=== PATIENT | male | born 1960 | race Caucasian/White ===

== ENCOUNTER 2020-07-14 13:22 | Outpatient (REF) | payer OTHER, SELFPAY ==
--- NOTE | 2020-07-14 | US_ITS ---
EXAMINATION: US RETROPERITONEAL LIMITED (RENAL ONLY) CLINICAL INFORMATION: Complex renal cyst. COMPARISON: Previous abdominal ultrasound November 2018, renal ultrasound March 2018, CT of the abdomen and pelvis February 2017 and abdominal MRI January 2016 TECHNIQUE: Grayscale and color imaging of the kidneys FINDINGS: RIGHT KIDNEY: 13.4 x 5.5 x 5.5 cm (SAG x AP x TRV). The kidney is normal in size, contour, and echogenicity. Renal cortical thickness is normal. There is a hypoechoic lesion exophytic to the lower pole of the right kidney. This is slightly irregularly-shaped and difficult to visualize and measure by ultrasound. This demonstrates some vascularity. Appearance is suggestive of a mass and not a complex cyst. This measures 3.2 x 2.2 x 2.4 cm. This may be increased in size from previous exams. No calculi. No hydronephrosis. LEFT KIDNEY: 12.8 x 5.6 x 6.2 cm (SAG x AP x TRV). The kidney is normal in size, contour, and echogenicity. Renal cortical thickness is normal. There is a small cyst in the upper pole measuring 6 x 8 mm. There is an echogenic density in the midpole with twinkle artifact and acoustic shadowing suggestive of a stone.. No hydronephrosis. US/US renal BI IMPRESSION: Hypoechoic lesion with some vascularity exophytic to the lower pole of the right kidney suggestive of a mass. This measures approximately 3.2 x 2.2 x 2.4 cm and may be increased size from previous exams. Follow-up CT or MRI of the kidneys is recommended. Left renal stone. Small left renal cyst. Findings will be communicated by the [employer] work flow curling machine operator Jennifer Rivera.
== END 2020-07-14 13:23 | disposition home or self-care (01) ==
LOC: HO.US 13:22
PROVIDERS: PCP Internal Medicine; Visit Provider Urology
DX: N28.1 Cyst of kidney, acquired (principal)
CPT/HCPCS: 76775

== ENCOUNTER 2020-07-18 07:59 | Outpatient (REF) | payer OTHER, SELFPAY ==
[2020-07-18 11:25] LABS: MANUAL DIFF FLAG NO
[2020-07-18 11:44] LABS: Basophils Absolute Auto 0.1 X10*3/uL (0.0-0.2); Basophils Percent Auto 1.1 % (0-2); Eosinophils Absolute Auto 0.4 X10*3/uL (0.0-0.4); Eosinophils Percent Auto 5.6 % (0-4); Hematocrit 41.7 % (42-52); Hemoglobin 12.3 g/dl (14.0-18.0); Imm Gran Abs Auto 0.03 X10*3/uL (0.00-0.03); Imm Gran Pct Auto 0.4 % (0.0-0.4); Lymphocytes Absolute Auto 1.5 X10*3/uL (1.2-4.9); Lymphocytes Percent Auto 21.8 % (20-40); Mean Corpuscular HGB Conc 29.5 g/dl (31.0-36.0); Mean Corpuscular Hemoglobin 24.2 pg (27.0-33.0); Mean Corpuscular Volume 82.1 fL (80-98); Mean Platelet Volume 10.3 fL (9.4-12.4); Monocytes Absolute Auto 0.7 X10*3/uL (0.1-1.2); Monocytes Percent Auto 9.6 % (2-11); Neutrophils Absolute Auto 4.3 X10*3/uL (2.0-8.3); Neutrophils Percent Auto 61.5 % (45-73); Platelet Count 214 X10*3/uL (160-400); Red Blood Count 5.08 X10*6/uL (4.60-5.80); Red Cell Distribution Width 14.1 % (11.0-16.0)
[2020-07-18 11:47] LABS: Prothrombin Time 11.3 SEC (10.8-13.0)
[2020-07-18 11:57] LABS: B Type Natriuretic Peptide 75 pg/mL (<100)
[2020-07-18 12:03] LABS: Blood Urea Nitrogen 9 mg/dL (9-16); Estimated Glomerular Filt Rate > 60
== END 2020-07-18 08:00 | disposition home or self-care (01) ==
LOC: HO.HMGCLDS 07:59
PROVIDERS: Absent Provider Urology; PCP Internal Medicine; Visit Provider Internal Medicine
DX: Z01.818 Encounter for other preprocedural examination (principal); K74.60 Unspecified cirrhosis of liver; I48.0 Paroxysmal atrial fibrillation; N26.1 Atrophy of kidney (terminal); N28.1 Cyst of kidney, acquired
CPT/HCPCS: 36415; 82565; 83880; 84520; 85025; 85610

== ENCOUNTER 2020-07-21 14:00 | Outpatient (REF) | payer OTHER, SELFPAY ==
--- NOTE | 2020-07-21 14:03 | MR_ITS ---
EXAMINATION: MR ABDOMEN WITHOUT AND WITH CONTRAST CLINICAL INFORMATION: Kidney cyst COMPARISON: Previous renal ultrasound most recent June 2020, CT of the abdomen and pelvis most recent February 2017 and MR of the abdomen January 2016 TECHNIQUE: MR abdomen was performed without and with use of 9 mL intravenous Gadavist gadolinium contrast. Postcontrast images are performed in multiphase dynamic sequences. Imaging was performed in 3 planes. FINDINGS: LUNG BASES: There is abnormal signal at the left lung base. Part of this triangular in shape. There is a small focus of oval shaped bright T2 signal along the diaphragmatic pleural surface. This is is not seen on all sequences and difficult to characterize. LIVER, GALLBLADDER, AND BILIARY TREE: There is signal loss in the liver on out of phase sequences suggestive of fatty infiltration. The left lobe and caudate lobe of the liver are prominent questionable for mild cirrhotic change. There is a small peripheral dark on T1 and bright on T2-weighted sequences nonenhancing lesion in the right lobe of the liver probably representing a cyst. There are multiple gallstones in the gallbladder. There is no biliary duct dilatation. There is a trace amount of ascites seen around the liver. PANCREAS: Unremarkable. SPLEEN: The spleen is slightly enlarged measuring measuring 13 cm in length. ADRENAL GLANDS: Normal. KIDNEYS AND URETERS: There is a lesion in the lower pole of the right kidney. This is low signal on T1-weighted sequences, slightly heterogeneous on T2-weighted sequences. This demonstrates enhancement following contrast suggestive of a solid mass.. This measures 1.8 x 1.4 x 2.2 cm AP transverse and longitudinal dimension. There is a second questionable lesion in the upper pole of the right kidney. This measures 7 mm. This is not well seen on precontrast images. This demonstrates questionable mild enhancement for example axial image 19 postcontrast There are bilateral small simple appearing renal cysts. GASTROINTESTINAL TRACT: There is diverticulosis of the colon. ABDOMINAL WALL: No significant hernia is appreciated. LYMPH NODES: There are small retroperitoneal lymph nodes. No enlarged nodes are seen. VASCULAR: There are small upper abdominal varices. Vascular structures are otherwise unremarkable. OSSEOUS STRUCTURES: Marrow signal normal. MR/MR abdomen wo/w con IMPRESSION: 1.8 x 1.4 x 2.2 cm solid enhancing lesion in the lower pole of the right kidney suggestive of a mass. 0.7 cm indeterminate lesion in the upper pole of the right kidney that is appreciated on postcontrast sequences only and difficult to characterize. Bilateral small renal simple cysts. Hypertrophy of the left lobe and caudate lobe of the liver suggestive of mild cirrhosis. Splenomegaly, trace ascites and upper abdominal varices. Gallstones. Abnormal signal at the left lung base. Diverticulosis of the colon.
== END 2020-07-21 14:01 | disposition home or self-care (01) ==
LOC: HO.MRI 14:00
PROVIDERS: Visit Provider Urology
DX: N28.1 Cyst of kidney, acquired (principal)
CPT/HCPCS: 74183; A9585

== ENCOUNTER → 2020-07-28 15:33 | Outpatient (BNVA) | payer OTHER, SELFPAY | PROVIDERS: PCP Internal Medicine; Visit Provider Anesthesiology ==

== ENCOUNTER 2021-10-12 11:42 | Outpatient (REF) | payer OTHER, SELFPAY ==
[2021-10-12 12:41] LABS: Alanine Aminotransferase 14 U/L (0-40); Alkaline Phosphatase 79 U/L (39-117); Anion Gap 13 (12-20); Aspartate Amino Transferase 18 U/L (5-37); Bilirubin Direct 0.2 mg/dL (0.0-0.5); Bilirubin Total 0.6 mg/dL (0.0-1.0); Blood Urea Nitrogen 16 mg/dL (9-16); Calcium 9.7 mg/dL (8.4-10.2); Carbon Dioxide 27 mmol/L (22-29); Chloride 105 mmol/L (96-108); Estimated Glomerular Filt Rate > 60; Glucose Random 118 mg/dL (60-115); Potassium 4.6 mmol/L (3.3-5.1); Sodium 140 mmol/L (135-145); Total Protein 7.2 g/dL (6.5-8.0)
== END 2021-10-12 11:43 | disposition home or self-care (01) ==
LOC: HO.LAB 11:42
PROVIDERS: PCP Internal Medicine; Visit Provider Psychiatry & Neurology Psychiatry
DX: F31.2 Bipolar disorder, current episode manic severe with psychotic features (principal)
CPT/HCPCS: 36415; 80048; 80076

== ENCOUNTER 2022-04-20 12:07 | Outpatient (REF) | payer OTHER, SELFPAY ==
[2022-04-20 14:02] LABS: MANUAL DIFF FLAG NO
[2022-04-20 14:10] LABS: Basophils Absolute Auto 0.1 X10*3/uL (0.0-0.2); Basophils Percent Auto 0.6 % (0-2); Eosinophils Absolute Auto 0.1 X10*3/uL (0.0-0.4); Eosinophils Percent Auto 1.8 % (0-4); Hematocrit 49.1 % (42.0-52.0); Hemoglobin 15.8 g/dl (14.0-18.0); Imm Gran Abs Auto 0.03 X10*3/uL (0.00-0.03); Imm Gran Pct Auto 0.4 % (0.0-0.4); Lymphocytes Absolute Auto 1.1 X10*3/uL (1.2-4.9); Lymphocytes Percent Auto 14.1 % (20-40); Mean Corpuscular HGB Conc 32.2 g/dl (31.0-36.0); Mean Corpuscular Hemoglobin 28.4 pg (27.0-33.0); Mean Corpuscular Volume 88.3 fL (80.0-98.0); Mean Platelet Volume 10.2 fL (9.4-12.4); Monocytes Absolute Auto 0.5 X10*3/uL (0.1-1.2); Monocytes Percent Auto 6.4 % (2-11); Neutrophils Absolute Auto 6.1 x10*3/uL (2.0-8.3); Neutrophils Percent Auto 76.7 % (45-73); Platelet Count 250 X10*3/uL (160-400); Red Blood Count 5.56 X10*6/uL (4.60-5.80); Red Cell Distribution Width 13.3 % (11.0-16.0)
[2022-04-20 14:19] LABS: Alanine Aminotransferase 12 U/L (0-40); Albumin Level 4.5 g/dL (3.5-5.0); Alkaline Phosphatase 95 U/L (39-117); Anion Gap 15 (12-20); Aspartate Amino Transferase 17 U/L (5-37); Bilirubin Total 0.6 mg/dL (0.0-1.0); Blood Urea Nitrogen 12 mg/dL (9-16); Calcium 9.9 mg/dL (8.4-10.2); Carbon Dioxide 26 mmol/L (22-29); Chloride 105 mmol/L (96-108); Estimated Glomerular Filt Rate > 60; Glucose Random 108 mg/dL (60-115); Potassium 4.2 mmol/L (3.3-5.1); Sodium 142 mmol/L (135-145); Total Protein 8.1 g/dL (6.5-8.0)
[2022-04-20 14:42] LABS: TSH reflex Free T4 0.99 uIU/mL (0.32-4.0)
[2022-04-20 14:56] LABS: Vitamin B12 881 pg/mL (200-900)
[2022-04-21 16:27] LABS: LDL Cholesterol Direct 136 mg/dL (<100)
[2022-04-24 16:37] LABS: Vitamin D 25-OH, D2 <4 ng/mL; Vitamin D 25-OH, D3 32 ng/mL; Vitamin D 25-OH, Total 32 ng/mL (30-100)
== END 2022-04-20 12:08 | disposition home or self-care (01) ==
LOC: HO.HMGCLDS 12:07
PROVIDERS: PCP Internal Medicine; Visit Provider Internal Medicine
DX: Z00.01 Encounter for general adult medical examination with abnormal findings (principal); K74.60 Unspecified cirrhosis of liver; K21.9 Gastro-esophageal reflux disease without esophagitis; J45.909 Unspecified asthma, uncomplicated; F99 Mental disorder, not otherwise specified; Z72.0 Tobacco use
CPT/HCPCS: 36415; 80053; 82306; 82607; 83721; 84443; 85025

== ENCOUNTER 2022-05-05 16:04 | Outpatient (REF) | payer OTHER, SELFPAY ==
[2022-05-06 06:54] LABS: Prothrombin Time 11.9 SEC (10.0-13.1)
== END 2022-05-05 16:05 | disposition home or self-care (01) ==
LOC: HO.LAB 16:04
PROVIDERS: Visit Provider Internal Medicine
DX: K70.31 Alcoholic cirrhosis of liver with ascites (principal)
CPT/HCPCS: 36415; 82105; 85610

== ENCOUNTER 2022-05-24 13:12 | Outpatient (REF) | payer OTHER, SELFPAY ==
[2022-05-24 15:54] LABS: Anion Gap 13 (12-20); Blood Urea Nitrogen 9 mg/dL (9-16); Calcium 9.8 mg/dL (8.4-10.2); Carbon Dioxide 27 mmol/L (22-29); Chloride 101 mmol/L (96-108); Cholesterol 192 mg/dL; Estimated Glomerular Filt Rate > 60; Glucose Fasting 88 mg/dL (60-99); Glucose Random 88 mg/dL (60-115); HDL Cholesterol 40 mg/dL; LDL Cholesterol Calculated 121 mg/dl; Potassium 4.2 mmol/L (3.3-5.1); Sodium 137 mmol/L (135-145); Triglycerides 158 mg/dL
== END 2022-05-24 13:13 | disposition home or self-care (01) ==
LOC: HO.LAB 13:12
PROVIDERS: PCP Internal Medicine; Visit Provider Psychiatry & Neurology Psychiatry
DX: F31.2 Bipolar disorder, current episode manic severe with psychotic features (principal)
CPT/HCPCS: 36415; 80048; 80061; 82947

== ENCOUNTER 2022-05-24 13:28 | Day surgery (SDC) | payer OTHER, SELFPAY ==
[2022-05-24 13:39] VITALS: BMI 29.5
[2022-05-24 13:50] VITALS: BP 155/69; PULSE 67; RESP 16; TEMP 36.8; O2SAT 98
[2022-05-24] MEDS: Sodium Phosphate,Mono-Dibasic 133 ML ENEMA PR ×2 (14:02→14:28)
--- NOTE | 2022-05-24 14:04 | HO.ANESPROP2 ---
[facility] Active Problems Active Problems: All Active Problems (Updated 05/24/22 @ 13:38 by Aleyda Baker RN) Asthma, mild (Acute) Complex renal cyst (Acute) Pre-op evaluation (Acute) Liver cirrhosis (Acute) Back pain (Acute) Psychiatric illness (Acute) Encounter for general adult medical examination with abnormal findings (Acute) Ventral hernia (Acute) Skin cancer screening (Acute) Erectile dysfunction (Acute) Difficulty sleeping (Acute) Anxiety, generalized (Acute) Porcelain gallbladder (Acute) Ascites (Acute) Alcohol abuse (Acute) Irritable bowel syndrome (Acute) Chronic GERD (Acute) Paroxysmal atrial fibrillation (Acute) Tobacco abuse (Acute) Past Medical History Medical History Alcohol abuse Anxiety, generalized Ascites Chronic GERD CVA (cerebral vascular accident) Difficulty sleeping Irritable bowel syndrome Paroxysmal atrial fibrillation Porcelain gallbladder Tobacco abuse Family History Family History Father Cerebrovascular disease Diabetes mellitus HTN (hypertension) Hx of CABG Mother Lung cancer Maternal Grandmother Myocardial infarction Maternal Grandfather Lung cancer Paternal Grandmother Cerebrovascular disease Paternal Uncle Lung cancer Brother No problems noted. Brother No problems noted. Son No problems noted. Son No problems noted. Other Mental health disorder Substance use disorder Family history of problems with anesthesia: No Surgical History Surgical History H/O exploratory laparotomy History of colonoscopy Hx of esophagogastroduodenoscopy History of Problems with Anesthesia: No Social History Social History Housing: House Alcohol intake: current Alcohol intake frequency: former alcohol drinker Patient Tobacco Use Status: Current everyday Tobacco user Tobacco use type: Cigarette Cigarette Packs Per Day: 1 Cigarettes Per Day: 20 Years Smoked: 50 years e-Cigarette/Vaping Use: Currently Using Use of substances other than those prescribed or required for medical reasons: Yes Substance Use Frequency: Daily Are you DNR?: No Advance Directives: No Advance Directives Information Provided: Yes Current occupational status: disabled Cognitive needs: No Hearing needs: No Vision needs: Yes Meds Allergies Allergy/AdvReac Type Severity Reaction Status Date / Time duloxetine Allergy Unknown psychotic Verified 05/18/22 15:12 episodes lorazepam [From ATIVAN] AdvReac Unknown AGITATION Verified 05/18/22 15:12 Active Medications: Current Medications Sodium Biphosphate/Sodium Phosphate (Sodium Phosphate,[place]-Dibasic 133 Ml Enema) 133 ml TN ONCE PRN PRN Reason: Poor Colonoscopy Prep Results Home Medications Medication Instructions Recorded Confirmed Last Taken Type albuterol sulfate 90 mcg/actuation inhalation 05/30/20 05/18/22 Unknown History aerosol inhaler olanzapine 10 mg tablet 10 mg PO BEDTIME 01/19/22 05/18/22 05/24/22 09:00 History oxcarbazepine 150 mg tablet 150 mg PO BID 05/17/22 05/18/22 Unknown History trazodone 100 mg tablet 100 mg PO BEDTIME 05/17/22 05/18/22 Unknown History trazodone 150 mg tablet 150 mg PO BEDTIME 05/17/22 05/18/22 Unknown History omeprazole 20 mg capsule,delayed 20 mg PO DAILY PRN Heartburn 05/24/22 Unknown History release Exam Exam Date and Time: May 24, 2022 1404 Height,Weight and Vital Signs: Height 5 ft 9 in Weight 90.718 kg Airway Mallampati Class: III TM Dist: >3cm Neck ROM: Full Assessment and Plan Assessment Anesthesia Assessment: Anesthesia Plan Discussed and Chart Reviewed Final Anesthetic Review Family History of Problems with Anesthesia: No History of Problems with Anesthesia: No NPO: Yes ASA Class: III Final Preanesthetic Review: No Changes in Pt Med Stat, Meds/Allgs Chart Reviewed, Consent Obtained/Reviewed and Anes Risks/Benef Reviewed Patient Risk: Intermediate Procedure Risk: Low Anesthetic Plan Anesthetic Plan: MAC: Disposition: Standard PACU
[2022-05-24] MEDS: Lactated Ringers 1,000 ML 100 ML IVCONT (14:07)
[2022-05-24 15:47] VITALS: BP 141/84; PULSE 93; RESP 16; TEMP 36.4; O2SAT 98
--- NOTE | 2022-05-24 15:53 | PM.OP ---
Brief Operative Note Date of Service: 05/24/22 Pre-op diagnosis: Cirrhosis, Screening Post-op diagnosis: other (Erosive esophagitis, Esophageal varices, Gastritis/Gastropathy, Hiatal hernia, Colon polyps not removed due to poor prep, Diverticulosis, Internal hemorrhoids) Procedure: EGD, Colonoscopy to the cecum Surgeon: Frankie Reyes Anesthesia: MAC Was an Railroad Wheels And Axle Inspector used for this Procedure?: No Estimated blood loss (mL): 0 Pathology: none sent Condition: stable Disposition: PACU
[2022-05-24 16:02] VITALS: BP 154/89; PULSE 79; RESP 18; O2SAT 96
[2022-05-24 16:17] VITALS: BP 144/67; PULSE 73; RESP 18; O2SAT 97
[2022-05-24 16:32] VITALS: BP 158/74; PULSE 60; RESP 18; TEMP 37.1; O2SAT 98
--- NOTE | 2022-05-25 03:23 | OP_ITS ---
SURGEON: Frankie Reyes MD INDICATIONS: The patient presents for evaluation of an underlying history of cirrhosis, a personal history of colon polyps, and need for colorectal cancer screening. Full consent has been obtained from him for this, including risks of bleeding and perforation. PREOPERATIVE DIAGNOSIS: POSTOPERATIVE DIAGNOSIS: PROCEDURE PERFORMED: Esophagogastroduodenoscopy, and colonoscopy to the cecum. ESTIMATED BLOOD LOSS: COMPLICATIONS: ANESTHESIA: Monitored anesthesia care. ASSISTANTS: SPECIMENS: DESCRIPTION OF PROCEDURE: The patient was placed in the left lateral decubitus position. The Olympus video gastroscope was passed in the posterior oropharynx and upper esophagus under direct vision. The scope was passed slowly to the distal esophagus. The gastroesophageal junction appeared at 36 cm. Extending from this for 3 to 4 cm were significant areas of erosive esophagitis with overlying exudate. There was no mass, stricture, nor any definitive Morelos's mucosa. Extending from the distal esophagus to approximately 30 cm were 2 chains of varices at the 6 o'clock and 12 o'clock position but without any sign of red murray, bleeding, nor other stigmata of recent bleeding. The scope entered into the stomach. There was a small hiatal hernia. The scope was advanced to pylorus and the duodenum was cannulated to the descending portion. The duodenum including the bulb appeared normal without mass or ulceration. The scope was withdrawn back in the stomach. The gastric antrum and body had changes of some gastritis with edema and erythema. The scope was retroflexed visualizing the proximal stomach carefully which appeared more consistent with a portal gastropathy, but without any sign of gastric varices. The scope was straightened and withdrawn back to the esophagus. Again noted was the significant erosive esophagitis and the above described chains of varices to approximately 30 cm. The scope was withdrawn from the patient. He was turned around for colonoscopy. The digital rectal exam revealed no abnormalities. The Olympus video pediatric colonoscope was entered into the rectum, advanced easily to the cecum. Once in the cecum I did identify cecal pouch, although visualization was limited due to a lot of brown liquid stool. The appendiceal orifice was visualized and the ileocecal valve appeared normal. The scope was then slowly withdrawn assessing all mucosal surfaces carefully. Unfortunately, preparation was quite limited throughout the colon due to a lot of dark brown liquid stool. At times, I was able to visualize some polyps approximately 10 to 12 mm in diameter, but these were not removed nor biopsied due to the very poor prep and their gross appearance. I did not visualize any sign of colitis nor masses. There was a moderate amount of sigmoid diverticulosis. In the rectum, scope was retroflexed visualizing internal hemorrhoids, but no other pathology. The rectal mucosa otherwise appeared normal. The scope was straightened and withdrawn from the patient. He tolerated both procedures well and was returned to recovery area in stable condition. IMPRESSION: 1. Erosive esophagitis. 2. Esophageal varices. 3. Hiatal hernia. 4. Portal gastropathy. 5. Limited colonoscopy due to poor prep but with some polyps visualized but not biopsied nor removed. 6. Diverticulosis. 7. Internal hemorrhoids. PLAN: The patient is currently not using any medication for reflux. I shall send him home on a prescription to start omeprazole 40 mg twice a day for least 2 months and then we can switch it down to just once a day long-term. He has been advised to avoid all aspirin and NSAIDs long-term as well. I shall also restart him on his beta-guanakito of nadolol 20 mg daily. He did have recent labs including alpha fetoprotein level and PT with INR, which appeared normal. I did advise him to keep his appointment for the ultrasound of his abdomen scheduled for May. He was advised to see me again in August or September for followup office visit and then he should have a repeat colonoscopy in 1 year with hopefully a better clean out. He was advised to continue his long-term sobriety as well as he has now been sober for almost 1-1/2 years. He was advised to call me sooner as needed. This has all been discussed with his in detail. He was advised to call sooner as needed. MD DEBI Neff/AVI / [phone] HENIRK
== END 2022-05-24 16:46 | disposition home or self-care (01) ==
PROVIDERS: PCP Internal Medicine; Visit Provider Internal Medicine
PROC: (CPT 43235; principal; 2022-05-24 14:30)
DX: Z12.11 Encounter for screening for malignant neoplasm of colon (principal); K57.30 Diverticulosis of large intestine without perforation or abscess without bleeding; K64.8 Other hemorrhoids; Z86.010 Personal history of colon polyps; K20.80 Other esophagitis without bleeding; K44.9 Diaphragmatic hernia without obstruction or gangrene; I85.10 Secondary esophageal varices without bleeding; K76.6 Portal hypertension; K31.89 Other diseases of stomach and duodenum; K70.31 Alcoholic cirrhosis of liver with ascites; I10 Essential (primary) hypertension; J45.909 Unspecified asthma, uncomplicated; Z79.899 Other long term (current) drug therapy
CPT/HCPCS: 43235; 45378; J2250

== ENCOUNTER 2022-06-11 10:24 | Outpatient (REF) | payer OTHER, SELFPAY ==
--- NOTE | ~2022-06-11 | US_ITS ---
EXAMINATION: US COMPLETE ABDOMEN WITH LIVER ELASTOGRAPHY CLINICAL INFORMATION: Alcoholic cirrhosis of the liver with ascites. COMPARISON: None. TECHNIQUE: Real-time imaging of the abdominal viscera. Noninvasive ultrasound liver fibrosis assessment is performed using Alana ElastPQ point quantification shear wave elastography (2D-SWE) with a C5-2 MHz transducer. Multiple elastography samples are obtained. FINDINGS: PANCREAS: The visualized pancreatic head and body are normal in appearance. The remainder of the pancreas is obscured from visualization by the overlying bowel gas. ABDOMINAL AORTA: The proximal and middle abdominal aortic segments are normal. The distal segment is obscured by overlying gas. INFERIOR VENA CAVA: Visualized portions are normal. LIVER: The liver demonstrates normal size, lobulated contour and an heterogeneous echotexture. No focal lesion or intrahepatic biliary duct dilatation. There is trace free fluid around the right hepatic lobe. The right lobe measures 19.9 cm in length. The left lobe measures 11.3 cm in length. Portal flow is hepatopedal. Shear wave liver elastography median stiffness is 1.95 m/s (reference: normal median stiffness is 1.3 m/s or less). IQR/median stiffness to assess sampling precision is 0.06 (reference: good quality data set is IQR/median stiffness of 0.15 or less). GALLBLADDER: The gallbladder is physiologically distended with echogenic stone measuring 2.6 x 2.5 x 2.3 cm. No sludge, polyps, wall thickening or pericholecystic fluid. COMMON BILE DUCT: Normal in caliber measuring 0.4 cm in diameter. RIGHT KIDNEY: There is a hypoechoic lesion in the lower pole measuring 4.3 x 2.3 x 4.5 cm. Previously it measured 3.2 x 2.2 x 2.4 cm. No hydronephrosis. No renal calculi or focal parenchymal lesions. The kidney measures 13.1 cm in maximum dimension. LEFT KIDNEY: There are echogenic stones in the lower pole measuring 0.2 x 0.2 x 0.3 cm and midpole measuring 0.3 x 0.2 x 0.3 cm. No caliectasis seen. There is mild fullness of the left kidney pelvis. The kidney measures 13.5 cm in maximum dimension. SPLEEN: Normal. The spleen measures 13.0 cm in maximum dimension. FREE FLUID: None. US/US abdomen comp w elastography IMPRESSION: 1. Heterogeneous cirrhotic liver with trace free fluid around the right hepatic lobe. There is no focal lesion. 2. Cholelithiasis without wall thickening. 3. Lower pole right renal mass slight increase in size and hypervascular. 4. Nonobstructive echogenic left renal calculi with mild pelvic fullness. 2. Liver elastography: Median liver stiffness measures 1.95 m/s which corresponds to cACLD (suggestive). REFERENCE: Society of Radiologists in Ultrasound Liver Stiffness Thresholds (2020): LIVER STIFFNESS THRESHOLDS: *Liver Stiffness equal or less than 1.3 m/s: High probability of being normal. *Liver Stiffness less than 1.7 m/s: In the absence of other known clinical signs, rules out compensated advanced chronic liver disease. *Liver Stiffness 1.7-2.1 m/s: Suggestive of compensated advanced chronic liver disease but need further test for confirmation. *Liver Stiffness over 2.1 m/s: Rules in compensated advanced chronic liver disease. *Liver Stiffness over 2.4 m/s: Suggestive of clinically significant portal hypertension. QUALITY OF DATA SET: *IQR/Median value equal or less than 0.15 implies a quality data set. *IQR/Median value over 0.15 implies a poor quality data set. SIGNIFICANT CHANGE FROM PRIOR EXAM: Significant change if liver stiffness measurement is 10% or greater from prior exam. OTHER CONSIDERATIONS: The stage of liver fibrosis may be overestimated in the setting of acute hepatitis, liver inflammation, elevated liver function tests, hepatic vascular congestion, obstructive cholestasis, non-fasting state, and infiltrative diseases such as amyloidosis and lymphoma. In some patients with NAFLD, the liver stiffness thresholds for compensated advanced chronic liver disease may be lower. In causes other than viral hepatitis and NAFLD, liver stiffness thresholds are not well established.
== END 2022-06-11 10:25 | disposition home or self-care (01) ==
LOC: HO.US 10:24
PROVIDERS: Visit Provider Internal Medicine
DX: K70.31 Alcoholic cirrhosis of liver with ascites (principal)
CPT/HCPCS: 76705; 76981

== ENCOUNTER 2022-06-14 13:23 | Outpatient (REF) | payer OTHER, SELFPAY ==
--- NOTE | ~2022-06-14 | MR_ITS ---
EXAMINATION: MR ABDOMEN WITHOUT AND WITH CONTRAST CLINICAL INFORMATION: Renal cyst COMPARISON: MR abdomen 07/21/2020 TECHNIQUE: MRI of the abdomen before and after the IV administration of 9 mL of Gadavist was obtained using routine sequences. FINDINGS: Exam is significantly technically limited as the upper abdomen was obscured from the axial field of view including portions of the liver, stomach and spleen. LUNG BASES: Similar trace loculated left basilar pleural effusion with adjacent basilar airspace opacities. KIDNEYS AND URETERS: Increasing size of a heterogeneously enhancing right lower pole renal mass measuring 3.4 x 2.3 cm, previously 3.1 x 2.1 cm. This appears to be newly invading the lower pole renal sinus fat with new medial extension of the tumor towards the renal hilum. No definite extension into the renal veins is identified with confidence. Bosniak 1 benign-appearing left renal cyst, no imaging follow-up recommended. GALLBLADDER: Cholelithiasis without evidence of acute cholecystitis. LIVER AND BILIARY TREE: Trace perihepatic ascites.Subtle contour nodularity of the liver recommend correlation with risk factors for cirrhosis. There is loss of signal on opposed phase imaging suggesting hepatic steatosis. No intra or extrahepatic biliary duct dilatation. PANCREAS: Unremarkable SPLEEN: Spleen is enlarged measuring 13.3 cm in span. ADRENAL GLANDS: Unremarkable GASTROINTESTINAL TRACT: Unremarkable. LYMPH NODES: No lymphadenopathy. VASCULAR: 2 right renal veins are present. Circumaortic left renal vein. ABDOMINAL WALL: Unremarkable. OSSEOUS STRUCTURES: Grade 2 anterolisthesis of L5 on S1. MR/MR kidney wo/w con IMPRESSION: Increasing size of a heterogeneously enhancing right lower pole renal mass measuring 3.4 cm, which remain suspicious for renal cell carcinoma. This appears to be newly invading the lower pole renal sinus fat with new medial extension of the tumor towards the renal hilum. No definite extension into the renal veins is identified with confidence. Subtle contour nodularity of the liver raising suspicion for possible cirrhosis with hepatic steatosis. Sequelae of portal hypertension including splenic megaly and trace perihepatic ascites. Cholelithiasis that evidence of acute cholecystitis. Similar trace loculated left basilar pleural effusion with adjacent basilar airspace opacities. Exam is significantly technically limited as the upper abdomen was obscured from the axial field of view including portions of the liver, stomach and spleen. As this exam was dictated after hours, a [employer] senior windows administrator will contact the ordering provider with findings and recommendations at the start of the next business day.
== END 2022-06-14 13:24 | disposition home or self-care (01) ==
LOC: HO.MRI 13:23
PROVIDERS: Visit Provider Urology
DX: N28.1 Cyst of kidney, acquired (principal)
CPT/HCPCS: 74181; A9585

== ENCOUNTER → 2022-06-22 13:04 | Outpatient (BNVA) | payer OTHER, SELFPAY | PROVIDERS: PCP Internal Medicine; Visit Provider Urology | DX: C64.9 Malignant neoplasm of unspecified kidney, except renal pelvis (principal) ==

== ENCOUNTER 2022-08-19 07:51 | Outpatient (REF) | payer OTHER, SELFPAY ==
--- NOTE | ~2022-08-19 | CT_ITS ---
EXAMINATION: CT ABDOMEN WITHOUT AND WITH CONTRAST CLINICAL INFORMATION: Kidney cancer. COMPARISON: Previous MR of the kidneys 05/2022, abdominal ultrasound 05/[address] 02/2017. TECHNIQUE: Contiguous axial thin section helical images of the abdomen were performed before and after the administration of oral contrast and 85 mL of Omnipaque 350 intravenous contrast. The data set was reformatted in the coronal and sagittal planes and reviewed on an independent workstation. This CT examination was performed using dose optimization techniques as appropriate, variously including the following: *Automated exposure control *Adjustment of mA and/or kV according to patient size (this includes techniques or standardized protocols for targeted exams where dose is matched to indication/reason for exam; i.e. extremities or head) *Use of iterative reconstruction technique DLP: 395 mGy-cm FINDINGS: LUNG BASES: See chest CT report from the same day. LIVER, GALLBLADDER, AND BILIARY TREE: The liver is cirrhotic. There is an area of decreased enhancement seen in the lateral right lobe of the liver, for example, axial image 33, series 5. No corresponding abnormality is seen on MRI May 2022. Hepatic veins and portal veins are patent. Gallstones. No biliary duct dilatation. Trace ascites around the liver. PANCREAS: Unremarkable. SPLEEN: Slightly enlarged measuring 14 cm in length. ADRENAL GLANDS AND KIDNEYS: There is a small subcentimeter right adrenal nodule. The left adrenal gland is normal. There is an enhancing mass in the lower pole of the right kidney worrisome for neoplasm. This extends into the inferior renal sinus. This measures 5.1 cm in longitudinal dimension and 3 x 4 cm in AP and transverse dimension. There is some stranding of the adjacent perinephric fat. There is a second indeterminate lesion in the upper pole of the right kidney. This is difficult to appreciate precontrast. This measures 1 cm postcontrast axial image 61, series 5 in the upper pole. Hounsfield units postcontrast measure 58. It is difficult to obtain accurate precontrast measurements as it cannot be visualized. This may be slightly increased from 7 x 8 mm on prior MRI 2020. There are small bilateral renal stones. There are small bilateral subcentimeter renal cysts. No imaging follow up of renal cysts is recommended. No hydronephrosis. BOWEL LOOPS: Unremarkable. LYMPH NODES: Small retroperitoneal lymph nodes. No enlarged lymph nodes. VASCULAR: Small upper abdominal varices. Patent right renal vein. Patent IVC. Patent hepatic and portal veins. Atherosclerotic disease. No aneurysm. BONES: Spondylolysis, spondylolisthesis and degenerative disc disease at L5-S1. CT/CT abdomen wo/w IV con IMPRESSION: 3 x 4 x 5 cm mass in the lower pole of the right kidney, worrisome for neoplasm. Second 1 cm suspicious lesion in the upper pole of the right kidney. Small bilateral renal cysts. Small bilateral renal stones. Possible infiltration of the lower anterior perinephric fat. Small right adrenal nodule. Cirrhotic-appearing liver. Subtle area of decreased enhancement in the peripheral right lobe. No corresponding abnormality seen on previous MRI in this region. Gallstones. Small upper abdominal varices, splenomegaly and trace ascites. Fleischner guidelines were followed.
--- NOTE | ~2022-08-19 | CT_ITS ---
EXAMINATION: CT CHEST WITH CONTRAST CLINICAL INFORMATION: Renal mass COMPARISON: Previous chest CT scans most recent March 2018 TECHNIQUE: Multidetector volumetric CT imaging of the chest was obtained after the administration of 85 mL of Omnipaque 350 intravenous contrast without immediate adverse reactions. Axial MIP volume rendering provided. Sagittal and coronal reformatted images were obtained. This CT examination was performed using dose optimization techniques as appropriate, variously including the following: *Automated exposure control *Adjustment of mA and/or kV according to patient size (this includes techniques or standardized protocols for targeted exams where dose is matched to indication/reason for exam; i.e. extremities or head) *Use of iterative reconstruction technique DLP: 3 95 mGy-cm FINDINGS: LUNGS: Subsegmental atelectasis along the minor fissure, new. Stable 3 mm right middle lobe nodule axial image 105 series 5. New 4 mm lingular nodule axial image 123 series 5. Stable subsegmental atelectasis in the lingula. Stable chronic question round atelectasis in the left lower lobe. MEDIASTINUM: Normal thyroid gland. Small diffuse shotty mediastinal lymphadenopathy. Small shotty bilateral hilar lymphadenopathy. No enlarged lymph nodes. Normal heart size. Mild coronary artery calcification. No pericardial effusion. PLEURA: Stable chronic left pleural thickening or tiny effusion. AXILLA: Bilateral gynecomastia. Varices in the left chest wall. No enlarged axillary lymph nodes. UPPER ABDOMEN: See abdominal and pelvic CT from the same day OSSEOUS STRUCTURES: Degenerative changes of the spine. CT/CT chest w IV con IMPRESSION: New subsegmental atelectasis along the minor fissure and 4 mm lingular nodule. Other stable findings from previous chest CT March 2018.. Fleischner guidelines were followed.
[2022-08-19] MEDS: iohexoL 350 MG/ML 100 ML INFUS..BTL IV (09:09)
[2022-08-19 13:29] LABS: Creatinine POC 0.7 mg/dL (0.5-1.4); GFR POC > 60
== END 2022-08-19 07:52 | disposition home or self-care (01) ==
LOC: HO.CT 07:51
PROVIDERS: PCP Internal Medicine; Visit Provider Urology
DX: C64.9 Malignant neoplasm of unspecified kidney, except renal pelvis (principal)
CPT/HCPCS: 71260; 74170; 82565; Q9967

== ENCOUNTER 2022-11-02 14:48 | Outpatient (REF) | payer OTHER, SELFPAY ==
[2022-11-02 14:58] LABS: MANUAL DIFF FLAG NO
[2022-11-02 15:24] LABS: Basophils Absolute Auto 0.1 X10*3/uL (0.0-0.2); Basophils Percent Auto 0.5 % (0-2); Eosinophils Absolute Auto 0.1 X10*3/uL (0.0-0.4); Eosinophils Percent Auto 1.5 % (0-4); Hematocrit 27.5 % (42.0-52.0); Hemoglobin 8.3 g/dl (14.0-18.0); Imm Gran Abs Auto 0.04 X10*3/uL (0.00-0.03); Imm Gran Pct Auto 0.4 % (0.0-0.4); Lymphocytes Absolute Auto 1.9 X10*3/uL (1.2-4.9); Lymphocytes Percent Auto 20.5 % (20-40); Mean Corpuscular HGB Conc 30.2 g/dl (31.0-36.0); Mean Corpuscular Hemoglobin 27.8 pg (27.0-33.0); Mean Platelet Volume 10.2 fL (9.4-12.4); Monocytes Absolute Auto 0.8 X10*3/uL (0.1-1.2); Monocytes Percent Auto 9.1 % (2-11); Neutrophils Absolute Auto 6.3 x10*3/uL (2.0-8.3); Platelet Count 273 X10*3/uL (160-400); Red Blood Count 2.99 X10*6/uL (4.60-5.80); Red Cell Distribution Width 16.1 % (11.0-16.0); White Blood Count 9.3 X10*3/uL (4.8-10.8)
[2022-11-02 16:16] LABS: Alanine Aminotransferase 7 U/L (0-40); Albumin Level 2.8 g/dL (3.5-5.0); Alkaline Phosphatase 113 U/L (39-117); Anion Gap 13 (12-20); Aspartate Amino Transferase 12 U/L (5-37); Bilirubin Total 0.5 mg/dL (0.0-1.0); Blood Urea Nitrogen 11 mg/dL (9-16); Calcium 8.4 mg/dL (8.4-10.2); Carbon Dioxide 26 mmol/L (22-29); Chloride 107 mmol/L (96-108); Estimated Glomerular Filt Rate 46; Glucose Random 116 mg/dL (60-115); Potassium 4.2 mmol/L (3.3-5.1); Sodium 142 mmol/L (135-145); Total Protein 6.2 g/dL (6.5-8.0)
== END 2022-11-02 14:49 | disposition home or self-care (01) ==
LOC: HO.HVNA 14:48
PROVIDERS: Visit Provider Student in an Organized Health Care Education/Training Program
DX: N28.9 Disorder of kidney and ureter, unspecified (principal); Z79.2 Long term (current) use of antibiotics
CPT/HCPCS: 36415; 80053; 85025

== ENCOUNTER 2022-11-09 13:32 | Outpatient (REF) | payer OTHER, SELFPAY ==
[2022-11-09 13:38] LABS: MANUAL DIFF FLAG NO
[2022-11-09 14:13] LABS: Basophils Percent Auto 0.7 % (0-2); Eosinophils Absolute Auto 0.2 X10*3/uL (0.0-0.4); Eosinophils Percent Auto 3.5 % (0-4); Hematocrit 27.9 % (42.0-52.0); Hemoglobin 8.7 g/dl (14.0-18.0); Imm Gran Abs Auto 0.02 X10*3/uL (0.00-0.03); Imm Gran Pct Auto 0.3 % (0.0-0.4); Lymphocytes Absolute Auto 1.4 X10*3/uL (1.2-4.9); Lymphocytes Percent Auto 22.8 % (20-40); Mean Corpuscular HGB Conc 31.2 g/dl (31.0-36.0); Mean Corpuscular Hemoglobin 27.3 pg (27.0-33.0); Mean Corpuscular Volume 87.5 fL (80.0-98.0); Mean Platelet Volume 10.4 fL (9.4-12.4); Monocytes Absolute Auto 0.5 X10*3/uL (0.1-1.2); Monocytes Percent Auto 7.6 % (2-11); Neutrophils Absolute Auto 3.9 x10*3/uL (2.0-8.3); Neutrophils Percent Auto 65.1 % (45-73); Platelet Count 246 X10*3/uL (160-400); Red Blood Count 3.19 X10*6/uL (4.60-5.80); Red Cell Distribution Width 15.1 % (11.0-16.0); White Blood Count 6.1 X10*3/uL (4.8-10.8)
[2022-11-09 14:29] LABS: Alanine Aminotransferase 6 U/L (0-40); Albumin Level 2.6 g/dL (3.5-5.0); Alkaline Phosphatase 108 U/L (39-117); Anion Gap 13 (12-20); Aspartate Amino Transferase 15 U/L (5-37); Bilirubin Total 0.5 mg/dL (0.0-1.0); Blood Urea Nitrogen 11 mg/dL (9-16); Calcium 7.3 mg/dL (8.4-10.2); Carbon Dioxide 24 mmol/L (22-29); Chloride 104 mmol/L (96-108); Estimated Glomerular Filt Rate 53; Glucose Random 81 mg/dL (60-115); Potassium 4.4 mmol/L (3.3-5.1); Sodium 137 mmol/L (135-145); Total Protein 6.4 g/dL (6.5-8.0)
== END 2022-11-09 13:33 | disposition home or self-care (01) ==
LOC: HO.HVNA 13:32
PROVIDERS: Visit Provider Student in an Organized Health Care Education/Training Program
DX: K83.8 Other specified diseases of biliary tract (principal)
CPT/HCPCS: 36415; 80053; 85025

== ENCOUNTER 2022-11-17 13:21 | Outpatient (REF) | payer OTHER, SELFPAY ==
[2022-11-17 13:25] LABS: MANUAL DIFF FLAG NO
[2022-11-17 13:37] LABS: Basophils Absolute Auto 0.1 X10*3/uL (0.0-0.2); Eosinophils Absolute Auto 0.3 X10*3/uL (0.0-0.4); Eosinophils Percent Auto 4.9 % (0-4); Hematocrit 31.8 % (42.0-52.0); Hemoglobin 9.6 g/dl (14.0-18.0); Imm Gran Abs Auto 0.02 X10*3/uL (0.00-0.03); Imm Gran Pct Auto 0.3 % (0.0-0.4); Lymphocytes Absolute Auto 1.5 X10*3/uL (1.2-4.9); Lymphocytes Percent Auto 25.5 % (20-40); Mean Corpuscular HGB Conc 30.2 g/dl (31.0-36.0); Mean Corpuscular Hemoglobin 26.1 pg (27.0-33.0); Mean Corpuscular Volume 86.4 fL (80.0-98.0); Mean Platelet Volume 10.2 fL (9.4-12.4); Monocytes Absolute Auto 0.5 X10*3/uL (0.1-1.2); Monocytes Percent Auto 7.8 % (2-11); Neutrophils Absolute Auto 3.6 x10*3/uL (2.0-8.3); Neutrophils Percent Auto 60.5 % (45-73); Platelet Count 317 X10*3/uL (160-400); Red Blood Count 3.68 X10*6/uL (4.60-5.80); Red Cell Distribution Width 15.1 % (11.0-16.0); White Blood Count 5.9 X10*3/uL (4.8-10.8)
[2022-11-17 15:24] LABS: Alanine Aminotransferase 6 U/L (0-40); Albumin Level 3.1 g/dL (3.5-5.0); Alkaline Phosphatase 110 U/L (39-117); Anion Gap 14 (12-20); Aspartate Amino Transferase 14 U/L (5-37); Bilirubin Total 0.5 mg/dL (0.0-1.0); Blood Urea Nitrogen 10 mg/dL (9-16); Carbon Dioxide 27 mmol/L (22-29); Chloride 105 mmol/L (96-108); Estimated Glomerular Filt Rate 53; Glucose Random 82 mg/dL (60-115); Potassium 4.5 mmol/L (3.3-5.1); Sodium 141 mmol/L (135-145); Total Protein 7.3 g/dL (6.5-8.0)
== END 2022-11-17 13:22 | disposition home or self-care (01) ==
LOC: HO.HVNA 13:21
PROVIDERS: Visit Provider Student in an Organized Health Care Education/Training Program
DX: K83.8 Other specified diseases of biliary tract (principal); K68.19 Other retroperitoneal abscess
CPT/HCPCS: 36415; 80053; 85025

== ENCOUNTER → 2022-12-08 08:17 | Outpatient (BNV) | payer OTHER, SELFPAY | PROVIDERS: Visit Provider Internal Medicine | DX: C64.9 Malignant neoplasm of unspecified kidney, except renal pelvis (principal) | CPT/HCPCS: 99205; 99213; 99214 ==

== ENCOUNTER 2022-12-27 10:10 | Outpatient (REF) | payer OTHER, SELFPAY | END 2022-12-27 10:11 | disposition home or self-care (01) | LOC: HO.PET 10:10 | PROVIDERS: PCP Internal Medicine; Visit Provider Internal Medicine | DX: Z13.89 Encounter for screening for other disorder (principal) ==

== ENCOUNTER 2022-12-31 09:29 | Outpatient (REF) | payer OTHER, SELFPAY ==
--- NOTE | ~2022-12-31 | CT_ITS ---
EXAMINATION: CT ABDOMEN AND PELVIS WITHOUT CONTRAST CLINICAL INFORMATION: History of postoperative abscess COMPARISON: Previous CT of the abdomen and pelvis July 2022 and PET/CT scan 01/04/2023 TECHNIQUE: Multidetector volumetric imaging was performed from the superior aspect of the liver through the pubic symphysis. Sagittal and coronal reformatted images were obtained on the technologist's workstation. This CT examination was performed using dose optimization techniques as appropriate, variously including the following: *Automated exposure control *Adjustment of mA and/or kV according to patient size (this includes techniques or standardized protocols for targeted exams where dose is matched to indication/reason for exam; i.e. extremities or head) *Use of iterative reconstruction technique DLP: 520 mGy-cm FINDINGS: LUNG BASES: Scarring or subsegmental atelectasis in both lower lobes Jose trace right pleural effusion. LIVER, GALLBLADDER, AND BILIARY TREE: Cirrhotic changes of the liver. The gallbladder has been removed. This is new in the interval from July 2022 exam. No biliary duct dilatation. Small amount of fluid adjacent to the liver greatest inferior laterally adjacent to the right lobe tracking along lateral conal fascia adjacent to postsurgical changes to the bowel. PANCREAS: Unremarkable. SPLEEN: Spleen is enlarged. ADRENAL GLANDS: The right adrenal gland has been removed. The left adrenal gland is normal. KIDNEYS AND URETERS: New postsurgical changes from right nephrectomy. Some all amount of fluid in the right renal fossa and stranding of the fat. This abuts the right anterior psoas muscle and extends superior laterally toward the inferior right lobe of the liver no drainable fluid collection seen. Small nonobstructing left renal stones. BLADDER: Not optimally distended. GASTROINTESTINAL TRACT: Mild diverticulosis of the colon. No evidence of diverticulitis. Postsurgical changes to the right colon and possibly distal small bowel. There is a stranding of the fat and small amount of fluid seen in this region. The appendix is not seen. The stomach is unremarkable. There is a small amount of ascites. This may be loculated anteriorly adjacent to small bowel loops. ABDOMINAL WALL: There is a wall thickening and small amount of fluid of the right anterior and lateral abdominal wall. No large fluid collection seen. LYMPH NODES: Small retroperitoneal lymph nodes. Prominent retrocrural lymph nodes. These appear similar to preoperative exam. VASCULAR: Atherosclerotic disease. No aneurysm. PELVIC VISCERA: Unremarkable. OSSEOUS STRUCTURES: Degenerative changes of the spine. Spondylolysis, spondylolisthesis and degenerative disc disease at L5-S1. Mild degenerative disc disease at L4-L5. CT/CT abdomen pelvis wo IV con IMPRESSION: New postsurgical changes following right radical nephrectomy. Small amount of fluid in the surgical field extending to the right psoas muscle, tracking along the right lateral conal fascia toward the right lobe of the liver. Small amount of fluid in the right anterior lateral abdominal wall. No drainable fluid postoperative collection/abscess. Cirrhotic appearing liver and splenomegaly and probable loculated small amount of ascites adjacent to small bowel loops. This demonstrated increased uptake on PET CT scan. If there is clinical suspicion of infection, this would be amenable to percutaneous aspiration. New postsurgical changes to the right colon and question distal small bowel. Mild diverticulosis. Fleischner guidelines were followed. Findings will be communicated by the Universal work flow 911 telecommunicator.
== END 2022-12-31 09:30 | disposition home or self-care (01) ==
LOC: HO.CT 09:29
PROVIDERS: Visit Provider Internal Medicine
DX: R91.1 Solitary pulmonary nodule (principal); C64.9 Malignant neoplasm of unspecified kidney, except renal pelvis
CPT/HCPCS: 74176

== ENCOUNTER 2023-01-04 09:01 | Outpatient (REF) | payer OTHER, SELFPAY ==
--- NOTE | ~2023-01-04 | PE_ITS ---
EXAMINATION: Fluorine-18 FDG PET/CT Scan CLINICAL INDICATION: Initial treatment management. Right kidney cancer. PROCEDURE: 60 minutes following the intravenous administration of 15.4 mCi of fluorine 18 FDG, images from the base of the skull to the mid thighs were obtained using a combined PET/CT scanner with CT scan based attenuation correction. No intravenous contrast was administered. Transverse, coronal, sagittal, and volume reconstruction projections were obtained. The patient's blood glucose as determined by a finger stick, was 86 mg/dl immediately prior to injection. The radiotracer was injected intravenously through right antecubital superficial vein, without any complications. Total CT exam dose-length product 771.48 mGy-cm * These CT images were obtained using dose optimization techniques as appropriate, variously including the following: Automated exposure control * Adjustment of mA and/or kV according to patient size (this includes techniques or standardized protocols for targeted exams where dose is matched to indication/reason for exam; i.e. extremities or head) * Use of iterative reconstruction technique COMPARISON: CT of the chest abdomen and pelvis done on 08/19/[address] of the abdomen and pelvis done on 12/31/2022. FINDINGS: NECK AND VISUALIZED HEAD: No FDG avid disease. THORAX: No FDG avid disease. Incidental note is made of bilateral gynecomastia. Linear pleuroparenchymal opacities are noted at both lung bases (left greater than right), likely represent pleural parenchymal scar, atelectasis or combination thereof. Similar-appearing disease is also noted around the minor fissure. No evidence of any pleural or pericardial effusion or mediastinal or hilar or axillary or internal mammary lymphadenopathy. ABDOMEN AND PELVIS: Loculated simple-appearing non-FDG fluid collection is present at lower abdomen and upper part of the pelvis at midline, measures approximately 14 x 5.8 cm with maximum Hounsfield value of 16.1 (259/349). No FDG avid focal liver or splenic lesion. The liver appears cirrhotic, lobulated, similar to prior studies. Caudate lobe hypertrophy is present. Note is also made of mild splenomegaly. Postsurgical changes of right nephrectomy is noted without evidence of any FDG avid residual disease. The left kidney is unremarkable. The left adrenal is unremarkable. The right adrenal is not visualized. Physiologic radiotracer activity is present within the bowel loops. Bowel loops are decompressed. There are no FDG avid retroperitoneal, mesenteric, pelvic and/or groin lymphadenopathy. The urinary bladder is collapsed, shows apparent diffuse mural thickening, may represent changes secondary to suboptimal distention, outlet obstruction, superimposed infection, or combination thereof. The prostate is enlarged. MUSCULOSKELETAL: Grade 1 anterolisthesis of L5 over S1 and underlying moderate degenerative spondylosis at L5-S1. No suspicious FDG avid osseous disease. VASCULAR: Calcific atherosclerotic disease of the aorta including coronary artery calcifications. No evidence of aneurysm. SUV max OF MEDIASTINAL BLOOD POOL: 2.0 SUV max OF LIVER: 2.7 PET/PET CT fusion skull to thigh IMPRESSION: 1. Postsurgical changes of right nephrectomy. No evidence of any residual and/or recurrent disease at the surgical bed. No evidence of any metastatic disease. 2. Incidental note is made of loculated non-FDG avid 14 x 5.8 cm fluid collection at the lower abdomen and upper pelvis at midline with maximum Hounsfield value of 16.1 (259/349). 3. Abnormal liver and spleen, most consistent with cirrhosis and portal hypertension. Note is also made of presence of significant calcific atherosclerotic disease of the aorta and its branches including coronary artery calcifications and presence of bilateral gynecomastia.
== END 2023-01-04 09:02 | disposition home or self-care (01) ==
LOC: HO.PET 09:01
PROVIDERS: PCP Internal Medicine; Visit Provider Internal Medicine
DX: Z13.89 Encounter for screening for other disorder (principal)

== ENCOUNTER 2023-04-22 10:56 | Outpatient (AMB) | payer OTHER, SELFPAY ==
[2023-04-22 11:01] VITALS: BP 136/78; PULSE 64; O2SAT 100; BMI 27.8
--- NOTE | 2023-04-22 11:01 | A.OFFPC_ITS ---
Vital Signs 04/22/23 11:01 Height 5 ft 9 in Weight 188 lb 6 oz BMI 27.8 BP 136/78 Blood Pressure Location Rt brachial Position Sitting Pulse 64 Pulse Source Pulse Oximeter Pulse Oximetry (%) 100 Oxygen Delivery Method Room Air Intake Visit Reasons: 1 yr follow up PE Allergies duloxetine Allergy (Unknown, Verified 06/22/22 13:05) psychotic episodes lorazepam [From [facility]] Adverse Reaction (Unknown, Verified 06/22/22 13:05) AGITATION Medication List - Last Reconciled 04/22/23 by Julio Ware MD ferrous sulfate 325 mg PO DAILY nadolol 20 mg PO QAM olanzapine 10 mg PO BEDTIME omeprazole 40 mg PO BID ondansetron 8 mg PO Q8H oxcarbazepine 150 mg PO BID trazodone 100 mg PO BEDTIME trazodone 150 mg PO BEDTIME Tobacco use date assessed: 04/22/23 Fall risk assessment: No Falls in past year Last assessed Fall Risk: 04/22/23 Dental Screening Dental Screen Date: 04/22/23 Did you have a dental visit in the last 12 months?: Yes Did you have a dental problem in the last 6 months where you did not have access to dental care?: No Was dental information given to patient?: Patient has dentist HPI 1 yr follow up PE HPI Details Physical exam appointment Patient was diagnosed with right-sided renal cancer And ended up having nephrectomy, currently patient is going through [facility] and is tolerating it well. He continued to smoke 1 pack per day and tells me that he is not ready to quit. Patient is seeing Dr. Reyes for liver cirrhosis Colonoscopy was [address] Reyes. He is also seeing psychiatrist and is taking psychiatric medications feeling better. Patient have a history of severe depression and is doing well Lab are being done through Oncology office every 3 weeks His creatinine is elevated Flu vaccine was given Seasonal asthma: Stable patient is requesting refill of albuterol inhaler which I have sent for him Follow-up 1 year for physical exam [facility] Medical History CVA (cerebral vascular accident) Difficulty sleeping Anxiety, generalized Porcelain gallbladder Ascites Alcohol abuse Irritable bowel syndrome Chronic GERD Paroxysmal atrial fibrillation Tobacco abuse Surgical History Hx of esophagogastroduodenoscopy History of colonoscopy H/O exploratory laparotomy Family History Father Cerebrovascular disease Diabetes mellitus HTN (hypertension) Hx of CABG Mother Lung cancer Maternal Grandmother Myocardial infarction Maternal Grandfather Lung cancer Paternal Grandmother Cerebrovascular disease Paternal Uncle Lung cancer Brother No problems noted. Brother No problems noted. Son No problems noted. Son No problems noted. Other Mental health disorder Substance use disorder Social History Household Members: Spouse and Children Housing: House Alcohol intake: current Alcohol intake frequency: former alcohol drinker Patient Tobacco Use Status: Current everyday Tobacco user Tobacco use type: Cigarette Cigarette Packs Per Day: 1 Years Smoked: 50 years e-Cigarette/Vaping Use: Currently Using Substance Use Type: Other service: No Current occupational status: disabled Cognitive needs: No Hearing needs: No Vision needs: Yes Questionnaire PHQ-9 Over the last 2 weeks, how often have you been bothered by any of the following problems? 1. Little interest or pleasure in doing things: not at all 2. Feeling down, depressed, or hopeless: not at all 3. Trouble falling or staying asleep, or sleeping too much: not at all 4. Feeling tired or having little energy: more than half the days 5. Poor appetite or overeating: not at all 6. Feeling bad about yourself - or that you are a failure or have let yourself or your family down: not at all 7. Trouble concentrating on things, such as reading the newspaper or watching television: not at all 8. Moving or speaking so slowly that other people could have noticed. Or the opposite - being so fidgety or restless that you have been moving around a lot more than usual: not at all 9. Thoughts that you would be better off or of hurting yourself in some way: not at all Total score: 2 Depression Screening Interpretation: Negative Depression Screening Done: Yes 26973 - PHQ-9 Billing: Yes Source: Developed by Drs. Frankie Ramsey, Betsy Tavarez, Robby Khan and colleagues, with an educational jason from [employer]. Thrive Questionnaire Date Thrive assessed: 04/22/23 I am a: Patient What is your living situation today?: I have a steady place to live Within the past 12 months, did the food you bought not last and you didn't have the money to get more?: Never true Within the past 12 months, did you worry whether your food would run out before you got money to buy more?: Never true Do you have trouble paying for medicines?: No Do you have trouble getting transportation to medical appointments?: No Do you have trouble paying your heating and electricity bill?: No Do you have trouble taking care of your child, family member or friend?: No Do you have trouble with day-to-day activities such as bathing, preparing meals, shopping, managing finances, etc.?: No Are you currently unemployed and looking for a job?: No Are you interested in more education?: Yes Please select the resources that you would like help with: None Currently or been in a relationship where the following occur: no concerns reported AUDIT C Alcohol Use Questionnaire (AUDIT-C) 1. How often do you have a drink containing alcohol?: Never 3. How often do you have six or more drinks on one occasion?: Never Total Score: 0 Score Reviewed/Action Taken: Yes GLORIA-7 AMB Questionnaire GLORIA-7 Date GLORIA - 7 assessed: 04/22/23 Feeling nervous, anxious, or on edge: 0 = Not at all Not being able to stop or control worryin = Not at all Worrying too much about different things: 0 = Not at all Trouble relaxin = Not at all Being so restless that it is hard to sit still: 0 = Not at all Becoming easily annoyed or irritable: 0 = Not at all Feeling afraid as if something awful might happen: 0 = Not at all Total GLORIA-7 score (0-4 normal; 5-9 mild; 10-14 moderate; 15-21 severe): 0 Source: Developed by Drs. Frankie Ramsey, Betsy Tavarez, Robby Khan and colleagues, with an educational jason from [employer]. GLORIA-7 Assessment Billing GLORIA-7 Assessment Tool: GLORIA-7 Assessment 82760 Review of Systems Const Denies chills, Denies fever(s) and Denies headache(s) Eyes Denies blurry vision ENT Denies headache(s), Denies nasal discharge, Denies nasal obstruction, Denies odynophagia and Denies sinus pain Card Denies chest pain at rest and Denies chest pain with activity Resp Denies cough and Denies hemoptysis GI Denies diarrhea, Denies odynophagia, Denies vomiting and Denies hematemesis Reports as per HPI Musc Denies abnormal gait Skin/Breast Reports as per HPI Neuro Denies Neuro-related abnormal movements, Denies Abnormal speech present, Denies abnormal gait and Denies headache(s) Psych Denies mood swings and Denies paranoia Endo Reports as per HPI Ramos/Lymph Reports as per HPI Aller/Immun Reports as per HPI Physical exam (Primary Care) Vital Signs: Last Vital Signs Pulse 64 04/22/23 11:01 BP 136/78 04/22/23 11:01 Pulse Ox 100 04/22/23 11:01 Oxygen Delivery Method Room Air 04/22/23 11:01 BMI result Body Mass Index 27.8 Tobacco/Smoking Status: Tobacco use Status Tobacco use date assessed 04/22/23 04/22/23 11:05 Patient Tobacco Use Status Current everyday Tobacco 04/22/23 11:05 Tobacco use type Cigarette 04/22/23 11:05 e-Cigarette/Vaping Use Currently Using 04/22/23 11:05 PHQ-9: PHQ-9 Score PHQ-9: Total score 2 04/22/23 11:27 Depression Screening Interpretation: Negative Thrive Assessment: Date of Thrive Assessment Date Thrive assessed 04/22/23 04/22/23 11:27 Currently or been in a relationship where the following occur: no concerns reported Const General: cooperative, comfortable and no acute distress Orientation/consciousness: patient oriented x3 HENAL Head: Yes normocephalic and Yes atraumatic Eyes General: appearance normal, both eyes and all related structures Pupils: Equal, round and reactive pupils present EOM: EOMs intact bilaterally Neck Neck: Yes supple and No lymphadenopathy Thyroid: Thyroid normal Lymphatic: no lymphadenopathy noted Resp Effort & Inspection: normal respiratory effort and able to speak in complete sentences Auscultation: clear to auscultation bilaterally Cardio Heart sounds: S1 normal heart sound present and S2 normal heart sound present GI Palpation (GI): Soft to palpation and nontender Auscultation: normal bowel sounds Skin General skin exam: elasticity normal and turgor normal Neuro General: patient oriented x3 and gait normal Cranial nerves: Yes Equal, round and reactive pupils present Speech: No Abnormal speech present Coordination: tandem gait normal and Romberg test negative Extrem General: Yes normal exam except as noted and No edema Office Procedures Flu Questionnaire Does the patient have a severe egg allergy?: No Does the patient have severe life threatening allergies?: No Does the patient have a fever or illness today?: No Has the patient ever had Guillain-[place] Syndrome?: No Has the patient ever had any past reaction to a flu shot?: No Immunizations flu vacc [id number] 6mos up(PF) 60 mcg(15 mcgx4)/0.5 mL IM syringe Performing Provider: Julio Ware MD Performing Location: [facility] Administered by: Chey Desir CMA on 04/22/23 11:29 Dose Route Admin Location Dispensed Lot Number Expiration Date NDC Laser Set Up Operator 0.5 mL IM Right Deltoid 0.5 mL [id number] 12/25/23 41515-473-72 OtherInbox VIS Given Date VIS Provided VIS Publication Date 04/22/23 Single Vaccine 21 Eligibility Eligibility Date Funding Source Not [facility] Eligible 04/22/23 Private Assessment and Plan Assessment & Plan (1) Encounter for general adult medical examination with abnormal findings: Code(s): Z00.01 - Encounter for general adult medical examination with abnormal findings (2) Liver cirrhosis: Code(s): K74.60 - Unspecified cirrhosis of liver Qualifiers: Ascites presence: without ascites Hepatic cirrhosis type: alcoholic cirrhosis Qualified Code(s): K70.30 - Alcoholic cirrhosis of liver without ascites (3) Renal cancer: Code(s): C64.9 - Malignant neoplasm of unspecified kidney, except renal pelvis Qualifiers: Laterality: right Qualified Code(s): C64.1 - Malignant neoplasm of right kidney, except renal pelvis (4) Paroxysmal atrial fibrillation: Code(s): I48.0 - Paroxysmal atrial fibrillation (5) Major depression, recurrent: Code(s): F33.9 - Major depressive disorder, recurrent, unspecified Qualifiers: Active/Remission status: in partial remission Qualified Code(s): F33.41 - Major depressive disorder, recurrent, in partial remission (6) Elevated serum creatinine: Code(s): R79.89 - Other specified abnormal findings of blood chemistry (7) Status post nephrectomy: Code(s): Z90.5 - Acquired absence of kidney (8) Solitary kidney, acquired: Code(s): Z90.5 - Acquired absence of kidney Plan Physical exam appointment Patient was diagnosed with right-sided renal cancer And ended up having nephrectomy, currently patient is going through chemotherapy [facility] and is tolerating it well. He continued to smoke 1 pack per day and tells me that he is not ready to quit. Patient is seeing Dr. Reyes for liver cirrhosis Colonoscopy was [address] Reyes. He is also seeing psychiatrist and is taking psychiatric medications feeling better. Patient have a history of severe depression and is doing well Lab are being done through Oncology office every 3 weeks His creatinine is elevated Flu vaccine was given Seasonal asthma: Stable patient is requesting refill of albuterol inhaler which I have sent for him Follow-up 1 year for physical exam Orders: Orders Comprehensive Met. Panel Today C64.9 - Malignant neoplasm of unspecified kidney, except renal pelvis, F33.9 - Major depressive disorder, recurrent, unspecified, I48.0 - Paroxysmal atrial fibrillation, K74.60 - Unspecified cirrhosis of liver, R79.89 - Other specified abnormal findings of blood chemistry, Z00.01 - Encounter for general adult medical examination with abnormal findings LDL Cholesterol Direct Today C64.9 - Malignant neoplasm of unspecified kidney, except renal pelvis, F33.9 - Major depressive disorder, recurrent, unspecified, I48.0 - Paroxysmal atrial fibrillation, K74.60 - Unspecified cirrhosis of liver, R79.89 - Other specified abnormal findings of blood chemistry, Z00.01 - Encounter for general adult medical examination with abnormal findings Complete Blood Count Auto Diff Today C64.9 - Malignant neoplasm of unspecified kidney, except renal pelvis, F33.9 - Major depressive disorder, recurrent, unspecified, I48.0 - Paroxysmal atrial fibrillation, K74.60 - Unspecified cirrhosis of liver, R79.89 - Other specified abnormal findings of blood chemistry, Z00.01 - Encounter for general adult medical examination with abnormal findings Influenza [id number] Immunization Today Z23 - Encounter for immunization Medications: New albuterol sulfate 90 mcg/actuation (ProAir HFA) 1 inh inhalation QID PRN 18 grams 3RF shortness of breath or wheezing 30 days Coding Level of Care Code Est Pt Prev Care 40-64y(30210) Diagnoses Encounter for general adult medical examination with abnormal findings Z00.01 Alcoholic cirrhosis of liver without ascites K70.30 Ascites presence: without ascites Hepatic cirrhosis type: alcoholic cirrhosis Malignant neoplasm of right kidney C64.1 Laterality: right Paroxysmal atrial fibrillation I48.0 Recurrent major depressive disorder, in partial remission F33.41 Active/Remission status: in partial remission Elevated serum creatinine R79.89 Status post nephrectomy Z90.5 Solitary kidney, acquired Z90.5 Additional Codes GLORIA-7 Assessment Billing - GLORIA-7 Assessment Tool: GLORIA-7 Assessment [id number] ([id number])
== END 2023-04-22 11:28 | disposition home or self-care (01) ==
PROVIDERS: Visit Provider Internal Medicine
DX: Z00.00 Encounter for general adult medical examination without abnormal findings (principal); K70.30 Alcoholic cirrhosis of liver without ascites; C64.1 Malignant neoplasm of right kidney, except renal pelvis; I48.0 Paroxysmal atrial fibrillation; F33.41 Major depressive disorder, recurrent, in partial remission; Z23 Encounter for immunization; R79.89 Other specified abnormal findings of blood chemistry; Z90.5 Acquired absence of kidney
CPT/HCPCS: 90471; 90686; 99396

== ENCOUNTER 2023-06-30 10:27 | Outpatient (REF) | payer OTHER, SELFPAY | END 2023-06-30 10:28 | disposition home or self-care (01) | LOC: HO.LAB 10:27 | PROVIDERS: Visit Provider Psychiatry & Neurology Psychiatry | DX: Z13.89 Encounter for screening for other disorder (principal) ==

== ENCOUNTER 2023-09-09 12:50 | Outpatient (REF) | payer OTHER, SELFPAY ==
--- NOTE | ~2023-09-09 | US_ITS ---
EXAMINATION: US SCROTUM CLINICAL INFORMATION: 4 weeks of painful right testicular mass; patient complains of left-sided pain. COMPARISON: PET/CT 01/04/2023 TECHNIQUE: A sonogram of the scrotum was performed assessing jhaveri-scale appearance and color Doppler flow. Spectral Doppler analysis of the arterial and venous flow were performed in the testes bilaterally. FINDINGS: RIGHT: Right testicle measures 3.8 x 2.0 x 2.6 cm, volume 10.4 mL. Heterogeneous echotexture. Single punctate microcalcification is seen. Spectral Doppler analysis of the arterial and venous flow is normal in the right testis. Right epididymal head is normal in size. Multiloculated epididymal head cysts, the largest loculation measuring 2.6 x 1.2 x 3.0 cm. Right epididymal Doppler flow is normal. LEFT: Left testicle measures 3.6 x 1.9 x 2.2 cm, volume 11.9 mL. Heterogeneous echotexture. Small testicular cyst measures 0.4 x 0.3 x 0.4 cm. Spectral Doppler analysis of the arterial and venous flow is normal in the left testis. Left epididymal head is multiloculated cysts, the largest loculation measuring 1.5 x 1.0 x 1.0 cm. Small punctate surface calcification is present within the body. Left epididymal Doppler flow is normal. Serpiginous vascular structures in the left hemiscrotum measuring up to 4.1 mm in diameter. US/US scrotum IMPRESSION: 1. No testicular torsion. 2. Bilateral epididymal head multiloculated cysts. 3. Prominent left testicular varicocele measuring up to 4 mm. Recommend urologic consultation.
== END 2023-09-09 12:51 | disposition home or self-care (01) ==
LOC: HO.HMGCX 12:50
PROVIDERS: PCP Internal Medicine; Visit Provider Nurse Practitioner Family
DX: N50.811 Right testicular pain (principal); R22.9 Localized swelling, mass and lump, unspecified
CPT/HCPCS: 76870

== ENCOUNTER 2023-09-13 09:22 | Outpatient (AMB) | payer OTHER, SELFPAY ==
--- NOTE | 2023-09-13 09:14 | A.OFFVIS_ITS ---
Intake Intake Visit Reasons: testicular US results(set) Intake Note: Patient presents today for a follow-up on testicular pain and US results Meds- None Allergies to Antibiotic- No Known Allergies Blood Thinner- None Patient was unable to provide an urine sample in today's visit. Hand Outside Cutter Required: No Accompanied by: Allergies duloxetine Allergy (Unknown, Verified 09/13/23 10:20) psychotic episodes lorazepam [From ATIVAN] Adverse Reaction (Unknown, Verified 09/13/23 10:20) AGITATION Medication List - Last Reconciled 09/13/23 by EDGAR JadeP- albuterol sulfate 90 mcg/actuation (ProAir HFA) 1 inh inhalation QID PRN 30 days cholestyramine (with sugar) 4 gram ea PO ferrous sulfate 325 mg PO DAILY nadolol 20 mg PO QAM olanzapine 10 mg PO BEDTIME omeprazole 40 mg PO BID ondansetron 8 mg PO Q8H oxcarbazepine 150 mg PO BID trazodone 150 mg PO BEDTIME HPI HPI Comments History of Present Illness Details Miah is a very pleasant 62-year-old male patient of Dr. Ware who was accompanied by his at today's office visit. He has a past medical history of nicotine dependence, CVA in 2016 with no deficits, difficulty sleeping, anxiety, ascites, alcohol abuse, irritable bowel syndrome, GERD, paroxysmal atrial fibrillation, and renal cancer status post right-sided nephrectomy with Dr. Mcdonough. He presents to the office today for follow-up. Of note, patient has been following up with Oncology for his immunotherapy given his recent diagnosis of renal cancer and has been undergoing surveillance monitoring with oncology. He reports having followed-up with Dr. Mcdonough via telehealth approximately 2 weeks ago at which time recommendations were made for annual follow-ups. His main concern at today's office visit his his ongoing erectile dysfunction that has been present for a few years now and scrotal discomfort he has been experiencing over the last 1-2 months. He reports scrotal discomfort is at rest. He reports discomfort is a dull ache throughout his entire scrotum. In assessment of the patient today left-sided epididymal head cysts noted and left testicular varicocele otherwise no open areas, lesions, and or drainage noted. Recent scrotal ultrasound results reviewed with the patient and his today. No testicular torsion. Bilateral epididymal head multiloculated cysts. Prominent left testicular varicocele measuring approximately 4 mm. He reports having utilized 100 mg of Viagra 1 hour prior to sexual activity however does not feel this has been helpful in his erectile dysfunction. He reports ED to have been present for many years now. He reports sexual desire. However is not able to obtain and or maintain erections. Discussed at length lifestyle modifications to assist with erectile dysfunction. Discussed obtaining labs for further assessment evaluation. Discussed further treatment options for erectile dysfunction as well as ongoing scrotal discomfort patient is experiencing. He otherwise denies any bothersome urinary issues. He denies urinary urgency, urinary frequency, incontinence, nocturia, hematuria, dysuria, foul smelling urine, changes to urinary stream, flank pain, fever, and or chills. He is happy with his current voiding parameters. In review of patient's chart it appears surveillance imaging has been ordered and performed with oncology. CT of the abdomen and pelvis 01/16 showed postsurgical changes following right radical nephrectomy. Cirrhotic appearing liver with splenomegaly and small loculated ascites adjacent to small bowel loops. No drainable fluid or abscess. CT of the chest 08/20-showed subcentimeter pulmonary nodules. PET-CT in December of 2022 shows no evidence of metastatic disease. He otherwise offers no other issues or concerns at this time. PREVIOUS OFFICE NOTE: Erectile dysfunction:? Great response to oral medications ? Symptoms have been present for/since?Ongoing ?Known liver issues.? Current treatment includes?none.? Prior therapies include?oral medications.? At this time he experiences erections?are partial and insufficient for vaginal penetration, JOHN 1-7 Severe ED.? Nocturnal erections?do not occur.? Currently they are?in a stable relationship.? [facility] Medical History CVA (cerebral vascular accident) Difficulty sleeping Anxiety, generalized Porcelain gallbladder Ascites Alcohol abuse Irritable bowel syndrome Chronic GERD Paroxysmal atrial fibrillation Tobacco abuse Surgical History Hx of esophagogastroduodenoscopy History of colonoscopy H/O exploratory laparotomy Family History Father Cerebrovascular disease Diabetes mellitus HTN (hypertension) Hx of CABG Mother Lung cancer Maternal Grandmother Myocardial infarction Maternal Grandfather Lung cancer Paternal Grandmother Cerebrovascular disease Paternal Uncle Lung cancer Brother No problems noted. Brother No problems noted. Son No problems noted. Son No problems noted. Other Mental health disorder Substance use disorder Social History Household Members: Spouse and Children Housing: House Alcohol intake: current Alcohol intake frequency: former alcohol drinker Patient Tobacco Use Status: Current everyday Tobacco user Tobacco use type: Cigarette Cigarette Packs Per Day: 1 Years Smoked: 50 years e-Cigarette/Vaping Use: Currently Using Substance Use Type: Other service: No Current occupational status: disabled Cognitive needs: No Hearing needs: No Vision needs: Yes Review of Systems Const Reports as per HPI Eyes Reports no additional complaints ENT Reports no additional complaints Card Reports as per HPI Resp Reports no additional complaints GI Reports as per HPI Reports as per HPI Musc Reports no additional complaints Neuro Reports as per HPI Psych Reports as per HPI Endo Reports no additional complaints Physical Exam Const General: cooperative, comfortable, no acute distress, well developed, alert and awake Orientation/consciousness: patient oriented x3 Limitations: no limitations HEENT Head: Yes normal to inspection, Yes normocephalic and Yes atraumatic Ears: hearing grossly normal bilaterally Eyes General: appearance normal, both eyes and all related structures Neck Neck: Yes normal visual inspection and Yes trachea midline Chest Chest palpation & inspection: normal inspection of the chest Resp Effort & Inspection: normal respiratory effort and able to speak in complete sentences Cardio Rate: regular rate GI Inspection: Yes normal to inspection General: Yes no CVA tenderness Back/Spine/Pelvis Back: no CVA tenderness Skin General skin exam: no rashes or lesions noted Neuro General: patient oriented x3 Extrem General: Yes normal to inspection Psych Appearance: grossly normal and well kempt Mental Status: mental status grossly normal Speech and movement: Normal speech and movement present and Clear speech present Affect: normal affect Attitude: cooperative Thought process: Normal thought process present Thought content: Normal thought content present Insight: Fair insight present (Psych) Judgement: Fair judgement present (Psych) Results Reviewed Results Reviewed: Date of Service: 09/09/23 Procedure(s): US scrotum FINDINGS: RIGHT: Right testicle measures 3.8 x 2.0 x 2.6 cm, volume 10.4 mL. Heterogeneous echotexture. Single punctate microcalcification is seen. Spectral Doppler analysis of the arterial and venous flow is normal in the right testis. Right epididymal head is normal in size. Multiloculated epididymal head cysts, the largest loculation measuring 2.6 x 1.2 x 3.0 cm. Right epididymal Doppler flow is normal. LEFT: Left testicle measures 3.6 x 1.9 x 2.2 cm, volume 11.9 mL. Heterogeneous echotexture. Small testicular cyst measures 0.4 x 0.3 x 0.4 cm. Spectral Doppler analysis of the arterial and venous flow is normal in the left testis. Left epididymal head is multiloculated cysts, the largest loculation measuring 1.5 x 1.0 x 1.0 cm. Small punctate surface calcification is present within the body. Left epididymal Doppler flow is normal. Serpiginous vascular structures in the left hemiscrotum measuring up to 4.1 mm in diameter. IMPRESSION: 1. No testicular torsion. 2. Bilateral epididymal head multiloculated cysts. 3. Prominent left testicular varicocele measuring up to 4 mm. Assessment & Plan Assessment & Plan (1) BPH (benign prostatic hyperplasia): Code(s): N40.0 - Benign prostatic hyperplasia without lower urinary tract symptoms (2) Erectile dysfunction: Code(s): N52.9 - Male erectile dysfunction, unspecified Plan Recent scrotal ultrasound results reviewed with the patient today; as noted above. Discussed at length lifestyle modifications to assist with erectile dysfunction. Stop Viagra. Start 5 mg of Cialis daily as discussed P.r.n. prescription provided for 1 hour prior to sexual activity Will obtain PSA and testosterone for further assessment evaluation. Reassurance provided regarding scrotal discomfort patient is experiencing at rest. Discussed worsening symptoms to seek emergency room care/medical treatment. Continue to follow-up with oncology for immunotherapy and surveillance imaging monitoring. Follow-up in 3 months with labs to be completed prior; or sooner with any issues, concerns, and or questions. Orders: Orders Prostate Specific Antigen Today N40.0 - Benign prostatic hyperplasia without lower urinary tract symptoms Testosterone, Free/Total Today N52.9 - Male erectile dysfunction, unspecified Medications: New tadalafil (Cialis) 5 mg PO DAILY 90 days 90 tabs 1RF tadalafil (Cialis) Not to exceed more than 1 tab 2-3 times per week. [id number] [facility]33 Member [id number] [facility]33 Member [id number] 20 mg PO .PRN 90 days PRN 60 tabs 1RF sexual activity Patient Instructions: The patient had an opportunity to ask questions regarding the treatment plan. All questions were answered. Physical exam, labs, and imaging were discussed and reviewed in detail. As well as risks, benefits, and discussion of treatment choices. No major barriers to understanding were identified. The patient expressed understanding and agreement with the above treatment plan. The patient was made aware they should contact our office by phone for worsening of their current condition, the appearance of new symptoms, or with any questions or concerns. Compliance is encouraged with any medications and follow up testing that is ordered. It is a privilege to be allowed the opportunity to participate in? your urological care.? Again, if you have any questions or co ncerns If you have any questions or concerns please do not hesitate to contact me. The office is [phone]. This note is constructed using voice recognition software. While every effort has been made to ensure accuracy machine feed operator errors may have been included. Yours sincerely, LG Jade Coding Level of Care Code Est Pt Level 4 (58676) Diagnoses BPH (benign prostatic hyperplasia) N40.0 Erectile dysfunction N52.9
== END 2023-09-13 10:24 | disposition home or self-care (01) ==
PROVIDERS: PCP Internal Medicine; Visit Provider Nurse Practitioner Family
DX: N40.0 Benign prostatic hyperplasia without lower urinary tract symptoms (principal); N52.9 Male erectile dysfunction, unspecified
CPT/HCPCS: 99214

== ENCOUNTER → 2023-09-13 09:22 | Outpatient (BNVA) | payer OTHER, SELFPAY | PROVIDERS: PCP Internal Medicine; Visit Provider Nurse Practitioner Family ==

== ENCOUNTER 2023-09-19 14:20 | Outpatient (REF) | payer OTHER, SELFPAY ==
--- NOTE | ~2023-09-19 | CT_ITS ---
EXAMINATION: CT CHEST, ABDOMEN AND PELVIS WITHOUT CONTRAST CLINICAL INFORMATION: Kidney cancer surveillance COMPARISON: 12/31/2022 TECHNIQUE: Multidetector volumetric imaging was performed of the chest, abdomen and pelvis without contrast. Oral contrast was administered. Sagittal and coronal reformatted images were obtained on the technologist's workstation. This CT examination was performed using dose optimization techniques as appropriate, variously including the following: *Automated exposure control *Adjustment of mA and/or kV according to patient size (this includes techniques or standardized protocols for targeted exams where dose is matched to indication/reason for exam; i.e. extremities or head) *Use of iterative reconstruction technique DLP: 693.1 mGy-cm FINDINGS: Lack of IV contrast markedly limits evaluation for solid organ metastatic disease CHEST: LUNGS: There is a left upper lobe subpleural 4 mm nodule (5:325), unchanged. Right lower lobe linear scarring versus chronic atelectasis is unchanged. Left lower lobe linear scarring versus chronic atelectasis is unchanged. Left lower lobe subpleural 3 mm nodule (5:363), new from prior study. Right upper lobe 2 mm nodule (5:146), new from prior study. Right upper lobe 3 mm nodule (5:159), unchanged right upper lobe 3 mm nodule (5:307), unchanged. Central airways are patent. PLEURA: No pleural effusion. MEDIASTINUM: No cardiomegaly. Aorta and pulmonary artery are normal in caliber. No mediastinal adenopathy. Lack of IV contrast limits fashion for hilar adenopathy. CORONARY ARTERY CALCIFICATION: Multivessel coronary artery calcification is present. CHEST WALL/AXILLA: No axillary or internal mammary lymphadenopathy. Symmetric gynecomastia. ABDOMEN AND PELVIS: ABDOMINAL AND PELVIC WALL: Unremarkable. LIVER AND BILIARY TREE: Cirrhotic liver with moderate volume abdominopelvic ascites again noted. GALLBLADDER: Status post post cholecystectomy. PANCREAS: Atrophic pancreas. SPLEEN: Redemonstration of splenomegaly. Ill-defined possible 1.2 cm hypoattenuating splenic lesion (3:11). ADRENAL GLANDS: Unremarkable. KIDNEYS AND URETERS: Status post benign nephrectomy. GASTROINTESTINAL TRACT: Unremarkable. VASCULAR: Unremarkable. LYMPH NODES: Redemonstration of prominent retrocrural lymph nodes and small retroperitoneal lymph nodes, similar to prior study. FREE FLUID: No free fluid. BLADDER: Unremarkable. PELVIC VISCERA: Unremarkable. OSSEOUS STRUCTURES: Degenerative changes of the spine. Anterolisthesis of L5 on S1 again noted. CT/CT abdomen pelvis wo IV con IMPRESSION: * Bilateral pulmonary nodules measuring up to 3 mm are new from prior study. * Cirrhotic liver with moderate volume abdominopelvic ascites and splenomegaly. * Ill-defined possible 1.2 cm hypoattenuating splenic lesion.
== END 2023-09-19 14:21 | disposition home or self-care (01) ==
LOC: HO.CT 14:20
PROVIDERS: PCP Internal Medicine; Visit Provider Internal Medicine
DX: C64.9 Malignant neoplasm of unspecified kidney, except renal pelvis (principal)
CPT/HCPCS: 71250; 74176

== ENCOUNTER 2023-09-19 15:20 | Outpatient (AMB) | payer OTHER, SELFPAY ==
--- NOTE | 2023-09-19 15:22 | HO.NEPHOV ---
HPI HPI Comments History of Present Illness Details 62-year-old man with right kidney cancer status post right open nephrectomy on 10/17 at [facility]. Referred for evaluation of CKD He underwent cholecystectomy at the same time. 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 Final pathological stage pT3a NX MX. AJCC stage III. 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 Tumor extended into renal sinus, into major vein. No sarcamatoid features, no lymphovascular invasion, all margins negative for carcinoma. Patient had a prolonged postoperative course complicated initially by hemorrhagic shock followed by retroperitoneal abscess . He required prolonged course of IV antibiotics and drainage of abscess. Prior to nephrectomy serum creatinine was around 0.9-1.1 mg/dL. Since nephrectomy serum creatinine is around 1.5-1.7 mg/dL and has relatively been stable. He has had a testicular pain seen by Urology and was diagnosed with a varicocele. Review of system was positive for chronic diarrhea since cholecystectomy no nausea or vomiting. No urinary symptoms. No headache nausea vomiting no abdominal pain no edema no fever no weight loss. [facility] Medical History CVA (cerebral vascular accident) Difficulty sleeping Anxiety, generalized Porcelain gallbladder Ascites Alcohol abuse Irritable bowel syndrome Chronic GERD Paroxysmal atrial fibrillation Tobacco abuse Surgical History Hx of esophagogastroduodenoscopy History of colonoscopy H/O exploratory laparotomy Family History Father Cerebrovascular disease Diabetes mellitus HTN (hypertension) Hx of CABG Mother Lung cancer Maternal Grandmother Myocardial infarction Maternal Grandfather Lung cancer Paternal Grandmother Cerebrovascular disease Paternal Uncle Lung cancer Brother No problems noted. Brother No problems noted. Son No problems noted. Son No problems noted. Other Mental health disorder Substance use disorder Social History Household Members: Spouse and Children Housing: House Alcohol intake: current Alcohol intake frequency: former alcohol drinker Patient Tobacco Use Status: Current everyday Tobacco user Tobacco use type: Cigarette Cigarette Packs Per Day: 1 Years Smoked: 50 years e-Cigarette/Vaping Use: Currently Using Substance Use Type: Other service: No Current occupational status: disabled Cognitive needs: No Hearing needs: No Vision needs: Yes Vital Signs 09/19/23 15:25 Height 5 ft 9 in Weight 199 lb BMI 29.4 BP 146/80 H Blood Pressure Location Rt brachial Position Sitting Pulse 64 Pulse Source Pulse Oximeter Pulse Oximetry (%) 98 Oxygen Delivery Method Room Air Physical Exam Vital Signs: Last Vital Signs Pulse 64 09/19/23 15:25 BP 146/80 H 09/19/23 15:25 Pulse Ox 98 09/19/23 15:25 Oxygen Delivery Method Room Air 09/19/23 15:25 BMI result Body Mass Index 29.4 Const General: comfortable Nutritional Appearance: well nourished Orientation/consciousness: patient oriented x3 HEENT Head: No normal to inspection Mouth: moist mucous membranes Neck Neck: Yes supple and Yes no JVD Resp Auscultation: clear to auscultation bilaterally, no rales and rub present Cardio Jugular venous distension: no JVD Palpation: no palpable S3 and no palpable S4 Heart sounds: no rubs GI Palpation (GI): Soft to palpation and nontender Percussion: No Fluid wave present General: Yes no CVA tenderness Back/Spine/Pelvis Back: no CVA tenderness Skin General skin exam: no rashes or lesions noted Neuro General: patient oriented x3 Extrem General: Yes no pedal edema and No clubbing Assessment & Plan Assessment & Plan (1) Solitary kidney, acquired: Code(s): Z90.5 - Acquired absence of kidney (2) CKD (chronic kidney disease) stage 3, GFR 30-59 ml/min: Code(s): N18.30 - Chronic kidney disease, stage 3 unspecified (3) Renal cancer: Code(s): C64.9 - Malignant neoplasm of unspecified kidney, except renal pelvis Qualifiers: Laterality: right Qualified Code(s): C64.1 - Malignant neoplasm of right kidney, except renal pelvis Plan 62-year-old man with renal cell carcinoma status post right nephrectomy. He has solitary left kidney with underlying CKD. Baseline serum creatinine is around 1.4-1.7 mg/dL. Goal is to slow the portion of renal disease. I will obtain a 24 urine collection to calculate creatinine clearance. Encouraged him to stand low-sodium diet. He should increase his p.o. fluid intake. Continue to avoid nephrotoxic agents including NSAIDs. I have discussed importance of smoking cessation but he has no intention to quit at this time. All his questions were answered. Further workup will be based on the above baseline medications. We will be happy to follow him along with the team thank you Orders: Orders UA and rflx microscopic Today R79.89 - Other specified abnormal findings of blood chemistry, Z90.5 - Acquired absence of kidney Creatinine Clearance Urine Today R79.89 - Other specified abnormal findings of blood chemistry, Z90.5 - Acquired absence of kidney Coding Level of Care Code New Pt Level 4 (80517) Diagnoses Solitary kidney, acquired Z90.5 CKD (chronic kidney disease) stage 3, GFR 30-59 ml/min N18.30 Malignant neoplasm of right kidney C64.1 Laterality: right Results Reviewed Nephrology Results: Hgb 15.2 g/dl (14.0-18.0) 09/07/23 WBC 8.1 X10*3/uL (4.8-10.8) 09/07/23 Plt Count 160 X10*3/uL (160-400) 09/07/23 Sodium 140 mmol/L (135-145) 09/07/23 Potassium 4.0 mmol/L (3.3-5.1) 09/07/23 Chloride 106 mmol/L (96-108) 09/07/23 Carbon Dioxide 26 mmol/L (22-29) 09/07/23 BUN 17 mg/dL (9-16) H 09/07/23 Creatinine 1.53 mg/dL (0.5-1.4) H 09/07/23 Calcium 9.9 mg/dL (8.4-10.2) 09/07/23
[2023-09-19 15:25] VITALS: BP 146/80; PULSE 64; O2SAT 98; BMI 29.4
== END 2023-09-19 15:53 | disposition home or self-care (01) ==
PROVIDERS: PCP Internal Medicine; Referring Provider Internal Medicine; Visit Provider Internal Medicine Hypertension Specialist
DX: Z90.5 Acquired absence of kidney (principal); N18.30 Chronic kidney disease, stage 3 unspecified; C64.1 Malignant neoplasm of right kidney, except renal pelvis
CPT/HCPCS: 99204

== ENCOUNTER 2023-09-28 10:48 | Outpatient (REF) | payer OTHER, SELFPAY ==
[2023-09-28 12:52] LABS: Estimated Glomerular Filt Rate 46
[2023-09-28 12:58] LABS: Calcium 9.1 mg/dL (8.4-10.2); Gamma Glutamyl Transpeptidase 54 U/L (11-51); Magnesium 1.8 mg/dL (1.6-2.6)
[2023-09-28 13:08] LABS: Prostate Specific Antigen 1.19 ng/mL (<0.05-4.0)
[2023-09-28 13:09] LABS: Syphilis Screen Nonreactive (Nonreactive)
[2023-09-28 13:15] LABS: Vitamin D 25-OH Total 21.4 ng/mL (>30)
[2023-09-28 13:21] LABS: Folate 14.4 ng/mL (> or = 4.0); Vitamin B12 775 pg/mL (200-900)
[2023-09-28 14:21] LABS: Creatinine, mg/dL 84.48
[2023-09-28 15:26] LABS: Creatinine, 24Hr Urine 1.1 G/Day (1.0-2.0); Total Volume 24 Hour Urine 1300 mL
[2023-09-28 15:27] LABS: Creatinine (CrCl) 1.53 mg/dL (0.5-1.4); Creatinine Clearance 49.8 mL/min (85-125)
[2023-09-29 11:18] LABS: LDL Cholesterol Direct 110 mg/dL (<100)
[2023-09-29 19:48] LABS: Lyme Abs Screen <0.90 index
[2023-09-29 20:38] LABS: Homocysteine 18.5 umol/L (<11.4)
[2023-10-02 14:48] LABS: Methylmalonic Acid 202 nmol/L (87-318)
[2023-10-03 00:28] LABS: Testosterone, Free 34.6 pg/mL (35.0-155.0); Testosterone, Total 368 ng/dL (250-1100)
== END 2023-09-28 10:49 | disposition home or self-care (01) ==
LOC: HO.LAB 10:48
PROVIDERS: Absent Provider Nurse Practitioner Family; PCP Internal Medicine; Referring Provider Internal Medicine Hypertension Specialist; Visit Provider Psychiatry & Neurology Psychiatry
DX: Z00.01 Encounter for general adult medical examination with abnormal findings (principal); Z12.5 Encounter for screening for malignant neoplasm of prostate; R79.89 Other specified abnormal findings of blood chemistry; N40.0 Benign prostatic hyperplasia without lower urinary tract symptoms; N52.9 Male erectile dysfunction, unspecified; K74.60 Unspecified cirrhosis of liver; C64.9 Malignant neoplasm of unspecified kidney, except renal pelvis; I48.0 Paroxysmal atrial fibrillation; F31.2 Bipolar disorder, current episode manic severe with psychotic features; Z90.5 Acquired absence of kidney
CPT/HCPCS: 36415; 82306; 82310; 82565; 82575; 82607; 82746; 82977; 83090; 83721; 83735; 83921; 84153; 84402; 84403; 86617; 86618; 86780

== ENCOUNTER 2023-10-31 13:14 | Outpatient (AMB) | payer OTHER, SELFPAY ==
--- NOTE | 2023-10-31 13:24 | HO.NEPHOV ---
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 Referred for evaluation of CKD He underwent cholecystectomy at the same time. 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 Final pathological stage pT3a NX MX. AJCC stage III. 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 Tumor extended into renal sinus, into major vein. No sarcamatoid features, no lymphovascular invasion, all margins negative for carcinoma. Patient had a prolonged postoperative course complicated initially by hemorrhagic shock followed by retroperitoneal abscess . He required prolonged course of IV antibiotics and drainage of abscess. Prior to nephrectomy serum creatinine was around 0.9-1.1 mg/dL. Since nephrectomy serum creatinine is around 1.5-1.7 mg/dL and has relatively been stable. He has had a testicular pain seen by Urology and was diagnosed with a varicocele. Review of system was positive for chronic diarrhea since cholecystectomy no nausea or vomiting. No urinary symptoms. No headache nausea vomiting no abdominal pain no edema no fever no weight loss. 10/31/2023. Overall he is doing well. He is currently on chemotherapy with 3 weeks. Last dose is scheduled for November 2023. He underwent 24 urine collection. [facility] Medical History CVA (cerebral vascular accident) Difficulty sleeping Anxiety, generalized Porcelain gallbladder Ascites Alcohol abuse Irritable bowel syndrome Chronic GERD Paroxysmal atrial fibrillation Tobacco abuse Surgical History Hx of esophagogastroduodenoscopy History of colonoscopy H/O exploratory laparotomy Family History Father Cerebrovascular disease Diabetes mellitus HTN (hypertension) Hx of CABG Mother Lung cancer Maternal Grandmother Myocardial infarction Maternal Grandfather Lung cancer Paternal Grandmother Cerebrovascular disease Paternal Uncle Lung cancer Brother No problems noted. Brother No problems noted. Son No problems noted. Son No problems noted. Other Mental health disorder Substance use disorder Social History Household Members: Spouse and Children Housing: House Alcohol intake: current Alcohol intake frequency: former alcohol drinker Patient Tobacco Use Status: Current everyday Tobacco user Tobacco use type: Cigarette Cigarette Packs Per Day: 1 Years Smoked: 50 years e-Cigarette/Vaping Use: Currently Using Substance Use Type: Other service: No Current occupational status: disabled Cognitive needs: No Hearing needs: No Vision needs: Yes Physical Exam Vital Signs: Last Vital Signs Pulse 81 10/31/23 13:25 BP 140/78 H 10/31/23 13:25 Pulse Ox 96 10/31/23 13:25 Oxygen Delivery Method Room Air 10/31/23 13:25 BMI result Body Mass Index 28.8 Const General: comfortable Nutritional Appearance: well nourished Orientation/consciousness: patient oriented x3 HEENT Head: No normal to inspection Mouth: moist mucous membranes Neck Neck: Yes supple and Yes no JVD Resp Auscultation: clear to auscultation bilaterally, no rales and rub present Cardio Jugular venous distension: no JVD Palpation: no palpable S3 and no palpable S4 Heart sounds: no rubs GI Palpation (GI): Soft to palpation and nontender Percussion: No Fluid wave present General: Yes no CVA tenderness Back/Spine/Pelvis Back: no CVA tenderness Skin General skin exam: no rashes or lesions noted Neuro General: patient oriented x3 Extrem General: Yes no pedal edema and No clubbing Results Reviewed Results Reviewed: September 2023. Twenty-four urine collection showed creatinine clearance of 50 mL/minute Baseline creatinine of 1.6 mg/dL Nephrology Results: Hgb 15.5 g/dl (14.0-18.0) 10/19/23 WBC 8.7 X10*3/uL (4.8-10.8) 10/19/23 Plt Count 159 X10*3/uL (160-400) L 10/19/23 Sodium 139 mmol/L (135-145) 10/19/23 Potassium 3.7 mmol/L (3.3-5.1) 10/19/23 Chloride 108 mmol/L (96-108) 10/19/23 Carbon Dioxide 26 mmol/L (22-29) 10/19/23 BUN 13 mg/dL (9-16) 10/19/23 Creatinine 1.61 mg/dL (0.5-1.4) H 10/19/23 Calcium 9.4 mg/dL (8.4-10.2) 10/19/23 Assessment & Plan Assessment & Plan (1) Solitary kidney, acquired: Code(s): Z90.5 - Acquired absence of kidney Category: Medical (2) CKD (chronic kidney disease) stage 3, GFR 30-59 ml/min: Code(s): N18.30 - Chronic kidney disease, stage 3 unspecified Category: Medical (3) Renal cancer: Code(s): C64.9 - Malignant neoplasm of unspecified kidney, except renal pelvis Category: Medical Qualifiers: Laterality: right Qualified Code(s): C64.1 - Malignant neoplasm of right kidney, except renal pelvis Plan 62-year-old man with renal cell carcinoma status post right nephrectomy. He has solitary left kidney with underlying CKD. Baseline serum creatinine is around 1.4-1.7 mg/dL. Goal is to slow the portion of renal disease. 24 urine collection Revealed a creatinine clearance of 50 mL/minute with a serum creatinine 1.61. This is probably his baseline. Serum creatinine has been relatively stable over the last 12 months. Encouraged him to stand low-sodium diet. He should increase his p.o. fluid intake. Continue to avoid nephrotoxic agents including NSAIDs. I have discussed importance of smoking cessation but he has no intention to quit at this time. All his questions were answered. chemotherapy every 3 weeks and he is having blood work done every 3 weeks. We will be happy to follow him along with the team Orders: Orders Basic Metabolic Panel 6 Months N18.30 - Chronic kidney disease, stage 3 unspecified, Z90.5 - Acquired absence of kidney Medications: Discontinued ferrous sulfate Discontinued Reason: Patient no longer taking 325 mg PO DAILY 60 tabs 1RF Coding Level of Care Code Est Pt Level 4 (55620) Diagnoses Solitary kidney, acquired Z90.5 CKD (chronic kidney disease) stage 3, GFR 30-59 ml/min N18.30 Malignant neoplasm of right kidney C64.1 Laterality: right
[2023-10-31 13:25] VITALS: BP 140/78; PULSE 81; O2SAT 96; BMI 28.8
== END 2023-10-31 13:42 | disposition home or self-care (01) ==
PROVIDERS: PCP Internal Medicine; Visit Provider Internal Medicine Hypertension Specialist
DX: Z90.5 Acquired absence of kidney (principal); N18.30 Chronic kidney disease, stage 3 unspecified; C64.1 Malignant neoplasm of right kidney, except renal pelvis
CPT/HCPCS: 99214

== ENCOUNTER → 2023-10-31 13:14 | Outpatient (BNVA) | payer OTHER, SELFPAY | PROVIDERS: PCP Internal Medicine; Visit Provider Internal Medicine Hypertension Specialist ==

== ENCOUNTER 2023-12-12 10:56 | Outpatient (AMB) | payer OTHER, SELFPAY ==
--- NOTE | 2023-12-12 11:14 | A.OFFVIS_ITS ---
Intake Visit Reasons: 3m/PSA Intake Note: Patient presents today for a follow-up on: PSA and Testosterone labs PSA: 1.19; Test: 368; Free Test: 34.6 Urology Medications: Sildenafil Allergies to Antibiotic: No Known Allergies Blood Thinner: None Roller Print Tender Required: No Accompanied by: Allergies duloxetine Allergy (Unknown, Verified 12/12/23 11:32) psychotic episodes lorazepam [From ATIVAN] Adverse Reaction (Unknown, Verified 12/12/23 11:32) AGITATION Medication List - Last Reconciled 12/12/23 by SHAREE Jade- albuterol sulfate 90 mcg/actuation (ProAir HFA) 1 inh inhalation QID PRN 30 days cholestyramine (with sugar) 4 gram ea PO nadolol 20 mg PO QAM olanzapine 10 mg PO BEDTIME omeprazole 40 mg PO BID ondansetron 8 mg PO Q8H oxcarbazepine 150 mg PO BID sildenafil (Viagra) 100 mg PO .PRN 30 days trazodone 150 mg PO BEDTIME HPI Comments Details: Miah is a very pleasant 63-year-old male patient of Dr. Ware who was accompanied by his at today's office visit. He has a past medical history of nicotine dependence, CVA in 2016 with no deficits, difficulty sleeping, anxiety, ascites, alcohol abuse, irritable bowel syndrome, GERD, paroxysmal atrial fibrillation, and renal cancer status post right-sided nephrectomy with Dr. Mcdonough. He presents to the office today for follow-up. Of note, patient was seen approximately 3 months ago at which time he was started on low-dose Cialis with p.r.n. dosing for reports of erectile dysfunction. In discussion with the patient today he reports no improvement in his erections with daily dosing and p.r.n. dosing. He discusses having completed his immunotherapy a proximally 2 weeks ago with Oncology for his history of renal cancer he discusses continuing to undergo surveillance monitoring with oncology as well. He also follows up with Dr. Mcdonough annually via telehealth. He discusses recently following up with Nephrology for his proteinuria. He also has a history of scrotal discomfort with a scrotal ultrasound noting no testicular torsion. Bilateral epididymal head multiloculated cysts. Prominent left testicular varicocele measuring approximately 4 mm. He reports ED to have been present for many years now. He reports sexual desire. However is not able to obtain and or maintain erections. Discussed at length lifestyle modifications to assist with erectile dysfunction. Recent testosterone and PSA results reviewed with the patient today PSA 10/18 1.2 Testosterone 10/18 368 free testosterone 44.6 He otherwise denies any bothersome urinary issues. He denies urinary urgency, urinary frequency, incontinence, nocturia, hematuria, dysuria, foul smelling urine, changes to urinary stream, flank pain, fever, and or chills. He is happy with his current voiding parameters. In review of patient's chart it appears surveillance imaging has been ordered and performed with oncology. 01/16 CT of the abdomen and pelvis showed postsurgical changes following right radical nephrectomy. Cirrhotic appearing liver with splenomegaly and small loculated ascites adjacent to small bowel loops. No drainable fluid or abscess. 09/17 CT abdomen and pelvis: Status post benign nephrectomy, bilateral pulmonary nodules measuring up to 3 mm, ill-defined possible 1.2 cm hypoattenuating splenic lesion. CT of the chest 08/20-showed subcentimeter pulmonary nodules. PET-CT in December of 2022 shows no evidence of metastatic disease. He otherwise offers no other issues or concerns at this time. [facility] Medical History CVA (cerebral vascular accident) Difficulty sleeping Anxiety, generalized Porcelain gallbladder Ascites Alcohol abuse Irritable bowel syndrome Chronic GERD Paroxysmal atrial fibrillation Tobacco abuse Surgical History Hx of esophagogastroduodenoscopy History of colonoscopy H/O exploratory laparotomy Family History Father Cerebrovascular disease Diabetes mellitus HTN (hypertension) Hx of CABG Mother Lung cancer Maternal Grandmother Myocardial infarction Maternal Grandfather Lung cancer Paternal Grandmother Cerebrovascular disease Paternal Uncle Lung cancer Brother No problems noted. Brother No problems noted. Son No problems noted. Son No problems noted. Other Mental health disorder Substance use disorder Social History Household Members: Spouse and Children Housing: House Alcohol intake: current Alcohol intake frequency: former alcohol drinker Patient Tobacco Use Status: Current everyday Tobacco user Tobacco use type: Cigarette Cigarette Packs Per Day: 1 Years Smoked: 50 years e-Cigarette/Vaping Use: Currently Using Substance Use Type: Other service: No Current occupational status: disabled Cognitive needs: No Hearing needs: No Vision needs: Yes Review of Systems Const Reports as per HPI Eyes Reports no additional complaints ENT Reports no additional complaints Card Reports as per HPI Resp Reports no additional complaints GI Reports as per HPI Reports as per HPI Musc Reports no additional complaints Neuro Reports as per HPI Psych Reports as per HPI Endo Reports no additional complaints Physical Exam Const General: cooperative, comfortable, no acute distress, well developed, alert and awake Orientation/consciousness: patient oriented x3 Limitations: no limitations HEENT Head: Yes normal to inspection, Yes normocephalic and Yes atraumatic Ears: hearing grossly normal bilaterally Eyes General: appearance normal, both eyes and all related structures Neck Neck: Yes normal visual inspection and Yes trachea midline Chest Chest palpation & inspection: normal inspection of the chest Resp Effort & Inspection: normal respiratory effort and able to speak in complete sentences Cardio Rate: regular rate GI Inspection: Yes normal to inspection General: Yes no CVA tenderness Back/Spine/Pelvis Back: no CVA tenderness Skin General skin exam: no rashes or lesions noted Neuro General: patient oriented x3 Extrem General: Yes normal to inspection Psych Appearance: grossly normal and well kempt Mental Status: mental status grossly normal Speech and movement: Normal speech and movement present and Clear speech present Affect: normal affect Attitude: cooperative Thought process: Normal thought process present Thought content: Normal thought content present Insight: Fair insight present (Psych) Judgement: Fair judgement present (Psych) Results AMB Urinalysis, Automated UA Leukoctes 0 Saima/uL Last Edit by Nam Vieyra on 12/12/23 11:26 UA Nitrite Negative Last Edit by Nam Vieyra on 12/12/23 11:26 UA Urobilinogen 0.2 mg/dL Last Edit by RobCaptiveMotionloni Vieyra on 12/12/23 11:26 UA Protein 100 mg/dL Last Edit by Nam Vieyra on 12/12/23 11:26 UA pH 6.0 Last Edit by Nam Vieyra on 12/12/23 11:26 UA Blood 0 Piyush/uL Last Edit by Nam Vieyra on 12/12/23 11:26 UA Specific Voca 1.015 Last Edit by Nam Vieyra on 12/12/23 11:26 UA Ketone Negative Last Edit by Nam Vieyra on 12/12/23 11:26 UA Bilirubin 0 mg/dL Last Edit by Nam Vieyra on 12/12/23 11:26 UA Glucose 0 mg/dL Last Edit by Nam Vieyra on 12/12/23 11:26 Results Reviewed Results Reviewed: Laboratory Last Values Urine pH (Auto) 6.0 12/12/23 11:25 Specific Voca (Auto) 1.015 12/12/23 11:25 Urine Protein (Auto) 100 mg/dL 12/12/23 11:25 Glucose (UA)(Auto) 0 mg/dL 12/12/23 11:25 Urine Ketones (Auto) Negative 12/12/23 11:25 Urine Blood (Auto) 0 Piyush/uL 12/12/23 11:25 Urine Nitrite (Auto) Negative 12/12/23 11:25 Urine Bilirubin (Auto) 0 mg/dL 12/12/23 11:25 Urine Urobilinogen (Auto) 0.2 mg/dL 12/12/23 11:25 Leukocyte Esterase (Auto) 0 Saima/uL 12/12/23 11:25 Assessment & Plan Assessment & Plan (1) Erectile dysfunction: Code(s): N52.9 - Male erectile dysfunction, unspecified Category: Medical (2) Solitary kidney, acquired: Code(s): Z90.5 - Acquired absence of kidney Category: Medical Plan Discussed at length lifestyle modifications to assist with erectile dysfunction. Discussed, educated, and stressed the importance of quitting/limiting nicotine dependence for overall health and well-being. Start Viagra as discussed and prescribed; prescription provided Stop daily dosing of Cialis as well as p.r.n. dosing. Discussed at length potential causes for erectile dysfunction patient is experiencing. Discussed further treatment options with injectable therapy Recent testosterone and PSA results reviewed with the patient and his today; as noted above. Continue to follow-up with oncology for surveillance monitoring Follow-up in 3 months; or sooner with any issues, concerns, and or questions. Orders: Orders AMB Urinalysis Automated Today Z13.9 - Encounter for screening, unspecified Medications: Refilled sildenafil (Viagra) [id number] [facility] [place] [id number] Member [id number] 100 mg PO .PRN 30 days 14 tabs 2RF sexual activity Patient Instructions: The patient had an opportunity to ask questions regarding the treatment plan. All questions were answered. Physical exam, labs, and imaging were discussed and reviewed in detail. As well as risks, benefits, and discussion of treatment choices. No major barriers to understanding were identified. The patient expressed understanding and agreement with the above treatment plan. The patient was made aware they should contact our office by phone for worsening of their current condition, the appearance of new symptoms, or with any questions or concerns. Compliance is encouraged with any medications and follow up testing that is ordered. It is a privilege to be allowed the opportunity to participate in? your urological care.? Again, if you have any questions or concerns If you have any questions or concerns please do not hesitate to contact me. The office is [phone]. This note is constructed using voice recognition software. While every effort has been made to ensure accuracy restaurant assistant manager errors may have been included. Yours sincerely, LG Jade Coding Level of Care Code Est Pt Level 3 (01120) Diagnoses Erectile dysfunction N52.9 Solitary kidney, acquired Z90.5
== END 2023-12-12 11:41 | disposition home or self-care (01) ==
PROVIDERS: PCP Internal Medicine; Visit Provider Nurse Practitioner Family
DX: N52.9 Male erectile dysfunction, unspecified (principal); Z90.5 Acquired absence of kidney; Z13.9 Encounter for screening, unspecified
CPT/HCPCS: 99213

== ENCOUNTER → 2023-12-12 10:56 | Outpatient (BNVA) | payer OTHER, SELFPAY | PROVIDERS: PCP Internal Medicine; Visit Provider Nurse Practitioner Family | DX: N52.9 Male erectile dysfunction, unspecified (principal); Z90.5 Acquired absence of kidney | CPT/HCPCS: 81003 ==

== ENCOUNTER 2024-02-28 16:43 | Outpatient (REF) | payer OTHER, SELFPAY ==
--- NOTE | ~2024-02-28 | CT_ITS ---
EXAMINATION: CT CHEST WITH CONTRAST CT ABDOMEN AND PELVIS WITH CONTRAST CLINICAL INFORMATION: surveillance, kidney ca COMPARISON: 09/19/2023 TECHNIQUE: Multidetector volumetric imaging was performed through the chest, abdomen and pelvis without intravenous contrast. Sagittal and coronal reformatted images were obtained on the technologist's workstation. Axial MIP volume rendering provided. This CT examination was performed using dose optimization techniques as appropriate, variously including the following: *Automated exposure control *Adjustment of mA and/or kV according to patient size (this includes techniques or standardized protocols for targeted exams where dose is matched to indication/reason for exam; i.e. extremities or head) *Use of iterative reconstruction technique DLP: 763 mGy-cm. FINDINGS: CHEST: Lungs: The central airways are patent. No consolidation. Bandlike opacity in the right perihilar region is similar to prior. Left basilar atelectasis.. No pleural effusion or pneumothorax. Unchanged appearance of the 0.4 cm subpleural left upper lobe nodule on series 5 image 375. 0.3 cm right lower lobe subpleural nodule seen on prior is decreased in size, now measuring 0.2 cm on series 5 image 390. 0.2 cm right upper lobe nodule on series 5 image 186, seen at the anterior medial aspect of the lung is decreased in prominence from prior. Unchanged 0.3 cm right upper lobe nodule on series 5 image 195. There are no new pulmonary nodules identified. Mediastinum: The heart is of normal size. There is no pericardial effusion. Central vascular structures are unremarkable. No hilar or mediastinal lymphadenopathy. Coronary Artery Calcification: Present. Chest Wall/Axilla: No lymphadenopathy. No chest wall mass. Gynecomastia. ABDOMEN/PELVIS: Liver, Gallbladder, Biliary Tree: Lobulated liver contour with left lobe hypertrophy. This is unchanged from prior. No focal mass. Normal attenuation. Cholecystectomy. No significant ascites. Pancreas: Unremarkable. Spleen: The spleen measures 13 cm in CC dimension. No focal splenic mass identified. Adrenal Glands: Unremarkable. Kidneys and Ureters: The left kidney is normal in size and position without hydronephrosis. 0.2 cm calcification at the midpole noted, unchanged. The right kidney is absent. Unchanged appearance of scarring at the nephrectomy bed. Bladder: Decompressed with no gross abnormality Gastrointestinal Tract: The stomach and small bowel appear unremarkable. No dilated loops of bowel or evidence of obstruction. No diverticulosis. No colonic wall thickening or adjacent inflammatory changes. No free air or free fluid. Appendix not seen. Abdominal Wall: No hernia is demonstrated. Lymphovascular Structures: Lymph nodes: Normal. Vascular: Normal caliber aorta with moderate atherosclerotic calcification. Pelvic Viscera: Unremarkable. OSSEOUS STRUCTURES: No suspicious sclerotic or lytic bone lesions are identified. Bilateral L5 pars defects with grade 1 anterolisthesis of L5 on S1. Disc space narrowing with vacuum disc phenomenon. CT/CT abdomen pelvis wo IV con IMPRESSION: 1. Multiple small pulmonary nodules are again noted. The majority of these are unchanged or decreased in size from prior. No new pulmonary nodules are identified. 2. No lymphadenopathy. 3. Status post right nephrectomy. Unchanged appearance of scarring at the nephrectomy bed. 4. Cirrhotic appearance of the liver. Borderline splenomegaly. Electronically signed by: Moses Hicks MD 03/06/2024 09:23 AM EDT
== END 2024-02-28 16:44 | disposition home or self-care (01) ==
LOC: HO.CT 16:43
PROVIDERS: PCP Internal Medicine; Visit Provider Internal Medicine
DX: C64.9 Malignant neoplasm of unspecified kidney, except renal pelvis (principal)
CPT/HCPCS: 71250; 74176

== ENCOUNTER 2024-03-19 10:41 | Outpatient (AMB) | payer OTHER, SELFPAY ==
--- NOTE | 2024-03-19 10:49 | A.OFFVIS_ITS ---
Intake Visit Reasons: 3m follow up Intake Note: Patient presents today for a follow-up on: Erectile Dysfunction Urology Medications: Sildenafil Allergies to Antibiotic: No Known Allergies Blood Thinner: None Credit Investigator Required: No Accompanied by: Self / Same As Patient Allergies duloxetine Allergy (Unknown, Verified 03/19/24 11:33) psychotic episodes lorazepam [From ATIVAN] Adverse Reaction (Unknown, Verified 03/19/24 11:33) AGITATION Medication List - Last Reconciled 03/19/24 by BRYAN Jade albuterol sulfate 90 mcg/actuation (ProAir HFA) 1 inh inhalation QID PRN 30 days cholestyramine (with sugar) 4 gram 4 ea PO DAILY nadolol 20 mg PO QAM olanzapine 10 mg PO BEDTIME omeprazole 40 mg PO BID ondansetron 8 mg PO Q8H oxcarbazepine 150 mg PO BID sildenafil (Viagra) 100 mg PO .PRN 30 days trazodone 150 mg PO BEDTIME HPI Comments Details: Miah is a very pleasant 63-year-old male patient of Dr. Ware. He has a past medical history of nicotine dependence, CVA in 2016 with no deficits, difficulty sleeping, anxiety, ascites, alcohol abuse, irritable bowel syndrome, GERD, paroxysmal atrial fibrillation, and renal cancer status post right-sided nephrectomy with Dr. Mcdonough. He presents to the office today for follow-up of his erectile dysfunction. Of note, patient was seen approximately 3 months ago at which time p.r.n. Cialis was changed to Viagra as patient noted no improvement in erectile dysfunction. In discussion with the patient today he reports since his last office visit here he has not trialed Viagra as he has been having issues with scrotal itching. In assessment of the patient today there is mild irritation to scrotal septum/raphe however no open areas, lesions, and or drainage noted. Discussed applying thin layer of Aquaphor to assist with dryness and scrotal itching. He also discusses having followed up with Oncology for his surveillance monitoring imaging of his chest and abdomen. CT abdomen and pelvis results were reviewed at today's office visit as well. Multiple small pulmonary nodules are again noted. The majority of these are unchanged or decreased in size from prior. No new pulmonary nodules are identified. No lymphadenopathy. Status post right nephrectomy. Unchanged appearance of scarring at the nephrectomy bed. Cirrhotic appearance of the liver. Borderline splenomegaly. He continues to follow-up with nephrology for his ongoing proteinuria as well as Dr. Mcdonough. Discussed at length lifestyle modifications to assist with erectile dysfunction. Previous labs are as follows: PSA 10/18 1.2 Testosterone 10/18 368 free testosterone 44.6 He otherwise denies any bothersome urinary issues. He denies urinary urgency, urinary frequency, incontinence, nocturia, hematuria, dysuria, foul smelling urine, changes to urinary stream, flank pain, fever, and or chills. He is happy with his current voiding parameters. [facility] Medical History CVA (cerebral vascular accident) Difficulty sleeping Anxiety, generalized Porcelain gallbladder Ascites Alcohol abuse Irritable bowel syndrome Chronic GERD Paroxysmal atrial fibrillation Tobacco abuse Surgical History Hx of esophagogastroduodenoscopy History of colonoscopy H/O exploratory laparotomy Family History Father Cerebrovascular disease Diabetes mellitus HTN (hypertension) Hx of CABG Mother Lung cancer Maternal Grandmother Myocardial infarction Maternal Grandfather Lung cancer Paternal Grandmother Cerebrovascular disease Paternal Uncle Lung cancer Brother No problems noted. Brother No problems noted. Son No problems noted. Son No problems noted. Other Mental health disorder Substance use disorder Social History Household Members: Spouse and Children Housing: House Alcohol intake: current Alcohol intake frequency: former alcohol drinker Patient Tobacco Use Status: Current everyday Tobacco user Tobacco use type: Cigarette Cigarette Packs Per Day: 1 Years Smoked: 50 years e-Cigarette/Vaping Use: Currently Using Substance Use Type: Other service: No Current occupational status: disabled Cognitive needs: No Hearing needs: No Vision needs: Yes Review of Systems Const Reports as per HPI Eyes Reports no additional complaints ENT Reports no additional complaints Card Reports as per [facility] Resp Reports no additional complaints GI Reports as per [facility] Reports as per [facility] Musc Reports no additional complaints Neuro Reports as per [facility] Psych Reports as per [facility] Endo Reports no additional complaints Physical Exam Const General: cooperative, comfortable, no acute distress, well developed, alert and awake Orientation/consciousness: patient oriented x3 Limitations: no limitations HEENT Head: Yes normal to inspection, Yes normocephalic and Yes atraumatic Ears: hearing grossly normal bilaterally Eyes General: appearance normal, both eyes and all related structures Neck Neck: Yes normal visual inspection and Yes trachea midline Chest Chest palpation & inspection: normal inspection of the chest Resp Effort & Inspection: normal respiratory effort and able to speak in complete sentences Cardio Rate: regular rate GI Inspection: Yes normal to inspection General: Yes no CVA tenderness Back/Spine/Pelvis Back: no CVA tenderness Skin General skin exam: no rashes or lesions noted Neuro General: patient oriented x3 Extrem General: Yes normal to inspection Psych Appearance: grossly normal and well kempt Mental Status: mental status grossly normal Speech and movement: Normal speech and movement present and Clear speech present Affect: normal affect Attitude: cooperative Thought process: Normal thought process present Thought content: Normal thought content present Insight: Fair insight present (Psych) Judgement: Fair judgement present (Psych) Results AMB Urinalysis, Automated UA Leukoctes 0 Saima/uL Last Edit by [email or web address] Systemsloni Vieyra on 03/19/24 11:09 UA Nitrite Last Edit by [employer]Better Jarrell on 03/19/24 11:09 UA Urobilinogen 0.2 mg/dL Last Edit by [email or web address] Systemsloni Vieyra on 03/19/24 11:09 UA Protein 30 mg/dL Last Edit by [employer]gg on 03/19/24 11:09 UA pH 6.0 Last Edit by [employer]gg on 03/19/24 11:09 UA Blood 0 Piyush/uL Last Edit by [employer]Better Jarrell on 03/19/24 11:09 UA Specific [place] 1.015 Last Edit by Capillary Technologiesloni Vieyra on 03/19/24 11:09 UA Ketone Last Edit by [employer]Better Jarrell on 03/19/24 11:09 UA Bilirubin 0 mg/dL Last Edit by Capillary Technologiesloni Vieyra on 03/19/24 11:09 UA Glucose 0 mg/dL Last Edit by Nam Vieyra on 03/19/24 11:09 Results Reviewed Results Reviewed: Laboratory Last Values Urine pH (Auto) 6.0 03/19/24 11:07 Specific [place] (Auto) 1.015 03/19/24 11:07 Urine Protein (Auto) 30 mg/dL 03/19/24 11:07 Glucose (UA)(Auto) 0 mg/dL 03/19/24 11:07 Urine Blood (Auto) 0 Piyush/uL 03/19/24 11:07 Urine Bilirubin (Auto) 0 mg/dL 03/19/24 11:07 Urine Urobilinogen (Auto) 0.2 mg/dL 03/19/24 11:07 Leukocyte Esterase (Auto) 0 Saima/uL 03/19/24 11:07 Date of Service: 02/28/24 CT ABDOMEN AND PELVIS WITH CONTRAST FINDINGS: CHEST: Lungs: The central airways are patent. No consolidation. Bandlike opacity in the right perihilar region is similar to prior. Left basilar atelectasis.. No pleural effusion or pneumothorax. Unchanged appearance of the 0.4 cm subpleural left upper lobe nodule on series 5 image 375. 0.3 cm right lower lobe subpleural nodule seen on prior is decreased in size, now measuring 0.2 cm on series 5 image 390. 0.2 cm right upper lobe nodule on series 5 image 186, seen at the anterior medial aspect of the lung is decreased in prominence from prior. Unchanged 0.3 cm right upper lobe nodule on series 5 image 195. There are no new pulmonary nodules identified. Mediastinum: The heart is of normal size. There is no pericardial effusion. Central vascular structures are unremarkable. No hilar or mediastinal lymphadenopathy. Coronary Artery Calcification: Present. Chest Wall/Axilla: No lymphadenopathy. No chest wall mass. Gynecomastia. ABDOMEN/PELVIS: Liver, Gallbladder, Biliary Tree: Lobulated liver contour with left lobe hypertrophy. This is unchanged from prior. No focal mass. Normal attenuation. Cholecystectomy. No significant ascites. Pancreas: Unremarkable. Spleen: The spleen measures 13 cm in CC dimension. No focal splenic mass identified. Adrenal Glands: Unremarkable. Kidneys and Ureters: The left kidney is normal in size and position without hydronephrosis. 0.2 cm calcification at the midpole noted, unchanged. The right kidney is absent. Unchanged appearance of scarring at the nephrectomy bed. Bladder: Decompressed with no gross abnormality Gastrointestinal Tract: The stomach and small bowel appear unremarkable. No dilated loops of bowel or evidence of obstruction. No diverticulosis. No colonic wall thickening or adjacent inflammatory changes. No free air or free fluid. Appendix not seen. Abdominal Wall: No hernia is demonstrated. Lymphovascular Structures: Lymph nodes: Normal. Vascular: Normal caliber aorta with moderate atherosclerotic calcification. Pelvic Viscera: Unremarkable. OSSEOUS STRUCTURES: No suspicious sclerotic or lytic bone lesions are identified. Bilateral L5 pars defects with grade 1 anterolisthesis of L5 on S1. Disc space narrowing with vacuum disc phenomenon. IMPRESSION: 1. Multiple small pulmonary nodules are again noted. The majority of these are unchanged or decreased in size from prior. No new pulmonary nodules are identified. 2. No lymphadenopathy. 3. Status post right nephrectomy. Unchanged appearance of scarring at the nephrectomy bed. 4. Cirrhotic appearance of the liver. Borderline splenomegaly. Assessment & Plan Assessment & Plan (1) Solitary kidney, acquired: Code(s): Z90.5 - Acquired absence of kidney Category: Medical (2) Status post nephrectomy: Code(s): Z90.5 - Acquired absence of kidney Category: Medical (3) Renal cancer: Code(s): C64.9 - Malignant neoplasm of unspecified kidney, except renal pelvis Category: Medical Qualifiers: Laterality: right Qualified Code(s): C64.1 - Malignant neoplasm of right kidney, except renal pelvis (4) Erectile dysfunction: Code(s): N52.9 - Male erectile dysfunction, unspecified Category: Medical Plan In office urinalysis results reviewed with the patient today; as noted above. Discussed applying thin layer of Aquaphor to scrotum to assist with dryness. Patient currently denies any bothersome urinary issues or concerns. He reports be happy with current voiding parameters. Recent CT results reviewed with the patient today; as noted above. Discussed and stressed the importance of surveillance monitoring for history of renal cancer. Discussed possible penile injection therapy however will await trial of Viagra. Follow-up in 3 months; or sooner with any issues, concerns, and or questions. Orders: Orders AMB Urinalysis Automated Today Z13.9 - Encounter for screening, unspecified Patient Instructions: The patient had an opportunity to ask questions regarding the treatment plan. All questions were answered. Physical exam, labs, and imaging were discussed and reviewed in detail. As well as risks, benefits, and discussion of treatment choices. No major barriers to understanding were identified. The patient expressed understanding and agreement with the above treatment plan. The patient was made aware they should contact our office by phone for worsening of their current condition, the appearance of new symptoms, or with any questions or concerns. Compliance is encouraged with any medications and follow up testing that is ordered. It is a privilege to be allowed the opportunity to participate in? your urological care.? Again, if you have any questions or concerns If you have any questions or concerns please do not hesitate to contact me. The office is [phone]. This note is constructed using voice recognition software. While every effort has been made to ensure accuracy aquatics lifeguard errors may have been included. Yours sincerely, LG Jade Coding Level of Care Code Est Pt Level 3 (36080) Diagnoses Solitary kidney, acquired Z90.5 Status post nephrectomy Z90.5 Malignant neoplasm of right kidney C64.1 Laterality: right Erectile dysfunction N52.9
== END 2024-03-19 11:21 | disposition home or self-care (01) ==
PROVIDERS: PCP Internal Medicine; Visit Provider Nurse Practitioner Family
DX: Z90.5 Acquired absence of kidney (principal); C64.1 Malignant neoplasm of right kidney, except renal pelvis; N52.9 Male erectile dysfunction, unspecified; Z13.9 Encounter for screening, unspecified
CPT/HCPCS: 99213

== ENCOUNTER → 2024-03-19 10:41 | Outpatient (BNVA) | payer OTHER, SELFPAY | PROVIDERS: PCP Internal Medicine; Visit Provider Nurse Practitioner Family | DX: N52.9 Male erectile dysfunction, unspecified (principal); C64.1 Malignant neoplasm of right kidney, except renal pelvis; Z90.5 Acquired absence of kidney | CPT/HCPCS: 81003 ==

== ENCOUNTER 2024-05-14 10:29 | Outpatient (AMB) | payer OTHER, SELFPAY ==
[2024-05-14 10:33] VITALS: BP 120/76; PULSE 65; O2SAT 98
--- NOTE | 2024-05-14 10:33 | HO.NEPHOV ---
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 Required: No Accompanied by: Spouse Allergies duloxetine Allergy (Unknown, Verified 05/14/24 10:38) psychotic episodes lorazepam [From ATIVAN] Adverse Reaction (Unknown, Verified 05/14/24 10:38) AGITATION Medication List - Last Reconciled 05/14/24 by Onel Maldonado MD albuterol sulfate 90 mcg/actuation (ProAir HFA) 1 inh inhalation QID PRN 30 days cholestyramine (with sugar) 4 gram 4 ea PO DAILY nadolol 20 mg PO QAM olanzapine 10 mg PO BEDTIME omeprazole 40 mg PO BID ondansetron 8 mg PO Q8H oxcarbazepine 150 mg PO BID sildenafil (Viagra) 100 mg PO .PRN 30 days trazodone 150 mg PO BEDTIME HPI Comments Details: 62-year-old man with right kidney cancer status post right open nephrectomy on 10/17 at [facility]. Referred for evaluation of CKD He underwent cholecystectomy at the same time. 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 Final pathological stage pT3a NX MX. AJCC stage III. 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 Tumor extended into renal sinus, into major vein. No sarcamatoid features, no lymphovascular invasion, all margins negative for carcinoma. Patient had a prolonged postoperative course complicated initially by hemorrhagic shock followed by retroperitoneal abscess . He required prolonged course of IV antibiotics and drainage of abscess. Prior to nephrectomy serum creatinine was around 0.9-1.1 mg/dL. Since nephrectomy serum creatinine is around 1.5-1.7 mg/dL and has relatively been stable. He has had a testicular pain seen by Urology and was diagnosed with a varicocele. Review of system was positive for chronic diarrhea since cholecystectomy no nausea or vomiting. No urinary symptoms. No headache nausea vomiting no abdominal pain no edema no fever no weight loss. 10/31/2023. Overall he is doing well. He is currently on chemotherapy with 3 weeks. Last dose is scheduled for November 2023. He underwent 24 urine collection. 05/14/[address] in Sep shows unchanged pulm nodules NO lymphadenopathy PFSH Medical History CVA (cerebral vascular accident) Difficulty sleeping Anxiety, generalized Porcelain gallbladder Ascites Alcohol abuse Irritable bowel syndrome Chronic GERD Paroxysmal atrial fibrillation Tobacco abuse Surgical History Hx of esophagogastroduodenoscopy History of colonoscopy H/O exploratory laparotomy Family History Father Cerebrovascular disease Diabetes mellitus HTN (hypertension) Hx of CABG Mother Lung cancer Maternal Grandmother Myocardial infarction Maternal Grandfather Lung cancer Paternal Grandmother Cerebrovascular disease Paternal Uncle Lung cancer Brother No problems noted. Brother No problems noted. Son No problems noted. Son No problems noted. Other Mental health disorder Substance use disorder Social History Household Members: Spouse and Children Housing: House Alcohol intake: current Alcohol intake frequency: former alcohol drinker Patient Tobacco Use Status: Current everyday Tobacco user Tobacco use type: Cigarette Cigarette Packs Per Day: 1 Years Smoked: 50 years e-Cigarette/Vaping Use: Currently Using Substance Use Type: Other service: No Current occupational status: disabled Cognitive needs: No Hearing needs: No Vision needs: Yes Physical Exam Vital Signs: Last Vital Signs Pulse 65 05/14/24 10:33 BP 120/76 05/14/24 10:33 Pulse Ox 98 05/14/24 10:33 Oxygen Delivery Method Room Air 05/14/24 10:33 BMI result Body Mass Index 30.0 Const General: comfortable Nutritional Appearance: well nourished Orientation/consciousness: patient oriented x3 HEENT Head: No normal to inspection Mouth: moist mucous membranes Neck Neck: Yes supple and Yes no JVD Resp Auscultation: clear to auscultation bilaterally, no rales and rub present Cardio Jugular venous distension: no JVD Palpation: no palpable S3 and no palpable S4 Heart sounds: no rubs GI Palpation (GI): Soft to palpation and nontender Percussion: No Fluid wave present General: Yes no CVA tenderness Back/Spine/Pelvis Back: no CVA tenderness Skin General skin exam: no rashes or lesions noted Neuro General: patient oriented x3 Extrem General: Yes no pedal edema and No clubbing Results Reviewed Nephrology Results: Hgb 14.7 g/dl (14.0-18.0) 02/01/24 WBC 7.8 X10*3/uL (4.8-10.8) 02/01/24 Plt Count 151 X10*3/uL (160-400) L 02/01/24 Sodium 141 mmol/L (135-145) 02/01/24 Potassium 4.4 mmol/L (3.3-5.1) 02/01/24 Chloride 108 mmol/L (96-108) 02/01/24 Carbon Dioxide 27 mmol/L (22-29) 02/01/24 BUN 13 mg/dL (9-16) 02/01/24 Creatinine 1.51 mg/dL (0.5-1.4) H 02/01/24 Calcium 9.7 mg/dL (8.4-10.2) 02/01/24 Assessment & Plan Assessment & Plan (1) Solitary kidney, acquired: Code(s): Z90.5 - Acquired absence of kidney Category: Medical (2) CKD (chronic kidney disease) stage 3, GFR 30-59 ml/min: Code(s): N18.30 - Chronic kidney disease, stage 3 unspecified Category: Medical (3) Renal cancer: Code(s): C64.9 - Malignant neoplasm of unspecified kidney, except renal pelvis Category: Medical Qualifiers: Laterality: right Qualified Code(s): C64.1 - Malignant neoplasm of right kidney, except renal pelvis Plan 62-year-old man with renal cell carcinoma status post right nephrectomy. He has solitary left kidney with underlying CKD. Baseline serum creatinine is around 1.4-1.7 mg/dL. Goal is to slow the portion of renal disease. 24 urine collection Revealed a creatinine clearance of 50 mL/minute with a serum creatinine 1.61. This is probably his baseline. Serum creatinine has been relatively stable over the last 12 months. Encouraged him to stand low-sodium diet. He should increase his p.o. fluid intake. Continue to avoid nephrotoxic agents including NSAIDs. I have discussed importance of smoking cessation but he has no intention to quit at this time. All his questions were answered. chemotherapy - as pper oncology LAbs ordered We will be happy to follow him along with the team Orders: Orders Complete Blood Count no Diff 2 Days N18.30 - Chronic kidney disease, stage 3 unspecified Comprehensive Met. Panel 2 Days N18.30 - Chronic kidney disease, stage 3 unspecified Coding Level of Care Code Est Pt Level 4 (18932) Diagnoses Solitary kidney, acquired Z90.5 CKD (chronic kidney disease) stage 3, GFR 30-59 ml/min N18.30 Malignant neoplasm of right kidney C64.1 Laterality: right
== END 2024-05-14 10:58 | disposition home or self-care (01) ==
PROVIDERS: PCP Internal Medicine; Visit Provider Internal Medicine Hypertension Specialist
DX: N18.30 Chronic kidney disease, stage 3 unspecified (principal); C64.1 Malignant neoplasm of right kidney, except renal pelvis; Z90.5 Acquired absence of kidney
CPT/HCPCS: 99214

== ENCOUNTER → 2024-05-14 10:29 | Outpatient (BNVA) | payer OTHER, SELFPAY | PROVIDERS: PCP Internal Medicine; Visit Provider Internal Medicine Hypertension Specialist ==

== ENCOUNTER 2024-05-16 12:24 | Outpatient (AMB) | payer OTHER, SELFPAY ==
[2024-05-16 12:33] VITALS: BP 130/80; PULSE 74; O2SAT 97; BMI 29.8
--- NOTE | 2024-05-16 12:33 | A.OFFPC_ITS ---
Vital Signs 05/16/24 12:33 Height 5 ft 9 in Weight 202 lb BMI 29.8 BP 130/80 Blood Pressure Location Rt brachial Position Sitting Pulse 74 Pulse Source Pulse Oximeter Pulse Oximetry (%) 97 Oxygen Delivery Method Room Air Intake Visit Reasons: Annual PE Allergies duloxetine Allergy (Unknown, Verified 05/16/24 12:34) psychotic episodes lorazepam [From ATIVAN] Adverse Reaction (Unknown, Verified 05/16/24 12:34) AGITATION Medication List - Last Reconciled 05/16/24 by Julio Ware MD albuterol sulfate 90 mcg/actuation (ProAir HFA) 1 inh inhalation QID PRN 30 days cholestyramine (with sugar) 4 gram 4 ea PO DAILY nadolol 20 mg PO QAM olanzapine 10 mg PO BEDTIME omeprazole 40 mg PO BID oxcarbazepine 150 mg PO BID sildenafil (Viagra) 100 mg PO .PRN 30 days Tobacco use date assessed: 05/16/24 Fall risk assessment: No Falls in past year Last assessed Fall Risk: 05/16/24 Dental Screening Dental Screen Date: 05/16/24 Did you have a dental visit in the last 12 months?: Yes Did you have a dental problem in the last 6 months where you did not have access to dental care?: No Was dental information given to patient?: Patient has dentist HPI Annual PE HPI Details The patient is a 63-year-old male presenting for an annual physical examination. He has a significant history of complex medical conditions including a solitary kidney acquired post-nephrectomy due to renal cancer. His kidney function appears to have improved as evidenced by recent laboratory results. He also suffers from chronic conditions such as liver cirrhosis, psychiatric illness, erectile dysfunction, anxiety, and GERD. Depression anxiety The patient has a past medical history including cerebrovascular accidents and a lifestyle that included alcohol abuse. His medication regimen mainly involves prescriptions managed by a tongue lining stitcher and a urologist. And the psychiatrist Smokes approximately one pack of cigarettes per day - Follow-up scheduled with instructor pilot and cancer specialist next month Recommended enhanced influenza vaccine for age >65 - Pneumococcal vaccination advised Colonoscopy [place] [address] Reyes Plan - Continue monitoring and follow-up for known chronic conditions, particularly renal function and potential risks associated with solitary kidney. - Provide influenza vaccine and advise o n stronger vaccine for age, facilitate pneumococcal vaccination. - Strongly encourage smoking cessation t o improve overall health and reduce illness risk. - Follow-up appointments with nephrology and oncology are scheduled for next month. - Continue psychiatric follow-up with [facility] support network. Instructions with the patient Schedule and receive the recommended influenza Prevnar vaccine given today - Coordinate with specialists for follow -up appointments as previously arranged. - Consider smoking cessation programs wh en ready. - Return in one year for annual physical examination. Discussion During the visit, I discussed the positive development in kidney function with the patient, emphasizing that recent lab results indicate improvement. I recommended receiving the flu and pneumonia vaccines, while informing the patient of the necessity of a stronger flu vaccine given his age. We talked abo ut the importance of smoking cessation concerning his health status and risk reduction. Next steps include continued monitoring of his chronic health issues and upcoming specialist appointments. I ensured the patient understood the plan and encouraged him to return in a year for his next physical exam. [facility] Medical History CVA (cerebral vascular accident) Difficulty sleeping Anxiety, generalized Porcelain gallbladder Ascites Alcohol abuse Irritable bowel syndrome Chronic GERD Paroxysmal atrial fibrillation Tobacco abuse Surgical History Hx of esophagogastroduodenoscopy History of colonoscopy H/O exploratory laparotomy Family History Father Cerebrovascular disease Diabetes mellitus HTN (hypertension) Hx of CABG Mother Lung cancer Maternal Grandmother Myocardial infarction Maternal Grandfather Lung cancer Paternal Grandmother Cerebrovascular disease Paternal Uncle Lung cancer Brother No problems noted. Brother No problems noted. Son No problems noted. Son No problems noted. Other Mental health disorder Substance use disorder Social History Household Members: Spouse and Children Housing: House Alcohol intake: current Alcohol intake frequency: former alcohol drinker Patient Tobacco Use Status: Current everyday Tobacco user Tobacco use type: Cigarette Cigarette Packs Per Day: 1 Years Smoked: 50 years e-Cigarette/Vaping Use: Currently Using Substance Use Type: Other service: No Current occupational status: disabled Cognitive needs: No Hearing needs: No Vision needs: Yes Questionnaire PHQ-9 Over the last 2 weeks, how often have you been bothered by any of the following problems? 1. Little interest or pleasure in doing things: not at all 2. Feeling down, depressed, or hopeless: not at all 3. Trouble falling or staying asleep, or sleeping too much: not at all 4. Feeling tired or having little energy: not at all 5. Poor appetite or overeating: not at all 6. Feeling bad about yourself - or that you are a failure or have let yourself or your family down: not at all 7. Trouble concentrating on things, such as reading the newspaper or watching television: not at all 8. Moving or speaking so slowly that other people could have noticed. Or the opposite - being so fidgety or restless that you have been moving around a lot more than usual: not at all 9. Thoughts that you would be better off or of hurting yourself in some way: not at all Total score: 0 Depression Screening Interpretation: Negative Depression Screening Done: Yes 97711 - PHQ-9 Billing: Yes Source: Developed by Drs. Frankie Ramsey, Betsy Tavarez, Robby Khan and colleagues, with an educational jason from [employer]. Thrive Questionnaire Date Thrive assessed: 05/16/24 I am a: Patient What is your living situation today?: I have a steady place to live Within the past 12 months, did the food you bought not last and you didn't have the money to get more?: Never true Within the past 12 months, did you worry whether your food would run out before you got money to buy more?: Never true Do you have trouble paying for medicines?: No Do you have trouble getting transportation to medical appointments?: No Do you have trouble paying your heating and electricity bill?: No Do you have trouble taking care of your child, family member or friend?: No Do you have trouble with day-to-day activities such as bathing, preparing meals, shopping, managing finances, etc.?: No Are you currently unemployed and looking for a job?: No Are you interested in more education?: No THRIVE Score: 0 AUDIT C Alcohol Use Questionnaire (AUDIT-C) 1. How often do you have a drink containing alcohol?: Never Total Score: 0 GLORIA-7 AMB Questionnaire GLORIA-7 Date GLORIA - 7 assessed: 11/20/24 Feeling nervous, anxious, or on edge: 0 = Not at all Not being able to stop or control worryin = Not at all Worrying too much about different things: 0 = Not at all Trouble relaxin = Not at all Being so restless that it is hard to sit still: 0 = Not at all Becoming easily annoyed or irritable: 0 = Not at all Feeling afraid as if something awful might happen: 0 = Not at all Total GLORIA-7 score (0-4 normal; 5-9 mild; 10-14 moderate; 15-21 severe): 0 Source: Developed by Drs. Frankie Ramsey, Betsy Tavarez, Robby Khan and colleagues, with an educational jason from [employer]. Review of Systems Const Denies chills, Denies fever(s) and Denies headache(s) Eyes Denies blurry vision ENT Denies headache(s), Denies nasal discharge, Denies nasal obstruction, Denies odynophagia and Denies sinus pain Card Denies chest pain at rest and Denies chest pain with activity Resp Denies cough and Denies hemoptysis GI Denies diarrhea, Denies odynophagia, Denies vomiting and Denies hematemesis Reports as per HPI Musc Denies abnormal gait Skin/Breast Reports as per HPI Neuro Denies Neuro-related abnormal movements, Denies Abnormal speech present, Denies abnormal gait, Denies headache(s) and Denies Sensory deficit (Neuro) Psych Denies mood swings and Denies paranoia Endo Reports as per HPI Ramos/Lymph Reports as per HPI Aller/Immun Reports as per HPI Physical exam (Primary Care) Vital Signs: Last Vital Signs Pulse 74 05/16/24 12:33 BP 130/80 05/16/24 12:33 Pulse Ox 97 05/16/24 12:33 Oxygen Delivery Method Room Air 05/16/24 12:33 BMI result Body Mass Index 29.8 Tobacco/Smoking Status: Tobacco use Status Tobacco use date assessed 05/16/24 05/16/24 12:36 Patient Tobacco Use Status Current everyday Tobacco 05/16/24 12:36 Tobacco use type Cigarette 05/16/24 12:36 e-Cigarette/Vaping Use Currently Using 05/16/24 12:36 PHQ-9: PHQ-9 Score PHQ-9: Total score 0 05/16/24 13:03 Depression Screening Interpretation: Negative Thrive Assessment: Date of Thrive Assessment Date Thrive assessed 05/16/24 05/16/24 12:36 Const General: cooperative, comfortable and no acute distress Orientation/consciousness: patient oriented x3 HENMT Head: Yes normocephalic and Yes atraumatic Eyes General: appearance normal, both eyes and all related structures Pupils: Equal, round and reactive pupils present EOM: EOMs intact bilaterally Neck Neck: Yes supple and No lymphadenopathy Thyroid: Thyroid normal Lymphatic: no lymphadenopathy noted Resp Effort & Inspection: normal respiratory effort and able to speak in complete sentences Auscultation: clear to auscultation bilaterally Cardio Heart sounds: S1 normal heart sound present and S2 normal heart sound present GI Palpation (GI): Soft to palpation and nontender Auscultation: normal bowel sounds General: Yes no CVA tenderness Back/Spine/Pelvis Back: no CVA tenderness Skin General skin exam: elasticity normal and turgor normal Neuro General: patient oriented x3 and gait normal Cranial nerves: Yes Equal, round and reactive pupils present Speech: No Abnormal speech present Sensory Exam: No Sensory deficit (Neuro) Coordination: Romberg test negative Extrem General: Yes normal exam except as noted and No edema Immunizations pneumoc 20-beverley conj-dip cr(PF) 0.5 mL IM syringe Performing Provider: Julio Ware MD Performing Location: [facility] Administered by: Chey Desir CMA on 05/16/24 13:04 Dose Route Admin Location Dispensed Lot Number Expiration Date [facility] Enrober Tender 0.5 mL IM Right Deltoid 0.5 mL [id number] 10/24/25 [employer]/Compound Time VIS Given Date VIS Provided VIS Publication Date 05/16/24 Single Vaccine 21 Eligibility Eligibility Date Funding Source Not [facility] Eligible 05/16/24 Private Coding Level of Care Code Est Pt Level 3 (69213) Est Pt Prev Care >65y(04531) Diagnoses Encounter for general adult medical examination with abnormal findings Z00.01 Tobacco abuse Z72.0 Chronic GERD K21.9 Anxiety, generalized F41.1 Other male erectile dysfunction N52.8 Erectile dysfunction type: due to other cause Psychiatric illness F99 Alcoholic cirrhosis of liver without ascites K70.30 Ascites presence: without ascites Hepatic cirrhosis type: alcoholic cirrhosis Malignant neoplasm of right kidney C64.1 Laterality: right Recurrent major depressive disorder, in partial remission F33.41 Active/Remission status: in partial remission Elevated serum creatinine R79.89 Status post nephrectomy Z90.5 CKD (chronic kidney disease) stage 3, GFR 30-59 ml/min N18.30 Abnormal tandem walk R26.9 Additional Codes PHQ-9 - 64629 - PHQ-9 Billing: Yes ([id number]) Assessment & Plan Assessment & Plan (1) Encounter for general adult medical examination with abnormal findings: Code(s): Z00.01 - Encounter for general adult medical examination with abnormal findings Category: Medical (2) Tobacco abuse: Code(s): Z72.0 - Tobacco use Category: Medical (3) Chronic GERD: Code(s): K21.9 - Gastro-esophageal reflux disease without esophagitis Category: Medical (4) Anxiety, generalized: Code(s): F41.1 - Generalized anxiety disorder Category: Medical (5) Erectile dysfunction: Code(s): N52.9 - Male erectile dysfunction, unspecified Category: Medical Qualifiers: Erectile dysfunction type: due to other cause Qualified Code(s): N52.8 - Other male erectile dysfunction (6) Psychiatric illness: Code(s): F99 - Mental disorder, not otherwise specified Category: Medical (7) Liver cirrhosis: Code(s): K74.60 - Unspecified cirrhosis of liver Category: Medical Qualifiers: Ascites presence: without ascites Hepatic cirrhosis type: alcoholic cirrhosis Qualified Code(s): K70.30 - Alcoholic cirrhosis of liver without ascites (8) Renal cancer: Code(s): C64.9 - Malignant neoplasm of unspecified kidney, except renal pelvis Category: Medical Qualifiers: Laterality: right Qualified Code(s): C64.1 - Malignant neoplasm of right kidney, except renal pelvis (9) Major depression, recurrent: Code(s): F33.9 - Major depressive disorder, recurrent, unspecified Category: Medical Qualifiers: Active/Remission status: in partial remission Qualified Code(s): F33.41 - Major depressive disorder, recurrent, in partial remission (10) Elevated serum creatinine: Code(s): R79.89 - Other specified abnormal findings of blood chemistry Category: Medical (11) Status post nephrectomy: Code(s): Z90.5 - Acquired absence of kidney Category: Medical (12) CKD (chronic kidney disease) stage 3, GFR 30-59 ml/min: Code(s): N18.30 - Chronic kidney disease, stage 3 unspecified Category: Medical (13) Abnormal tandem walk: Code(s): R26.9 - Unspecified abnormalities of gait and mobility Category: Medical Plan The patient is a 63-year-old male presenting for an annual physical examination. He has a significant history of complex medical conditions including a solitary kidney acquired post-nephrectomy due to renal cancer. His kidney function appears to have improved as evidenced by recent laboratory results. He also suffers from chronic conditions such as liver cirrhosis, psychiatric illness, erectile dysfunction, anxiety, and GERD. Depression anxiety The patient has a past medical history including cerebrovascular accidents and a lifestyle that included alcohol abuse. His medication regimen mainly involves prescriptions managed by a tongue lining stitcher and a urologist. And the psychiatrist Smokes approximately one pack of cigarettes per day - Follow-up scheduled with instructor pilot and cancer specialist next month Recommended enhanced influenza vaccine for age >65 - Pneumococcal vaccination advised Colonoscopy was in [address] Reyes Plan - Continue monitoring and follow-up for known chronic conditions, particularly renal function and potential risks associated with solitary kidney. - Provide influenza vaccine and advise on stronger vaccine for age, facilitate pneumococcal vaccination. - Strongly encourage smoking cessation to improve overall health and reduce illness risk. - Follow-up appointments with nephrology and oncology are scheduled for next month. - Continue psychiatric follow-up with existing support network. Instructions with the patient Schedule and receive the recommended influenza Prevnar vaccine given today - Coordinate with specialists for follow-up appointments as previously arranged. - Consider smoking cessation programs when ready. - Return in one year for annual physical examination. Discussion During the visit, I discussed the positive development in kidney function with the patient, emphasizing that recent lab results indicate improvement. I recommended receiving the flu and pneumonia vaccines, while informing the patient of the necessity of a stronger flu vaccine given his age. We talked about the importance of smoking cessation concerning his health status and risk reduction. Next steps include continued monitoring of his chronic health issues and upcoming specialist appointments. I ensured the patient understood the plan and encouraged him to return in a year for his next physical exam. Orders: Orders Pneumococcal 20 Immunization Today Z23 - Encounter for immunization
== END 2024-05-16 14:09 | disposition home or self-care (01) ==
PROVIDERS: PCP Internal Medicine; Visit Provider Internal Medicine
DX: Z00.00 Encounter for general adult medical examination without abnormal findings (principal); K70.30 Alcoholic cirrhosis of liver without ascites; C64.1 Malignant neoplasm of right kidney, except renal pelvis; F33.41 Major depressive disorder, recurrent, in partial remission; N18.30 Chronic kidney disease, stage 3 unspecified; Z72.0 Tobacco use; K21.9 Gastro-esophageal reflux disease without esophagitis; F41.1 Generalized anxiety disorder; N52.8 Other male erectile dysfunction; F99 Mental disorder, not otherwise specified; Z90.5 Acquired absence of kidney; Z23 Encounter for immunization

== ENCOUNTER → 2024-05-16 12:24 | Outpatient (BNVA) | payer OTHER, SELFPAY | PROVIDERS: PCP Internal Medicine; Visit Provider Internal Medicine ==

== ENCOUNTER 2024-05-16 13:07 | Outpatient (REF) | payer OTHER, SELFPAY ==
[2024-05-16 16:41] LABS: Hematocrit 42.7 % (42.0-52.0); Hemoglobin 13.9 g/dl (14.0-18.0); Mean Corpuscular HGB Conc 32.6 g/dl (31.0-36.0); Mean Corpuscular Hemoglobin 28.4 pg (27.0-33.0); Mean Corpuscular Volume 87.1 fL (80.0-98.0); Mean Platelet Volume 11.1 fL (9.4-12.4); Platelet Count 160 X10*3/uL (160-400); Red Cell Distribution Width 13.7 % (11.0-16.0); White Blood Count 8.6 X10*3/uL (4.8-10.8)
[2024-05-16 16:57] LABS: Alanine Aminotransferase 20 U/L (0-40); Alkaline Phosphatase 98 U/L (39-117); Anion Gap 13 (12-20); Aspartate Amino Transferase 27 U/L (5-37); Bilirubin Total 0.7 mg/dL (0.0-1.0); Blood Urea Nitrogen 17 mg/dL (9-16); Calcium 9.3 mg/dL (8.4-10.2); Carbon Dioxide 22 mmol/L (22-29); Chloride 110 mmol/L (96-108); Estimated Glomerular Filt Rate 44; Glucose Random 144 mg/dL (60-115); Potassium 3.9 mmol/L (3.3-5.1); Sodium 141 mmol/L (135-145); Total Protein 7.4 g/dL (6.5-8.0)
== END 2024-05-16 13:08 | disposition home or self-care (01) ==
LOC: HO.HMGCLDS 13:07
PROVIDERS: PCP Internal Medicine; Visit Provider Internal Medicine Hypertension Specialist
DX: N18.30 Chronic kidney disease, stage 3 unspecified (principal); Z00.01 Encounter for general adult medical examination with abnormal findings; E78.00 Pure hypercholesterolemia, unspecified; K21.9 Gastro-esophageal reflux disease without esophagitis; F41.1 Generalized anxiety disorder; F33.41 Major depressive disorder, recurrent, in partial remission; C64.1 Malignant neoplasm of right kidney, except renal pelvis; Z90.5 Acquired absence of kidney; K52.89 Other specified noninfective gastroenteritis and colitis; K70.30 Alcoholic cirrhosis of liver without ascites; R79.89 Other specified abnormal findings of blood chemistry; Z86.73 Personal history of transient ischemic attack (TIA), and cerebral infarction without residual deficits; Z79.899 Other long term (current) drug therapy; Z23 Encounter for immunization
CPT/HCPCS: 36415; 80053; 85027; 90471; 90677; 96127

== ENCOUNTER 2024-06-11 11:39 | Outpatient (AMB) | payer OTHER, SELFPAY ==
--- OUTSIDE RECORDS SUMMARY | 2024-06-11 11:42 | XMS_ITS ---
Author Organization [facility] Address [address] [place] [address] Care Team Providers Care Motorcycle Engine Assembler Name Role Phone Chaz OLIVA, [facility] Primary Care Provider Frankie Meyers [phone] ALLERGIES Allergen (clinical drug ingredient) Drug/Non Drug [...] 03/27/2024 Encounters Encounter Location Date Provider Diagnosis [facility] [address] [place] [address] 03/27/2024 Frankie Reyes Alcoholic cirrhosis of liver [...] Provider Name:Frankie Reyes , 07/23/2024 12:30:00 PM, [address] [place] [address] , [place], [place], [phone], Progress Notes * Examination Category Sub-Category Detail [...]
--- OUTSIDE RECORDS SUMMARY | 2024-06-11 11:42 | XMS_ITS ---
Author Organization [facility] Address [address] [place] [address] Care Team Providers Care Family Day Care Provider Name Role Phone Chaz OLIVA, [facility] Primary Care Provider Frankie Meyers [phone] ALLERGIES Allergen (clinical drug ingredient) Drug/Non Drug [...] 09/30/2023 Encounters Encounter Location Date Provider Diagnosis [facility] [address] [place] [address] 09/30/2023 Frankie Reyes Bile salt-induced diarrhea K90.89 [...] Provider Name:Frankie Reyes , 07/23/2024 12:30:00 PM, [address] [place] [address], [phone], Progress Notes * Examination Category Sub-Category Detail [...]
--- OUTSIDE RECORDS SUMMARY | 2024-06-11 11:42 | XMS_ITS | Patient Health Record ---
Author Organization [facility] Address [address] [place] [address] Care Team Providers Care Human Factors Ergonomist Name Role Phone Chaz OLIVA, [facility] Primary Care Provider Frankie Meyers [phone] ALLERGIES Allergen (clinical drug ingredient) Drug/Non Drug [...] malignant neoplasm of colon (Z12.11) Active confirmed 707193870 Problem History of adenomatous polyp of colon (Z86.010) Active confirmed History of adenomatous polyp of colon (140194336) Problem Alcoholic cirrhosis of liver with ascites (K70.31) Active confirmed 204199158 Problem Gallstones (K80.20) Active confirmed 849242371 Problem Cirrhosis (K74.60) Active confirmed Cirrhotic (377090842) Problem Esophageal varices (I85.00) Active confirmed Esophageal varices (74067897) Problem 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 630902566 Problem Abdominal pain, RUQ (R10.11) Active confirmed 670952181 Problem Chronic fatigue (R53.82) Active confirmed 12914738 Problem Diverticulosis of sigmoid colon (K57.30) Active confirmed Diverticulosis of sigmoid colon (165996225) Problem 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) Active confirmed 05215417 VITAL SIGNS Temperature 98.2 degrees Fahrenheit 09/30/2023 Blood pressure diastolic 00 mm Hg 03/27/2024 Height 69 in 03/27/2024 Blood pressure systolic 00 mm Hg 03/27/2024 Weight 198 lbs 03/27/2024 BMI 29.24 kg/m2 03/27/2024 Encounters Encounter Location Date Provider Diagnosis [facility] [address] [place] [address] 09/30/2023 Frankie Reyes Bile salt-induced diarrhea K90.89 ; Alcoholic cirrhosis of liver with ascites K70.31 ; Encounter for screening for malignant neoplasm of colon Z12.11 ; History of adenomatous polyp of colon Z86.010 and Esophageal varices I85.00 [facility] [address] [place] [address] 03/27/2024 Frankie Reyes Alcoholic cirrhosis of liver [...] PROFILE 09/20/2012 CHEM 7 PROFILE 01/03/2013 ELECTROLYTES 02/11/2013 ELECTROLYTES 11/15/2012 ELECTROLYTES 11/28/2013 ELECTROLYTES 01/08/2013 ELECTROLYTES 02/28/2013 ELECTROLYTES 05/30/2013 ELECTROLYTES 07/05/2012 ELECTROLYTES 04/20/2013 BUN 07/05/2012 BUN 04/20/2013 BUN 02/11/2013 BUN 11/15/2012 BUN 11/28/2013 BUN 01/08/2013 BUN 02/28/2013 BUN 05/30/2013 CREATININE 02/28/2013 CREATININE 05/30/2013 CREATININE 07/05/2012 CREATININE 04/20/2013 CREATININE 02/11/2013 CREATININE 11/15/2012 CREATININE 11/28/2013 CREATININE 01/08/2013 LIVER PROFILE 02/28/2013 LIVER PROFILE 04/10/2012 LIVER PROFILE 07/05/2012 LIVER PROFILE 09/20/2012 LIVER PROFILE 11/15/2012 LIVER PROFILE 01/03/2013 AMMONIA 11/15/2012 AMMONIA 02/28/2013 CBC w DIFF 01/03/2013 CBC w DIFF 11/15/2012 CBC w DIFF 02/28/2013 CBC w DIFF 09/20/2012 CELL COUNT FLUID 09/20/2012 PROTHROMBIN TIME (PT, [...] 05/05/2022 COLONOSCOPY 03/27/2024 Next Appt Details Provider Name:Frankie Reyes , 07/23/2024 12:30:00 PM, [address] [place] [address] , [place], [place], [phone], Insurance Providers Payer Name Payer Address Payer Phone Subscriber Number Group Number Insured Name Patient Relationship to Insured Coverage Start Date Coverage End Date [employer] [place] [address] [address] [place] [address] [id number] EUGENIO STANLEY Self - patient is the insured MEDICAL (GENERAL) HISTORY Medical History History ICD Code Hypertension Denies [place],DM,Lung disease,renal disease Alcohol abuse At [facility] 10/09-11/01/12 for asci rick, resp failure, [...] nonvisualized gallbladder--has seen 2 different surgeons at [facility]--including the liver transplant surgeon, Dr. Morris--but they think he is too high risk for gallbladdder surgery EGD in 07/2012 with minimal Gr I varices and gastritis, HH, and duodenitis Stroke 01/2016--received TPA--no residual Atrial fibrillation Right renal lesion-sees Dr. Sutherland and Dr Marzena Zuniga Colonoscopy in 11/2017-large tubulovillous adenoma with high grade dysplasia and smaller tubular adenomas Hospitalized at [facility] in 11/2018 for abdominal pain/gallbladder disease---the surgeons [...] schedule d for surgery on 10/04/2022 at [facility] in [place]. He had the surgery as below. 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 Alcaraz. Scheduled to finish in 11/2023. CT scan of the abdomen in [facility] of 2023 revealed some ascites, as well [...]
--- OUTSIDE RECORDS SUMMARY | 2024-06-11 11:42 | XMS_ITS ---
Author Organization [facility] Address [address] [place] [phone] Care Team Providers Care Fiberglass Machine Operator Name Role Phone Chaz OLIVA, [facility] Primary Care Provider Frankie Meyers [phone] REASON FOR VISIT omeprazole MEDICATIONS Medication SIG (Take, Route, Fr equency, Duration) Notes Start Date End Date Status Omeprazole 40 MG 1 Orally Every morning for 90 days 05/31/2023 Active Encounters Encounter Location Date Provider Diagnosis [facility] [address] [place] [phone] 05/30/2023 Frankie Reyes PLAN OF TREATMENT Medication Medication Name Sig Start Date Stop Date Notes Omeprazole 40 MG 1 Orally Every morning for 90 days 2022 Next Appt Details Provider Name:Frankie Reyes , 07/23/2024 12:30:00 PM, [address] [place] [address] , [place], [place], [phone],
--- NOTE | 2024-06-11 11:47 | A.OFFVIS_ITS ---
Intake Visit Reasons: 3m follow up Intake Note: Patient presents today for a follow-up on: Erectile Dysfunction Urology Medications: Sildenafil Allergies to Antibiotic: No Known Allergies Blood Thinner: None Cement Mixer Required: No Accompanied by: Self / Same As Patient Allergies duloxetine Allergy (Unknown, Verified 06/11/24 12:00) psychotic episodes lorazepam [From ATIVAN] Adverse Reaction (Unknown, Verified 06/11/24 12:00) AGITATION Medication List - Last Reconciled 06/11/24 by BRYAN Jade albuterol sulfate 90 mcg/actuation (ProAir HFA) 1 inh inhalation QID PRN 30 days cholestyramine (with sugar) 4 gram 4 ea PO DAILY nadolol 20 mg PO QAM olanzapine 10 mg PO BEDTIME omeprazole 40 mg PO BID oxcarbazepine 150 mg PO BID sildenafil 100 mg PO DAILY PRN HPI Comments Details: Miah is a very pleasant 63-year-old male patient of Dr. Ware. He has a past medical history of nicotine dependence, CVA in 2016 with no deficits, difficulty sleeping, anxiety, ascites, alcohol abuse, irritable bowel syndrome, GERD, paroxysmal atrial fibrillation, and renal cancer status post right-sided nephrectomy with Dr. Mcdonough. He presents to the office today for follow-up of his erectile dysfunction. In discussion with the patient today reports no improvement in erections with p.r.n. dosing of Viagra. We discussed at length p otential causes of erectile dysfunction as well as further treatment options and risks and benefits of these treatment options. He discusses his reluctancy to injectable therapy and or prosthesis. Patient with a history of renal cancer and continues to follow-up with oncology for surveillance monitoring imaging of his chest and abdomen. In review of patient's chart CT abdomen and pelvis as well as CT of the chest 03/20 noted Multiple small pulmonary nodules are again noted. The majority of these are unchanged or decreased in size from prior. No new pulmonary nodules are identified, no lymphadenopathy , status post right nephrectomy, and unchanged appearance of scarring at the nephrectomy bed. He reports having followed up with Nephrology for proteinuria. Patient with a previous history of scrotal discomfort and scrotal imaging 09/17 was ordered and noted no testicular torsion, bilateral epididymal head multiloculated cysts, and prominent left testicular varicocele measuring up to 4 mm. He reports testicular pain he had been experiencing has since subsided. Discussed at length lifestyle modifications to assist with erectile dysfunction. Previous labs are as follows: PSA 10/18 1.2 Testosterone 10/18 368 free testosterone 44.6 He otherwise denies any bothersome urinary issues. He denies urinary urgency, urinary frequency, incontinence, nocturia, hematuria, dysuria, foul smelling ur ine, changes to urinary stream, flank pain, fever, and or chills. He is happy with his current voiding parameters. [facility] Medical History CVA (cerebral vascular accident) Difficulty sleeping Anxiety, generalized Porcelain gallbladder Ascites Alcohol abuse Irritable bowel syndrome Chronic GERD Paroxysmal atrial fibrillation Tobacco abuse Surgical History Hx of esophagogastroduodenoscopy History of colonoscopy H/O exploratory laparotomy Family History Father Cerebrovascular disease Diabetes mellitus HTN (hypertension) Hx of CABG Mother Lung cancer Maternal Grandmother Myocardial infarction Maternal Grandfather Lung cancer Paternal Grandmother Cerebrovascular disease Paternal Uncle Lung cancer Brother No problems noted. Brother No problems noted. Son No problems noted. Son No problems noted. Other Mental health disorder Substance use disorder Social History Household Members: Spouse and Children Housing: House Alcohol intake: current Alcohol intake frequency: former alcohol drinker Patient Tobacco Use Status: Current everyday Tobacco user Tobacco use type: Cigarette Cigarette Packs Per Day: 1 Years Smoked: 50 years e-Cigarette/Vaping Use: Currently Using Substance Use Type: Other service: No Current occupational status: disabled Cognitive needs: No Hearing needs: No Vision needs: Yes Review of Systems Const Reports as per HPI Eyes Reports no additional complaints ENT Reports no additional complaints Card Reports as per HPI Resp Reports no additional complaints GI Reports as per HPI Reports as per HPI Musc Reports no additional complaints Neuro Reports as per HPI Psych Reports as per HPI Endo Reports no additional complaints Physical Exam Const General: cooperative, comfortable, no acute distress, well developed, alert and awake Orientation/consciousness: patient oriented x3 Limitations: no limitations HEENT Head: Yes normal to inspection, Yes normocephalic and Yes atraumatic Ears: hearing grossly normal bilaterally Eyes General: appearance normal, both eyes and all related structures Neck Neck: Yes normal visual inspection and Yes trachea midline Chest Chest palpation & inspection: normal inspection of the chest Resp Effort & Inspection: normal respiratory effort and able to speak in complete sentences Cardio Rate: regular rate GI Inspection: Yes normal to inspection General: Yes no CVA tenderness Back/Spine/Pelvis Back: no CVA tenderness Skin General skin exam: no rashes or lesions noted Neuro General: patient oriented x3 Extrem General: Yes normal to inspection Psych Appearance: grossly normal and well kempt Mental Status: mental status grossly normal Speech and movement: Normal speech and movement present and Clear speech present Affect: normal affect Attitude: cooperative Thought process: Normal thought process present Thought content: Normal thought content present Insight: Fair insight present (Psych) Judgement: Fair judgement present (Psych) Assessment & Plan Assessment & Plan (1) Solitary kidney, acquired: Code(s): Z90.5 - Acquired absence of kidney Category: Medical (2) Status post nephrectomy: Code(s): Z90.5 - Acquired absence of kidney Category: Medical (3) Erectile dysfunction: Code(s): N52.9 - Male erectile dysfunction, unspecified Category: Medical Qualifiers: Erectile dysfunction type: due to other cause Qualified Code(s): N52.8 - Other male erectile dysfunction (4) Varicocele: Code(s): I86.1 - Scrotal varices Category: Medical (5) Renal cancer: Code(s): C64.9 - Malignant neoplasm of unspecified kidney, except renal pelvis Category: Medical Qualifiers: Laterality: right Qualified Code(s): C64.1 - Malignant neoplasm of right kidney, except renal pelvis Plan Patient currently denies any bothersome urinary issues or concerns. He reports be happy with current voiding parameters. Recent CT results reviewed with the patient today; as noted above. Discussed and stressed the importance of surveillance monitoring for history of renal cancer. We discussed further treatment options of erectile dysfunction in risks and benefits of these treatment options. We discussed potential causes of erectile dysfunction and lifestyle modifications to assist with ED. Start Cialis 5 mg daily Prescription provided for p.r.n. dosing of Viagra Follow-up in 3-4 months; or sooner with any issues, concerns, and or questions. Medications: New tadalafil (Cialis) [facility] [address] [id number] 5 mg PO DAILY 90 days 90 tabs 1RF sildenafil Take 1 tablet 1 hour prior to sexual activity; not to exceed more than 2-3 times per week [facility] [address] [id number] 100 mg PO ONCE 30 days PRN 10 tabs 2RF sexual activity Patient Instructions: The patient had an opportunity to ask questions regarding the treatment plan. All questions were answered. Physical exam, labs, and imaging were discussed and reviewed in detail. As well as risks, benefits, and discussion of treatment choices. No major barriers to understanding were identified. The patient expressed understanding and agreement with the above treatment plan. The patient was made aware they should contact our office by phone for worsening of their current condition, the appearance of new symptoms, or with any questions or concerns. Compliance is encouraged with any medications and follow up testing that is ordered. It is a privilege to be allowed the opportunity to participate in? your urological care.? Again, if you have any questions or concerns If you have any questions or concerns please do not hesitate to contact me. The office is [phone]. This note is constructed using voice recognition software. While every effort has been made to ensure accuracy headwaitress errors may have been included. Yours sincerely, LG Jade Coding Level of Care Code Est Pt Level 3 (18827) Complex EM visit Add On G2211 Diagnoses Solitary kidney, acquired Z90.5 Status post nephrectomy Z90.5 Other male erectile dysfunction N52.8 Erectile dysfunction type: due to other cause Varicocele I86.1 Malignant neoplasm of right kidney C64.1 Laterality: right
== END 2024-06-11 12:09 | disposition home or self-care (01) ==
PROVIDERS: PCP Internal Medicine; Visit Provider Nurse Practitioner Family
DX: Z90.5 Acquired absence of kidney (principal); N52.8 Other male erectile dysfunction; I86.1 Scrotal varices; C64.1 Malignant neoplasm of right kidney, except renal pelvis
CPT/HCPCS: 99213

== ENCOUNTER → 2024-06-11 11:39 | Outpatient (BNVA) | payer OTHER, SELFPAY | PROVIDERS: PCP Internal Medicine; Visit Provider Nurse Practitioner Family ==

== ENCOUNTER 2024-07-23 09:34 | Day surgery (SDC) | payer OTHER, SELFPAY ==
--- OUTSIDE RECORDS SUMMARY | 2024-06-05 16:18 | XMS_ITS ---
Author Organization [facility] Address [address] [place] [id number] Care Team Providers Care Director Of Video Analytics Name Role Phone Chaz OLIVA, [facility] Primary Care Provider Frankie Meyers [phone] ALLERGIES Allergen (clinical drug ingredient) Drug/Non Drug Allergy documented on EMR Reaction Allergy Type Onset Date Status lorazepam Ativan Unknown Drug Allergy Active REASON FOR VISIT Patient presents today for cirrhosis MEDICATIONS Medication SIG (Take, Route, Frequency, Duration) Notes Start Date End Date Status Multi Vitamin/Minerals - as directed Ora lly once a day Not-Taking Omeprazole 40 MG TAKE 1 CAPSULE BY MO UTH EVERY MORNING for 90 Active Nadolol 20 MG TAKE 1 TABLET BY JALEN TH EACH MORNING for 30 Active Omeprazole 20mg QD Acti ve OLANZapine 10 MG 1 tablet Orally Once a day for 30 day(s) Active OXcarbazepine 150 MG 1 tablet Orally Twi ce a day for 30 day(s) Active Nadolol 20mg 1 QD Active Cholestyramine 4 GM/DOSE 1/2 to 1 scoop mixed in a glass of water or orange juice Orally Once or Twice a day to help with the diarrhea for 30 day(s) Active traZODone HCl 150 MG 1 tablet at bedtime as needed Orally Once a day Active SOCIAL HISTORY Tobacco Use: Social History Observation Description Date Details (start date - stop date) Current Smoker NA - NA Sex Assigned At : Social History Observation Description Sex Assigned At Unknown Tobacco Use/Smoking Question Answer Notes Patient is a current smoker How often do you smoke cigarettes? every day How many cigarettes a day do you smoke? 11-20 How soon after you wake up do you smoke your fir st cigarette? within 5 minutes Are you interested in quitting? Not ready to sylwia t Alcohol Screen Question Answer Notes Did you have a drink containing alcohol in the p ast year? No Points 0 Interpretation Negative VITAL SIGNS BMI 29.24 kg/m2 03/27/2024 Blood pressure systolic 00 mm Hg 03/27/20 24 Blood pressure diastolic 00 mm Hg 024 Height 69 in 03/27/2024 Weight 198 lbs 03/27/2024 Encounters Encounter Location Date Provider Diagnosis [facility] [address] [place] [address] 03/27/2024 Frankie Reyes Alcoholic cirrhosis of liver with ascites K70.31 ; Encounter for screening for malignant neoplasm of colon Z12.11 ; History of adenomatous polyp of colon Z86.010 ; Bile salt-induced diarrhea K90.89 and Esophageal varices I85.00 ASSESSMENTS Encounter Date Diagnosis Assessment Notes Treatment Notes Treatment Clinical Notes 03/27/2024 Alcoholic cirrhosis of liver with ascites (ICD-10 - K70.31) 03/27/2024 Encounter for screening for malignant neoplasm of colon (ICD-10 - Z12.11) Stop the Choelstyramine for 5 days before the colonoscopy 03/27/2024 History of adenomatous polyp of colon (ICD-10 - Z86.010) 03/27/2024 Bile salt-induced diarrhea (ICD-10 - K90.89) 03/27/2024 Esophageal varices (ICD-10 - I85.00) PLAN OF TREATMENT Treatment Notes Assessment Notes Encounter for screening for malignant neoplasm of colon Stop the Choelstyramine for 5 days befor e the colonoscopy Future Test Test Name Order Date COLONOSCOPY 03/27/2024 Next Appt Details Follow Up: prn, Reason: Provider Name:Frankie Reyes , 07/23/2024 12:30:00 PM, [address] [place] [address] , [place], [place], [phone], Progress Notes * Examination Category Sub-Category Detail Notes General Examination GENERAL APPEARANCE: pleasant , well nourished, well developed, in no acute distress HEAD: EYES: sclera non-icteric EARS: NOSE: THROAT: NECK/THYROID: no cervical lymphade nopathy, neck supple HEART: S1, S2 normal CHEST: LUNGS: clear to auscultatio n bilaterally ABDOMEN: normal bowel sounds, no guarding or rigidity, no guarding or rigidity, no masses palpable, soft, nontender, nondistended NEUROLOGIC: alert and oriented SKIN: nonjaundiced, no spi ken angiomata EXTREMITIES: no edema PERIPHERAL PULSES: BACK: BREASTS: MUSCULOSKELETAL: MALE GENITOURINARY: LYMPH NODES: RECTAL EXAM: FEMALE GENITOURINARY: ORAL CAVITY: mucosa moist
--- OUTSIDE RECORDS SUMMARY | 2024-06-05 16:18 | XMS_ITS ---
Author Organization [facility] Address [address] [place] [id number] Care Team Providers Care Soda Column Operator Name Role Phone Chaz OLIVA, [facility] Primary [facility] Provider Frankie Meyers [phone] REASON FOR VISIT omeprazole MEDICATIONS Medication SIG (Take, Route, Fr equency, Duration) Notes Start Date End Date Status Omeprazole 40 MG 1 Orally Every morning for 90 days 05/31/2023 Active Encounters Encounter Location Date Provider Diagnosis [facility] [address] [place] [phone] 05/30/2023 Frankie Reyes PLAN OF TREATMENT Medication Medication Name Sig Start Date Stop Date Notes Omeprazole 40 MG 1 Orally Every morning for 90 days 2022 Next Appt Details Provider Name:Frankie Reyes , 07/23/2024 12:30:00 PM, [address] [place] [address] , [place], [place], [phone],
--- OUTSIDE RECORDS SUMMARY | 2024-06-05 16:18 | XMS_ITS ---
Author Organization [facility] Address [address] [place] [address] Care Team Providers Care Marketing Strategy Analyst Name Role Phone Chaz OLIVA, [facility] Primary [facility] Provider Frankie Meyers [phone] ALLERGIES Allergen (clinical drug ingredient) Drug/Non Drug Allergy documented on EMR Reaction Allergy Type Onset Date Status lorazepam Ativan Unknown Drug Allergy Active REASON FOR VISIT Patient presents today for cirrhosis MEDICATIONS Medication SIG (Take, Route, Frequency, Duration) Notes Start Date End Date Status Multi Vitamin/Minerals - as directed Ora lly once a day Not-Taking Omeprazole 40 MG 1 Orally Every morni ng for 90 days 05/31/2023 Active Omeprazole 40 MG 1 capsule Orally Onc e a day Active FeroSul 325 (65 Fe) MG Oral for 60 Active Omeprazole 20mg QD Acti ve Nadolol 20mg 1 QD Active OXcarbazepine 150 MG 1 tablet Orally Twi ce a day for 30 day(s) Active Cholestyramine 4 GM/DOSE 1/2 to 1 scoop mixed in a glass of water or orange juice Orally Once or Twice a day to help with the diarrhea for 30 day(s) Active traZODone HCl 150 MG 1 tablet at bedtime as needed Orally Once a day Active OLANZapine 10 MG 1 tablet Orally Once a day for 30 day(s) Active SOCIAL HISTORY Tobacco Use: Social History [...] Points 0 Interpretation Negative VITAL SIGNS BMI 29.53 kg/m2 09/30/2023 Blood pressure systolic 000 mm Hg 09/30/19 24 Blood pressure diastolic 00 mm Hg 024 Height 69 in 09/30/2023 Temperature 98.2 degrees Fahrenheit 09/30/19 24 Weight 200 lbs 09/30/2023 Encounters Encounter Location Date Provider Diagnosis [facility] [address] [place] [address] 09/30/2023 Frankie Reyes Bile salt-induced diarrhea K90.89 ; Alcoholic cirrhosis of liver with ascites K70.31 ; Encounter for screening for malignant neoplasm of colon Z12.11 ; History of adenomatous polyp of colon Z86.010 and Esophageal varices I85.00 ASSESSMENTS Encounter Date Diagnosis Assessment Notes Treatment Notes Treatment Clinical Notes 09/30/2023 Bile salt-induced diarrhea (ICD-10 - K90.89) Start the Cholestyramine powder and adjust to help with the diarrhea 09/30/2023 Alcoholic cirrhosis of liver with ascites (ICD-10 - K70.31) Try to avoid salt and monitor your ascites. Let me know if it is getting worse 09/30/2023 Encounter for screening for malignant neoplasm of colon (ICD-10 - Z12.11) We will schedule you for a colonoscopy when I see you in the fall09/30/2023 History of adenomatous polyp of colon (ICD-10 - Z86.010) 09/30/2023 Esophageal varices (ICD-10 - I85.00) PLAN OF TREATMENT Medication Medication Name Sig Start Date Stop Date Notes Omeprazole 20mg QD Nadolol 20mg 1 QD Cholestyramine 4 GM/DOSE 1/2 to 1 scoop mixed in a glass of water or orange juice Orally Once or Twice a day to help with the diarrhea for 30 day(s) Treatment Notes Assessment Notes Bile salt-induced diarrhea Start the Cho lestyramine powder and adjust to help with the diarrhea Alcoholic cirrhosis of liver with ascite s Try to avoid salt and monitor your ascites. Let me know if it is getting worse Encounter for screening for malignant neoplasm of colon We will schedule you for a colonoscopy w lambert I see you in the Fall of 2023 Next Appt Details Follow Up: 6 Months, Reason: Provider Name:Frankie Reyes , 07/23/2024 12:30:00 PM, [address] [place] [address], [phone], Progress Notes * Examination Category Sub-Category Detail [...]
--- OUTSIDE RECORDS SUMMARY | 2024-06-05 16:18 | XMS_ITS | Patient Health Record ---
Author Organization [facility] Address [address] [place] [address] Care Team Providers Care Plant Inspector Name Role Phone Chaz OLIVA, [facility] Primary Care Provider Frankie Meyers [phone] ALLERGIES Allergen (clinical drug ingredient) Drug/Non Drug Allergy documented on EMR Reaction Allergy Type Onset Date Status lorazepam Ativan Unknown Drug Allergy Active REASON FOR REFERRAL No Information MEDICATIONS Medication SIG (Take, Route, Frequency, Duration) Notes Start Date End Date Status Cholestyramine 4 GM/DOSE 1/2 to 1 scoop mixed in a glass of water or orange juice Orally Once or Twice a day to help with the diarrhea for 30 day(s) Active Multi Vitamin/Minerals - as directed Ora lly once a day Not-Taking Omeprazole 40 MG TAKE 1 CAPSULE BY MO UTH EVERY MORNING for 90 Active Nadolol 20 MG TAKE 1 TABLET BY JALEN TH EACH MORNING for 30 Active OLANZapine 10 MG 1 tablet Orally Once a day for 30 day(s) Active OXcarbazepine 150 MG 1 tablet Orally Twi ce a day for 30 day(s) Active Omeprazole 20mg QD Acti ve Nadolol 20mg 1 QD Active traZODone HCl 150 MG 1 tablet at bedtime as needed Orally Once a day Active IMMUNIZATIONS Vaccine Route Administration Date Status Comme nts Influenza Unknown 04/03/2019 Administered Influenza Unknown 04/28/2022 Administered Influenza Unknown 04/19/2023 Administered Influenza Unknown 03/30/2023 Refused SOCIAL HISTORY Tobacco Use: Social History Observation [...] ast year? No Points 0 Interpretation Negative PROBLEMS Problem Type ICD Code Onset Dates Problem Status W/U Status Risk SNOMED Code Notes Problem Encounter for screening for malignant neoplasm of colon (Z12.11) Active confirmed 782462484 Problem History of adenomatous polyp of colon (Z86.010) Active confirmed History of adenomatous polyp of colon (234367975) Problem Alcoholic cirrhosis of liver with ascites (K70.31) Active confirmed 484000795 Problem Gallstones (K80.20) Active confirmed 010969590 Problem Cirrhosis (K74.60) Active confirmed Cirrhotic (061103249) Problem Esophageal varices (I85.00) Active confirmed Esophageal varices (16154842) Problem 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 155456206 Problem Abdominal pain, RUQ (R10.11) Active confirmed 571358644 Problem Chronic fatigue (R53.82) Active confirmed 93754520 Problem Diverticulosis of sigmoid colon (K57.30) Active confirmed Diverticulosis of sigmoid colon (540159007) Problem 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) Active confirmed 78513469 VITAL SIGNS Temperature 98.2 degrees Fahrenheit 09/30/2023 Blood pressure diastolic 00 mm Hg 03/27/2024 Height 69 in 03/27/2024 Blood pressure systolic 00 mm Hg 03/27/2024 Weight 198 lbs 03/27/2024 BMI 29.24 kg/m2 03/27/2024 Encounters Encounter Location Date Provider Diagnosis [facility] [address] [place] [address] 09/30/2023 Frankie Reyes Bile salt-induced diarrhea K90.89 ; Alcoholic cirrhosis of liver with ascites K70.31 ; Encounter for screening for malignant neoplasm of colon Z12.11 ; History of adenomatous polyp of colon Z86.010 and Esophageal varices I85.00 [facility] [address] [place] [address] 03/27/2024 Frankie Reyes Alcoholic cirrhosis of liver [...] and adjust to help with the diarrhea 03/27/2024 Encounter for screening for malignant neoplasm of colon (ICD-10 - Z12.11) Stop the Choelstyramine for 5 days before the colonoscopy 03/27/2024 Alcoholic cirrhosis of liver with ascites (ICD-10 - K70.31) 09/30/2023 Encounter for screening for malignant neoplasm of colon (ICD-10 - Z12.11) We will schedule you for a colonoscopy when I see you in the Fall of 202309/30/2023 Alcoholic cirrhosis of liver with ascites (ICD-10 - K70.31) Try to avoid salt and monitor your ascites. Let me know if it is getting worse 03/27/2024 History of adenomatous polyp of colon (ICD-10 - Z86.010) 09/30/2023 History of adenomatous polyp of colon (ICD-10 - Z86.010) 03/27/2024 Bile salt-induced diarrhea (ICD-10 - K90.89) 09/30/2023 Esophageal varices (ICD-10 - I85.00) 03/27/2024 Esophageal varices (ICD-10 - I85.00) PLAN OF TREATMENT Pending Test Test Name Order Date CHEM 7 PROFILE 04/10/2012 CHEM 7 PROFILE 09/20/2012 CHEM 7 PROFILE 01/03/2013 ELECTROLYTES 07/05/2012 ELECTROLYTES 04/20/2013 ELECTROLYTES 02/11/2013 ELECTROLYTES 11/15/2012 ELECTROLYTES 11/28/2013 ELECTROLYTES 01/08/2013 ELECTROLYTES 02/28/2013 ELECTROLYTES 05/30/2013 BUN 02/28/2013 BUN 05/30/2013 BUN 07/05/2012 BUN 04/20/2013 BUN 02/11/2013 BUN 11/15/2012 BUN 11/28/2013 BUN 01/08/2013 CREATININE 11/28/2013 CREATININE 01/08/2013 CREATININE 02/28/2013 CREATININE 05/30/2013 CREATININE 07/05/2012 CREATININE 04/20/2013 CREATININE 02/11/2013 CREATININE 11/15/2012 LIVER PROFILE 11/15/2012 LIVER PROFILE 01/03/2013 LIVER PROFILE 02/28/2013 LIVER PROFILE 04/10/2012 LIVER PROFILE 07/05/2012 LIVER PROFILE 09/20/2012 AMMONIA 11/15/2012 AMMONIA 02/28/2013 CBC w DIFF 09/20/2012 CBC w DIFF 01/03/2013 CBC w DIFF 11/15/2012 CBC w DIFF 02/28/2013 CELL COUNT FLUID 09/20/2012 PROTHROMBIN TIME (PT, INR) 09/20/2012 PROTHROMBIN TIME (PT, INR) 11/15/2012 PROTHROMBIN TIME (PT, INR) 04/10/2012 PROTHROMBIN TIME (PT, INR) 05/05/2022 PROTHROMBIN TIME (PT, INR) 02/28/2013 PARTIAL THROMBOPLASTIN TIME (PTT) 2012 ALPHA-FETOPROTEIN,TUMOR MARKER 3 ALPHA-FETOPROTEIN,TUMOR MARKER 2 GRAM STAIN 09/20/2012 ROUTINE CULTURE 09/20/2012 MRI ABD W&WO CONTRAST 05/30/2013 NUC HIDA SCAN 11/13/2014 US ABD 12/02/2017 US PARACENTESIS GUIDE 09/20/2012 US PARACENTESIS GUIDE 01/03/2013 US PARACENTESIS GUIDE 12/06/2012 US ABDOMEN COMP WITH ELASTOGRAPHY 2021 Future Test Test Name Order Date UPPER GI ENDOSCOPY 05/09/2012 COLONOSCOPY 12/02/2017 UPPER GI ENDOSCOPY 05/05/2022 COLONOSCOPY 05/05/2022 COLONOSCOPY 03/27/2024 Next Appt Details Provider Name:Frnakie Reyes , 07/23/2024 12:30:00 PM, [address] [place] [address] , [place], [place], [phone], Insurance Providers Payer Name Payer Address Payer Phone Subscriber Number Group Number Insured Name Patient Relationship to Insured Coverage Start Date Coverage End Date [employer] [place] [address] [address] [place] [address] [id number] EUGENIO STANLEY Self - patient is the insured MEDICAL (GENERAL) HISTORY Medical History History ICD Code Hypertension Denies [place],DM,Lung disease,renal disease Alcohol abuse At [facility] 10/09-11/01/12 for asci rick, resp failure, pneumonia, and encphalopathy--then to rehab until 11/15/12 Cirrhosis-with ascites-s/p p aracenteses in 07/2012, 09/2012, 10/2012, and 12/2012--- his workup by his PCP in December of 2018 was negative for any other causes of liver disease including negative autoimmune markers, normal iron studies, normal ceruloplasmin level, normal alpha-1 antitrypsin level, and negative hepatitis B and C serologies Gallstones/Porcelain GB-HIDA scan in 2014 showed a nonvisualized gallbladder--has seen 2 different surgeons at [facility]--including the liver transplant surgeon, Dr. Morris--but they think he is too high risk for gallbladdder surgery EGD in 07/2012 with minimal Gr I varices and gastritis, HH, and duodenitis Stroke 01/2016--received TPA--no residual Atrial fibrillation Right renal lesion-sees Dr. Sutherland and Dr Marzena Zuniga Colonoscopy in 11/2017-large tubulovillous adenoma with high grade dysplasia and smaller tubular adenomas Hospitalized at [facility] in 11/2018 for abdominal pain/gallbladder disease---the surgeons thought he was too high of a risk for a CCY Bipolar disease EGD in 04/2022 with the find ing of significant erosive esophagitis and esophageal varices--- he was started on omeprazole 40 mg b.i.d. and nadolol 20 mg daily Colonoscopy in 04/2022 with the finding of polyps but these were not removed due to a very poor prep at the time Right renal mass is schedule d for surgery on 10/04/[address] [facility] in [place]. He had the surgery as below. 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 Alcaraz. Scheduled to finish in 11/2023. CT scan of the abdomen in [facility] of 2023 revealed some ascites, as well as his known cirrhosis and splenomegaly. There was no liver mass. Surgical History Surgery Date(Month/Year) Oral surgery Right nephrectomy for renal cancer, cholecystectomy, and incidental right colectomy. Complications of abscesses and a bile leak that required intra-abdominal drains and a course of IV antibiotics. The gallbladder did not have any sign of malignancy. 09/2022
--- NOTE | 2024-07-20 09:19 | HO.ANESPROP2 ---
Documented by User: Shanon Rinaldi NP 07/20/24 09:40 HPI - Anesthesia Eval Consult details Narrative: 63yo M for Colonoscopy Renal ca s/p nephrectomy and chemo PMFSH Active Problems Active Problems: All Active Problems Varicocele (Acute) Abnormal tandem walk (Acute) CKD (chronic kidney disease) stage 3, GFR 30-59 ml/min (Acute) Solitary kidney, acquired (Acute) Status post nephrectomy (Acute) Elevated serum creatinine (Acute) Major depression, recurrent (Acute) Lung nodule seen on imaging study (Acute) Renal cancer (Chronic) Asthma, mild (Acute) Complex renal cyst (Acute) Pre-op evaluation (Acute) Liver cirrhosis (Acute) Back pain (Acute) Psychiatric illness (Acute) Encounter for general adult medical examination with abnormal findings (Acute) Ventral hernia (Acute) Skin cancer screening (Acute) Erectile dysfunction (Acute) Difficulty sleeping (Acute) Anxiety, generalized (Acute) Porcelain gallbladder (Acute) Ascites (Acute) Alcohol abuse (Acute) Irritable bowel syndrome (Acute) Chronic GERD (Acute) Paroxysmal atrial fibrillation (Acute) Tobacco abuse (Acute) Past Medical History Medical History CVA (cerebral vascular accident) Difficulty sleeping Anxiety, generalized Porcelain gallbladder Ascites Alcohol abuse Irritable bowel syndrome Chronic GERD Paroxysmal atrial fibrillation Tobacco abuse Family History Family History Father Cerebrovascular disease Diabetes mellitus HTN (hypertension) Hx of CABG Mother Lung cancer Maternal Grandmother Myocardial infarction Maternal Grandfather Lung cancer Paternal Grandmother Cerebrovascular disease Paternal Uncle Lung cancer Brother No problems noted. Brother No problems noted. Son No problems noted. Son No problems noted. Other Mental health disorder Substance use disorder Family history of problems with anesthesia: No Surgical History Surgical History Hx of esophagogastroduodenoscopy History of colonoscopy H/O exploratory laparotomy History of Problems with Anesthesia: No Social History Social History Household Members: Spouse and Children Housing: House Alcohol intake: current Alcohol intake frequency: former alcohol drinker Patient Tobacco Use Status: Current everyday Tobacco user Tobacco use type: Cigarette Cigarette Packs Per Day: 1 Years Smoked: 50 years e-Cigarette/Vaping Use: Currently Using Substance Use Type: Other Advance Directives: No Advance Directives Information Provided: Yes service: No Current occupational status: disabled Cognitive needs: No Hearing needs: No Vision needs: Yes Meds Allergies Allergy/AdvReac Type Severity Reaction Status Date / Time duloxetine Allergy Unknown psychotic Verified 06/11/24 12:00 episodes lorazepam [From ATIVAN] AdvReac Unknown AGITATION Verified 06/11/24 12:00 Home Medications ?Medication ?Instructions ?Recorded ?Confirmed ?Last Taken ?Type olanzapine 10 mg tablet 10 mg PO BEDTIME 01/19/22 05/16/24 05/24/22 09:00 History oxcarbazepine 150 mg tablet 150 mg PO BID 05/17/22 05/16/24 Unknown History nadolol 20 mg tablet 20 mg PO QAM 06/22/22 05/16/24 Unknown History omeprazole 40 mg capsule,delayed 40 mg PO BID 06/22/22 05/16/24 Unknown History release cholestyramine (with sugar) 4 gram 4 ea PO DAILY 09/13/23 05/16/24 Unknown History oral powder Exam Pertinent Lab Results Pertinent Lab Results: Laboratory Tests 06/04/24 11:29 WBC 9.0 Hgb 14.6 Hct 45.1 Plt Count 167 Sodium 140 Potassium 4.4 Chloride 106 Carbon Dioxide 28 BUN 14 Creatinine 1.37 Narrative Narrative: CT abdomen pelvis wo IV con 02/2024 IMPRESSION: 1. Multiple small pulmonary nodules are again noted. The majority of these are unchanged or decreased in size from prior. No new pulmonary nodules are identified. 2. No lymphadenopathy. 3. Status post right nephrectomy. Unchanged appearance of scarring at the nephrectomy bed. 4. Cirrhotic appearance of the liver. Borderline splenomegaly. Assessment and Plan Assessment Anesthesia Assessment: Chart Reviewed Final Anesthetic Review Family History of Problems with Anesthesia: No History of Problems with Anesthesia: No Documented by User: Kam Smith MD 07/23/24 11:51 PMFSH Past Medical History Medical History CVA (cerebral vascular accident) Difficulty sleeping Anxiety, generalized Porcelain gallbladder Ascites Alcohol abuse Irritable bowel syndrome Chronic GERD Paroxysmal atrial fibrillation Tobacco abuse Family History Family History Father Cerebrovascular disease Diabetes mellitus HTN (hypertension) Hx of CABG Mother Lung cancer Maternal Grandmother Myocardial infarction Maternal Grandfather Lung cancer Paternal Grandmother Cerebrovascular disease Paternal Uncle Lung cancer Brother No problems noted. Brother No problems noted. Son No problems noted. Son No problems noted. Other Mental health disorder Substance use disorder Surgical History Surgical History Hx of esophagogastroduodenoscopy History of colonoscopy H/O exploratory laparotomy Social History Social History Household Members: Spouse and Children Housing: House Alcohol intake: current Alcohol intake frequency: former alcohol drinker Patient Tobacco Use Status: Current everyday Tobacco user Tobacco use type: Cigarette Cigarette Packs Per Day: 1 Years Smoked: 50 years e-Cigarette/Vaping Use: Currently Using Substance Use Type: Other Advance Directives: No Advance Directives Information Provided: Yes service: No Current occupational status: disabled Cognitive needs: No Hearing needs: No Vision needs: Yes Meds Allergies Allergy/AdvReac Type Severity Reaction Status Date / Time duloxetine Allergy Unknown psychotic Verified 06/11/24 12:00 episodes lorazepam [From ATIVAN] AdvReac Unknown AGITATION Verified 06/11/24 12:00 Home Medications ?Medication ?Instructions ?Recorded ?Confirmed ?Last Taken ?Type olanzapine 10 mg tablet 10 mg PO BEDTIME 01/19/22 05/16/24 05/24/22 09:00 History oxcarbazepine 150 mg tablet 150 mg PO BID 05/17/22 05/16/24 Unknown History nadolol 20 mg tablet 20 mg PO QAM 06/22/22 05/16/24 Unknown History omeprazole 40 mg capsule,delayed 40 mg PO BID 06/22/22 05/16/24 Unknown History release cholestyramine (with sugar) 4 gram 4 ea PO DAILY 09/13/23 05/16/24 Unknown History oral powder Exam Airway Mallampati Class: II TM Dist: <=3cm Neck ROM: Full Loose/Missing/Broken Teeth: Yes, Upper and Lower Heart: ok Lungs: ok Assessment and Plan Assessment Anesthesia Assessment: Anesthesia Plan Discussed Final Anesthetic Review NPO: Yes ASA Class: III Final Preanesthetic Review: No Changes in Pt Med Stat, Meds/Allgs Chart Reviewed, Consent Obtained/Reviewed and Anes Risks/Benef Reviewed Patient Risk: Intermediate Procedure Risk: Low Anesthetic Plan Anesthetic Plan: MAC: and Agree w/ Assess. and Plan Disposition: Standard PACU
[2024-07-23 09:43] VITALS: BP 164/88; PULSE 66; RESP 18; TEMP 36.7; O2SAT 97
[2024-07-23 09:46] VITALS: BMI 29.4
[2024-07-23] MEDS: Lactated Ringers 1,000 ML 100 ML IVCONT (10:08)
[2024-07-23] MEDS: Albuterol Sulfate (0.083%) 2.5 MG/3 ML VIAL.NEB INHALE (10:29)
[2024-07-23 10:31] VITALS: PULSE 67; RESP 18; O2SAT 96
[2024-07-23 12:13] VITALS: BP 124/60; PULSE 63; RESP 18; TEMP 36.3; O2SAT 92
--- NOTE | 2024-07-23 12:16 | PM.OP ---
Brief Operative Note Date of Service: 07/23/24 Pre-op diagnosis: Screening Post-op diagnosis: other (Polyps) Procedure: Colonoscopy to the anastomosis and SI with hot snare polypectomy x 3 Surgeon: Frankie Reyes MD Anesthesia: MAC Was an Driller Brake Lining used for this Procedure?: No Estimated blood loss (mL): 0 Pathology: other (A. Polyps between 20-30cm) Condition: stable Disposition: PACU
[2024-07-23 12:28] VITALS: BP 134/65; PULSE 62; RESP 16; O2SAT 94
[2024-07-23 12:43] VITALS: BP 157/85; PULSE 66; RESP 16; TEMP 36.3; O2SAT 96
--- OUTSIDE RECORDS SUMMARY | 2024-07-23 13:58 | XMS_ITS | Encounter Summary ---
Author Organization [facility] Address [address] [place] [address] Care Team Providers Care Wincher Name Role Phone Julio Ware Primary Care Provider [phone] Encounter Details Date Type Department Care Team (Late st Contact Info) Description 10/27/2022 Orders Only [facility] XRay [address] [place], [place] [phone] Severino Green MD [address] [place] [address] Social History Tobacco Use Types Packs/Day Years Used Date Smoking Tobacco: Every Day Cigarettes 1 40 Smokeless Tobacco: Never Comments:: Alcohol Use Standard Drinks/Week Comments Not Currently 0 (1 standard drink = 0.6 oz pur e alcohol) no use since 2020 Sex and Gender Information Value Date Recorded Sex Assigned at Male 10/03/2022 9:50 AM EDT Legal Sex Male 6:48 PM EDT Gender Identity Male 10/03/2022 9:50 AM EDT Sexual Orientation Straight 10/03/2022 9: 50 AM EDT documented as of this encounter Plan of Treatment Upcoming Encounters Date Type Department Care Team (Late st Contact Info) Description 09/04/2024 1:00 PM EDT Telehealth [facility] [address] [place] [address] Retirement Consultant: Nancy Perales MD [address] [place] [phone] documented as of this encounter Visit Diagnoses Not on filedocumented in this encounter Additional Health Concerns Infection Onset Date Last Indicated Resolved Time Multidrug resistant organisms ESBL 10/19/20222022 documented as of this encounter Care Teams Wincher Relationship Specialty Start Date End Date ChazJulio [address] [place] [address] PCP - General Internal Medicine 07/29/22 documented as of this encounter
--- OUTSIDE RECORDS SUMMARY | 2024-07-23 13:58 | XMS_ITS | Referral Summary ---
Author Organization [facility] Address [address] [place] [address] Care Team Providers Care Subassembly Assembler Name Role Phone Julio Ware Primary Care Provider [phone] Allergies Active Allergy Reactions Criticality Noted Date Comments Duloxetine Unknown 07/29/2022 Lorazepam Unknown 07/29/2022 Medications nadoloL (CORGARD) 20 mg tablet 3 Active omeprazole (PriLOSEC) 40 mg capsule SMARTSI Capsule(s) By Mouth Twice Daily 3 Active OLANZapine (ZyPREXA) 10 mg tablet SMARTSI Tablet(s) By Mouth Every Night 3 Active traZODone (DESYREL) 150 mg tablet SMARTSI Tablet(s) By Mouth Every Night 3 Active OXcarbazepine (TRILEPTAL) 150 mg tablet 3 Active sildenafiL (VIAGRA) 100 mg tablet SMARTSI Tablet(s) By Mouth Daily PRN 3 Active acetaminophen (TYLENOL) 325 mg tablet Take 2 tablets (650 mg total) by mouth every 6 hours. 3 Active sodium chloride 0.9% injection Infuse 10-30 mL intravenously See admin instructions. 3 Active sodium chloride 0.9% injection Infuse 10-30 mL intravenously once a day. 3 Active 0.9% NaCl 0.9% piggyback 100 mL with ertapenem 1 gram recon soln 1 g Infuse 1 g intravenously every 24 hours. 3 Active thiamine HCl (VITAMIN B1) 100 mg tablet SMARTSI Tablet(s) By Mouth Daily 3 Active Active Problems Problem Noted Date Diagnosed Date Malignant neoplasm of right kidney 11/14/2022 Biloma 10/19/2022 Assessment & Plan (10/21/2022 10:38 AM EDT): Miah Lindsey is a 62 y.o. male who presented to the ED 10/18 from clinic for evaluation after concern for purulent drainage from right upper quadrant incision as well as reported low-grade fever to the 100s in clinic. Work-up in the ED notable for leukocytosis 13 (down from 16) as well as CT abdomen pelvis findings of new large right retroperitoneal abscess with possible communication to the right anterior lateral subcutaneous collection along the incision, new right hepatic lobe simple fluid collection suspicious for biloma, moderate volume simple free fluid. Now s/p IR drainage of both collections 10/19. Perihepatic collection has had bilious output. No growth from biloma drain cultures. - ok to be discharged home from general surgery perspective on antibiotics - if biliary drain daily output is > 200c daily he will need ERCP - follow up with Dr. Cardona on 10/25 in clinic for biloma drain evaluation Intra-abdominal abscess (CMS/HCC) 10/19/2022 Assessment & Plan (10/21/2022 10:35 AM EDT): Workup of fever and leukocytosis in ED including CT A/P with new large right RP abscess with communication to right anterior lateral subcutaneous collection. RP collection now s/p IR drainage with placement of pigtail drain, currently draining seropurulent fluid. - Follow up IR cultures: GNB - RP drain management per urology Hypervolemia 10/08/2022 Hemorrhagic shock 10/05/2022 Bradycardia 10/05/2022 Delirium 10/05/2022 Acute respiratory failure with hypoxia and hyper capnia 10/05/2022 MAYITO (acute kidney injury) 10/05/2022 Elevated LFTs 10/05/2022 Serosal tear of cecum 10/05/2022 Assessment & Plan (10/12/2022 8:27 AM EDT): S/p ileocecectomy with primary anastomosis. Has had return of bowel function. 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 DOMENICA drain has been serosanguinous with also biliary output. Now decreasing serous output, no evidence of biliary drainage. Social History Tobacco Use Types Packs/Day Years Used Date Smoking Tobacco: Every Day Cigarettes 1 40 Smokeless Tobacco: Never Tobacco Cessation:Ready to Q uit: Not Asked; Counseling Given: Not Answered Comments:: Alcohol Use Standard Drinks/Week Comments Not Currently 0 (1 standard drink = 0.6 oz pur e alcohol) no use since 2020 Sex and Gender Information Value Date Recorded Sex Assigned at Male 10/03/2022 9:50 AM EDT Legal Sex Male 6:48 PM EDT Gender Identity Male 10/03/2022 9:50 AM EDT Sexual Orientation Straight 10/03/2022 9: 50 AM EDT Last Filed Vital Signs Vital Sign Reading Time Taken Comments Blood Pressure 130/75 11/16/2022 10:38 AM EDT Pulse 59 11/16/2022 10:38 AM EDT Temperature 36.7 ??C (98 ??F) 11/16/2022 10:38 AM EDT Respiratory Rate 18 11/16/2022 10:38 AM EDT Oxygen Saturation 96% 11/16/2022 10:38 AM EDT Inhaled Oxygen Concentration - - Weight 86.6 kg (191 lb) 11/16/2022 10:38 AM EDT Height 175.3 cm (5' 9 ) 10/19/2022 4:35 AM EDT Body Mass Index 28.21 10/19/2022 4:35 AM EDT Plan of Treatment Upcoming Encounters Date Type Department Care Team (Late st Contact Info) Description 09/04/2024 1:00 PM EDT Telehealth [facility] [address] [place] [address] Forklift Supervisor: Phyllis Mcdonough, Nancy Villarreal MD [address] [place] [address] Procedures * Due to [facility] law, this organization might not be sharing negative HIV tests. Procedure Name Priority Date/Time Associated Diagnosis Comments BASIC METABOLIC PANEL Routine 10/27/2022 4:47 AM EDT HEPATITIS C ANTIBODY W/REFLEX TO HCV RNA, QUANTITATIVE PCR Routine 12/19/2015 12:13 PM EDT from Last 3 Months or Most Recently Relevant to Health Maintenance Results * Due to [employer] law, this organization might not be sharing negative HIV tests. * (ABNORMAL) Basic Metabolic Panel (10/27/2022 4:47 AM EDT) NA 137 135 - 145 mmol/L 10/27/2022 5:30 AM EDT [facility] K 3.7 3.5 - 5.3 mmol/L 10/27/2022 5:30 AM EDT [facility] Cl 107 97 - 110 mmol/L 10/27/2022 5:30 AM EDT [facility] CO2 24 24 - 32 mmol/L 10/27/2022 5:30 AM EDT [facility] BUN 14 7 - 23 mg/dL 10/27/2022 5:30 AM EDT [facility] Creatinine 1.37(H) 0.60 - 1.30 mg/dL 10/27/2022 5:30 AM EDT [facility] Glucose 91 70 - 99 mg/dL 10/27/2022 5:30 AM EDT [facility] Calcium 8.7 8.7 - 10.7 mg/dL 10/27/2022 5:30 AM EDT [facility] Anion Gap 6 5 - 15 10/27/2022 5:30 AM EDT [facility] eGFR 58(L) >=90 mL/min/1. 73m2 10/27/2022 5:30 AM EDT [facility] Comment: Estimated Glomerular Filtration Rate (GFR) calculated using the CKD-EPI refit equation. The different stages of CKD form a continuum. The stages of CKD are classified as follows : Stage 1: Normal or increased GFR (>90 mL/min/1.73 m2) Stage 2: Mild reduction in GFR (60-89 mL/min/1.73 m2) Stage 3a: Moderate reduction in GFR (45-59 mL/min/1.73 m2) Stage 3b: Moderate reduction in GFR (30-44 mL/min/1.73 m2) Stage 4: Severe reduction in GFR (15-29 mL/min/1.73 m2) Stage 5: Kidney failure (GFR < 15 mL/min/1.73 m2 or dialysis) Blood Implantable venous catheter submitted as specimen / Unknown Venipuncture / Unknown 10/27/2022 4:47 AM EDT 10/27/2022 5:05 AM EDT us Monie Lee MD LAB BLOOD ORDERABLES Final Re sult [facility] [address] [place] [address], * Hepatitis C Antibody w/Reflex to HCV RNA, Quantitative PCR (12/19/2015 12:13 PM EDT) Hepatitis C Antibody NON-REACTI VE NON-REACT [facility] Signal To Cut-Off 0.04 <1.00 [facility] 12/19/2015 12:1 3 PM EDT 12/19/2015 12:59 PM EDT Anisha Armendariz HYDRAULIC SPINNER LAB BLOOD ORDERABLES Final Res ult [facility] from Last 3 Months or Most Recently Relevant to Health Maintenance Additional Health Concerns Infection Onset Date Last Indicated Multidrug resistant organisms ESBL 10/19/2022 10/19/2022 Insurance [employer] Advance Directives Documents on File Type Date Recorded Patient Bobbin Marker Expl anation Health Care Proxy 10/15/2022 8:45 AM 10-01 * Full Code (Latest Code Status on File) Date Activated Date Inactivated Comments 10/19/2022 3:49 AM 10/27/2022 4:42 PM * Full Code Date Activated Date Inactivated Comments 10/05/2022 6:01 AM 10/14/2022 7:43 PM * Presumed Full Code Date Activated Date Inactivated Comments 10/04/2022 5:10 PM 10/05/2022 6:01 AM Healthcare Agents on File Name Relationship Healthcare Agent Relationshi p Communication Phuong Rosalia Spouse Alternate Health Care Agen t Care Teams Subassembly Assembler Relationship Specialty Start Date End Date Julio Ware [address] [place] [address] PCP - General Internal Medicine 07/29/22
--- OUTSIDE RECORDS SUMMARY | 2024-07-23 13:58 | XMS_ITS | Clinical Summary ---
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 DOMENICA drain has been serosanguinous with also biliary output. Now decreasing serous output, no evidence of biliary drainage. Family History Medical History Relation Name Comments Diabetes Father Heart disease Father Hypertension Father Other Father Family History of hypertension Cancer Mother Relation Name Status Comments Father Mother Social History Tobacco Use Types Packs/Day Years [...] Info) Description 09/04/2024 1:00 PM EDT Telehealth [facility] [address] [place] [address] - [place] [address] Single Wire Saw Operator: Phyllis Mcdonough, Nancy Villarreal MD [address] [place] [address] Health Maintenance Due Date Last Done Comments Cologuard 1960 Colon Cancer Screening 1960 Colonoscopy 1960 FOBT / Fit Test 1960 HIV Screening 1960 Sigmoidoscopy 1958 COVID-19 Vaccine (#1) 10/17/1963 Zoster Vaccines (1 of 2) 1977 DTaP,Tdap,and Td Vaccines (1 - Tdap) 1980 CT Lung Cancer Screening (Baseline) 2008 Pneumococcal Vaccine: 65+ Ye ars (2 of 2 - PCV) 10/19/2013 10/19/2012 Hepatitis B Vaccines (1 of 3 - Risk 3-dose series) 2018 RSV Vaccine (60+ years old a nd patients) (1 - Risk 60-74 years 1-dose series) 2018 Basic Metabolic Panel 10/28/2023 10/27/2022 , 10/26/2022, 10/25/2022, Additional history exists Influenza Vaccine (#1) 2024 04/20/2022, 2019 Alcohol/Substance Use Screening 06/27/2024 Depression Evaluation 06/27/2024 Health Care Proxy Review 06/27/2024 Social Drivers of Health Sara ual Screening 06/27/2024 Hepatitis C Screening Completed 12/19/2015 Procedures * Due to [place] state law, this organization might not be sharing negative HIV tests. Procedure Name Priority Date/Time Associated Diagnosis Comments BASIC METABOLIC PANEL Routine 10/27/2022 4:47 AM EDT HEPATITIS C ANTIBODY W/REFLEX TO HCV RNA, QUANTITATIVE PCR Routine 12/19/2015 12:13 PM EDT from Last 3 Months or Most Recently Relevant to Health Maintenance Results * Due to [place] state law, this organization might not be sharing negative HIV tests. * (ABNORMAL) Basic Metabolic Panel (10/27/2022 4:47 AM EDT) NA 137 135 - 145 mmol/L 10/27/2022 5:30 AM EDT [facility] K 3.7 3.5 - 5.3 mmol/L 10/27/2022 5:30 AM EDT [facility] Cl 107 97 - 110 mmol/L 10/27/2022 5:30 AM EDT [facility] CO2 24 24 - 32 mmol/L 10/27/2022 5:30 AM EDT [facility] BUN 14 7 - 23 mg/dL 10/27/2022 5:30 AM EDT [facility] Creatinine 1.37(H) 0.60 - 1.30 mg/dL 10/27/2022 5:30 AM EDT [facility] Glucose 91 70 - 99 mg/dL 10/27/2022 5:30 AM EDT [facility] Calcium 8.7 8.7 - 10.7 mg/dL 10/27/2022 5:30 AM EDT [facility] Anion Gap 6 5 - 15 10/27/2022 5:30 AM EDT [facility] eGFR 58(L) >=90 mL/min/1. 73m2 10/27/2022 5:30 AM EDT [facility] Comment: Estimated Glomerular [...] MD LAB BLOOD ORDERABLES Final Re sult [facility] [address] [place] [address], * Hepatitis C Antibody w/Reflex to HCV RNA, Quantitative PCR (12/19/2015 12:13 PM EDT) Hepatitis C Antibody NON-REACTI VE NON-REACT [facility] Signal To Cut-Off 0.04 <1.00 [facility] 12/19/2015 12:1 3 PM EDT 12/19/2015 12:59 PM EDT Anisha Armendariz NP LAB BLOOD ORDERABLES Final [facility] from Last 3 Months or Most Recently Relevant to Health Maintenance Additional Health Concerns Infection Onset Date Last Indicated Multidrug resistant organisms ESBL 10/19/2022 10/19/2022 Insurance Benja FIELD, REN[place] [id number] [facility] [employer] Advance Directives Documents on File Type Date Recorded Patient Secretary Bookkeeper Expl anation Health Care Proxy 10/15/2022 8:45 [...] Relationship Healthcare Agent Relationshi p Communication Phuong Lindsey Spouse [facility] Care Agen t Care Teams Grocery Sacker Relationship Specialty Start Date End Date ChazJulio [address] [place] [address] PCP - General Internal Medicine 07/29/22
--- OUTSIDE RECORDS SUMMARY | 2024-07-23 13:58 | XMS_ITS ---
Author Organization [facility] Address [address] [place] [address] Care Team Providers Care Marketing Effectiveness Manager Name Role Phone Chaz OLIVA, [facility] Primary Care Provider Frankie Meyers [phone] ALLERGIES Allergen (clinical drug ingredient) Drug/Non Drug [...] 09/30/2023 Encounters Encounter Location Date Provider Diagnosis [facility] [address] [place] [address] 09/30/2023 Frankie Reyes Bile salt-induced diarrhea K90.89 [...] will schedule you for a colonoscopy w hen I see you in the Fall of 2023 Next Appt Details Follow Up: 6 Months, Reason: Progress Notes * Examination Category Sub-Category Detail [...]
--- OUTSIDE RECORDS SUMMARY | 2024-07-23 13:58 | XMS_ITS | Encounter Summary ---
Author Organization [facility] Address [address] [place] [address] Care Team Providers Care Thoracic Medicine Specialist Name Role Phone Julio Ware Primary Care Provider [phone] Encounter Details Date Type Department Care Team (Late st Contact Info) Description 11/16/2022 Orders Only [facility] Interventional Radiology [address] [place] [address] Patrick Noel MD [address] [place] [phone] Social History Tobacco Use Types Packs/Day Years [...] Info) Description 09/04/2024 1:00 PM EDT Telehealth [facility] [address] [place] [address] Food Order Delivery Runner: Nancy Perales MD [address] [place] [phone] documented as of this encounter Visit Diagnoses Not on filedocumented in this encounter Additional Health Concerns Infection Onset Date Last Indicated Resolved Time Multidrug resistant organisms ESBL 10/19/20222022 documented as of this encounter Care Teams Thoracic Medicine Specialist Relationship Specialty Start Date End Date ChazJulio [address] [place] [address] PCP - General Internal Medicine 07/29/22 documented as of this encounter
--- OUTSIDE RECORDS SUMMARY | 2024-07-23 13:58 | XMS_ITS | Encounter Summary ---
Author Organization [facility] Address [address] [place] [address] Care Team Providers Care Machine Sorter Name Role Phone Julio Ware Primary Care Provider [phone] Encounter Details Date Type Department Care Team (Late st Contact Info) Description 07/29/2022 Orders Only [facility] Interventional Radiology [address] [place] [phone] Gregory Jack MD [address] [place] [address] Social History Tobacco Use Types Packs/Day Years Used Date Smoking Tobacco: Every Day Comments:: Sex and Gender Information Value Date Recorded Sex Assigned at Male 10/03/2022 9:50 AM EDT Legal Sex Male 6:48 PM EDT Gender Identity Male 10/03/2022 9:50 AM EDT Sexual Orientation Straight 10/03/2022 9: 50 AM EDT documented as of this encounter Plan of Treatment Upcoming Encounters Date Type Department Care Team (Late st Contact Info) Description 09/04/2024 1:00 PM EDT Telehealth [facility] [address] [place] [address] Aeronautical Test Engineer: Phyllis Mcdonough, Nancy Villarreal MD [address] [place] [address] documented as of this encounter Visit Diagnoses Not on filedocumented in this encounter Additional Health Concerns Infection Onset Date Last Indicated Resolved Time Multidrug resistant organisms ESBL 10/19/20222022 documented as of this encounter Care Teams Machine Sorter Relationship Specialty Start Date End Date Julio Ware [address] [place] [address] PCP - General Internal Medicine 07/29/22 documented as of this encounter
--- OUTSIDE RECORDS SUMMARY | 2024-07-23 13:58 | XMS_ITS ---
Author Organization [facility] Address [address] [place] [phone] Care Team Providers Care Checker Dump Grounds Name Role Phone Chaz OLIVA, [facility] Primary Care Provider Frankie Meyers [phone] REASON FOR VISIT screening,hx polyps Encounters Encounter Location Date Provider Diagnosis [facility] Outpatient [address] [place] [phone] 07/23/2024 Frankie Reyes PLAN OF TREATMENT No Information
--- OUTSIDE RECORDS SUMMARY | 2024-07-23 13:58 | XMS_ITS ---
Author Organization [facility] Address [address] [place] [address] Care Team Providers Care Jewelry Appraiser Name Role Phone Chaz [facility]IV[facility] Primary Care Provider Frankie Meyers [phone] ALLERGIES Allergen (clinical drug ingredient) Drug/Non Drug [...] 03/27/2024 Encounters Encounter Location Date Provider Diagnosis [facility] [address] [place] [address] 03/27/2024 Frankie Reyes Alcoholic cirrhosis of liver [...] Next Appt Details Follow Up: prn, Reason: Progress Notes * Examination Category Sub-Category [...]
--- OUTSIDE RECORDS SUMMARY | 2024-07-23 13:58 | XMS_ITS ---
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 DOMENICA drain has been serosanguinous with also biliary output. Now decreasing serous output, no evidence of biliary drainage. Current Oncology Plans No current plan information found. Past Plans No past plan information found. Radiation Treatments * No radiation treatments are documented for this patient in [facility]. Treatments may have been administered in another system. Lifetime Dose Tracking * Chemical Lifetime Dose Automatic Entry Manual Entr y Fluoro Time 1.15 minutes 1.15 minutes 0 minutes TotalDLP 3,643 mGy 3,643 mGy 0 mGy [id number] 44 mSv 44 mSv 0 mSv CTDIvol Max 74.4 mGy 74.4 mGy 0 mGy CTDIvol Min 36.4 mGy 36.4 mGy 0 mGy Radiation - mGy 216.4 mGy 216.4 mGy 0 mGy
--- OUTSIDE RECORDS SUMMARY | 2024-07-23 13:58 | XMS_ITS | Encounter Summary ---
Author Organization [facility] Address [address] [place] [address] Care Team Providers Care Data Entry Representative Name Role Phone Julio Ware Primary Care Provider [phone] Encounter Details Date Type Department Care Team (Late st Contact Info) Description 11/03/2022 Orders Only [facility] Interventional Radiology [address] [place] [phone] Gregory Jack MD [address] [place] [phone] Social History Tobacco Use Types Packs/Day Years [...] Info) Description 09/04/2024 1:00 PM EDT Telehealth [facility] [address] [place] [address] Ophthalmic Surgeon: Nancy Perales MD [address] [place] [address] [phone] documented as of this encounter Visit Diagnoses Not on filedocumented in this encounter Additional Health Concerns Infection Onset Date Last Indicated Resolved Time Multidrug resistant organisms ESBL 10/19/20222022 documented as of this encounter Care Teams Data Entry Representative Relationship Specialty Start Date End Date Julio Ware [address] [place] [address] PCP - General Internal Medicine 07/29/22 documented as of this encounter
--- OUTSIDE RECORDS SUMMARY | 2024-07-23 13:58 | XMS_ITS | Patient Health Record ---
Author Organization [facility] Address [address] [place] [id number] Care Team Providers Care Core Shaper Sides Name Role Phone Chaz OLIVA, [facility] Primary Care Provider Frankie Meyers [phone] ALLERGIES Allergen (clinical drug ingredient) Drug/Non Drug [...] malignant neoplasm of colon (Z12.11) Active confirmed 862594572 Problem History of adenomatous polyp of colon (Z86.010) Active confirmed History of adenomatous polyp of colon (477291011) Problem Alcoholic cirrhosis of liver with ascites (K70.31) Active confirmed 846772962 Problem Gallstones (K80.20) Active confirmed 607739870 Problem Cirrhosis (K74.60) Active confirmed Cirrhotic (026460556) Problem Esophageal varices (I85.00) Active confirmed Esophageal varices (92394574) Problem 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 362303786 Problem Abdominal pain, RUQ (R10.11) Active confirmed 282845811 Problem Chronic fatigue (R53.82) Active confirmed 80934509 Problem Diverticulosis of sigmoid colon (K57.30) Active confirmed Diverticulosis of sigmoid colon (637169826) Problem 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) Active confirmed 78640147 VITAL SIGNS Temperature 98.2 degrees Fahrenheit 09/30/2023 Blood pressure diastolic 00 mm Hg 03/27/2024 Height 69 in 03/27/2024 Blood pressure systolic 00 mm Hg 03/27/2024 Weight 198 lbs 03/27/2024 BMI 29.24 kg/m2 03/27/2024 Encounters Encounter Location Date Provider Diagnosis [facility] [place] [facility] [address] [place] [id number] 07/23/2024 Frankie Reyes [facility] [address] [facility] [address] [place] [id number] 09/30/2023 Frankie Reyes Bile salt-induced diarrhea K90.89 ; Alcoholic cirrhosis of liver with ascites K70.31 ; Encounter for screening for malignant neoplasm of colon Z12.11 ; History of adenomatous polyp of colon Z86.010 and Esophageal varices I85.00 [facility] [address] [place] [phone] 03/27/2024 Frankie Reyes Alcoholic cirrhosis of liver [...] GI ENDOSCOPY 05/05/2022 COLONOSCOPY 05/05/2022 COLONOSCOPY 03/27/2024 Insurance Providers Payer Name Payer Address Payer Phone Subscriber Number Group Number Insured Name Patient Relationship to Insured Coverage Start Date Coverage End Date [employer] [place] [address] [address] [place] [address] [id number] EUGENIO STANLEY Self - patient is the insured MEDICAL (GENERAL) HISTORY Medical History History ICD Code Hypertension Denies ME,DM,Lung disease,renal disease Alcohol abuse At [facility] 10/09-11/01/12 for asci rick, resp failure, pneumonia, [...] nonvisualized gallbladder--has seen 2 different surgeons at [facility]--including the liver transplant surgeon, Dr. Morris--but they think he is too high risk for gallbladdder surgery EGD in 07/2012 with minimal Gr I varices and gastritis, HH, and duodenitis Stroke 01/2016--received TPA--no residual Atrial fibrillation Right renal lesion-sees Dr. Sutherland and Dr Marzena Zungia Colonoscopy in 11/2017-large tubulovillous adenoma with high grade dysplasia and smaller tubular adenomas Hospitalized at [facility] in 11/2018 for abdominal pain/gallbladder disease---the [...] schedule d for surgery on 10/04/2022 at [facility] in [place]. He had the surgery as below. 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 Alcaraz. Scheduled to finish in 11/2023. CT scan of the abdomen in [facility] of 2023 revealed some ascites, as well [...]
--- OUTSIDE RECORDS SUMMARY | 2024-07-23 13:58 | XMS_ITS | Encounter Summary ---
Author Organization [facility] Address [address] [place] [address] Care Team Providers Care Nremt Name Role Phone Julio Ware Primary Care Provider [phone] Reason for Visit * Reason Onset Date Comments RESCHEDULE APPT 07/19/2022 Encounter Details Date Type Department Care Team (Late st Contact Info) Description 07/19/2022 Telephone [facility] Pediatric Urology [address] [place] [id number] Hatchery Helper: Pilar Underwood Telephone Intake, Staff RESCHEDULE APPT Social History Tobacco Use Types Packs/Day Years Used Date Smoking Tobacco: Every Day Comments:: Sex and Gender Information Value Date Recorded Sex Assigned at Male 10/03/2022 9:50 AM EDT Legal Sex Male 6:48 PM EDT Gender Identity Male 10/03/2022 9:50 AM EDT Sexual Orientation Straight 10/03/2022 9: 50 AM EDT documented as of this encounter Miscellaneous Notes * Telephone Encounter - Dorothy Ellis - 07/20/2022 10:13 AM EST Spoke w pt spouse Appt 07/29/22 @ 1pm * Telephone Encounter - Dorothy Ellis - 07/19/2022 3:28 PM EST Lvm w pt to return call to make sooner appt w Gracy Farnsworth per Please schedule w GRACY Farnsworth when pt returns call * Telephone Encounter - Marjorie Schaffer - 07/19/2022 10:25 AM EST PT has appt with Dr Mcdonough 09/14/22, Pt received message that would like his appt moved to sooner date. The soonest date I could find is 08/30/22. I am not sure if that is the an appropriate time. Please call Miah back with sooner appt date: [phone] documented in this encounter Plan of Treatment Upcoming Encounters Date Type Department Care Team (Late st Contact Info) Description 09/04/2024 1:00 PM EDT Telehealth [facility] [address] [place] [address] Hatchery Helper: Phyllis Mcdonough, Nancy Villarreal MD [address] [place] [address] documented as of this encounter Visit Diagnoses Not on filedocumented in this encounter Additional Health Concerns Infection Onset Date Last Indicated Resolved Time Multidrug resistant organisms ESBL 10/19/20222022 documented as of this encounter Care Teams Nremt Relationship Specialty Start Date End Date Julio Ware [address] [place] [address] PCP - General Internal Medicine 07/29/22 documented as of this encounter
--- OUTSIDE RECORDS SUMMARY | 2024-07-23 13:58 | XMS_ITS | Clinical Summary ---
Author Organization [facility] Address [address] [place] [address] Care Team Providers Care Padded Products Finisher Name Role Phone Unavailable Primary Care Provider Unavailabl e Social History Tobacco Use Types Packs/Day Years Used Date Smoking Tobacco: Never Assessed Sex and Gender Information Value Date Recorded Sex Assigned at Not on file Gender Identity Not on file Sexual Orientation Not on file Plan of Treatment Health Maintenance Due Date Last Done Comments DTaP,Tdap,and Td Vaccines (1 - Tdap) 1977 Zoster Vaccines (1 of 2) 2008 Pneumococcal Vaccine: 65+ Ye ars (1 of 1 - PCV) 10/17/2023 COVID-19 Vaccine ( - 2023-2 5 season) 2024 Influenza Vaccine (#1) 2024 RSV Immunization Patients 60 + Years Old (1 - 1-dose 75+ series) 2033 HIB Vaccines Aged Out No longer eligi ble based on patient's age to complete this topic HPV Vaccines Aged Out No longer eligi ble based on patient's age to complete this topic Hepatitis A Vaccines Aged Out No long er eligible based on patient's age to complete this topic Hepatitis B Vaccines Aged Out No long er eligible based on patient's age to complete this topic IPV Vaccines Aged Out No longer eligi ble based on patient's age to complete this topic MMR Vaccines Aged Out No longer eligi ble based on patient's age to complete this topic Meningococcal ACWY Vaccine Aged Out N o longer eligible based on patient's age to complete this topic Pneumococcal Vaccine: Pediat rics (0 to 5 Years) and At-Risk Patients (6 to 64 Years) Aged Out No longer eligible b ased on patient's age to complete this topic RSV Immunization Patients Un ken 20 months Aged Out No longer eligible b ased on patient's age to complete this topic Varicella Vaccines Aged Out No longer eligible based on patient's age to complete this topic
--- NOTE | 2024-07-23 23:13 | OP_ITS ---
DATE OF SERVICE: 07/23/2024 SURGEON: Frankie Reyes MD INDICATIONS: The patient presents for evaluation of personal history of colorectal polyps and need for colorectal cancer screening. Full consent was obtained from him for this, including risks of bleeding and perforation. PREOPERATIVE DIAGNOSIS: POSTOPERATIVE DIAGNOSIS: PROCEDURE PERFORMED: Colonoscopy to the anastomosis and small bowel with hot snare polypectomy x3. ESTIMATED BLOOD LOSS: COMPLICATIONS: ANESTHESIA: Monitored anesthesia care. ASSISTANTS: SPECIMENS: PREOPERATIVE DIAGNOSES: Colorectal cancer screening and personal history of colon polyps. POSTOPERATIVE DIAGNOSES: Colorectal cancer screening and personal history of colon polyps, colon polyps, normal anastomosis, sigmoid diverticulosis, and internal hemorrhoids. DESCRIPTION OF PROCEDURE: The patient was placed in the left lateral decubitus position. The digital rectal exam revealed no abnormalities. The Olympus video pediatric colonoscope was entered into the rectum and advanced easily to the anastomosis. The anastomosis appeared normal. The small bowel was cannulated and appeared normal. The scope was withdrawn back in the colon. The entire anastomosis appeared normal. The scope was then slowly withdrawn assessing all mucosal surfaces carefully. Preparation was excellent. Between 20 and 30 cm were 3 polyps. These ranged between 6 and 10 mm in size. These were all removed by hot snare polypectomy and recovered by suction. All the polypectomy sites appeared clean, without any sign of residual polyp nor bleeding. At approximately 20 cm, was some submucosal ink from a previous procedure. I did not visualize any other polyps, colitis, nor angiodysplasias. There was a mild amount of sigmoid diverticulosis. In the rectum, scope was retroflexed visualizing internal hemorrhoids, but no other pathology. The rectal mucosa appeared normal. The scope was straightened and withdrawn from the patient. He tolerated the procedure well and was returned to recovery area in stable condition. IMPRESSION: 1. Colon polyps. 2. Diverticulosis. 3. Internal hemorrhoids. 4. Normal anastomosis. PLAN: The results of the pathology will be checked. I would recommend a repeat colonoscopy in 3 years for further screening given his previous history. He was advised to see me in 1 year for followup of his underlying chronic liver disease. He was advised not to use any aspirin or NSAIDs for at least 1 week. This has been discussed with his . MD DEBI Neff/AVI / [phone]
== END 2024-07-23 13:08 | disposition home or self-care (01) ==
PROVIDERS: PCP Internal Medicine; Visit Provider Internal Medicine
PROC: 0DJD8ZZ Inspection of Lower Intestinal Tract, Via Natural or Artificial Opening Endoscopic (ICD-10-PCS; CPT 45378; principal; 2024-07-23 10:30)
DX: Z12.11 Encounter for screening for malignant neoplasm of colon (principal); Z86.0101 Personal history of adenomatous and serrated colon polyps; K63.5 Polyp of colon; K57.30 Diverticulosis of large intestine without perforation or abscess without bleeding; K64.8 Other hemorrhoids; K90.89 Other intestinal malabsorption; Z98.0 Intestinal bypass and anastomosis status; I10 Essential (primary) hypertension; I48.0 Paroxysmal atrial fibrillation; K70.31 Alcoholic cirrhosis of liver with ascites; F10.11 Alcohol abuse, in remission; I85.00 Esophageal varices without bleeding; Z85.528 Personal history of other malignant neoplasm of kidney; Z90.5 Acquired absence of kidney; Z86.73 Personal history of transient ischemic attack (TIA), and cerebral infarction without residual deficits; Z79.899 Other long term (current) drug therapy; Z90.49 Acquired absence of other specified parts of digestive tract; Z98.890 Other specified postprocedural states; F17.210 Nicotine dependence, cigarettes, uncomplicated
CPT/HCPCS: 45385; 88305; 94640; J2003; J2704; J3010

== ENCOUNTER 2024-09-17 11:28 | Outpatient (AMB) | payer OTHER, SELFPAY ==
[2024-09-17 11:34] VITALS: BP 176/88; PULSE 62; O2SAT 97; BMI 29.8
--- NOTE | 2024-09-17 11:34 | HO.NEPHOV_ITS ---
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 And Finisher Required: No Accompanied by: Spouse Allergies duloxetine Allergy (Unknown, Verified 09/17/24 11:36) psychotic episodes lorazepam [From ATIVAN] Adverse Reaction (Unknown, Verified 09/17/24 11:36) AGITATION Medication List - Last Reconciled 09/17/24 by Onel Maldonado MD albuterol sulfate 90 mcg/actuation (ProAir HFA) 1 inh inhalation QID PRN 30 days cholestyramine (with sugar) 4 gram 4 ea PO DAILY mupirocin 2% 1 appl topical BID-TID PRN nadolol 20 mg PO QAM olanzapine 10 mg PO BEDTIME omeprazole 40 mg PO BID oxcarbazepine 150 mg PO BID sildenafil 100 mg PO ONCE PRN 30 days tadalafil (Cialis) 5 mg PO DAILY 90 days HPI Comments Details: 62-year-old man with right kidney cancer status post right open nephrectomy on 10/17 at [facility]. Referred for evaluation of CKD He underwent cholecystectomy at the same time. 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 Final pathological stage pT3a NX MX. AJCC stage III. 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 Tumor extended into renal sinus, into major vein. No sarcamatoid features, no lymphovascular invasion, all margins negative for carcinoma. Patient had a prolonged postoperative course complicated initially by hemorrhagic shock followed by retroperitoneal abscess . He required prolonged course of IV antibiotics and drainage of abscess. Prior to nephrectomy serum creatinine was around 0.9-1.1 mg/dL. Since nephrectomy serum creatinine is around 1.5-1.7 mg/dL and has relatively been stable. He has had a testicular pain seen by Urology and was diagnosed with a varicocele. Review of system was positive for chronic diarrhea since cholecystectomy no nausea or vomiting. No urinary symptoms. No headache nausea vomiting no abdominal pain no edema no fever no weight loss. 10/31/2023. Overall he is doing well. He is currently on chemotherapy with 3 weeks. Last dose is scheduled for November 2023. He underwent 24 urine collection. 05/14/24 Events noted ;CT in Sep shows unchanged pulm nodules ;No lymphadenopathy PFSH Medical History CVA (cerebral vascular accident) Difficulty sleeping Anxiety, generalized Porcelain gallbladder Ascites Alcohol abuse Irritable bowel syndrome Chronic GERD Paroxysmal atrial fibrillation Tobacco abuse Surgical History Hx of esophagogastroduodenoscopy History of colonoscopy H/O exploratory laparotomy Family History Father Cerebrovascular disease Diabetes mellitus HTN (hypertension) Hx of CABG Mother Lung cancer Maternal Grandmother Myocardial infarction Maternal Grandfather Lung cancer Paternal Grandmother Cerebrovascular disease Paternal Uncle Lung cancer Brother No problems noted. Brother No problems noted. Son No problems noted. Son No problems noted. Other Mental health disorder Substance use disorder Social History Household Members: Spouse and Children Housing: House Alcohol intake: current Alcohol intake frequency: former alcohol drinker Patient Tobacco Use Status: Current everyday Tobacco user Tobacco use type: Cigarette Cigarette Packs Per Day: 1 Years Smoked: 50 years e-Cigarette/Vaping Use: Currently Using Substance Use Type: Other service: No Current occupational status: disabled Cognitive needs: No Hearing needs: No Vision needs: Yes Physical Exam Vital Signs: Last Vital Signs Pulse 62 09/17/24 11:34 BP 176/88 H 09/17/24 11:34 Pulse Ox 97 09/17/24 11:34 Oxygen Delivery Method Room Air 09/17/24 11:34 BMI result Body Mass Index 29.8 Comfortable Neck supple no JVD. Lungs entry equal no rales. Heart S1-S2 heard no gallop or rub. Abdomen soft nontender. Neuro alert awake oriented. No asterixis. Extremities no edema. Results Reviewed Nephrology Results: 2 Hgb 14.8 g/dl (14.0-18.0) 09/03/24 WBC 9.0 X10*3/uL (4.8-10.8) 09/03/24 Plt Count 167 X10*3/uL (160-400) 09/03/24 Sodium 142 mmol/L (135-145) 09/03/24 Potassium 4.3 mmol/L (3.3-5.1) 09/03/24 Chloride 108 mmol/L (96-108) 09/03/24 Carbon Dioxide 25 mmol/L (22-29) 09/03/24 BUN 15 mg/dL (9-16) 09/03/24 Creatinine 1.52 mg/dL (0.5-1.4) H 09/03/24 Calcium 9.1 mg/dL (8.4-10.2) 09/03/24 Assessment & Plan Assessment & Plan (1) Solitary kidney, acquired: Code(s): Z90.5 - Acquired absence of kidney Category: Medical (2) CKD (chronic kidney disease) stage 3, GFR 30-59 ml/min: Code(s): N18.30 - Chronic kidney disease, stage 3 unspecified Category: Medical (3) Renal cancer: Code(s): C64.9 - Malignant neoplasm of unspecified kidney, except renal pelvis Category: Medical Qualifiers: Laterality: right Qualified Code(s): C64.1 - Malignant neoplasm of right kidney, except renal pelvis Plan 62-year-old man with renal cell carcinoma status post right nephrectomy. He has solitary left kidney with underlying CKD. Baseline serum creatinine is around 1.4-1.7 mg/dL. Goal is to slow the portion of renal disease. 24 urine collection Revealed a creatinine clearance of 50 mL/minute with a serum creatinine 1.61. This is probably his baseline. Serum creatinine has been relatively stable over the last 12 months. Encouraged him to stand low-sodium diet. He should increase his p.o. fluid intake. Continue to avoid nephrotoxic agents including NSAIDs. I have discussed importance of smoking cessation but he has no intention to quit at this time. All his questions were answered. chemotherapy - as per oncology BP sub optimal Initial reading was high Repeat was better Watch BP at home If SBP > 140, would add Amlodipine 2.5 mg daily Orders: Orders Basic Metabolic Panel 4 Months N18.30 - Chronic kidney disease, stage 3 unspecified, Z90.5 - Acquired absence of kidney Coding Level of Care Code Est Pt Level 4 (34157) Diagnoses Solitary kidney, acquired Z90.5 CKD (chronic kidney disease) stage 3, GFR 30-59 ml/min N18.30 Malignant neoplasm of right kidney C64.1 Laterality: right
[2024-09-17 11:48] VITALS: BP 150/80
== END 2024-09-17 11:50 | disposition home or self-care (01) ==
LOC: HO.HKA 11:29
PROVIDERS: PCP Internal Medicine; Visit Provider Internal Medicine Hypertension Specialist
DX: Z90.5 Acquired absence of kidney (principal); N18.30 Chronic kidney disease, stage 3 unspecified; C64.1 Malignant neoplasm of right kidney, except renal pelvis
CPT/HCPCS: 99214

== ENCOUNTER 2024-09-28 13:57 | Outpatient (REF) | payer OTHER, SELFPAY ==
--- NOTE | ~2024-09-28 | CT_ITS ---
EXAMINATION: CT ABDOMEN AND PELVIS WITHOUT CONTRAST CLINICAL INFORMATION: Kidney cancer surveillance. COMPARISON: 02/28/2024, 09/19/2023. TECHNIQUE: Multidetector volumetric imaging was performed from the superior aspect of the liver through the pubic symphysis. Sagittal and coronal reformatted images were obtained on the technologist's workstation. This CT examination was performed using dose optimization techniques as appropriate, variously including the following: *Automated exposure control *Adjustment of mA and/or kV according to patient size (this includes techniques or standardized protocols for targeted exams where dose is matched to indication/reason for exam; i.e. extremities or head) *Use of iterative reconstruction technique FINDINGS: LUNG BASES: Similar subpleural reticular changes bilaterally lower lungs, and chronic segmental cicatrization type atelectasis in the left lower lobe. No effusions. Similar mild mosaic attenuation. Borderline cardiac enlargement. Dense mitral annular calcifications with mild left atrial enlargement. Mild thickening of the distal esophagus, nonspecific. This appears unchanged. LIVER, GALLBLADDER, AND BILIARY TREE: There is an unchanged appearance to the liver with cirrhotic morphology, and left lobe hypertrophy. Similar scarring pattern in the posterior right lobe. No definite suspicious focal lesion. Similar mild heterogeneity of the attenuation pattern. No intra or extrahepatic biliary dilatation. There has been a previous cholecystectomy. PANCREAS: Unremarkable. SPLEEN: Mild splenomegaly, unchanged. ADRENAL GLANDS: There is an unchanged small 1.4 cm nodule in the left adrenal bella. The right adrenal gland is normal in appearance. KIDNEYS AND URETERS: Similar postop changes right nephrectomy. Unchanged appearance of scarring in the nephrectomy bed. Left kidney is unremarkable aside from a nonobstructing 3 mm interpolar dorsal calculus. Mild nonspecific left perirenal stranding. Left ureter is nondilated. BLADDER: Incompletely decompressed. No suspicious finding. GASTROINTESTINAL TRACT: Thickening of the distal esophagus, unchanged. Stomach has a similar appearance and is unremarkable. Duodenal sweep is normal. Small bowel is normal in caliber and course without wall thickening or inflammation. Colon demonstrates scattered diverticula, without acute abnormality or wall thickening. No rectal abnormality. ABDOMINAL WALL: No significant hernia is appreciated. LYMPH NODES: None enlarged by size criteria. VASCULAR: Moderate to severe calcific atheromatous changes of the aorta and iliac arteries. There is no aneurysm. PELVIC VISCERA: The prostate and seminal vesicles are unremarkable. OSSEOUS STRUCTURES: Grade 1 spondylolisthesis L5-S1. No suspicious lytic or blastic bone lesions. CT/CT abdomen pelvis wo IV con IMPRESSION: 1. No definite evidence of metastatic or recurrence of disease. No abnormal lymphadenopathy. 2. Stable cirrhotic morphology of the liver. No suspicious lesion. 3. Stable mild splenomegaly. 4. Post right nephrectomy with stable scarring in the nephrectomy bed. 5. 3 mm nonobstructing calculus in the left kidney midpole. 6. Thickening of the distal esophagus, without change. This may represent esophagitis. 7. Stable small left adrenal nodule measuring 1.4 cm. 8. Stable chronic findings in the lung bases. 9. Additional ancillary findings as discussed in the body of the report. Electronically signed by: Anibal Ventura MD 09/28/2024 02:49 PM EDT
--- OUTSIDE RECORDS SUMMARY | 2024-09-28 15:45 | XMS_ITS ---
Author Organization [facility] Address [address] [place] [address] Care Team Providers Care Valve Tester Name Role Phone Chaz OLIVA, [facility] Primary [facility] Provider Frankie Meyers [phone] Allergies Allergen (clinical drug ingredient) Drug/Non Drug Allergy documented on EMR Reaction Allergy Type Onset Date Status lorazepam Ativan Unknown Drug Allergy Active REASON FOR VISIT Patient presents today for cirrhosis Medications Medication SIG (Take, Route, Frequency, Duration) Notes [...] as needed Orally Once a day Active Social History Tobacco Use: Social History Observation Description Date Details (start date - stop date) Current Smoker NA - NA Tobacco Use/Smoking Question Answer Notes Patient is [...] ast year? No Points 0 Interpretation Negative Section Notes: Alcohol abuse-formerly drinking vodka almost daily due to abdominal pain; Smoker but off cigs and presently vapes and is currently on a nicotine patches. As of the 08/22/19 OV he reports no EtOH since 03/2019. Went back to 1ppd cigs in 06/2019. He has been using marijuana tincture drops as of the 08/22/19 OV as well. Uses Medical marijuana almost daily Vital Signs Blood pressure systolic 00 mm Hg 03/27/20 24 Blood pressure diastolic 00 mm Hg 024 Height 69 in 03/27/2024 Weight 198 lbs 03/27/2024 BMI 29.24 kg/m2 03/27/2024 Encounters Encounter Location Date Provider Diagnosis [facility] [address] [place] [address] 03/27/2024 Frankie Reyes Alcoholic cirrhosis of liver with ascites K70.31 ; Encounter for screening for malignant neoplasm of colon Z12.11 ; History of adenomatous polyp of colon Z86.010 ; Bile salt-induced diarrhea K90.89 and Esophageal varices I85.00 Assessments Encounter Date Diagnosis (ICD Code) Assessment Notes Treatment Notes Treatment Clinical Notes Section Notes 03/27/2024 Alcoholic cirrhosis of liver with ascites (ICD-10 - K70.31) Overall, Miah appears very well considering all of his medical issues and significant surgery from 2022. At this point he does not show any signs of liver decompensation. We did review that his continued sobriety is the main thing keeping him well at this point in regard to the underlying cirrhosis. I don't think he needs any specific studies for that at this time given the recent laboratories and CT scan that were all reassuring. I did recommend a followup colonoscopy for screening purposes given the previous history of a significant polyp removed in 2017 and no subsequent studies other than the incomplete exam in 2021 with relation to the poor prep. Full consent was obtained for the colonoscopy, including risks of bleeding and perforation. The procedure will be done with monitored anesthesia care. He was advised to stop his cholestyramine for 5 days before the procedure and will have a 2 day preparation for the colonoscopy even though he is now status post a right colectomy. Miah was comfortable with this plan. Thank you again for allowing me to participate in Miah's care. I shall continue to keep you advised of his progress. 03/27/2024 Encounter for screening for malignant neoplasm of colon (ICD-10 - Z12.11) Stop the Choelstyramine for 5 days before the colonoscopy Overall, Miah appears very well considering all of his medical issues and significant surgery from 2022. At this point he does not show any signs of liver decompensation. We did review that his continued sobriety is the main thing keeping him well at this point in regard to the underlying cirrhosis. I don't think he needs any specific studies for that at this time given the recent laboratories and CT scan that were all reassuring. I did recommend a followup colonoscopy for screening purposes given the previous history of a significant polyp removed in 2018 and no subsequent studies other than the incomplete exam in 2021 with relation to the poor prep. Full consent was obtained for the colonoscopy, including risks of bleeding and perforation. The procedure will be done with monitored anesthesia care. He was advised to stop his cholestyramine for 5 days before the procedure and will have a 2 day preparation for the colonoscopy even though he is now status post a right colectomy. Miah was comfortable with this plan. Thank you again for allowing me to participate in Miah's care. I shall continue to keep you advised of his progress. 03/27/2024 History of adenomatous polyp of colon (ICD-10 - Z86.010) Overall, Miha appears very well considering all of his medical issues and significant surgery from 2022. At this point he does not show any signs of liver decompensation. We did review that his continued sobriety is the main thing keeping him well at this point in regard to the underlying cirrhosis. I don't think he needs any specific studies for that at this time given the recent laboratories and CT scan that were all reassuring. I did recommend a followup colonoscopy for screening purposes given the previous history of a significant polyp removed in 2018 and no subsequent studies other than the incomplete exam in 2021 with relation to the poor prep. Full consent was obtained for the colonoscopy, including risks of bleeding and perforation. The procedure will be done with monitored anesthesia care. He was advised to stop his cholestyramine for 5 days before the procedure and will have a 2 day preparation for the colonoscopy even though he is now status post a right colectomy. Miah was comfortable with this plan. Thank you again for allowing me to participate in Miah's care. I shall continue to keep you advised of his progress. 03/27/2024 Bile salt-induced diarrhea (ICD-10 - K90.89) Overall, Miah appears very well considering all of his medical issues and significant surgery from 2022. At this point he does not show any signs of liver decompensation. We did review that his continued sobriety is the main thing keeping him well at this point in regard to the underlying cirrhosis. I don't think he needs any specific studies for that at this time given the recent laboratories and CT scan that were all reassuring. I did recommend a followup colonoscopy for screening purposes given the previous history of a significant polyp removed in 2018 and no subsequent studies other than the incomplete exam in 2021 with relation to the poor prep. Full consent was obtained for the colonoscopy, including risks of bleeding and perforation. The procedure will be done with monitored anesthesia care. He was advised to stop his cholestyramine for 5 days before the procedure and will have a 2 day preparation for the colonoscopy even though he is now status post a right colectomy. Miah was comfortable with this plan. Thank you again for allowing me to participate in Miah's care. I shall continue to keep you advised of his progress. 03/27/2024 Esophageal varices (ICD-10 - I85.00) Overall, Miah appears very well considering all of his medical issues and significant surgery from 2022. At this point he does not show any signs of liver decompensation. We did review that his continued sobriety is the main thing keeping him well at this point in regard to the underlying cirrhosis. I don't think he needs any specific studies for that at this time given the recent laboratories and CT scan that were all reassuring. I did recommend a followup colonoscopy for screening purposes given the previous history of a significant polyp removed in 2018 and no subsequent studies other than the incomplete exam in 2021 with relation to the poor prep. Full consent was obtained for the colonoscopy, including risks of bleeding and perforation. The procedure will be done with monitored anesthesia care. He was advised to stop his cholestyramine for 5 days before the procedure and will have a 2 day preparation for the colonoscopy even though he is now status post a right colectomy. Miah was comfortable with this plan. Thank you again for allowing me to participate in Miah's care. I shall continue to keep you advised of his progress. Plan Of Treatment Treatment Notes Assessment Notes Encounter for screening for malignant neoplasm of colon Stop the Choelstyramine for 5 days befor e the colonoscopy Future Test Test Name Order Date COLONOSCOPY 03/27/2024 Next Appt Details Follow Up: prn, Reason: Progress Notes * MIAH STANLEYDOB:1960 (63 yo M)Acc No.[id number]:03/27/2024 Progress Notes Patient:?MIAH STANLEY Provider:?Frankie Reyes MD :1960???Age:63 Y???Sex:Male Tomas e:03/27/2024 [id number] Pcp:Julio Ware MD Subjective: * Chief Complaints: * ???Patient presents today fo r cirrhosis * HPI: ???incontinence:? I saw Miah in followup today in regard to his underlying history of alcohol-induced cirrhosis, gastroesophageal reflux, personal history of colon polyps, and need for colorectal cancer screening. ?Since I last saw Miah in September he reports he has been feeling well. He has continued to remain abstinent from alcohol completely. He has not noticed any signs of jaundice, increasing abdominal girth, edema, pruritus, fatigue, abdominal pain, nor any signs of bleeding. He enjoys a good appetite and denies any significant heartburn or dysphagia on his daily omeprazole. His bowel movements have been improved since he started a cholestyramine daily. He is having one soft or loose bowel movement each morning but none the remainder the day. He denies any hematochezia nor melena. ?He did have a CT scan of his chest, abdomen, and pelvis early February and this was negative for any sign of recurrent malignancy in relation to the previous renal cell carcinoma, sign of ascites, nor sign of a liver mass. Laboratories from January revealed a normal CBC with a platelet count of 151,000, normal LFTs, and normal electrolytes with a BUN of 13 and creatinine 1.5. ?Miah finished his Keytruda chemotherapy for the renal cell cancer in approximately November. * ROS:?General/Constitutional:?Change in appetite?denies.?Chills?denies.?Fatigue?denies.?Ophthalmologic:?Comments?all negative.?ENT:?Comments?all negative.?Respiratory:?hemoptysis?denies.?Cough?denies.?Cardiovascular:?Chest pain?denies.?Orthopnea?denies.?Gastrointestinal:?Comments?See HPI for details.?Genitourinary:?Hematuria?denies.?Dysuria?denies.?Musculoskeletal:?Painful joints?denies.?Weakness?denies.?Skin:?Itching?denies.?Rash?denies.?Neurologic:?Headache?denies.?Seizures?denies.?Psychiatric:?Comments?all negative.? * Medical History:? * Surgical History:?Oral surge ry Right nephrectomy for renal cancer, cholecystectomy, and incidental right colectomy. Complications of abscesses and a bile leak that required intra-abdominal drains and a course of IV antibiotics. The gallbladder did not have any sign of malignancy. 09/2022 * Hospitalization/Major Diagno stic Procedure:?No Hospitalization History. * Family History:?Father: dece ased, diagnosed with HTN (hypertension), Diabetes.?Mother: .? No family history of colorectal cancer nor liver disease. * Social History:?Tobacco Use:?Tobacco Use/Smoking?Patient is a?current smoker,?How often do you smoke cigarettes??every day,?How many cigarettes a day do you smoke??11-20,?How soon after you wake up do you smoke your first cigarette??within 5 minutes,?Are you interested in quitting??Not ready to quit.?Drugs/Alcohol:?Alcohol Screen?Did you have a drink containing alcohol in the past year??No,?Points?0,?Interpretation?Negative.?Miscellaneous:?Marital status: . Occupation: DISABLED. ???Alcohol abuse-formerly drinking vodka almost daily due to abdominal pain; Smoker but off cigs and presently vapes and is currently on a nicotine patches. As of the 08/22/19 OV he reports no EtOH since 03/2019. Went back to 1ppd cigs in 06/2019. He has been using marijuana tincture drops as of the 08/22/19 OV as well. Uses Medical marijuana almost daily. * Medications:?TakingOXcarbaze pine 150 MG Tablet 1 tablet Orally Twice a dayOLANZapine 10 MG Tablet 1 tablet Orally Once a daytraZODone HCl 150 MG Tablet 1 tablet at bedtime as needed Orally Once a dayCholestyramine 4 GM/DOSE Powder 1/2 to 1 scoop mixed in a glass of water or orange juice Orally Once or Twice a day to help with the diarrheaNadolol 20mg 1 QDOmeprazole 20mg QDNadolol 20 MG Tablet TAKE 1 TABLET BY MOUTH EACH MORNING Omeprazole 40 MG Capsule Delayed Release TAKE 1 CAPSULE BY MOUTH EVERY MORNING Taking OXcarbazepine 150 MG Tablet 1 tablet Orally Twice a dayTaking OLANZapine 10 MG Tablet 1 tablet Orally Once a dayTaking traZODone HCl 150 MG Tablet 1 tablet at bedtime as needed Orally Once a dayTaking Cholestyramine 4 GM/DOSE Powder 1/2 to 1 scoop mixed in a glass of water or orange juice Orally Once or Twice a day to help with the diarrheaTaking Nadolol 20mg 1 QDTaking Omeprazole 20mg QDTaking Nadolol 20 MG Tablet TAKE 1 TABLET BY MOUTH EACH MORNING Taking Omeprazole 40 MG Capsule Delayed Release TAKE 1 CAPSULE BY MOUTH EVERY MORNING Not- Taking/PRNMulti Vitamin/Minerals - Tablet as directed Orally once a dayNot-Taking/PRN Multi Vitamin/Minerals - Tablet as directed Orally once a dayDiscontinuedFeroSul 325 (65 Fe) MG Tablet Oral Medication List reviewed and reconciled with the patientDiscontinued FeroSul 325 (65 Fe) MG Tablet Oral Medication List reviewed and reconciled with the patient * Allergies:?Ativanyes[Allergi es Verified] Objective: * Vitals:?Wt: 198 lbs, Ht: 69 in, BMI:29.24 Index, BP: 00/00 mm Hg. * Examination: ???General Examination: ?GENERAL APPEARANCE:?pleasant, well nourished, well developed, in no acute distress.?EYES:?sclera non-icteric.?ORAL CAVITY:?mucosa moist.?NECK/THYROID:?no cervical lymphadenopathy, neck supple.?SKIN:?nonjaundiced, no spider angiomata.?HEART:?S1, S2 normal.?LUNGS:?clear to auscultation bilaterally.?ABDOMEN:?normal bowel sounds, no guarding or rigidity, no guarding or rigidity, no masses palpable, soft, nontender, nondistended.?EXTREMITIES:?no edema.?NEUROLOGIC:?alert and oriented.? Assessment: * Assessment: 1.?Alcoholic cirrhosis of li rosa maria with ascites - K70.31 (Primary)?2.?Encounter for screening for malignant neoplasm of colon - Z12.11?3.?History of adenomatous polyp of colon - Z86.010?4.?Bile salt-induced diarrhea - K90.89?5.?Esophageal varices - I85.00? Overall, Miah appears very well considering all of his medical issues and significant surgery from 2022. At this point he does not show any signs of liver decompensation. We did review that his continued sobriety is the main thing keeping him well at this point in regard to the underlying cirrhosis. I don't think he needs any specific studies for that at this time given the recent laboratories and CT scan that were all reassuring. I did recommend a followup colonoscopy for screening purposes given the previous history of a significant polyp removed in 2018 and no subsequent studies other than the incomplete exam in 2021 with relation to the poor prep. Full consent was obtained for the colonoscopy, including risks of bleeding and perforation. The procedure will be done with monitored anesthesia care. He was advised to stop his cholestyramine for 5 days before the procedure and will have a 2 day preparation for the colonoscopy even though he is now status post a right colectomy. Miah was comfortable with this plan. Thank you again for allowing me to participate in Miah's care. I shall continue to keep you advised of his progress. Plan: * Treatment: Notes: Stop the Choelstyramine for 5 days before the colonoscopy??2.?History of adenomatous polyp of colon?Procedure: COLONOSCOPY (Ordered for 03/27/2024)* with MAC and Two day prepsch ed for 07/23/24 at 12:30 pmmiralax * Procedure Codes:?3017F COLOR ECTAL CA SCREEN DOC [id number] Pt scrn tbco and id as [id number] BP SCR NOT PRFRM REC REASON NOS * Preventive Medicine:? ??Counseling:?Care goal follow-up plan:?Above Normal BMI Follow-up?Giving encouragement to exercise,?BMI management provided?Yes.? ??Screenings:?Fall Risk Screening?Fall Risk Assessment:?No falls in the past year,?Screening:?No falls in the past year,?Assessment:?Not performed, no reason specified,?Plan of Care:?Not documented, no reason specified.? * Follow Up:?prn * * Sign off status: Completed true * Provider:?Frankie Reyes MD Date:? 024 Generated for Adenike enamorado/Ashwin/Deep on:?09/28/2024 03:44 PM EDT History and Physical Notes * HPI (History of Present Illness) Category Sub-Category Detail Notes Category Not es incontinence I saw Miah in followup today in regard to his underlying history of alcohol-induced cirrhosis, gastroesophageal reflux, personal history of colon polyps, and need for colorectal cancer screening. Since I last saw Miah in September he reports he has been feeling well. He has continued to remain abstinent from alcohol completely. He has not noticed any signs of jaundice, increasing abdominal girth, edema, pruritus, fatigue, abdominal pain, nor any signs of bleeding. He enjoys a good appetite and denies any significant heartburn or dysphagia on his daily omeprazole. His bowel movements have been improved since he started a cholestyramine daily. He is having one soft or loose bowel movement each morning but none the remainder the day. He denies any hematochezia nor melena. He did have a CT scan of his chest, abdomen, and pelvis early February and this was negative for any sign of recurrent malignancy in relation to the previous renal cell carcinoma, sign of ascites, nor sign of a liver mass. Laboratories from January revealed a normal CBC with a platelet count of 151,000, normal LFTs, and normal electrolytes with a BUN of 13 and creatinine 1.5. Miah finished his Keytruda chemotherapy for the renal cell cancer in approximately November. Examination Category Sub-Category Detail Notes Category Not es General Examination GENERAL APPEARANCE: pleasant , well [...]
--- OUTSIDE RECORDS SUMMARY | 2024-09-28 15:45 | XMS_ITS | Encounter Summary ---
Author Organization [facility] Address [address] [place] [address] Care Team Providers Care Environmental Studies Program Director Name Role Phone Julio Ware Primary Care Provider Encounter Details Date Type Department Care Team (Late st Contact Info) Description 10/27/2022 Orders Only [facility] XRay [address] [place] [address] Severino Green MD [address] [place], [place] [id number] Social History Tobacco Use Types Packs/Day Years [...] as of this encounter Plan of Treatment Not on file documented as of this encounter Visit Diagnoses Not on filedocumented in this encounter Additional Health Concerns Infection Onset Date Last Indicated Resolved Time Multidrug resistant organisms ESBL 10/19/20222022 documented as of this encounter Care Teams Environmental Studies Program Director Relationship Specialty Start Date End Date Chaz Brooksv[address] [place] [address] PCP - General Internal Medicine 07/29/22 documented as of this encounter
--- OUTSIDE RECORDS SUMMARY | 2024-09-28 15:45 | XMS_ITS ---
Author Organization [facility] Address [address] [place] [address] Care Team Providers Care Patient Portal Concierge Name Role Phone Julio Ware Primary Care Provider [phone] Active Problems Problem Noted Date Diagnosed Date [...] clinic for biloma drain evaluation Intra-abdominal abscess 10/19/2022 Assessment & Plan (10/21/2022 10:35 AM [...] 10/01/202212/2022 Renal mass 10/01/2022 10/01/2022 Alcoholic cirrhosis 10/01/2022 10/01/2022 Lesion of right picayune kidney 01/22/2016 Hypertension 01/08/2015 Esophageal reflux 01/08/2015 Ascites 01/08/2015 Abdominal pain of multiple sites 01/08/2015 Liver cirrhosis, alcoholic 01/08/2015 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 DOMENICA drain has been serosanguinous with also biliary output. Now decreasing serous output, no evidence of biliary drainage. Current Treatment and Therapy Plans No current plan information found. Past Treatment and Therapy Plans No past plan information found. Lifetime Dose Tracking * Chemical Lifetime Dose Automatic Entry Manual Entr y Fluoro Time 1.15 minutes 1.15 minutes 0 minutes TotalDLP 3,643 mGy 3,643 mGy 0 mGy [id number] 44 mSv 44 mSv 0 mSv CTDIvol Max 74.4 mGy 74.4 mGy 0 mGy CTDIvol Min 36.4 mGy 36.4 mGy 0 mGy Radiation - mGy 216.4 mGy 216.4 mGy 0 mGy
--- OUTSIDE RECORDS SUMMARY | 2024-09-28 15:45 | XMS_ITS | Encounter Summary ---
Author Organization [facility] Address [address] [place] [address] Care Team Providers Care Velvet Weaver Name Role Phone Julio Ware Primary Care Provider [phone] Reason for Visit * Reason Onset Date Comments RESCHEDULE APPT 07/19/2022 Encounter Details Date Type Department Care Team (Late st Contact Info) Description 07/19/2022 Telephone [facility] Pediatric Urology [address] [place] [id number] Gis Programmer: Pilar Underwood Telephone Intake, Staff RESCHEDULE APPT [...] returns call * Telephone Encounter - Marjorie Karime - 07/19/2022 10:25 AM EST PT has appt with Dr Mcdonough 09/14/22, Pt received message that would like his appt moved to sooner date. The soonest date I could find is 08/30/22. I am not sure if that is the an appropriate time. Please call Miah back with sooner appt date: [phone] documented in this encounter Plan of Treatment Not on file documented as of this encounter Visit Diagnoses Not on filedocumented in this encounter Additional Health Concerns Infection Onset Date Last Indicated Resolved Time Multidrug resistant organisms ESBL 10/19/20222022 documented as of this encounter Care Teams Velvet Weaver Relationship Specialty Start Date End Date Julio Ware [address] [place] [address] PCP - General Internal Medicine 07/29/22 documented as of this encounter
--- OUTSIDE RECORDS SUMMARY | 2024-09-28 15:45 | XMS_ITS | Encounter Summary ---
Author Organization [facility] Address [address] [place] [address] Care Team Providers Care Soaker Hides Name Role Phone Julio Ware Primary Care Provider [phone] Encounter Details Date Type Department Care Team (Late st Contact Info) Description 11/03/2022 Orders Only [facility] Interventional Radiology [address] [place] [phone] Gregory Jack MD [address] [place] [address] [phone] Social History Tobacco Use Types Packs/Day Years [...] documented as of this encounter Care Teams Soaker Hides Relationship Specialty Start Date End Date Julio Ware [address] [place] [address] PCP - General Internal Medicine 07/29/22 documented as of this encounter
--- OUTSIDE RECORDS SUMMARY | 2024-09-28 15:45 | XMS_ITS | Clinical Summary ---
Author Organization [facility] Address [address] [place] [address] Care Team Providers Care Study Hall Supervisor Name Role Phone Unavailable Primary Care Provider Unavailabl e Social History Tobacco Use Types Packs/Day Years Used Date Smoking Tobacco: Never Assessed Sex and Gender Information Value Date Recorded Sex Assigned at Not on file Legal Sex Male 1:43 AM EST Gender Identity Not on file Sexual Orientation Not on file Plan of Treatment Health Maintenance Due Date Last Done Comments DTaP,Tdap,and Td Vaccines (1 - Tdap) 1977 Pneumococcal Vaccine: 50+ Ye ars (1 of 1 - PCV) 2008 Zoster Vaccines (1 of 2) 2008 COVID-19 Vaccine ( - 2023-2 5 season) 2024 Influenza Vaccine (#1) 2024 RSV Immunization Adult Patie nts (1 - 1-dose 75+ series) 2033 HIB [...] patient's age to complete this topic Meningococcal B Vacine Aged Out No lo nger eligible based on patient's age to complete [...]
--- OUTSIDE RECORDS SUMMARY | 2024-09-28 15:45 | XMS_ITS | Encounter Summary ---
Author Organization [facility] Address [address] [place] [address] Care Team Providers Care Environmental Manager Name Role Phone Julio Ware Primary Care Provider [phone] Encounter Details Date Type Department Care Team (Late st Contact Info) Description 07/29/2022 Orders Only [facility] Interventional Radiology [address] [place] [address] [phone] Gregory Jack MD [address] [place] [address] [phone] Social History Tobacco Use Types Packs/Day Years [...] as of this encounter Care Teams Environmental Manager Relationship Specialty Start Date End Date Julio Ware [address] [place] [address] PCP - General Internal Medicine 07/29/22 documented as of this encounter
--- OUTSIDE RECORDS SUMMARY | 2024-09-28 15:45 | XMS_ITS | Encounter Summary ---
Author Organization [facility] Address [address] [place] [address] Care Team Providers Care Technical Engineer Name Role Phone Julio Ware Primary Care Provider [phone] Encounter Details Date Type Department Care Team (Late st Contact Info) Description 11/16/2022 Orders Only [facility] Interventional Radiology [address] [place] [address] Patrick Noel MD [address] [place] [id number] Social History Tobacco Use Types Packs/Day Years [...] documented as of this encounter Care Teams Technical Engineer Relationship Specialty Start Date End Date Chaz Julio [address] [place] [address] PCP - General Internal Medicine 2/2/23 documented as of this encounter
--- OUTSIDE RECORDS SUMMARY | 2024-09-28 15:46 | XMS_ITS ---
Author Organization [facility] Address [address] [place] [id number] Care Team Providers Care Director Of Digital Platforms Name Role Phone Chaz OLIVA, [facility] Primary Care Provider Frankie Meyers [phone] REASON FOR VISIT screening,hx polyps Problems Problem Type SNOMED Code ICD Code Onset Dates Problem Status W/U Status Risk Notes Problem Diverticular disease of colon (943835569) Diverticulosis of large intestine without perforation or abscess without bleeding (K57.30) Active confirmed Encounters Encounter Location Date Provider Diagnosis [facility] [place] [address] [place] [id number] 07/23/2024 Frankie Reyes Colon cancer scree osorio [...] No Information Progress Notes * EUGENIO STANLEYDOB:1960 (63 yo M)Acc No.[id number]:07/23/2024 COLON WITH MAC Patient:EUGENIO PATEL Provider:?Frankie Reyes MD :1960???Age:63 Y???Sex:Male Tomas e:07/23/2024 Address: [id number] Pcp:Julio Ware MD Subjective: * Chief Complaints: * ???1. Screening,hx polyps. * Medical History:? Objective: * Vitals:? Assessment: * Assessment: 1.?Colon cancer screening - Z12.11 (Primary)???2.?Personal history of colonic polyps - Z86.0100???3.?Family history of colon cancer - Z80.0???4.?Diverticulosis of large intestine without perforation or abscess without bleeding - K57.30???5.?Other hemorrhoids - K64.8??? Plan: * Treatment: * Procedure Codes:?99176 LESIO N REMOVAL COLONOSCOPY, Modifiers: PT , 0529F INTRVL 3+YRS PTS CLNSCP DOCD, Modifiers: 1P , 0528F RCMND FLW-UP 10 YRS DOCD, Modifiers: 1P * * The named appointment provid er may or may not be the originator of this progress note, and it is not deemed complete until electronically signed by the appointment provider. Sign off status: Pending * Provider:?Frankie Reyes MD Date:? 025 Generated for Adenike enamorado/Ashwin/Reganitting on:?09/28/2024 03:45 PM EDT
--- OUTSIDE RECORDS SUMMARY | 2024-09-28 15:46 | XMS_ITS ---
Author Organization [facility] Address [address] [place] [id number] Care Team Providers Care Music Copyist Name Role Phone Chaz OLIVA, [facility] Provider Frankie Meyers [phone] Allergies Allergen (clinical drug ingredient) Drug/Non Drug [...] Once a day for 30 day(s) Active Social History Tobacco Use: Social History [...] Uses Medical marijuana almost daily Vital Signs Temperature 98.2 degrees Fahrenheit 09/30/19 24 Blood pressure systolic 000 mm Hg 09/30/19 24 Blood pressure diastolic 00 mm Hg 024 Height 69 in 09/30/2023 Weight 200 lbs 09/30/2023 BMI 29.53 kg/m2 09/30/2023 Encounters Encounter Location Date Provider Diagnosis [facility] [address] [place] [address] 09/30/2023 Frankie Reyes Bile salt-induced diarrhea K90.89 ; Alcoholic cirrhosis of liver with ascites K70.31 ; Encounter for screening for malignant neoplasm of colon Z12.11 ; History of adenomatous polyp of colon Z86.010 and Esophageal varices I85.00 Assessments Encounter Date Diagnosis (ICD Code) Assessment Notes Treatment Notes Treatment Clinical Notes Section Notes 09/30/2023 Bile salt-induced diarrhea (ICD-10 - K90.89) Start the Cholestyramine powder and adjust to help with the diarrhea Overall, Miah appears quite well considering all of his medical issues including the alcohol-induced cirrhosis and major surgery from last year. We did discuss his ascites today and I advised him that it will be very important to try to avoid salt as much as possible. He is currently not on any diuretic but we discussed that given his borderline renal function, his cirrhosis, and the fact that he only has one kidney, it would be best to try to avoid diuretics if at all possible. Given that his abdominal exam is soft and the ascites is not particularly symptomatic, I advised him to observe this and hope things remain stable by avoiding extra salt. If the ascites worsens I would then recommend a Doppler ultrasound of the abdomen to rule out portal vein thrombosis. We could then start diuretics but I would want to obviously involve Dr. Maldonado given his renal status. Aside from the ascites, his liver disease is remaining stable. He has not shown any signs of jaundice, encephalopathy, or GI bleeding. I did advise him to continue the omeprazole and nadolol in that regard as well. I did advise him to continue the cholestyramine and adjust that as needed to avoid diarrhea. Lastly, we did review that he is due for a colonoscopy for screening given his last complete exam being in 2018 and a history of significant polyp removed at that time. His exam in 2021 was suboptimal and limited due to a poor prep. I will plan to schedule him for a followup colonoscopy when I see him in the Fall for his followup visit given that he is currently in the midst of chemotherapy. I did advise him to contact me prior to his next visit if he has any problems or questions I can be of assistance with. Miah and his were comfortable with this plan. Thank you again for allowing me to participate in Miah's care. I shall continue to keep you advised of his progress. 09/30/2023 Alcoholic cirrhosis of liver with ascites (ICD-10 - K70.31) Try to avoid salt and monitor your ascites. Let me know if it is getting worse Overall, Miah appears quite well considering all of his medical issues including the alcohol-induced cirrhosis and major surgery from last year. We did discuss his ascites today and I advised him that it will be very important to try to avoid salt as much as possible. He is currently not on any diuretic but we discussed that given his borderline renal function, his cirrhosis, and the fact that he only has one kidney, it would be best to try to avoid diuretics if at all possible. Given that his abdominal exam is soft and the ascites is not particularly symptomatic, I advised him to observe this and hope things remain stable by avoiding extra salt. If the ascites worsens I would then recommend a Doppler ultrasound of the abdomen to rule out portal vein thrombosis. We could then start diuretics but I would want to obviously involve Dr. Maldonado given his renal status. Aside from the ascites, his liver disease is remaining stable. He has not shown any signs of jaundice, encephalopathy, or GI bleeding. I did advise him to continue the omeprazole and nadolol in that regard as well. I did advise him to continue the cholestyramine and adjust that as needed to avoid diarrhea. Lastly, we did review that he is due for a colonoscopy for screening given his last complete exam being in 2017 and a history of significant polyp removed at that time. His exam in 2021 was suboptimal and limited due to a poor prep. I will plan to schedule him for a followup colonoscopy when I see him in the Fall for his followup visit given that he is currently in the midst of chemotherapy. I did advise him to contact me prior to his next visit if he has any problems or questions I can be of assistance with. Miah and his were comfortable with this plan. Thank you again for allowing me to participate in Miah's care. I shall continue to keep you advised of his progress. 09/30/2023 Encounter for screening for malignant neoplasm of colon (ICD-10 - Z12.11) We will schedule you for a colonoscopy when I see you in the Fall of 2023 Overall, Miah appears quite well considering all of his medical issues including the alcohol-induced cirrhosis and major surgery from last year. We did discuss his ascites today and I advised him that it will be very important to try to avoid salt as much as possible. He is currently not on any diuretic but we discussed that given his borderline renal function, his cirrhosis, and the fact that he only has one kidney, it would be best to try to avoid diuretics if at all possible. Given that his abdominal exam is soft and the ascites is not particularly symptomatic, I advised him to observe this and hope things remain stable by avoiding extra salt. If the ascites worsens I would then recommend a Doppler ultrasound of the abdomen to rule out portal vein thrombosis. We could then start diuretics but I would want to obviously involve Dr. Maldonado given his renal status. Aside from the ascites, his liver disease is remaining stable. He has not shown any signs of jaundice, encephalopathy, or GI bleeding. I did advise him to continue the omeprazole and nadolol in that regard as well. I did advise him to continue the cholestyramine and adjust that as needed to avoid diarrhea. Lastly, we did review that he is due for a colonoscopy for screening given his last complete exam being in 2017 and a history of significant polyp removed at that time. His exam in 2021 was suboptimal and limited due to a poor prep. I will plan to schedule him for a followup colonoscopy when I see him in the Fall for his followup visit given that he is currently in the midst of chemotherapy. I did advise him to contact me prior to his next visit if he has any problems or questions I can be of assistance with. Miah and his were comfortable with this plan. Thank you again for allowing me to participate in Miah's care. I shall continue to keep you advised of his progress. 09/30/2023 History of adenomatous polyp of colon (ICD-10 - Z86.010) Overall, Miah appears quite well considering all of his medical issues including the alcohol-induced cirrhosis and major surgery from last year. We did discuss his ascites today and I advised him that it will be very important to try to avoid salt as much as possible. He is currently not on any diuretic but we discussed that given his borderline renal function, his cirrhosis, and the fact that he only has one kidney, it would be best to try to avoid diuretics if at all possible. Given that his abdominal exam is soft and the ascites is not particularly symptomatic, I advised him to observe this and hope things remain stable by avoiding extra salt. If the ascites worsens I would then recommend a Doppler ultrasound of the abdomen to rule out portal vein thrombosis. We could then start diuretics but I would want to obviously involve Dr. Maldonado given his renal status. Aside from the ascites, his liver disease is remaining stable. He has not shown any signs of jaundice, encephalopathy, or GI bleeding. I did advise him to continue the omeprazole and nadolol in that regard as well. I did advise him to continue the cholestyramine and adjust that as needed to avoid diarrhea. Lastly, we did review that he is due for a colonoscopy for screening given his last complete exam being in 2017 and a history of significant polyp removed at that time. His exam in 2021 was suboptimal and limited due to a poor prep. I will plan to schedule him for a followup colonoscopy when I see him in the Fall for his followup visit given that he is currently in the midst of chemotherapy. I did advise him to contact me prior to his next visit if he has any problems or questions I can be of assistance with. Miah and his were comfortable with this plan. Thank you again for allowing me to participate in Miah's care. I shall continue to keep you advised of his progress. 09/30/2023 Esophageal varices (ICD-10 - I85.00) Overall, Miah appears quite well considering all of his medical issues including the alcohol-induced cirrhosis and major surgery from last year. We did discuss his ascites today and I advised him that it will be very important to try to avoid salt as much as possible. He is currently not on any diuretic but we discussed that given his borderline renal function, his cirrhosis, and the fact that he only has one kidney, it would be best to try to avoid diuretics if at all possible. Given that his abdominal exam is soft and the ascites is not particularly symptomatic, I advised him to observe this and hope things remain stable by avoiding extra salt. If the ascites worsens I would then recommend a Doppler ultrasound of the abdomen to rule out portal vein thrombosis. We could then start diuretics but I would want to obviously involve Dr. Maldonado given his renal status. Aside from the ascites, his liver disease is remaining stable. He has not shown any signs of jaundice, encephalopathy, or GI bleeding. I did advise him to continue the omeprazole and nadolol in that regard as well. I did advise him to continue the cholestyramine and adjust that as needed to avoid diarrhea. Lastly, we did review that he is due for a colonoscopy for screening given his last complete exam being in 2017 and a history of significant polyp removed at that time. His exam in 2021 was suboptimal and limited due to a poor prep. I will plan to schedule him for a followup colonoscopy when I see him in the Fall for his followup visit given that he is currently in the midst of chemotherapy. I did advise him to contact me prior to his next visit if he has any problems or questions I can be of assistance with. Miah and his were comfortable with this plan. Thank you again for allowing me to participate in Miah's care. I shall continue to keep you advised of his progress. Plan Of Treatment Medication Medication Name Sig Start Date Stop [...] w hen I see you in the fall Next Appt Details Follow Up: 6 Months, Reason: Progress Notes * MIAH STANLEYDOB:1960 (63 yo M)Acc No.[id number]:09/30/2023 Progress Notes Patient:MIAH PATEL Provider:?Frankie Reyes MD :1960???Age:62 Y???Sex:Male Tomas e:09/30/2023 Address:[address] [place] [address] [id number] Pcp:Julio Ware MD Subjective: * Chief Complaints: * ???Patient presents today fo r cirrhosis * HPI: ???incontinence:? I saw Miah in followup today in regard to his underlying history of alcohol-induced cirrhosis with ascites, gastroesophageal reflux, nonbleeding esophageal varices, and personal history of colon polyps. He was accompanied by his . ?Since I last saw Miah in March of 2023 he has been doing well. He is currently receiving Keytruda infusions about every 3 weeks for his history of renal carcinoma. He has not had any adverse effects from that and is scheduled to continue those through November. ?He describes a good appetite and denies any significant heartburn, dysphagia, early satiety, nausea, nor vomiting. He unfortunately likes salt and has developed some ascites as seen on a CT scan from the end of August. The CT scan otherwise described his known cirrhosis and splenomegaly, but without any other worrisome findings. He does continue on daily omeprazole as well. ?His bowel movements have improved on the regimen of cholestyramine that I started him on last Fall. He describes using about 1/3 of a scoop of cholestyramine daily. He is having about 2 soft bowel movements per day. He denies any hematochezia nor melena, although the stools are dark on his iron supplement. ?The CT scan he had it at the end of August did not describe any sign of liver mass nor biliary disease. His laboratories in August revealed normal electrolytes, BUN 17, creatinine 1.5, and normal LFTs with an albumin of 4.2, normal TSH, and a normal CBC with platelet count. ?Of note, he is now being followed by Dr. Maldonado for some renal insufficiency given his underlying cirrhosis and the previous right nephrectomy. * ROS:?General/Constitutional:?Change in appetite?denies.?Chills?denies.?Fatigue?denies.?Ophthalmologic:?Comments?all negative.?ENT:?Comments?all negative.?Respiratory:?hemoptysis?denies.?Cough?denies.?Cardiovascular:?Chest pain?denies.?Orthopnea?denies.?Gastrointestinal:?Comments?See [...] containing alcohol in the past year??No,?Points?0,?Interpretation?Negative.?Miscellaneous:?Marital status: --his is a RN at [employer]. Occupation: unemployed. ???Alcohol abuse-formerly drinking vodka almost daily due [...] at bedtime as needed Orally Once a dayNadolol 20mg 1 QDOmeprazole 40 MG Capsule Delayed Release 1 capsule Orally Once a dayFeroSul 325 (65 Fe) MG Tablet Oral Cholestyramine 4 GM/DOSE Powder 1/2 to 1 scoop mixed in a glass of water or orange juice Orally Once or Twice a day to help with the diarrheaOmeprazole 40 MG Capsule Delayed Release 1 Orally Every morningTaking OXcarbazepine 150 MG Tablet 1 tablet Orally Twice a dayTaking OLANZapine 10 MG Tablet 1 tablet Orally Once a dayTaking traZODone HCl 150 MG Tablet 1 tablet at bedtime as needed Orally Once a dayTaking Nadolol 20mg 1 QDTaking Omeprazole 40 MG Capsule Delayed Release 1 capsule Orally Once a dayTaking FeroSul 325 (65 Fe) MG Tablet Oral Taking Cholestyramine 4 GM/DOSE Powder 1/2 to 1 scoop mixed in a glass of water or orange juice Orally Once or Twice a day to help with the diarrheaTaking Omeprazole 40 MG Capsule Delayed Release 1 Orally Every morningNot-Taking/PRNMulti Vitamin/Minerals - Tablet as directed Orally once a dayMedication List reviewed and reconciled with the patientNot-Taking/PRN Multi Vitamin/Minerals - Tablet as directed Orally once a dayMedication List reviewed and reconciled with the patient * Allergies:?Ativanyes[Allergi es Verified] Objective: * Vitals:?Wt: 200 lbs, Ht: 69 in, BMI:29.53 Index, BP: 000/00 mm Hg, Temp: 98.2. * Examination: ???General Examination: ?GENERAL APPEARANCE:?pleasant, well nourished, well developed, in no acute distress.?EYES:?sclera non-icteric.?ORAL CAVITY:?mucosa moist.?NECK/THYROID:?no cervical lymphadenopathy, neck supple.?SKIN:?nonjaundiced, no spider angiomata.?HEART:?S1, S2 normal.?LUNGS:?clear to auscultation bilaterally.?ABDOMEN:?normal bowel sounds, no guarding or rigidity, no guarding or rigidity, no masses palpable, soft, nontender, nondistended.?EXTREMITIES:?no edema.?NEUROLOGIC:?alert and oriented.? Assessment: * Assessment: 1.?Alcoholic cirrhosis of li rosa maria with ascites - K70.31 (Primary)?2.?Bile salt- induced diarrhea - K90.89?3.?Encounter for screening for malignant neoplasm of colon - Z12.11 4.?History of adenomatous polyp of colon - Z86.010?5.?Esophageal varices - I85.00? Overall, Miah appears quite well considering all of his medical issues including the alcohol-induced cirrhosis and major surgery from last year. We did discuss his ascites today and I advised him that it will be very important to try to avoid salt as much as possible. He is currently not on any diuretic but we discussed that given his borderline renal function, his cirrhosis, and the fact that he only has one kidney, it would be best to try to avoid diuretics if at all possible. Given that his abdominal exam is soft and the ascites is not particularly symptomatic, I advised him to observe this and hope things remain stable by avoiding extra salt. If the ascites worsens I would then recommend a Doppler ultrasound of the abdomen to rule out portal vein thrombosis. We could then start diuretics but I would want to obviously involve Dr. Maldonado given his renal status. Aside from the ascites, his liver disease is remaining stable. He has not shown any signs of jaundice, encephalopathy, or GI bleeding. I did advise him to continue the omeprazole and nadolol in that regard as well. I did advise him to continue the cholestyramine and adjust that as needed to avoid diarrhea. Lastly, we did review that he is due for a colonoscopy for screening given his last complete exam being in 2018 and a history of significant polyp removed at that time. His exam in 2021 was suboptimal and limited due to a poor prep. I will plan to schedule him for a followup colonoscopy when I see him in the Fall for his followup visit given that he is currently in the midst of chemotherapy. I did advise him to contact me prior to his next visit if he has any problems or questions I can be of assistance with. Miah and his were comfortable with this plan. Thank you again for allowing me to participate in Miah's care. I shall continue to keep you advised of his progress. Plan: * Treatment: 2.?Bile salt-induced diarrhe a? Continue Cholestyramine Powder, 4 GM/DOSE, 1/2 to 1 scoop mixed in a glass of water or orange juice, Orally, Once or Twice a day to help with the diarrhea, 30 day(s), 1, Refills 6.?? Notes: Start the Cholestyramine powder and adjust to help with the diarrhea?? 3.?Encounter for screening f or malignant neoplasm of colon? Notes: We will schedule you for a colonoscopy when I see you in the Fall of 2023?? 4.?Others? Continue Nadolol, 20mg, 1, QD;?Continue Omeprazole, 20mg, QD.?? * Procedure Codes:?3017F COLOR ECTAL CA SCREEN DOC [id number] Pt scrn tbco and id as [id number] BP SCR NOT PRFRM REC REASON NOS * Preventive Medicine:? ??Counseling:?Care goal follow-up plan:?Above Normal BMI Follow-up?Giving encouragement to exercise,?BMI management provided?Yes.? * Follow Up:?6 Months * * Sign off status: Completed true * Provider:?Frankie Reyes MD Date:? 024 Generated for Adenike enamorado/Ashwin/Deep on:?09/28/2024 03:45 PM EDT History and Physical Notes * HPI (History of Present Illness) Category Sub-Category Detail Notes Category Not es incontinence I saw Miah in followup today in regard to his underlying history of alcohol-induced cirrhosis with ascites, gastroesophageal reflux, nonbleeding esophageal varices, and personal history of colon polyps. He was accompanied by his . Since I last saw Miah in March of 2023 he has been doing well. He is currently receiving Keytruda infusions about every 3 weeks for his history of renal carcinoma. He has not had any adverse effects from that and is scheduled to continue those through November. He describes a good appetite and denies any significant heartburn, dysphagia, early satiety, nausea, nor vomiting. He unfortunately likes salt and has developed some ascites as seen on a CT scan from the end of August. The CT scan otherwise described his known cirrhosis and splenomegaly, but without any other worrisome findings. He does continue on daily omeprazole as well. His bowel movements have improved on the regimen of cholestyramine that I started him on last Fall. He describes using about 1/3 of a scoop of cholestyramine daily. He is having about 2 soft bowel movements per day. He denies any hematochezia nor melena, although the stools are dark on his iron supplement. The CT scan he had it at the end of August did not describe any sign of liver mass nor biliary disease. His laboratories in August revealed normal electrolytes, BUN 17, creatinine 1.5, and normal LFTs with an albumin of 4.2, normal TSH, and a normal CBC with platelet count. Of note, he is now being followed by Dr. Maldonado for some renal insufficiency given his underlying cirrhosis and the previous right nephrectomy. Examination Category Sub-Category Detail Notes Category Not [...]
--- OUTSIDE RECORDS SUMMARY | 2024-09-28 15:46 | XMS_ITS | Referral Summary ---
Author Organization [facility] Address [address] [place] [address] Care Team Providers Care Media Librarian Name Role Phone Julio Ware Primary Care Provider [phone] Encounters Date Type Department Care Team Description 09/04/2024 1:00 PM EDT Telehealth [facility] [address] [place] [address] Economic Specialist: Nancy Perales MD Malignant neoplasm of right kidney (Primary Dx) 08/31/2024 Telephone [facility] [address] [place] [address] Economic Specialist: Nancy Perales MD from Last 3 Months Allergies Active Allergy Reactions Criticality Noted Date [...] Alcoholic cirrhosis 10/01/2022 10/01/2022 Lesion of right [place] kidney 01/22/2016 Hypertension 01/08/2015 Esophageal reflux 01/08/2015 [...] 10/19/2022 4:35 AM EDT Plan of Treatment Not on file Procedures * Due to [place] law, this organization might not be sharing negative HIV tests. Procedure Name Priority Date/Time Associated Diagnosis Comments BASIC METABOLIC PANEL Routine 10/27/2022 4:47 AM EDT HEPATITIS C ANTIBODY W/REFLEX TO HCV RNA, QUANTITATIVE PCR Routine 12/19/2015 12:13 PM EDT from Last 3 Months or Most Recently Relevant to Health Maintenance Results * Due to [place] law, this organization might not be sharing negative HIV tests. * (ABNORMAL) Basic Metabolic Panel (10/27/2022 4:47 AM EDT) NA 137 135 - 145 mmol/L 10/27/2022 5:30 AM EDT [facility] K 3.7 3.5 - 5.3 mmol/L 10/27/2022 5:30 AM EDT [facility] Cl 107 97 - 110 mmol/L 10/27/2022 5:30 AM EDT [facility] CO2 24 24 - 32 mmol/L 10/27/2022 5:30 AM EDT [facility] BUN 14 7 - 23 mg/dL 10/27/2022 5:30 AM EDT [facility] Creatinine 1.37(H) 0.60 - 1.30 mg/dL 10/27/2022 5:30 AM EDT [facility] Glucose 91 70 - 99 mg/dL 10/27/2022 5:30 AM EDT [facility] Calcium 8.7 8.7 - 10.7 mg/dL 10/27/2022 5:30 AM EDT [facility] Anion Gap 6 5 - 15 10/27/2022 5:30 AM EDT [facility] eGFR 58(L) >=90 mL/min/1. 73m2 10/27/2022 5:30 AM EDT [facility] Comment: Estimated Glomerular [...] MD LAB BLOOD ORDERABLES Final Re sult [facility] [address] [place] [address], * Hepatitis C Antibody w/Reflex to HCV RNA, Quantitative PCR (12/19/2015 12:13 PM EDT) Hepatitis C Antibody NON-REACTI VE NON-REACT [facility] Signal To Cut-Off 0.04 <1.00 [facility] 12/19/2015 12:1 3 PM EDT 12/19/2015 12:59 PM EDT us Anisha Armendariz TAFE TEACHER LAB BLOOD ORDERABLES Final Res ult [facility] from Last 3 Months or Most Recently Relevant to Health Maintenance Additional Health Concerns Infection Onset Date Last Indicated Multidrug resistant organisms ESBL 10/19/2022 10/19/[address] [place] [address] [employer] Advance Directives Documents on File Type Date Recorded Patient Media Librarian Expl anation Health Care Proxy 10/15/2022 8:45 [...] Agent Relationshi p Communication Phuong Lindsey Spouse Alternate Health Care Agen t Care Teams Media Librarian Relationship Specialty Start Date End Date Chaz Julio [address] [place] [address] PCP - General Internal Medicine 07/29/22
--- OUTSIDE RECORDS SUMMARY | 2024-09-28 15:46 | XMS_ITS | Clinical Summary ---
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 DOMENICA drain has been serosanguinous with also biliary output. Now decreasing serous output, no evidence of biliary drainage. Encounters Date Type Department Care Team Description 09/04/2024 1:00 PM EDT Telehealth [facility] [address] [place] [address] Superintendent System Operation: Nancy Perales MD Malignant neoplasm of right kidney (Primary Dx) 08/31/2024 Telephone [facility] [address] [place] [address] Superintendent System Operation: Nancy Perales MD from Last 3 Months Family History Medical History Relation Name Comments [...] 10/19/2022 4:35 AM EDT Plan of Treatment Health Maintenance Due Date Last Done Comments Cologuard 1960 Colon Cancer Screening 1960 Colonoscopy 1958 FOBT / Fit Test 1958 HIV Screening 1960 Sigmoidoscopy 1958 COVID-19 Vaccine (#1) 10/17/1963 Zoster Vaccines (1 of 2) 1977 DTaP,Tdap,and Td Vaccines (1 - Tdap) 1980 CT Lung Cancer Screening (Baseline) 2008 Pneumococcal Vaccine: 50+ Ye ars (2 of 2 - PCV) 10/19/2013 10/19/2012 Hepatitis B Vaccines (1 of 3 - Risk 3-dose series) 2018 RSV Vaccine (60+ years old a nd patients) (1 - Risk 60-74 years 1-dose series) 2018 Basic Metabolic Panel 10/28/2023 10/27/2022 , 10/26/2022, 10/25/2022, Additional history exists Alcohol/Substance Use Screening 06/27/2024 Depression Screening and Follow-Up 06/27/2024 Health Care Proxy Review 06/27/2024 Social Drivers of Health Sara ual Screening 06/27/2024 Influenza Vaccine (Season Ended) 2025 04/20/20, 03/26/2020 Hepatitis C Screening Completed 12/19/2015 Procedures * Due to [place] state law, this organization might not be sharing negative HIV tests. Procedure Name Priority Date/Time Associated Diagnosis Comments BASIC METABOLIC PANEL Routine 10/27/2022 4:47 AM EDT HEPATITIS C ANTIBODY W/REFLEX TO HCV RNA, QUANTITATIVE PCR Routine 12/19/2015 12:13 PM EDT from Last 3 Months or Most Recently Relevant to Health Maintenance Results * Due to [place] state law, this organization might not be sharing negative HIV tests. * (ABNORMAL) Basic Metabolic Panel (10/27/2022 4:47 AM EDT) NA 137 135 - 145 mmol/L 10/27/2022 5:30 AM EDT [facility] K 3.7 3.5 - 5.3 mmol/L 10/27/2022 5:30 AM EDT [facility] Cl 107 97 - 110 mmol/L 10/27/2022 5:30 AM EDT [facility] CO2 24 24 - 32 mmol/L 10/27/2022 5:30 AM EDT [facility] BUN 14 7 - 23 mg/dL 10/27/2022 5:30 AM EDT [facility] Creatinine 1.37(H) 0.60 - 1.30 mg/dL 10/27/2022 5:30 AM EDT [facility] Glucose 91 70 - 99 mg/dL 10/27/2022 5:30 AM EDT [facility] Calcium 8.7 8.7 - 10.7 mg/dL 10/27/2022 5:30 AM EDT [facility] Anion Gap 6 5 - 15 10/27/2022 5:30 AM EDT [facility] eGFR 58(L) >=90 mL/min/1. 73m2 10/27/2022 5:30 AM EDT [facility] Comment: Estimated Glomerular Filtration [...] 4:47 AM EDT 10/27/2022 5:05 AM EDT Monie Lee MD LAB BLOOD ORDERABLES Final Re sult [facility] [address] [place] [address], * Hepatitis C Antibody w/Reflex to HCV RNA, Quantitative PCR (12/19/2015 12:13 PM EDT) Hepatitis C Antibody NON-REACTI VE NON-REACT [facility] Signal To Cut-Off 0.04 <1.00 [facility] 12/19/2015 12:1 3 PM EDT 12/19/2015 12:59 PM EDT Anisha Armendariz NP LAB BLOOD ORDERABLES Final Res ult [facility] from Last 3 Months or Most Recently Relevant to Health Maintenance Additional Health Concerns Infection Onset Date Last Indicated Multidrug resistant organisms ESBL 10/19/2022 10/19/2022 Insurance [employer] Advance Directives Documents on File Type Date Recorded Patient Aluminum Welder Expl anation Health Care Proxy 10/15/2022 8:45 [...] Agent Relationshi p Communication Phuong Lindsey Spouse [facility] Care Agen t Care Teams Repairer Screen Crusher Relationship Specialty Start Date End Date Julio Ware [address] [place] [id number] PCP - General Internal Medicine 07/29/22
== END 2024-09-28 13:58 | disposition home or self-care (01) ==
LOC: HO.CT 13:57
PROVIDERS: PCP Internal Medicine; Visit Provider Internal Medicine
DX: C64.9 Malignant neoplasm of unspecified kidney, except renal pelvis (principal)
CPT/HCPCS: 74176

== ENCOUNTER → 2024-09-28 13:59 | Outpatient (BNV) | payer OTHER, SELFPAY | PROVIDERS: PCP Internal Medicine; Visit Provider Radiology Diagnostic Radiology | DX: N20.0 Calculus of kidney (principal); R16.1 Splenomegaly, not elsewhere classified; Z90.5 Acquired absence of kidney | CPT/HCPCS: 74176 ==

== ENCOUNTER 2024-12-10 09:48 | Outpatient (AMB) | payer OTHER, SELFPAY ==
--- NOTE | 2024-12-10 09:49 | A.OFFVIS_ITS ---
Intake Visit Reasons: 3-4 M follow up Intake Note: Patient presents today for a follow-up on: Erectile Dysfunction Urology Medications: Sildenafil, tadalafil Allergies to Antibiotic: No Known Allergies Blood Thinner: None Geophysical Laboratory Chief Required: No Accompanied by: Self / Same As Patient Allergies duloxetine Allergy (Unknown, Verified 12/10/24 11:55) psychotic episodes lorazepam [From ATIVAN] Adverse Reaction (Unknown, Verified 12/10/24 11:55) AGITATION Medication List - Last Reconciled 12/10/24 by SHAREE Jade- albuterol sulfate 90 mcg/actuation (ProAir HFA) 1 inh inhalation QID PRN 30 days cholestyramine (with sugar) 4 gram 4 ea PO DAILY nadolol 20 mg PO QAM olanzapine 10 mg PO BEDTIME omeprazole 40 mg PO BID oxcarbazepine 150 mg PO BID tadalafil (Cialis) 5 mg PO DAILY 90 days HPI Comments Details: Miah is a very pleasant 64-year-old male patient of Dr. Ware who was accompanied by his significant other at today's office visit. He has a past medical history of nicotine dependence, CVA in 2016 with no deficits, difficulty sleeping, anxiety, ascites, alcohol abuse, irritable bowel syndrome, GERD, paroxysmal atrial fibrillation, and renal cancer status post right-sided nephrectomy with Dr. Mcdonough. He presents to the office today for follow-up of his erectile dysfunction and renal cancer. In discussion with the patient today he reports despite daily dosing of low-dose tadalafil and p.r.n. Viagra he has had no improvement in obtaining and maintaining his erections. He has previously trialed daily dosing of low-dose Cialis with p.r.n. dosing of Cialis prior to sexual activity and has had no improvement in obtaining and maintaining his erections. We did discuss at length potential causes of ED as well as further treatment options and risks and benefits of these treatment options. He continues to undergo surveillance monitoring of renal cancer with Oncology Dr. Alcaraz as well as following up with his associate director finance. In review of patient's chart it appears CT of the abdomen 10/19 similar postop changes right nephrectomy. Unchanged appearance of scarring in the nephrectomy bed. Left kidneys unremarkable aside from a nonobstructing 3 mm interpolar dorsal calculus. Left ureter is nondilated. The bladder incompletely decompressed no suspicious findings per radiology report. CT of the chest 03/20 multiple small pulmonary nodules are again noted. The majority of these are unchanged or decrease in size from prior study. No new pulmonary nodules are identified. No lymphadenopathy. Per radiology report. He is enquiring further treatment options of his erectile dysfunction. We did discussed the importance of lifestyle modifications. He denies any bothersome urinary issues. He denies urinary urgency, urinary frequency, incontinence, nocturia, hematuria, dysuria, foul smelling urine, changes to urinary stream, flank pain, fever, and or chills. He is happy with his current voiding parameters. Previous workup has included labs as noted and trended below: PSA 10/18 1.2 Testosterone 10/18 368 free testosterone 44.6 All questions were answered. He otherwise offers no other issues or concerns at this time. [facility] Medical History CVA (cerebral vascular accident) Difficulty sleeping Anxiety, generalized Porcelain gallbladder Ascites Alcohol abuse Irritable bowel syndrome Chronic GERD Paroxysmal atrial fibrillation Tobacco abuse Surgical History Hx of esophagogastroduodenoscopy History of colonoscopy H/O exploratory laparotomy Family History Father Cerebrovascular disease Diabetes mellitus HTN (hypertension) Hx of CABG Mother Lung cancer Maternal Grandmother Myocardial infarction Maternal Grandfather Lung cancer Paternal Grandmother Cerebrovascular disease Paternal Uncle Lung cancer Brother No problems noted. Brother No problems noted. Son No problems noted. Son No problems noted. Other Mental health disorder Substance use disorder Social History Household Members: Spouse and Children Housing: House Alcohol intake: current Alcohol intake frequency: former alcohol drinker Patient Tobacco Use Status: Current everyday Tobacco user Tobacco use type: Cigarette Cigarette Packs Per Day: 1 Years Smoked: 50 years e-Cigarette/Vaping Use: Currently Using Substance Use Type: Other service: No Current occupational status: disabled Cognitive needs: No Hearing needs: No Vision needs: Yes Review of Systems Const Reports as per HPI Eyes Reports no additional complaints ENT Reports no additional complaints Card Reports as per HPI Resp Reports no additional complaints GI Reports as per HPI Reports as per HPI Musc Reports no additional complaints Neuro Reports as per HPI Psych Reports as per HPI Endo Reports no additional complaints Physical Exam Const General: cooperative, healthy appearing, comfortable, no acute distress, well developed, alert and awake Orientation/consciousness: patient oriented x3 Limitations: no limitations HEENT Head: Yes normal to inspection, Yes normocephalic and Yes atraumatic Ears: hearing grossly normal bilaterally Eyes General: appearance normal, both eyes and all related structures Neck Neck: Yes normal visual inspection and Yes trachea midline Chest Chest palpation & inspection: normal inspection of the chest Resp Effort & Inspection: normal respiratory effort and able to speak in complete sentences Cardio Rate: regular rate GI Inspection: Yes normal to inspection General: Yes no CVA tenderness Back/Spine/Pelvis Back: no CVA tenderness Skin General skin exam: no rashes or lesions noted Neuro General: patient oriented x3 Extrem General: Yes normal to inspection Psych Appearance: grossly normal and well kempt Mental Status: mental status grossly normal Speech and movement: Normal speech and movement present and Clear speech present Affect: normal affect Attitude: cooperative Thought process: Normal thought process present Thought content: Normal thought content present Insight: Fair insight present (Psych) Judgement: Fair judgement present (Psych) Results AMB Urinalysis, Automated UA Leukoctes 0 Saima/uL Last Edit by Angie Peters MA on 12/10/24 10:01 UA Nitrite Last Edit by Angie Peters MA on 12/10/24 10:01 UA Urobilinogen 0.2 mg/dL Last Edit by Angie Peters MA on 12/10/24 10:01 UA Protein 300 mg/dL Last Edit by Angie Peters MA on 12/10/24 10:01 UA pH 6.0 Last Edit by Angie Peters MA on 12/10/24 10:01 UA Blood 0 Piyush/uL Last Edit by Angie Peters MA on 12/10/24 10:01 UA Specific [place] 1.015 Last Edit by Angie Peters, MA on 12/10/24 10:01 UA Ketone Last Edit by Angie Peters, RENATA on 12/10/24 10:01 UA Bilirubin 0 mg/dL Last Edit by Angie Peters, MA on 12/10/24 10:01 UA Glucose 0 mg/dL Last Edit by Angie Peters, RENATA on 12/10/24 10:01 Results Reviewed Results Reviewed: Laboratory Last Values Urine pH (Auto) 6.0 12/10/24 09:58 Specific [place] (Auto) 1.015 12/10/24 09:58 Urine Protein (Auto) 300 mg/dL 12/10/24 09:58 Glucose (UA)(Auto) 0 mg/dL 12/10/24 09:58 Urine Blood (Auto) 0 Piyush/uL 12/10/24 09:58 Urine Bilirubin (Auto) 0 mg/dL 12/10/24 09:58 Urine Urobilinogen (Auto) 0.2 mg/dL 12/10/24 09:58 Leukocyte Esterase (Auto) 0 Saima/uL 12/10/24 09:58 Assessment & Plan Assessment & Plan (1) Complex renal cyst: Code(s): N28.1 - Cyst of kidney, acquired Category: Medical (2) Renal cancer: Code(s): C64.9 - Malignant neoplasm of unspecified kidney, except renal pelvis Category: Medical Qualifiers: Laterality: right Qualified Code(s): C64.1 - Malignant neoplasm of right kidney, except renal pelvis (3) Status post nephrectomy: Code(s): Z90.5 - Acquired absence of kidney Category: Medical (4) Solitary kidney, acquired: Code(s): Z90.5 - Acquired absence of kidney Category: Medical (5) Erectile dysfunction: Code(s): N52.9 - Male erectile dysfunction, unspecified Category: Medical Qualifiers: Erectile dysfunction type: due to other cause Qualified Code(s): N52.8 - Other male erectile dysfunction Plan In office urinalysis results reviewed with the patient today; as noted above. We discussed further treatment options of erectile dysfunction and risks and benefits of these interventions Will discontinue sildenafil Will send prescription for TriMix therapy as discussed Information provided regarding penile injection therapy All questions were answered Continue to follow-up with Nephrology for proteinuria Continue to follow-up with oncology for surveillance monitoring of renal cancer as planned He currently denies any bothersome urinary issues. He reports be happy with current voiding parameters. We discussed potential causes of ED as well as further treatment options and risks and benefits of these treatment options We discussed the importance of lifestyle modifications as well as limiting/quitting nicotine dependence for overall health and well-being in relation to erectile dysfunction as well. Will obtain PSA. Follow-up in 1-3 months with lab to be completed prior and for teaching of injectable therapy as discussed; or sooner with any issues, concerns, and or que stions. Orders: Orders AMB Urinalysis Automated Today Z13.9 - Encounter for screening, unspecified Prostate Specific Antigen Today N52.8 - Other male erectile dysfunction Medications: Discontinued sildenafil Take 1 tablet 1 hour prior to sexual activity; not to exceed more than 2-3 times per week BIN PCN Group [facility] DR33 [id number] Discontinued Reason: Doctor's Order 100 mg PO ONCE 30 days PRN 10 tabs 2RF sexual activity Patient Instructions: The patient had an opportunity to ask questions regarding the treatment plan. All questions were answered. Physical exam, labs, and imaging were discussed and reviewed in detail. As well as risks, benefits, and discussion of treatment choices. No major barriers to understanding were identified. The patient expressed understanding and agreement with the above treatment plan. The patient was made aware they should contact our office by phone for worsening of their current condition, the appearance of new symptoms, or with any questions or concerns. Compliance is encouraged with any medications and follow up testing that is ordered. It is a privilege to be allowed the opportunity to participate in? your urological care.? Again, if you have any questions or concerns If you have any questions or concerns please do not hesitate to contact me. The office is [phone]. This note is constructed using voice recognition software. While every effort has been made to ensure accuracy orchid superintendent errors may have been included. Yours sincerely, LG Jade Coding Level of Care Code Est Pt Level 3 (23079) Complex EM visit Add On G2211 Diagnoses Complex renal cyst N28.1 Malignant neoplasm of right kidney C64.1 Laterality: right Status post nephrectomy Z90.5 Solitary kidney, acquired Z90.5 Other male erectile dysfunction N52.8 Erectile dysfunction type: due to other cause
--- OUTSIDE RECORDS SUMMARY | 2024-12-10 10:47 | XMS_ITS | Encounter Summary ---
Author Organization [facility] Address [address] [place] [address] Care Team Providers Care Heavy Equipment Operator Name Role Phone Julio Ware Primary Care Provider [phone] Encounter Details Date Type Department Care Team (Late st Contact Info) Description 07/29/2022 Orders Only [facility] Interventional Radiology [address] [place] [address] [phone] Gregory Jack MD [address] [place] [address] [phone] Social History Tobacco Use Types Packs/Day Years [...] documented as of this encounter Care Teams Heavy Equipment Operator Relationship Specialty Start Date End Date Julio Ware [address] [place] [address] PCP - General Internal Medicine 07/29/22 documented as of this encounter
== END 2024-12-10 10:20 | disposition home or self-care (01) ==
LOC: HO.HUSH 09:49
PROVIDERS: PCP Internal Medicine; Visit Provider Nurse Practitioner Family
DX: N28.1 Cyst of kidney, acquired (principal); C64.1 Malignant neoplasm of right kidney, except renal pelvis; Z90.5 Acquired absence of kidney; N52.8 Other male erectile dysfunction; Z13.9 Encounter for screening, unspecified
CPT/HCPCS: 99213

== ENCOUNTER 2024-12-10 09:48 | Outpatient (REF) | payer OTHER, SELFPAY ==
[2024-12-10 12:01] LABS: Anion Gap 14 (12-20); Blood Urea Nitrogen 14 mg/dL (9-16); Calcium 9.4 mg/dL (8.4-10.2); Carbon Dioxide 25 mmol/L (22-29); Chloride 108 mmol/L (96-108); Estimated Glomerular Filt Rate 45; Glucose Random 107 mg/dL (60-115); Potassium 4.5 mmol/L (3.3-5.1); Sodium 142 mmol/L (135-145)
== END 2024-12-10 09:49 | disposition home or self-care (01) ==
LOC: HO.LAB 09:48
PROVIDERS: Absent Provider Internal Medicine Hypertension Specialist; PCP Internal Medicine; Visit Provider Nurse Practitioner Family
DX: N18.30 Chronic kidney disease, stage 3 unspecified (principal); Z90.5 Acquired absence of kidney; N52.8 Other male erectile dysfunction; Z12.5 Encounter for screening for malignant neoplasm of prostate
CPT/HCPCS: 36415; 80048; 81003; 84153

== ENCOUNTER 2025-01-21 10:56 | Outpatient (AMB) | payer OTHER, SELFPAY ==
[2025-01-21 11:02] VITALS: BP 156/84; PULSE 75; O2SAT 96; BMI 30.1
--- NOTE | 2025-01-21 11:02 | HO.NEPHOV_ITS ---
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 Required: No Accompanied by: Spouse Allergies duloxetine Allergy (Unknown, Verified 01/21/25 11:05) psychotic episodes Seasonal Allergies Allergy (Verified 01/21/25 11:05) Itchy Eyes lorazepam (From ATIVAN) Adverse Reaction (Unknown, Verified 01/21/25 11:05) AGITATION Medication List - Last Reconciled 01/21/25 by Onel Maldonado MD albuterol sulfate 90 mcg/actuation 1 inh inhalation QID PRN 30 days cholestyramine (with sugar) 4 gram 4 ea PO DAILY nadolol 20 mg PO QAM olanzapine 10 mg PO BEDTIME omeprazole 40 mg PO BID oxcarbazepine 150 mg PO BID tadalafil (Cialis) 5 mg PO DAILY 90 days HPI Comments Details: 64-year-old man with right kidney cancer status post right open nephrectomy on 10/17 at [facility]. Referred for evaluation of CKD He underwent cholecystectomy at the same time. 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 Final pathological stage pT3a NX MX. AJCC stage III. 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 Tumor extended into renal sinus, into major vein. No sarcamatoid features, no lymphovascular invasion, all margins negative for carcinoma. Patient had a prolonged postoperative course complicated initially by hemorrhagic shock followed by retroperitoneal abscess . He required prolonged course of IV antibiotics and drainage of abscess. Prior to nephrectomy serum creatinine was around 0.9-1.1 mg/dL. Since nephrectomy serum creatinine is around 1.5-1.7 mg/dL and has relatively been stable. He has had a testicular pain seen by Urology and was diagnosed with a varicocele. Review of system was positive for chronic diarrhea since cholecystectomy no nausea or vomiting. No urinary symptoms. No headache nausea vomiting no abdominal pain no edema no fever no weight loss. 10/31/2023. Overall he is doing well. He is currently on chemotherapy with 3 weeks. Last dose is scheduled for November 2023. He underwent 24 urine collection. 05/14/24 Events noted ;CT in Sep shows unchanged pulm nodules ;No lymphadenopathy 01/21/25 Home BP has been elevated [facility] Medical History CVA (cerebral vascular accident) Difficulty sleeping Anxiety, generalized Porcelain gallbladder Ascites Alcohol abuse Irritable bowel syndrome Chronic GERD Paroxysmal atrial fibrillation Tobacco abuse Surgical History Hx of esophagogastroduodenoscopy History of colonoscopy H/O exploratory laparotomy Family History Father Cerebrovascular disease Diabetes mellitus HTN (hypertension) Hx of CABG Mother Lung cancer Maternal Grandmother Myocardial infarction Maternal Grandfather Lung cancer Paternal Grandmother Cerebrovascular disease Paternal Uncle Lung cancer Brother No problems noted. Brother No problems noted. Son No problems noted. Son No problems noted. Other Mental health disorder Substance use disorder Social History Household Members: Spouse and Children Housing: House Alcohol intake: current Alcohol intake frequency: former alcohol drinker Patient Tobacco Use Status: Current everyday Tobacco user Tobacco use type: Cigarette Cigarette Packs Per Day: 1 Years Smoked: 50 years e-Cigarette/Vaping Use: Currently Using Substance Use Type: Other service: No Current occupational status: disabled Cognitive needs: No Hearing needs: No Vision needs: Yes Physical Exam Vital Signs: Last Vital Signs Pulse 75 01/21/25 11:02 BP 156/84 H 01/21/25 11:02 Pulse Ox 96 01/21/25 11:02 Oxygen Delivery Method Room Air 01/21/25 11:02 BMI result Body Mass Index 30.1 Comfortable Neck supple no JVD. Lungs entry equal no rales. Heart S1-S2 heard no gallop or rub. Abdomen soft nontender. Neuro alert awake oriented. No asterixis. Extremities no edema. Results Reviewed Nephrology Results: Hgb, (14.0-18.0) 13.9 g/dl L 01/07/25 WBC, (4.8-10.8) 8.7 X10*3/uL 01/07/25 Plt Count, (160-400) 139 X10*3/uL L 01/07/25 Sodium, (135-145) 141 mmol/L 01/07/25 Potassium, (3.3-5.1) 4.3 mmol/L 01/07/25 Chloride, (96-108) 110 mmol/L H 01/07/25 Carbon Dioxide, (22-29) 23 mmol/L 01/07/25 BUN, (9-16) 13 mg/dL 01/07/25 Creatinine, (0.5-1.4) 1.55 mg/dL H 01/07/25 Calcium, (8.4-10.2) 9.0 mg/dL 01/07/25 Renal US 07/14/20 Assessment & Plan Assessment & Plan (1) Solitary kidney, acquired: Code(s): Z90.5 - Acquired absence of kidney Category: Medical (2) CKD (chronic kidney disease) stage 3, GFR 30-59 ml/min: Code(s): N18.30 - Chronic kidney disease, stage 3 unspecified Category: Medical (3) Renal cancer: Code(s): C64.9 - Malignant neoplasm of unspecified kidney, except renal pelvis Category: Medical Qualifiers: Laterality: right Qualified Code(s): C64.1 - Malignant neoplasm of right kidney, except renal pelvis Plan 64-year-old man with renal cell carcinoma status post right nephrectomy. He has solitary left kidney with underlying CKD. Baseline serum creatinine is around 1.4-1.7 mg/dL. Goal is to slow the portion of renal disease. 24 urine collection Revealed a creatinine clearance of 50 mL/minute with a serum creatinine 1.61. This is probably his baseline. Serum creatinine has been relatively stable o [place] the last 12 months. Encouraged him to stay on low-sodium diet. He should increase his p.o. fluid intake. Continue to avoid nephrotoxic agents including NSAIDs. I have discussed importance of smoking cessation but he has no intention to quit at this time. All his questions were answered. chemotherapy - as per oncology BP sub optimal ADD Amlodipine 2.5 mg daily (01/21/25) Orders: Orders Basic Metabolic Panel 6 Months N18.30 - Chronic kidney disease, stage 3 unspecified Medications: New amlodipine 2.5 mg PO DAILY 30 tabs 6RF Coding Level of Care Code Est Pt Level 4 (11852) Diagnoses Solitary kidney, acquired Z90.5 CKD (chronic kidney disease) stage 3, GFR 30-59 ml/min N18.30 Malignant neoplasm of right kidney C64.1 Laterality: right
--- OUTSIDE RECORDS SUMMARY | 2025-01-21 12:16 | XMS_ITS | Encounter Summary ---
Author Organization [facility] Address [address] [place] [address] Care Team Providers Care Stone Finisher Name Role Phone Julio Ware Primary Care Provider [phone] Encounter Details Date Type Department Care Team (Late st Contact Info) Description 07/29/2022 Orders Only [facility] Interventional Radiology [address] [place] [address] [id number] Gregory Jack MD [address] [place] [address] [id number] Social History Tobacco Use Types Packs/Day Years [...] documented as of this encounter Care Teams Stone Finisher Relationship Specialty Start Date End Date Julio Ware [address] [place] [address] PCP - General Internal Medicine 07/29/22 documented as of this encounter
--- OUTSIDE RECORDS SUMMARY | 2025-01-21 12:16 | XMS_ITS | Clinical Summary ---
Author Organization [facility] Address [address] [place] [address] Care Team Providers Care Agricultural Economist Name Role Phone Unavailable Primary Care Provider [...] Vaccines (1 of 2) 2008 COVID-19 Vaccine (1 - 2023-2 5 season) 2024 Depression Screening 06/27/2024 Influenza Vaccine (#1) 2025 RSV Immunization Adult Patie nts (1 - [...] age to complete this topic Meningococcal B Vaccine Aged Out No l onger eligible based on patient's age to complete this topic RSV Immunization Patients Un ken 20 months Aged Out No longer eligible b ased on patient's age to complete this topic Varicella Vaccines Aged Out No longer eligible based on patient's age to complete this topic
--- OUTSIDE RECORDS SUMMARY | 2025-01-21 12:16 | XMS_ITS | Patient Health Record ---
Author Organization [facility] Address [address] [place] [address] Care Team Providers Care Testing Projects Administrator Name Role Phone Chaz [facility]IV[facility], [facility] Primary Care Provider Frankie Meyers [phone] Allergies Allergen (clinical drug ingredient) Drug/Non Drug Allergy documented on EMR Reaction Allergy Type Onset Date Status lorazepam Ativan Unknown Drug Allergy Active Results Component Value Reference Range Notes Pathology Reviewed date:07/25/2024 11:55:22 PM Interpretation: Performing Lab:[facility], [address] [place] [phone] Notes/Report: Reason For Referral No Information Medications Medication SIG (Take, Route, Frequency, Duration) Notes Start Date End Date Status Cholestyramine 4 GM/DOSE 1/2 to 1 scoop mixed in a glass of water or orange juice Orally Once or Twice a day to help with the diarrhea for 30 day(s) Active Multi Vitamin/Minerals - as directed Ora lly once a day Not-Taking OLANZapine 10 MG 1 tablet Orally Once a day for 30 day(s) Active OXcarbazepine 150 MG 1 tablet Orally Twi ce a day for 30 day(s) Active Nadolol 20 MG TAKE 1 TABLET BY JALEN TH EACH MORNING for 30 Active Omeprazole 40 MG TAKE 1 CAPSULE BY MO UTH EVERY MORNING for 90 Active Omeprazole 20mg QD Acti ve Nadolol 20mg 1 QD Active traZODone HCl 150 MG 1 tablet at bedtime as needed Orally Once a day Active Immunizations Vaccine Route Administration Date Status Comme nts Influenza Unknown 04/03/2019 Administered Influenza Unknown 04/28/2022 Administered Influenza Unknown 04/19/2023 Administered Influenza Unknown 03/30/2023 Refused Social History Tobacco Use: Social History Observation [...] No Points 0 Interpretation Negative Section Notes: Smoker; alcohol abuse Smoker; alcohol abuse-rene dill reports having 3 shots 3x/week -drinks to relieve his abdominal pain Smoker; alcohol abuse-abstin ent since 10/08/2012 Smoker; alcohol abuse-abstin ent since 10/08/2012 Smoker; alcohol abuse-abstin ent since 10/08/2012 Smoker; alcohol abuse-abstin ent since 10/08/2012 Smoker; alcohol abuse-abstin ent since 10/08/2012 other than what he describes as occasional drinking during episodes of right upper quadrant pain Smoker; alcohol abuse-abstin ent since 10/08/2012 other than what he describes as occasional drinking during episodes of right upper quadrant pain Smoker; alcohol abuse-abstin ent since 10/08/2012 other than what he describes as occasional drinking during episodes of right upper quadrant pain Smoker; alcohol abuse-abstin ent since 10/08/2012 other than approx. 6 beers over the course of a week Smoker; alcohol abuse-abstin ent since 10/08/2012 other than approx. 6 beers over the course of a week Smoker; alcohol abuse-still drinking vodka almost daily due to abdominal pain Alcohol abuse-still drinking vodka almost daily due to abdominal pain; Smoker but off cigs and presently vapes and is currently on a nicotine patches Alcohol abuse-formerly drinking vodka almost daily due to abdominal pain; Smoker but off cigs and presently vapes and is currently on a nicotine patches. As of the 08/22/19 OV he reports no EtOH since 03/2019. Went back to cigs in 06/2019. He has been using marijuana as of the 08/22/19 OV as well. Uses Medical marijuana almost daily Alcohol abuse-formerly drinking vodka almost daily due to abdominal pain; Smoker but off cigs and presently vapes and is currently on a nicotine patches. As of the 08/22/19 OV he reports no EtOH since 03/2019. Went back to 1ppd cigs in 06/2019. He has been using marijuana tincture drops as of the 08/22/19 OV as well. Uses Medical marijuana almost daily Alcohol abuse-formerly drinking vodka almost daily due to abdominal pain; Smoker but off cigs and presently vapes and is currently on a nicotine patches. As of the 08/22/19 OV he reports no EtOH since 03/2019. Went back to 1ppd cigs in 06/2019. He has been using marijuana tincture drops as of the 08/22/19 OV as well. Uses Medical marijuana almost daily Alcohol abuse-formerly drinking vodka almost daily due to abdominal pain; Smoker but off cigs and presently vapes and is currently on a nicotine patches. As of the 08/22/19 OV he reports no EtOH since 03/2019. Went back to 1ppd cigs in 06/2019. He has been using marijuana tincture drops as of the 08/22/19 OV as well. Uses Medical marijuana almost daily Alcohol abuse-formerly drinking vodka almost daily due to abdominal pain; Smoker but off cigs and presently vapes and is currently on a nicotine patches. As of the 08/22/19 OV he reports no EtOH since 03/2019. Went back to 1ppd cigs in 06/2019. He has been using marijuana tincture drops as of the 08/22/19 OV as well. Uses Medical marijuana almost daily Alcohol abuse-formerly drinking vodka almost daily due to abdominal pain; Smoker but off cigs and presently vapes and is currently on a nicotine patches. As of the 08/22/19 OV he reports no EtOH since 03/2019. Went back to 1ppd cigs in 06/2019. He has been using marijuana tincture drops as of the 08/22/19 OV as well. Uses Medical marijuana almost daily Problems Problem Type SNOMED Code ICD Code Onset Dates Problem Status W/U Status Risk Notes Problem [id number] Encounter for screening for malignant neoplasm of colon (Z12.11) Active confirmed Problem History of adenomatous polyp of colon (340778317) History of adenomatous polyp of colon (Z86.010) Active confirmed Problem Diverticulosis o f large intestine without perforation or abscess without bleeding (K57.30) Active confirmed Problem 756610775 Alcoholic cirrhosis of liver with ascites (K70.31) Active confirmed Problem 384922625 Gallstones (K80.20) Active confirmed Problem Cirrhotic (733391819) Cirrhosis (K74.60) Active confirmed Problem Esophageal varices (50747848) Esophageal varices (I85.00) Active confirmed Problem 681388321 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 Problem 899525033 Abdominal pain, RUQ (R10.11) Active confirmed Problem 75368948 Chronic fatigue (R53.82) Active confirmed Problem Diverticulosis of sigmoid colon (054367079) Diverticulosis of sigmoid colon (K57.30) Active confirmed Problem 23856937 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) Active confirmed Vital Signs Blood pressure diastolic 00 mm Hg 03/27/2024 Height 69 in 03/27/2024 Blood pressure systolic 00 mm Hg 03/27/2024 Weight 198 lbs 03/27/2024 BMI 29.24 kg/m2 03/27/2024 Encounters Encounter Location Date Provider Diagnosis [facility] Outpatient [address] [place] [address] [phone] 07/23/2024 Frankie Reyes Colon cancer screeni ng Z12.11 ; Personal history of colonic polyps Z86.0100 ; Family history of colon cancer Z80.0 ; Diverticulosis of large intestine without perforation or abscess without bleeding K57.30 and Other hemorrhoids K64.8 [facility] [address] [place] [address] 03/27/2024 Frankie Reyes Alcoholic cirrhosis of liver [...] history of colonic polyps (ICD-10 - Z86.0100) 03/27/2024 Encounter for screening for malignant neoplasm [...] keep you advised of his progress. 03/27/2024 Alcoholic cirrhosis of liver with ascites [...] to keep you advised of his progress. 07/23/2024 Family history of colon cancer (ICD-10 - Z80.0) 03/27/2024 History of adenomatous polyp of colon (ICD-10 - Z86.010) Overall, Miah appears very well considering all [...] to keep you advised of his progress. 07/23/2024 Diverticulosis of large intestine without perforation or abscess without bleeding (ICD-10 - K57.30) 03/27/2024 Bile salt-induced diarrhea (ICD-10 - K90.89) [...] to keep you advised of his progress. 07/23/2024 Other hemorrhoids (ICD-10 - K64.8) 03/27/2024 Esophageal varices (ICD-10 - I85.00) Overall, [...] advised of his progress. Plan Of Treatment Pending Test Test Name Order Date CHEM 7 PROFILE 04/10/2012 CHEM 7 PROFILE 01/03/2013 CHEM 7 PROFILE 09/20/2012 ELECTROLYTES 02/28/2013 ELECTROLYTES 01/08/2013 ELECTROLYTES 04/20/2013 ELECTROLYTES 11/28/2013 ELECTROLYTES 05/30/2013 ELECTROLYTES 11/15/2012 ELECTROLYTES 02/11/2013 ELECTROLYTES 07/05/2012 BUN 02/11/2013 BUN 07/05/2012 BUN 02/28/2013 BUN 01/08/2013 BUN 04/20/2013 BUN 11/28/2013 BUN 05/30/2013 BUN 11/15/2012 CREATININE 05/30/2013 CREATININE 11/15/2012 CREATININE 02/11/2013 CREATININE 07/05/2012 CREATININE 02/28/2013 CREATININE 01/08/2013 CREATININE 04/20/2013 CREATININE 11/28/2013 LIVER PROFILE 09/20/2012 LIVER PROFILE 11/15/2012 LIVER PROFILE 04/10/2012 LIVER PROFILE 01/03/2013 LIVER PROFILE 07/05/2012 LIVER PROFILE 02/28/2013 AMMONIA 11/15/2012 AMMONIA 02/28/2013 CBC w DIFF 02/28/2013 CBC w DIFF 09/20/2012 CBC w DIFF 01/03/2013 CBC w DIFF 11/15/2012 CELL COUNT FLUID 09/20/2012 PROTHROMBIN TIME (PT, INR) 11/15/2012 PROTHROMBIN TIME (PT, INR) 02/28/2013 PROTHROMBIN TIME (PT, INR) 05/05/2022 PROTHROMBIN TIME (PT, INR) 09/20/2012 PROTHROMBIN TIME (PT, INR) 04/10/2012 PARTIAL THROMBOPLASTIN TIME (PTT) 2012 ALPHA-FETOPROTEIN,TUMOR MARKER 3 ALPHA-FETOPROTEIN,TUMOR MARKER 2 GRAM STAIN 09/20/2012 ROUTINE CULTURE 09/20/2012 MRI ABD W&WO CONTRAST 05/30/2013 NUC HIDA SCAN 11/13/2014 US ABD 12/02/2017 US PARACENTESIS GUIDE 09/20/2012 US PARACENTESIS GUIDE 12/06/2012 US PARACENTESIS GUIDE 01/03/2013 US ABDOMEN COMP WITH ELASTOGRAPHY 2021 Future Test Test Name Order Date UPPER GI ENDOSCOPY 05/09/2012 COLONOSCOPY 12/02/2017 UPPER GI ENDOSCOPY 05/05/2022 COLONOSCOPY 05/05/2022 COLONOSCOPY 03/27/2024 Insurance Providers Payer Name Payer Address Payer Phone Subscriber Number Group Number Insured Name Patient Relationship to Insured Coverage Start Date Coverage End Date [employer] [place] [address] [address] [place] [address] [id number] MIAH STANLEY Self - patient is the insured Medical (General) History Medical History History ICD Code Hypertension Denies ND,DM,Lung disease,renal disease Alcohol abuse At [facility] 10/09-11/01/12 for asci rick, resp failure, [...] nonvisualized gallbladder--has seen 2 different surgeons at [facility]--including the liver transplant surgeon, Dr. Morris--but they think he is too high risk for gallbladdder surgery EGD in 07/2012 with minimal Gr I varices and gastritis, HH, and duodenitis Stroke 01/2016--received TPA--no residual Atrial fibrillation Right renal lesion-sees Dr. Sutherland and Dr Marzena Zuniga Colonoscopy in 11/2017-large tubulovillous adenoma with high grade dysplasia and smaller tubular adenomas Hospitalized at [facility] in 11/2018 for abdominal pain/gallbladder disease---the [...] schedule d for surgery on 10/04/2022 at [facility] in [place]. He had the surgery as below. 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 Alcaraz. Scheduled to finish in 11/2023. CT scan of the abdomen in [facility] 2023 revealed some ascites, as [...]
== END 2025-01-21 11:15 | disposition home or self-care (01) ==
LOC: HO.HKA 10:57
PROVIDERS: PCP Internal Medicine; Visit Provider Internal Medicine Hypertension Specialist
DX: Z90.5 Acquired absence of kidney (principal); N18.30 Chronic kidney disease, stage 3 unspecified; C64.1 Malignant neoplasm of right kidney, except renal pelvis
CPT/HCPCS: 99214

== ENCOUNTER 2025-02-23 09:17 | Outpatient (REF) | payer OTHER, SELFPAY ==
--- OUTSIDE RECORDS SUMMARY | 2024-07-23 06:30 | XMS_ITS ---
Author Organization [facility] Address [address] [place] [phone] Care Team Providers Care Resource Program Teacher Name Role Phone Chaz OLIVA, [facility] Primary Care Provider Frankie Meyers [phone] REASON FOR VISIT screening,hx polyps Problems Problem Type SNOMED Code ICD Code Onset Dates Problem Status W/U Status Risk Notes Problem Diverticular disease of colon (198836105) Diverticulosis of large intestine without perforation or abscess without bleeding (K57.30) Active confirmed Encounters Encounter Location Date Provider Diagnosis [facility] [place] [address] [place] [phone] 07/23/2024 Frankie Reyes Colon cancer scree osorio [...] Notes * EUGENIO STANLEYDOB:1960 (64 yo M)Acc No.[id number]:07/23/2024 COLON WITH MAC Patient: EUGENIO MONIQUE Provider: Karen Reyes MD :1960 A ge:63 Y S ex:Male Date:07/23/2024 [facility] Pcp:Julio Ware MD Subjective: * Chief Complaints: * 1 . Screening,hx polyps. * Medical History: Objective: * Vitals: Assessment: * Assessment: 1. C olon cancer screening - Z12.11 (Primary) 2 . P ersonal history of colonic polyps - Z86.0100 3 . F amily history of colon cancer - Z80.0 ?4. D iverticulosis of large intestine without perforation or abscess without bleeding - K57.30 5 . O ther hemorrhoids - K64.8 Plan: * Treatment: * Procedure Codes: 4 5385 LESION REMOVAL COLONOSCOPY, Modifiers: PT , 0529F INTRVL 3+YRS PTS CLNSCP DOCD, Modifiers: 1P , 0528F RCMND FLW-UP 10 YRS DOCD, Modifiers: 1P * * The named appointment provid er may or may not be the originator of this progress note, and it is not deemed complete until electronically signed by the appointment provider. Sign off status: Pending * Provider: Karen Reyes MD Date: 0 07/23/2024 Generated for Adenike enamorado/Ashwin/Reganitting on: 0 02/23/2025 09:19 AM EDT
--- NOTE | ~2025-02-23 | CT_ITS ---
CLINICAL HISTORY: Surveillance, lung nodules CT chest without contrast Comparison: CT/REG/SR - CT CHEST WO IV CON - 02/28/24 17:[address]/DC/SR - CT CHEST WITHOUT IV CONTRAST - 09/19/23 14:32 EDT Findings: Normal heart size. Trace pericardial effusion. Calcific coronary artery disease: Moderate. Calcified mitral annulus. No bulky mediastinal lymphadenopathy. No mediastinal masses or fluid collections Stable 4 mm pulmonary nodule within the lingula image 88. Stable left lower lobe pleural-parenchymal scarring and atelectasis. New 5 mm pulmonary nodule right upper lobe image 36. New 6 mm pulmonary nodule left upper lobe image 33. There are 2 and 3 mm new pulmonary nodules within the right upper and left upper lobes and right middle lobe. These are in random distribution most are new. Right upper lobe discoid atelectasis. No pneumothorax or significant pleural effusions. No mediastinal shift. Central airways are patent. No bronchiectasis. No thyroid nodules. Bilateral gynecomastia stable. No axillary adenopathy. Stable mild cirrhosis. Mild splenomegaly. Mesenteric edema. Post cholecystectomy. No acute fractures or pathologic bone lesions. Impression: 1. There are bilateral pulmonary nodules increased in number and/or size , the dominant nodules both of which are new measures 6 mm within the left upper lobe and 5 mm in the right upper lobe. The remaining pulmonary nodules measure less than or equal to 4 mm some are stable some are new. Hematogenous pulmonary metastases can be included in the differential in a patient with known renal malignancy. 2. No lymphadenopathy. Moderate calcified coronary artery disease. No pleural effusions. Probable chronic pleural-parenchymal disease left lower lobe. Mild discoid atelectasis right upper lobe. 3. Stable gynecomastia. No axillary adenopathy lymphadenopathy. 5. No osteoblastic or osteolytic lesions This document has been electronically signed by: Dimitry Shipman MD on 02/23/2025 13:59:27
--- NOTE | ~2025-02-23 | CT_ITS ---
CLINICAL HISTORY: Surveillance, kidney cancer CT abdomen and pelvis without IV contrast. Comparison: CT/REG/[place]/SR - CT ABDOMEN PELVIS WITHOUT IV CONTRAST - 09/28/24 14:06 EDT [place]/SR - CT ABDOMEN PELVIS WO IV CON - 02/28/24 17:02 EDT Findings: Stable chronic pleural-parenchymal changes lung bases. Calcified mitral annulus. No dependent layering pleural effusions. The heart is not enlarged. Coronary artery calcifications minimal. Volume redistribution of the liver reflecting cirrhosis stable. Stable probable scarring right lobe.Post cholecystectomy. Homogeneous attenuation of the pancreas. Mild splenomegaly stable.Stable 1.4 cm left adrenal nodule hounsfield units 5.Right nephrectomy. Stable postsurgical changes with no masses lymphadenopathy or abnormal fluid collections within the surgical bed. Bowel demonstrates a nonobstructive pattern. No free air. Mesenteric edema. Ileocolic anastomosis without evidence of dehiscence. No intraperitoneal, retroperitoneal pelvic or inguinal masses lymphadenopathy or abnormal fluid collections. Partially decompressed urinary bladder. Mild prostatomegaly. Diverticulosis coli. Stable grade 1 degenerative anterolisthesis of L5 relative to S1 with discogenic changes and vacuum disc phenomenon. No acute compression fractures. No osteoblastic or osteolytic lesions. Impression: 1. No CT evidence of metastatic disease to the abdomen or pelvis on this noncontrast study. 2. Right nephrectomy. Stable postsurgical changes. No masses lymphadenopathy or abnormal fluid collections within the surgical bed. 3. Stable cirrhosis with mild splenomegaly. Mesenteric edema. 4. Stable 1.4 cm left adrenal nodule probable adenoma. 5. Stable probable chronic pleural-parenchymal changes lung bases. This document has been electronically signed by: Dimitry Shipman MD on 02/23/2025 13:13:32
--- OUTSIDE RECORDS SUMMARY | 2025-02-23 09:19 | XMS_ITS | Clinical Summary ---
Author Organization [facility] Address [address] [place] [address] Care Team Providers Care Paperhanger Assistant Name Role Phone Unavailable Primary Care Provider [...]
--- OUTSIDE RECORDS SUMMARY | 2025-02-23 09:19 | XMS_ITS | Patient Health Record ---
Author Organization [facility] Address [address] [place] [address] Care Team Providers Care As400 Programmer Name Role Phone Chaz OLIVA, [facility] Primary Care Provider Frankie Meyers [phone] Allergies Allergen (clinical drug ingredient) Drug/Non Drug Allergy documented on EMR Reaction Allergy Type Onset Date Status lorazepam Ativan Unknown Drug Allergy Active Results Component Value Reference Range Notes Pathology Reviewed date:07/25/2024 11:55:22 PM Interpretation: Performing Lab:[facility], [address] [place] [phone] Notes/Report: Reason For Referral No Information Medications [...] Problem Status W/U Status Risk Notes Problem [id number] Encounter for screening for malignant neoplasm of colon (Z12.11) Active confirmed Problem History of adenomatous polyp of colon (363985719) History of adenomatous polyp of colon (Z86.010) Active confirmed Problem Diverticular disease of colon (222088388) Diverticulosis of large intestine without perforation or abscess without bleeding (K57.30) Active confirmed Problem 198369042 Alcoholic cirrhosis of liver with ascites (K70.31) Active confirmed Problem 633553833 Gallstones (K80.20) Active confirmed Problem Cirrhotic (740628531) Cirrhosis (K74.60) Active confirmed Problem Esophageal varices (68896517) Esophageal varices (I85.00) Active confirmed Problem 244808447 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 Problem 648827450 Abdominal pain, RUQ (R10.11) Active confirmed Problem 44030797 Chronic fatigue (R53.82) Active confirmed Problem Diverticulosis of sigmoid colon (358395247) Diverticulosis of sigmoid colon (K57.30) Active confirmed Problem 45389655 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) Active confirmed Vital Signs Blood pressure diastolic 00 mm Hg 03/27/2024 Height 69 in 03/27/2024 Blood pressure systolic 00 mm Hg 03/27/2024 Weight 198 lbs 03/27/2024 BMI 29.24 kg/m2 03/27/2024 Encounters Encounter Location Date Provider Diagnosis [facility] Outpatient [address] [place] [address] [id number] 07/23/2024 Frankie Reyes Colon cancer screeni ng Z12.11 ; Personal history of colonic polyps Z86.0100 ; Family history of colon cancer Z80.0 ; Diverticulosis of large intestine without perforation or abscess without bleeding K57.30 and Other hemorrhoids K64.8 [facility] [address] [place] [address] 03/27/2024 Frankie Reyes Alcoholic cirrhosis of liver [...] Test Name Order Date CHEM 7 PROFILE 09/20/2012 CHEM 7 PROFILE 04/10/2012 CHEM 7 PROFILE 01/03/2013 ELECTROLYTES 05/30/2013 ELECTROLYTES 11/15/2012 ELECTROLYTES 02/11/2013 ELECTROLYTES 07/05/2012 ELECTROLYTES 02/28/2013 ELECTROLYTES 01/08/2013 ELECTROLYTES 04/20/2013 ELECTROLYTES 11/28/2013 BUN 04/20/2013 BUN 11/28/2013 BUN 05/30/2013 BUN 11/15/2012 BUN 02/11/2013 BUN 07/05/2012 BUN 02/28/2013 BUN 01/08/2013 CREATININE 04/20/2013 CREATININE 11/28/2013 CREATININE 05/30/2013 CREATININE 11/15/2012 CREATININE 02/11/2013 CREATININE 07/05/2012 CREATININE 02/28/2013 CREATININE 01/08/2013 LIVER PROFILE 02/28/2013 LIVER PROFILE 09/20/2012 LIVER PROFILE 11/15/2012 LIVER PROFILE 04/10/2012 LIVER PROFILE 01/03/2013 LIVER PROFILE 07/05/2012 AMMONIA 11/15/2012 AMMONIA 02/28/2013 CBC w DIFF 01/03/2013 CBC w DIFF 11/15/2012 CBC w DIFF 02/28/2013 CBC w DIFF 09/20/2012 CELL COUNT FLUID 09/20/2012 PROTHROMBIN TIME (PT, INR) 09/20/2012 PROTHROMBIN TIME (PT, INR) 04/10/2012 PROTHROMBIN TIME (PT, INR) 11/15/2012 PROTHROMBIN TIME (PT, INR) 02/28/2013 PROTHROMBIN TIME (PT, INR) 05/05/2022 PARTIAL THROMBOPLASTIN TIME (PTT) 2012 ALPHA-FETOPROTEIN,TUMOR MARKER 2 ALPHA-FETOPROTEIN,TUMOR MARKER 3 GRAM STAIN 09/20/2012 ROUTINE CULTURE 09/20/2012 MRI ABD W&WO CONTRAST 05/30/2013 NUC HIDA SCAN 11/13/2014 US ABD 12/02/2017 US PARACENTESIS GUIDE 12/06/2012 US PARACENTESIS GUIDE 01/03/2013 US PARACENTESIS GUIDE 09/20/2012 US ABDOMEN COMP WITH ELASTOGRAPHY 2021 Future Test Test Name Order Date UPPER GI ENDOSCOPY 05/09/2012 COLONOSCOPY 12/02/2017 UPPER GI ENDOSCOPY 05/05/2022 COLONOSCOPY 05/05/2022 COLONOSCOPY 03/27/2024 Insurance Providers Payer Name Payer Address Payer Phone Subscriber Number Group Number Insured Name Patient Relationship to Insured Coverage Start Date Coverage End Date [employer] [place] [address] [address] [place] [address] [id number] MIAH STANLEY Self - patient is the insured Medical (General) History Medical History History ICD Code Hypertension Denies ND,DM,Lung disease,renal disease Alcohol abuse At [facility] 10/09-11/01/12 for asci rick, resp failure, [...] nonvisualized gallbladder--has seen 2 different surgeons at [facility]--including the liver transplant surgeon, Dr. Morris--but they think he is too high risk for gallbladdder surgery EGD in 07/2012 with minimal Gr I varices and gastritis, HH, and duodenitis Stroke 01/2016--received TPA--no residual Atrial fibrillation Right renal lesion-sees Dr. Sutherland and Dr Marzena Zuniga Colonoscopy in 11/2017-large tubulovillous adenoma with high grade dysplasia and smaller tubular adenomas Hospitalized at [facility] in 11/2018 for abdominal pain/gallbladder disease---the [...] schedule d for surgery on 10/04/2022 at [facility] in [place]. He had the surgery as below. 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 Alcaraz. Scheduled to finish in 11/2023. CT scan of the abdomen in [facility] of 2023 revealed some ascites, as well [...]
--- OUTSIDE RECORDS SUMMARY | 2025-02-23 09:19 | XMS_ITS | Encounter Summary ---
Author Organization [facility] Address [address] [place] [address] Care Team Providers Care Account Specialist Name Role Phone Julio Ware Primary Care Provider [phone] Reason for Visit * Reason Onset Date Comments RESCHEDULE APPT 07/19/2022 Encounter Details Date Type Department Care Team (Late st Contact Info) Description 07/19/2022 Telephone [facility] Pediatric Urology [address] [place] [id number] Wallpaper Scraper: Pilar Underwood Telephone Intake, Staff RESCHEDULE APPT [...] call Miah back with sooner appt date: [phone] documented in this encounter Plan of Treatment Not on file documented as of this encounter Visit Diagnoses Not on filedocumented in this encounter Additional Health Concerns Infection Onset Date Last Indicated Resolved Time Multidrug resistant organisms ESBL 10/19/20222022 documented as of this encounter Care Teams Account Specialist Relationship Specialty Start Date End Date Julio Ware [address] [place] [address] PCP - General Internal Medicine 07/29/22 documented as of this encounter
--- OUTSIDE RECORDS SUMMARY | 2025-02-23 09:19 | XMS_ITS | Encounter Summary ---
Author Organization [facility] Address [address] [place] [address] Care Team Providers Care Table Operator Name Role Phone Julio Ware Primary Care Provider Encounter Details Date Type Department Care Team (Late st Contact Info) Description 07/29/2022 Orders Only [facility] Interventional Radiology [address] [place] [address] [phone] Gregory Jack MD [address] [place] [address] [phone] Social History Tobacco Use Types Packs/Day Years [...] documented as of this encounter Care Teams Table Operator Relationship Specialty Start Date End Date Julio Ware [address] [place] [address] PCP - General Internal Medicine 07/29/22 documented as of this encounter
--- OUTSIDE RECORDS SUMMARY | 2025-02-23 09:19 | XMS_ITS | Encounter Summary ---
Author Organization [facility] Address [address] [place] [address] Care Team Providers Care Weir Fisher Name Role Phone Julio Ware Primary Care Provider [phone] Encounter Details Date Type Department Care Team (Late st Contact Info) Description 10/27/2022 Orders Only [facility] Xray [address] [place] [address] Severino Green MD [address] [place] [address] Social History Tobacco Use Types Packs/Day Years [...] documented as of this encounter Care Teams Weir Fisher Relationship Specialty Start Date End Date Chaz Brooksvivian [address] [place] [address] PCP - General Internal Medicine 07/29/22 documented as of this encounter
--- OUTSIDE RECORDS SUMMARY | 2025-02-23 09:19 | XMS_ITS ---
Author Organization [facility] Address [address] [place] [address] Care Team Providers Care Yarn Washer Name Role Phone Julio Ware Primary Care Provider [phone] Active Problems Problem Noted Date Diagnosed Date [...] Alcoholic cirrhosis 10/01/2022 10/01/2022 Lesion of right [place] kidney 01/22/2016 Hypertension 01/08/2015 Esophageal reflux 01/08/2015 [...] TotalDLP 3,643 mGy 3,643 mGy 0 mGy [id number] 44 mSv 44 mSv 0 mSv CTDIvol Max 74.4 mGy 74.4 mGy 0 mGy CTDIvol Min 36.4 mGy 36.4 mGy 0 mGy Radiation - mGy 216.4 mGy 216.4 mGy 0 mGy
--- OUTSIDE RECORDS SUMMARY | 2025-02-23 09:19 | XMS_ITS | Clinical Summary ---
Author Organization [facility] Address [address] [place] [address] Care Team Providers Care Registration Specialist Name Role Phone Julio Ware Primary Care Provider [phone] Allergies Active Allergy Reactions Criticality Noted Date [...] Alcoholic cirrhosis 10/01/2022 10/01/2022 Lesion of right [place] kidney 01/22/2016 Hypertension 01/08/2015 Esophageal reflux 01/08/2015 [...] 59 11/16/2022 10:38 AM EDT Temperature 36.7 C (98 F) 11/16/2022 10:38 AM EDT Respiratory Rate 18 [...] Colonoscopy 1958 FOBT / Fit Test 1958 Sigmoidoscopy 1958 COVID-19 Vaccine (#1) 10/17/1963 [...] Health Sara ual Screening 06/27/2024 Influenza Vaccine (#1) 2025 04/20/2022, 2019 Hepatitis C Screening Completed 12/19/2015 Procedures * Due to [place] Dob[place] law, this organization might not be sharing negative HIV tests. Procedure Name Priority Date/Time Associated Diagnosis Comments BASIC METABOLIC PANEL Routine 10/27/2022 4:47 AM EDT HEPATITIS C ANTIBODY W/REFLEX TO HCV RNA, QUANTITATIVE PCR Routine 12/19/2015 12:13 PM EDT from Last 3 Months or Most Recently Relevant to Health Maintenance Results * Due to [place] law, this organization might not be sharing negative HIV tests. * (ABNORMAL) Basic Metabolic Panel (10/27/2022 4:47 AM EDT) NA 137 135 - 145 mmol/L 10/27/2022 5:30 AM EDT [facility] K 3.7 3.5 - 5.3 mmol/L 10/27/2022 5:30 AM [facility] Cl 107 97 - 110 mmol/L 10/27/2022 5:30 AM [facility] CO2 24 24 - 32 mmol/L 10/27/2022 5:30 AM [facility] BUN 14 7 - 23 mg/dL 10/27/2022 5:30 AM [facility] Creatinine 1.37(H) 0.60 - 1.30 mg/dL 10/27/2022 5:30 AM [facility] Glucose 91 70 - 99 mg/dL 10/27/2022 5:30 AM [facility] Calcium 8.7 8.7 - 10.7 mg/dL 10/27/2022 5:30 AM [facility] Anion Gap 6 5 - 15 10/27/2022 5:30 AM [facility] eGFR 58(L) >=90 mL/min/1. 73m2 10/27/2022 5:30 AM [facility] Comment: Estimated Glomerular [...] MD LAB BLOOD ORDERABLES Final Re sult [facility] [address] [place] [address], * Hepatitis C Antibody w/Reflex to HCV RNA, Quantitative PCR (12/19/2015 12:13 PM EDT) Hepatitis C Antibody NON-REACTI VE NON-REACT [facility] Signal To Cut-Off 0.04 <1.00 [facility] 12/19/2015 12:1 3 PM EDT 12/19/2015 12:59 PM EDT us Anisha Armendariz LIVER TRIMMER LAB BLOOD ORDERABLES Final Res ult [place] from Last 3 Months or Most Recently Relevant to Health Maintenance Additional Health Concerns Infection Onset Date Last Indicated Multidrug resistant organisms ESBL 10/19/2022 10/19/[address] [place] [address] [employer] Advance Directives Documents on File Type Date Recorded Patient Windows Application Developer Expl anation Health Care Proxy 10/15/2022 8:45 [...] Agent Relationshi p Communication Phuong Lindsey Spouse [facility] Care Teams Registration Specialist Relationship Specialty Start Date End Date ChazJulio matos [address] [place] [address] PCP - General Internal Medicine 07/29/22
--- OUTSIDE RECORDS SUMMARY | 2025-02-23 09:19 | XMS_ITS | Encounter Summary ---
Author Organization [facility] Address [address] [place] [address] Care Team Providers Care Siebel Developer Name Role Phone Julio Ware Primary Care Provider [phone] Encounter Details Date Type Department Care Team (Late st Contact Info) Description 11/03/2022 Orders Only [facility] Interventional Radiology [address] [place] [address] [phone] Gregory Jack MD [address] [place] [address] [phone] Social History Tobacco Use Types Packs/Day Years [...] documented as of this encounter Care Teams Siebel Developer Relationship Specialty Start Date End Date Julio Ware [address] [place] [address] PCP - General Internal Medicine 07/29/22 documented as of this encounter
--- OUTSIDE RECORDS SUMMARY | 2025-02-23 09:19 | XMS_ITS | Encounter Summary ---
Author Organization [facility] Address [address] [place] [address] Care Team Providers Care Manager Of Clinical Name Role Phone Julio Ware Primary Care Provider [phone] Encounter Details Date Type Department Care Team (Late st Contact Info) Description 11/16/2022 Orders Only [facility] Interventional Radiology [address] [place] [address] Patrick Noel MD [address] [place] [phone] Social History Tobacco Use Types Packs/Day Years [...] documented as of this encounter Care Teams Manager Of Clinical Relationship Specialty Start Date End Date Julio Ware [address] [place] [address] PCP - General Internal Medicine 07/29/22 documented as of this encounter
== END 2025-02-23 09:18 | disposition home or self-care (01) ==
LOC: HO.CT 09:17
PROVIDERS: PCP Internal Medicine; Visit Provider Internal Medicine
DX: C64.9 Malignant neoplasm of unspecified kidney, except renal pelvis (principal)
CPT/HCPCS: 71250; 74176

== ENCOUNTER → 2025-02-23 09:19 | Outpatient (BNV) | payer OTHER, SELFPAY | PROVIDERS: PCP Internal Medicine; Visit Provider Radiology Diagnostic Radiology | DX: K74.60 Unspecified cirrhosis of liver (principal); E27.9 Disorder of adrenal gland, unspecified; Z90.5 Acquired absence of kidney; R91.8 Other nonspecific abnormal finding of lung field; I25.84 Coronary atherosclerosis due to calcified coronary lesion; N62 Hypertrophy of breast | CPT/HCPCS: 71250; 74176 ==

== ENCOUNTER 2025-03-19 12:58 | Outpatient (AMB) | payer OTHER, SELFPAY ==
--- OUTSIDE RECORDS SUMMARY | 2024-07-23 06:30 | XMS_ITS ---
Author Organization [facility] Address [address] [place] [phone] Care Team Providers Care Medical Professionals Name Role Phone Chaz OLIVA, [facility] Primary [facility] Provider Frankie Meyers [phone] REASON FOR VISIT screening,hx polyps Problems Problem Type SNOMED Code ICD Code Onset Dates Problem Status W/U Status Risk Notes Problem Diverticular disease of colon (067293441) Diverticulosis of large intestine without perforation or abscess without bleeding (K57.30) Active confirmed Encounters Encounter Location Date Provider Diagnosis [facility] Outpatient [address] [place] [phone] 07/23/2024 Frankie Reyes Colon cancer scree osorio [...] Notes * EUGENIO STANLEYDOB:1960 (64 yo M)Acc No.[id number]:07/23/2024 COLON WITH MAC Patient: EUGENIO MONIQUE Provider: Karen Reyes MD :1960 A ge:63 Y S ex:Male Date:07/23/2024 [facility] Pcp:Julio Ware MD Subjective: * Chief Complaints: [...] 07/23/2024 Generated for Adenike enamorado/Ashwin/Reganitting on: 0 03/19/2025 03:54 PM EDT
[2025-03-19 13:05] VITALS: BP 140/82; PULSE 72; O2SAT 95; BMI 30.5
--- NOTE | 2025-03-19 13:05 | A.OFFVIS_ITS ---
Vital Signs 03/19/25 13:05 Height 5 ft 9 in Weight 206 lb 4 oz BMI 30.5 BP 140/82 H Blood Pressure Location Rt brachial Position Sitting Pulse 72 Pulse Source Pulse Oximeter Pulse Oximetry (%) 95 Oxygen Delivery Method Room Air Intake Visit Reasons: Lung nodules - Allergies duloxetine Allergy (Unknown, Verified 03/19/25 13:08) psychotic episodes Seasonal Allergies Allergy (Verified 03/19/25 13:08) Itchy Eyes lorazepam (From ATIVAN) Adverse Reaction (Unknown, Verified 03/19/25 13:08) AGITATION HPI HPI Lung nodules -: Details: Miah is a pleasant 64 year old male, current 30+ pack year smoker, with underlying right renal cell carcinoma s/p nephrectomy, atrial fibrillation, GERD, HTN, and liver cirrhosis. He was referred by Dr. Sutherland after surveillance CT from renal carcinoma revealed new pulmonary nodules. The patient has a history of renal cell carcinoma for which he underwent nephrectomy in 2022, followed by a year of treatment with pembrolizumab. Subsequent imaging revealed pulmonary nodules in 2023, with some changes in size and new nodules appearing. The patient denies any history of asthma but has been diagnosed with COPD,given smoking history, although he has not undergone formal pulmonary function testing and is not interested in scheduling. He uses albuterol infrequently and has not been on any other inhalers.The patient reports chronic cough and dyspnea, which are exacerbated indoors, particularly in the presence of cats and carpets. He experiences relief from symptoms when outdoors and during the summer months when windows are open. The patient has a significant smoking history, having started at age 10, and currently smokes 1/2 ppd, with occasional use of nicotine vaping products. He has attempted smoking cessation with nicotine patches in the past but is not currently ready to try again. The patient reports symptoms consistent with allergic rhinitis, including postnasal drip and itchy eyes, and finds some relief with loratadine. He has not used nasal sprays but is considering them for additional symptom control. [facility] Medical History CVA (cerebral vascular accident) Difficulty sleeping Anxiety, generalized Porcelain gallbladder Ascites Alcohol abuse Irritable bowel syndrome Chronic GERD Paroxysmal atrial fibrillation Tobacco abuse Surgical History Hx of esophagogastroduodenoscopy History of colonoscopy H/O exploratory laparotomy Family History Father Cerebrovascular disease Diabetes mellitus HTN (hypertension) Hx of CABG Mother Lung cancer Maternal Grandmother Myocardial infarction Maternal Grandfather Lung cancer Paternal Grandmother Cerebrovascular disease Paternal Uncle Lung cancer Brother No problems noted. Brother No problems noted. Son No problems noted. Son No problems noted. Other Mental health disorder Substance use disorder Social History (Updated 03/19/25 @ 13:08 by Kimberlyn Ware CMA) Household Members: Spouse and Children Housing: House Alcohol intake: current Alcohol intake frequency: former alcohol drinker Patient Tobacco Use Status: Current everyday Tobacco user Tobacco use type: Cigarette Cigarette Packs Per Day: 1 Cigarettes Per Day: 20 Years Smoked: 50 years e-Cigarette/Vaping Use: Currently Using Substance Use Type: Other service: No Current occupational status: disabled Cognitive needs: No Hearing needs: No Vision needs: Yes Review of Systems Const Denies chills, Denies excessive sweating, Denies fever(s), Denies headache(s) and Denies night sweats Eyes Denies dry eyes, Denies irritation and Reports itchy eyes ENT Reports Normal hearing present, Denies headache(s), Denies nasal congestion, Denies nasal discharge, Reports post nasal drip and Denies sore throat Card Denies chest pain, Denies chest pain at rest, Denies chest pain with activity, Denies claudication, Denies leg edema, Denies orthopnea and Denies paroxysmal nocturnal dyspnea Resp Denies chest congestion, Denies excessive phlegm production, Denies pain on inspiration, Denies pain with cough, Denies stridor and Denies wheezing Musc Denies myalgias Neuro Reports Normal hearing present and Denies headache(s) Endo Denies excessive sweating Ramos/Lymph Denies lymphadenopathy Aller/Immun Reports itchy eyes, Denies seasonal rhinorrhea and Denies wheezing Physical Exam Vital Signs: Last Vital Signs Pulse 72 03/19/25 13:05 BP 140/82 H 03/19/25 13:05 Pulse Ox 95 03/19/25 13:05 Oxygen Delivery Method Room Air 03/19/25 13:05 BMI result Body Mass Index 30.5 Const General: cooperative, healthy appearing, comfortable, no acute distress, well developed and alert Nutritional Appearance: obese Orientation/consciousness: patient oriented x3 Limitations: no limitations HEENT Head: Yes normal to inspection, Yes normocephalic and Yes atraumatic Ears: hearing grossly normal bilaterally and external ears normal Eyes General: appearance normal, both eyes and all related structures Eyelids: Yes eyelids normal Sclerae: sclerae normal EOM: EOMs intact bilaterally Neck Neck: Yes normal visual inspection and Yes no lymphadenopathy Lymphatic: no lymphadenopathy noted Chest Chest palpation & inspection: normal inspection of the chest Resp Other: coarse inspiratory crackles LLL scarring noted of LLL on chest CT Effort & Inspection: normal respiratory effort, able to speak in complete sent ences, no audible wheezes, no cough, no stridor, not tachypneic, no tripod positioning and no use of accessory muscles Auscultation: diminished lung sounds Cardio Jugular venous distension: no JVD Rate: regular rate Rhythm: regular rhythm Skin Other: warm, dry General skin exam: no rashes or lesions noted Neuro General: patient oriented x3 Cranial nerves: Yes Normal hearing present Cognition (Neuro): normal cognition Gait exam (Neuro): Normal gait present Extrem General: Yes normal to inspection, Yes capillary refill normal, Yes no clubbing, cyanosis or edema and Yes no pedal edema Psych Appearance: grossly normal and well kempt Speech and movement: Normal speech and movement present and Clear speech present Affect: normal affect Attitude: cooperative Thought process: Normal thought process present Thought content: Normal thought content present Insight: Good insight present (Psych) Judgement: Good judgement present (Psych) Results Reviewed Results Reviewed: [place] [address] CT Scan Report Signed Patient: Miah Lindsey MR#: [id number] : 1960 Acct:[id number] Age/Sex: 64 / M ADM Date: 02/23/25 Loc: HO.CT Attending Dr: Deysi Alcaraz MD Ordering Physician: Deysi Alcaraz MD Date of Service: 02/23/25 Procedure(s): CT chest wo IV con Accession Number(s): [id number] cc: Deysi Alcaraz MD; Julio Ware MD~ Report Number: [id number]: Total DLP = 180.00 mGy-cm CLINICAL HISTORY: Surveillance, lung nodules CT chest without contrast Comparison: CT/REG/SR - CT CHEST WO IV CON - 02/28/24 17:[address]/AL/SR - CT CHEST WITHOUT IV CONTRAST - 09/19/23 14:32 EDT Findings: Normal heart size. Trace pericardial effusion. Calcific coronary artery disease: Moderate. Calcified mitral annulus. No bulky mediastinal lymphadenopathy. No mediastinal masses or fluid collections Stable 4 mm pulmonary nodule within the lingula image 88. Stable left lower lobe pleural-parenchymal scarring and atelectasis. New 5 mm pulmonary nodule right upper lobe image 36. New 6 mm pulmonary nodule left upper lobe image 33. There are 2 and 3 mm new pulmonary nodules within the right upper and left upper lobes and right middle lobe. These are in random distribution most are new. Right upper lobe discoid atelectasis. No pneumothorax or significant pleural effusions. No mediastinal shift. Central airways are patent. No bronchiectasis. No thyroid nodules. Bilateral gynecomastia stable. No axillary adenopathy. Stable mild cirrhosis. Mild splenomegaly. Mesenteric edema. Post cholecystectomy. No acute fractures or pathologic bone lesions. Impression: 1. There are bilateral pulmonary nodules increased in number and/or size , the dominant nodules both of which are new measures 6 mm within the left upper lobe and 5 mm in the right upper lobe. The remaining pulmonary nodules measure less than or equal to 4 mm some are stable some are new. Hematogenous pulmonary metastases can be included in the differential in a patient with known renal malignancy. 2. No lymphadenopathy. Moderate calcified coronary artery disease. No pleural effusions. Probable chronic pleural-parenchymal disease left lower lobe. Mild discoid atelectasis right upper lobe. 3. Stable gynecomastia. No axillary adenopathy lymphadenopathy. 5. No osteoblastic or osteolytic lesions This document has been electronically signed by: Dimitry Shipman MD on 02/23/2025 13:59:27 Dictated By: Dimitry Shipman MD Signed By: <Electronically signed by Dimitry Shipman MD in OV> 02/23/25 1400 Assessment & Plan Assessment & Plan (1) COPD (chronic obstructive pulmonary disease): Code(s): J44.9 - Chronic obstructive pulmonary disease, unspecified Category: Medical (2) Multiple pulmonary nodules: Code(s): R91.8 - Other nonspecific abnormal finding of lung field Category: Medical (3) History of renal carcinoma: Code(s): Z85.528 - Personal history of other malignant neoplasm of kidney Category: Medical Plan The patient has pulmonary nodules that have shown changes in size and new nodules have appeared since the last scan. Given their small size, they are not amenable to PET scan or biopsy at this time. A follow-up CT scan is planned in three months to monitor any changes. The patient is presumed to have COPD based on smoking history and symptoms, although no formal pulmonary function test has been conducted and not interested in testing at this time. He will be started on a daily inhaler, Breo, which contains a long-acting beta-agonist and a corticosteroid. The patient is advised to use albuterol as a rescue inhaler as needed. Discussed importance of good oral hygiene to prevent thrush. The patient reports symptoms of allergic rhinitis, including postnasal drip and itchy eyes, and currently uses loratadine for symptom relief. He is advised to consider using a nasal spray for additional symptom control. He would like to defer allergy testing at this time. Smoking cessation reviewed and patient not ready to quit at this time. All questions were answered and patient is in agreement of plan. Will follow up to review results or sooner if needed. Orders: Orders CT chest wo IV con 10 Weeks R91.8 - Other nonspecific abnormal finding of lung field, Z85.528 - Personal history of other malignant neoplasm of kidney Medications: New fluticasone furoate-vilanterol 100-25 mcg/dose (Breo Ellipta) 1 inh inhalation DAILY 60 ea 3RF Coding Level of Care Code New Pt Level 4 (20579) Diagnoses COPD (chronic obstructive pulmonary disease) J44.9 Multiple pulmonary nodules R91.8 History of renal carcinoma Z85.528
--- OUTSIDE RECORDS SUMMARY | 2025-03-19 15:54 | XMS_ITS | Encounter Summary ---
Author Organization [facility] Address [address] [place] [address] Care Team Providers Care Orthodontic Band Maker Name Role Phone Julio Ware Primary Care Provider [phone] Encounter Details Date Type Department Care Team (Late st Contact Info) Description 11/03/2022 Orders Only [facility] Interventional Radiology [address] [place] [address] [phone] Gregory Jack MD [address] [place] [address] [phone] Social History Tobacco Use Types Packs/Day Years [...] documented as of this encounter Care Teams Orthodontic Band Maker Relationship Specialty Start Date End Date Julio Ware [address] [place] [address] PCP - General Internal Medicine 07/29/22 documented as of this encounter
--- OUTSIDE RECORDS SUMMARY | 2025-03-19 15:54 | XMS_ITS | Encounter Summary ---
Author Organization [facility] Address [address] [place] [address] Care Team Providers Care Synthetic Department Supervisor Name Role Phone Julio Ware Primary Care Provider [phone] Reason for Visit * Reason Onset Date Comments RESCHEDULE APPT 07/19/2022 Encounter Details Date Type Department Care Team (Late st Contact Info) Description 07/19/2022 Telephone [facility] Pediatric Urology [address] [place] [id number] Home Staging Specialist: Pilar Underwood Telephone Intake, Staff RESCHEDULE APPT [...] call Miah back with sooner appt date: [phone] documented in this encounter Plan of Treatment Not on file documented as of this encounter Visit Diagnoses Not on filedocumented in this encounter Additional Health Concerns Infection Onset Date Last Indicated Resolved Time Multidrug resistant organisms ESBL 10/19/20222022 documented as of this encounter Care Teams Synthetic Department Supervisor Relationship Specialty Start Date End Date Julio Ware [address] [place] [address] PCP - General Internal Medicine 07/29/22 documented as of this encounter
--- OUTSIDE RECORDS SUMMARY | 2025-03-19 15:54 | XMS_ITS | Clinical Summary ---
Author Organization [facility] Address [address] [place] [address] Care Team Providers Care Office Communication Professor Name Role Phone Julio Ware Primary Care Provider [phone] Allergies Active Allergy Reactions Criticality Noted Date [...] Alcoholic cirrhosis 10/01/2022 10/01/2022 Lesion of right wainwright kidney 01/22/2016 Hypertension 01/08/2015 Esophageal reflux 01/08/2015 [...] Screening Completed 12/19/2015 Procedures * Due to [place] [employer] law, this organization might not be sharing negative HIV tests. Procedure Name Priority Date/Time Associated Diagnosis Comments BASIC METABOLIC PANEL Routine 10/27/2022 4:47 AM EDT HEPATITIS C ANTIBODY W/REFLEX TO HCV RNA, QUANTITATIVE PCR Routine 12/19/2015 12:13 PM EDT from Last 3 Months or Most Recently Relevant to Health Maintenance Results * Due to [place] [employer] law, this organization might not be sharing negative HIV tests. * (ABNORMAL) Basic Metabolic Panel (10/27/2022 4:47 AM EDT) NA 137 135 - 145 mmol/L 10/27/2022 5:30 AM EDT [facility] K 3.7 3.5 - 5.3 mmol/L 10/27/2022 5:30 AM [facility] Cl 107 97 - 110 mmol/L 10/27/2022 5:30 AM [facility] CO2 24 24 - 32 mmol/L 10/27/2022 5:30 AM [facility] BUN 14 7 - 23 mg/dL 10/27/2022 5:30 AM [facility] Creatinine 1.37(H) 0.60 - 1.30 mg/dL 10/27/2022 5:30 AM [facility] Glucose 91 70 - 99 mg/dL 10/27/2022 5:30 AM [facility] Calcium 8.7 8.7 - 10.7 mg/dL 10/27/2022 5:30 AM [facility] Anion Gap 6 5 - 15 10/27/2022 5:30 AM [facility] eGFR 58(L) >=90 mL/min/1. 73m2 10/27/2022 5:30 AM [facility] Comment: Estimated Glomerular [...] EDT 10/27/2022 5:05 AM EDT us Monie eLe MD LAB BLOOD ORDERABLES Final Re sult [facility] [address] [place] [address], * Hepatitis C Antibody w/Reflex to HCV RNA, Quantitative PCR (12/19/2015 12:13 PM EDT) Hepatitis C Antibody NON-REACTI VE NON-REACT [facility] Signal To Cut-Off 0.04 <1.00 [facility] 12/19/2015 12:1 3 PM EDT 12/19/2015 12:59 PM EDT us Anisha Armendariz [employer] LAB BLOOD ORDERABLES Final Res ult [facility] from Last 3 Months or Most Recently Relevant to Health Maintenance Additional Health Concerns Infection Onset Date Last Indicated Multidrug resistant organisms ESBL 10/19/2022 10/19/[address] [place] [address] [employer] Advance Directives Documents on File Type Date Recorded Patient Test Hole Driller Expl anation Health Care Proxy 10/15/2022 8:45 [...] Agent Relationshi p Communication Phuong Lindsey Spouse [facility] Care Teams Office Communication Professor Relationship Specialty Start Date End Date ChazJulio matos [address] [place] [address] PCP - General Internal Medicine 07/29/22
--- OUTSIDE RECORDS SUMMARY | 2025-03-19 15:54 | XMS_ITS | Encounter Summary ---
Author Organization [facility] Address [address] [place] [address] Care Team Providers Care English Professor Name Role Phone Julio Ware Primary Care Provider Encounter Details Date Type Department Care Team (Late st Contact Info) Description 10/27/2022 Orders Only [facility] Xray [address] [place] [address] Severino Green MD [address] [place] [address] Social History Tobacco Use Types [...] documented as of this encounter Care Teams English Professor Relationship Specialty Start Date End Date Chaz Brooksvivian [address] [place] [address] PCP - General Internal Medicine 07/29/22 documented as of this encounter
--- OUTSIDE RECORDS SUMMARY | 2025-03-19 15:54 | XMS_ITS ---
Author Organization [facility] Address [address] [place] [address] Care Team Providers Care Bulk Coolers Installer Name Role Phone Julio Ware Primary Care Provider [phone] Active Problems Problem Noted Date Diagnosed Date [...] Alcoholic cirrhosis 10/01/2022 10/01/2022 Lesion of right lummi kidney 01/22/2016 Hypertension 01/08/2015 Esophageal reflux 01/08/2015 [...] TotalDLP 3,643 mGy 3,643 mGy 0 mGy [id number] 44 mSv 44 mSv 0 mSv CTDIvol Max 74.4 mGy 74.4 mGy 0 mGy CTDIvol Min 36.4 mGy 36.4 mGy 0 mGy Radiation - mGy 216.4 mGy 216.4 mGy 0 mGy
--- OUTSIDE RECORDS SUMMARY | 2025-03-19 15:54 | XMS_ITS | Clinical Summary ---
Author Organization [employer] [facility] Address [address] [place] [address] Care Team Providers Care Assistant Community Manager Name Role Phone Unavailable Primary Care Provider [...] 2008 Zoster Vaccines (1 of 2) 2008 Depression Screening 06/27/2024 COVID-19 Vaccine (1 - 2023-2 5 season) 2025 Influenza Vaccine (#1) 2025 RSV Immunization Adult [...]
--- OUTSIDE RECORDS SUMMARY | 2025-03-19 15:54 | XMS_ITS | Patient Health Record ---
Author Organization [facility] Address [address] [place] [address] Care Team Providers Care Bookkeeping Service Sales Agent Name Role Phone Chaz OLIVA, [facility] [place] Primary Care Provider Frankie Meyers [phone] Allergies Allergen (clinical drug ingredient) Drug/Non Drug Allergy documented on EMR Reaction Allergy Type Onset Date Status lorazepam Ativan Unknown Drug Allergy Active Results Component Value Reference Range Notes Pathology Reviewed date:07/25/2024 11:55:22 PM Interpretation: Performing Lab:[facility], [address] [place] [id number] Notes/Report: Reason For Referral No Information Medications [...] Problem Status W/U Status Risk Notes Problem [id number] Encounter for screening for malignant neoplasm of colon (Z12.11) Active confirmed Problem History of adenomatous polyp of colon (435995263) History of adenomatous polyp of colon (Z86.010) Active confirmed Problem Diverticular disease of colon (664208376) Diverticulosis of large intestine without perforation or abscess without bleeding (K57.30) Active confirmed Problem 359709748 Alcoholic cirrhosis of liver with ascites (K70.31) Active confirmed Problem 725698785 Gallstones (K80.20) Active confirmed Problem Cirrhotic (879907438) Cirrhosis (K74.60) Active confirmed Problem Esophageal varices (13847845) Esophageal varices (I85.00) Active confirmed Problem 824684647 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 Problem 279138918 Abdominal pain, RUQ (R10.11) Active confirmed Problem 00136209 Chronic fatigue (R53.82) Active confirmed Problem Diverticulosis of sigmoid colon (072650528) Diverticulosis of sigmoid colon (K57.30) Active confirmed Problem 64263730 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) Active confirmed Vital Signs Blood pressure diastolic 00 mm Hg 03/27/2024 Height 69 in 03/27/2024 Blood pressure systolic 00 mm Hg 03/27/2024 Weight 198 lbs 03/27/2024 BMI 29.24 kg/m2 03/27/2024 Encounters Encounter Location Date Provider Diagnosis [facility] [place] [address] [place] [id number] 07/23/2024 Frankie Reyes Colon cancer screeni ng Z12.11 ; Personal history of colonic polyps Z86.0100 ; Family history of colon cancer Z80.0 ; Diverticulosis of large intestine without perforation or abscess without bleeding K57.30 and Other hemorrhoids K64.8 [facility] [address] [place] [address] 03/27/2024 Frankie Reyes Alcoholic cirrhosis of liver [...] [employer] [place] [address] [address] [place] [address] [id number] MIAH STANLEY Self - patient is the insured Medical (General) History Medical History History ICD Code Hypertension Denies NC,DM,Lung disease,renal disease Alcohol abuse At [facility] 10/09-11/01/12 for asci rick, resp failure, [...] gallbladder--has seen 2 different surgeons at [facility]--including the liver transplant surgeon, Dr. Morris--but they think he is too high risk for gallbladdder surgery EGD in 07/2012 with minimal Gr I varices and gastritis, HH, and duodenitis Stroke 01/2016--received TPA--no residual Atrial fibrillation Right renal lesion-sees Dr. 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 He had the surgery as below. Cancer [...]
--- OUTSIDE RECORDS SUMMARY | 2025-03-19 15:54 | XMS_ITS | Encounter Summary ---
Author Organization [facility] Address [address] [place] [address] Care Team Providers Care Remelt Operator Name Role Phone Julio Ware Primary Care Provider [phone] Encounter Details Date Type Department Care Team (Late st Contact Info) Description 07/29/2022 Orders Only [facility] Interventional Radiology [address] [place] [address] [phone] Gregory Jack MD [address] [place] [address] [phone] Social History Tobacco Use Types Packs/Day Years [...] documented as of this encounter Care Teams Remelt Operator Relationship Specialty Start Date End Date Julio Ware [address] [place] [address] PCP - General Internal Medicine 07/29/22 documented as of this encounter
--- OUTSIDE RECORDS SUMMARY | 2025-03-19 15:54 | XMS_ITS | Encounter Summary ---
Author Organization [facility] Address [address] [place] [address] Care Team Providers Care Splitter Tender Name Role Phone Julio Ware Primary Care Provider [phone] Encounter Details Date Type Department Care Team (Late st Contact Info) Description 11/16/2022 Orders Only [facility] Interventional Radiology [address] [place] [address] Patrick Noel MD [address] [place] [id number] Social History Tobacco Use Types Packs/Day Years [...] documented as of this encounter Care Teams Splitter Tender Relationship Specialty Start Date End Date Julio Ware [address] [place] [address] PCP - General Internal Medicine 07/29/22 documented as of this encounter
== END 2025-03-19 13:43 | disposition home or self-care (01) ==
LOC: HO.HPSW 12:59
PROVIDERS: PCP Internal Medicine; Visit Provider Nurse Practitioner Family
DX: J44.9 Chronic obstructive pulmonary disease, unspecified (principal); R91.8 Other nonspecific abnormal finding of lung field; Z85.528 Personal history of other malignant neoplasm of kidney
CPT/HCPCS: 99204

== ENCOUNTER 2025-05-22 12:22 | Outpatient (AMB) | payer OTHER, SELFPAY ==
[2025-05-22 12:23] VITALS: BP 136/80; PULSE 65; O2SAT 95; BMI 31.5
--- NOTE | 2025-05-22 12:23 | MHC.PC.OV ---
Vital Signs 05/22/25 12:23 Height 5 ft 9 in Weight 213 lb BMI 31.5 BP 136/80 Blood Pressure Location Rt brachial Position Sitting Pulse 65 Pulse Source Pulse Oximeter Pulse Oximetry (%) 95 Intake Visit Reasons: PE Allergies duloxetine Allergy (Unknown, Verified 05/22/25 12:24) psychotic episodes Seasonal Allergies Allergy (Verified 05/22/25 12:24) Itchy Eyes lorazepam (From ATIVAN) Adverse Reaction (Unknown, Verified 05/22/25 12:24) AGITATION Medication List - Last Reconciled 05/22/25 by Julio Ware MD albuterol sulfate 90 mcg/actuation 1 inh inhalation QID PRN 30 days amlodipine 2.5 mg PO DAILY cholestyramine (with sugar) 4 gram 4 ea PO DAILY fluticasone furoate-vilanterol 100-25 mcg/dose (Breo Ellipta) 1 inh inhalation DAILY nadolol 20 mg PO QAM olanzapine 10 mg PO BEDTIME omeprazole 40 mg PO BID oxcarbazepine 150 mg PO BID Tobacco use date assessed: 05/22/25 Fall risk assessment: No Falls in past year Last assessed Fall Risk: 05/22/25 Dental Screening Dental Screen Date: 05/22/25 Did you have a dental visit in the last 12 months?: Yes Did you have a dental problem in the last 6 months where you did not have access to dental care?: No Was dental information given to patient?: Patient has dentist HPI HPI Comments History of Present Illness Details History of Present Illness The patient is a 64 year old individual presenting for an annual physical exam. Renal History: - The patient has a history of a single kidney following a nephrectomy for renal cancer. - The patient is followed by a brushing machine operator, Dr. Donaldson, and a urologist at [facility] for a complex renal cyst. - Recent labs from December show a stable GFR of 52.7 and creatinine of 1.55. Hypertension: - The patient is on amlodipine 2.5 mg for high blood pressure. - Today's blood pressure reading is 136/80, which is an improvement from the last visit. Gastrointestinal History: - The patient has a history of a cholecystectomy for a porcelain gallbladder. - The patient underwent a colonoscopy in June of this year, which revealed a hyperplastic polyp, diverticulosis, and hemorrhoids. - The patient follows with Dr. Reyes for gastroenterology. Pulmonary History: - The patient recently established care with a new membership assistant, Dr. Steiner, in [place]. - The patient uses a Breo inhaler. Psychiatric History: - The patient continues to see a psychiatrist and takes olanzapine and oxycarbazepine. Balance Impairment and Muscle Stiffness: - The patient reports having some difficulty with balance. - Examination revealed balance issues and muscle stiffness, prompting a suggestion for a neurology evaluation to rule out Parkinson's disease or medication side effects. - The patient declined the neurology referral at this time. Tobacco Use: - The patient continues to smoke with no change in habit. instructed to stop kannan Vitamin D Deficiency: - Lab results revealed a low vitamin D level. - The patient takes a multivitamin but is unsure if it contains vitamin D. Medical History: - Renal Cancer, status post nephrectomy - Single kidney status - Complex renal cyst - Chronic kidney disease, stable - Hypertension - Porcelain gallbladder, status post cholecystectomy - Hyperplastic colon polyp - Diverticulosis - Hemorrhoids - Psychiatric condition - Vitamin D deficiency Surgical History: - Nephrectomy secondary to renal cancer - Cholecystectomy for porcelain gallbladder Social History: - Tobacco use: The patient continues to smoke. Health Maintenance - Colonoscopy: Performed in June of this year, which found a hyperplastic polyp, diverticulosis, and hemorrhoids. - Immunizations: The patient is up to date on the tetanus and pneumonia 20 vaccines. - The patient was advised to get the senior dose flu vaccine. - Labs: An order will be placed for fasting blood tests to check sugar and cholesterol. Three Aff[facility] of Care - Pulmonology: Dr. Steiner - Nephrology: Dr. Donaldson - Urology: Seen at [facility] - Gastroenterology: Dr. Reyes - Psychiatry: The patient is followed by a psychiatrist. [facility] Medical History CVA (cerebral vascular accident) Difficulty sleeping Anxiety, generalized Porcelain gallbladder Ascites Alcohol abuse Irritable bowel syndrome Chronic GERD Paroxysmal atrial fibrillation Tobacco abuse Surgical History Hx of esophagogastroduodenoscopy History of colonoscopy H/O exploratory laparotomy Family History Father Cerebrovascular disease Diabetes mellitus HTN (hypertension) Hx of CABG Mother Lung cancer Maternal Grandmother Myocardial infarction Maternal Grandfather Lung cancer Paternal Grandmother Cerebrovascular disease Paternal Uncle Lung cancer Brother No problems noted. Brother No problems noted. Son No problems noted. Son No problems noted. Other Mental health disorder Substance use disorder Social History Household Members: Spouse and Children Housing: House Alcohol intake: current Alcohol intake frequency: former alcohol drinker Patient Tobacco Use Status: Current everyday Tobacco user Tobacco use type: Cigarette Cigarette Packs Per Day: 1 Cigarettes Per Day: 20 Years Smoked: 50 years e-Cigarette/Vaping Use: Currently Using Substance Use Type: Other service: No Current occupational status: disabled Cognitive needs: No Hearing needs: No Vision needs: Yes Questionnaire PHQ-9 Over the last 2 weeks, how often have you been bothered by any of the following problems? 1. Little interest or pleasure in doing things: not at all 2. Feeling down, depressed, or hopeless: not at all 3. Trouble falling or staying asleep, or sleeping too much: not at all 4. Feeling tired or having little energy: not at all 5. Poor appetite or overeating: not at all 6. Feeling bad about yourself - or that you are a failure or have let yourself or your family down: not at all 7. Trouble concentrating on things, such as reading the newspaper or watching television: not at all 8. Moving or speaking so slowly that other people could have noticed. Or the opposite - being so fidgety or restless that you have been moving around a lot more than usual: not at all 9. Thoughts that you would be better off or of hurting yourself in some way: not at all Total score: 0 Depression Screening Interpretation: Negative Depression Screening Done: Yes 36748 - PHQ-9 Billing: Yes Source: Developed by Drs. Frankie Ramsey, Betsy Tavarez, Robby Khan and colleagues, with an educational jason from [employer]. Thrive Questionnaire Date Thrive assessed: 05/22/25 I am a: Patient What is your living situation today?: I have a steady place to live Within the past 12 months, did the food you bought not last and you didn't have the money to get more?: Never true Within the past 12 months, did you worry whether your food would run out before you got money to buy more?: Never true Do you have trouble paying for medicines?: No Do you have trouble getting transportation to medical appointments?: No Do you have trouble paying your heating and electricity bill?: No Do you have trouble taking care of your child, family member or friend?: No Do you have trouble with day-to-day activities such as bathing, preparing meals, shopping, managing finances, etc.?: No Are you currently unemployed and looking for a job?: No Are you interested in more education?: No THRIVE Score: 0 AUDIT C Alcohol Use Questionnaire (AUDIT-C) 1. How often do you have a drink containing alcohol?: Never 3. How often do you have six or more drinks on one occasion?: Never Total Score: 0 Score Reviewed/Action Taken: Yes GLORIA-7 AMB Questionnaire GLORIA-7 Date GLORIA - 7 assessed: 05/22/25 Feeling nervous, anxious, or on edge: 0 = Not at all Not being able to stop or control worryin = Not at all Worrying too much about different things: 0 = Not at all Trouble relaxin = Not at all Being so restless that it is hard to sit still: 0 = Not at all Becoming easily annoyed or irritable: 0 = Not at all Feeling afraid as if something awful might happen: 0 = Not at all Total GLORIA-7 score (0-4 normal; 5-9 mild; 10-14 moderate; 15-21 severe): 0 Source: Developed by Drs. Frankie Ramsey, Betsy Tavarez, Robby Khan and colleagues, with an educational jason from [employer]. GLORIA-7 Assessment Billing GLORIA-7 Assessment Tool: GLORIA-7 Assessment 72278 Review of Systems Narrative Review of Systems - General: No fever no chills - Neurological: No headaches no dizziness - Ear nose throat: No sore throat no hearing difficulty no ear pain - Cardiovascular: No syncope, no chest pain, no palpitations - Gastrointestinal: No nausea vomiting or diarrhea - Skin: No new complaints Physical exam (Primary Care) Vital Signs: Last Vital Signs Pulse 65 05/22/25 12:23 BP 136/80 05/22/25 12:23 Pulse Ox 95 05/22/25 12:23 BMI result Body Mass Index 31.5 Tobacco/Smoking Status: Tobacco use Status Tobacco use date assessed 05/22/25 05/22/25 12:26 Patient Tobacco Use Status Current everyday Tobacco 05/22/25 12:26 Tobacco use type Cigarette 05/22/25 12:26 e-Cigarette/Vaping Use Currently Using 05/22/25 12:26 PHQ-9: PHQ-9 Score PHQ-9: Total score 0 05/22/25 12:26 Depression Screening Interpretation: Negative Thrive Assessment: Date of Thrive Assessment Date Thrive assessed 05/22/25 05/22/25 12:26 Narrative Diagnostic results - Labs (December): GFR 52.7, creatinine 1.55 (stable). - Labs (December): Liver enzymes are normal. - Labs (Last year): Cholesterol was 110, B12 was normal. - Labs (Prior): Vitamin D level is low. - Colonoscopy (June this year): Findings included a hyperplastic polyp, diverticulosis, and hemorrhoids. Physical Exam General: Cooperative, healthy appearing, comfortable, no acute distress Orientation: Patient oriented x3 Head: Normal to inspection Ears: Within normal limit visually Nose: Normal external nose present Face and sinus: Normal facial exam Eyes: Appearance normal, extraocular movement intact pupils reactive Neck: Normal visual inspection and supple Respiratory: Normal respiratory effort and able to speak in complete sentences. Clear to auscultation, no stridor Cardiovascular: S1 and S2 RRR GI: Normal to inspection. Soft to palpation and nontender Skin: Turgor normal, no acute findings Neuro: Patient oriented x3, motor intact, balance slightly off, some muscle stiffness observed Extremities: Normal to inspection, no swelling in ankles . Coding Level of Care Code Est Pt Level 3 (56032) Est Pt Prev Care >65y(64911) Diagnoses Encounter for general adult medical examination with abnormal findings Z00.01 Muscle stiffness M62.89 CKD (chronic kidney disease) stage 3, GFR 30-59 ml/min N18.30 Other emphysema J43.8 COPD type: emphysema Emphysema type: other Class 1 obesity due to excess calories with serious comorbidity and body mass index (BMI) of 31.0 to 31.9 in adult E66.811; E66.09; Z68.31 Obesity classification: adult class 1 (BMI 30 - 34.9) Serious obesity comorbidity presence: with serious comorbidity Body mass index: BMI 31.0-31.9 Anxiety, generalized F41.1 Tobacco abuse Z72.0 Abnormal tandem walk R26.9 Status post nephrectomy Z90.5 History of renal carcinoma Z85.528 Chronic GERD K21.9 Psychiatric illness F99 Additional Codes GLORIA-7 Assessment Billing - GLORIA-7 Assessment Tool: GLORIA-7 Assessment 25605 ([id number]) PHQ-9 - 17264 - PHQ-9 Billing: Yes ([id number]) Assessment & Plan Assessment & Plan (1) Encounter for general adult medical examination with abnormal findings: Code(s): Z00.01 - Encounter for general adult medical examination with abnormal findings Category: Medical (2) Muscle stiffness: Code(s): M62.89 - Other specified disorders of muscle Category: Medical (3) CKD (chronic kidney disease) stage 3, GFR 30-59 ml/min: Code(s): N18.30 - Chronic kidney disease, stage 3 unspecified Category: Medical (4) COPD (chronic obstructive pulmonary disease): Code(s): J44.9 - Chronic obstructive pulmonary disease, unspecified Category: Medical Qualifiers: COPD type: emphysema Emphysema type: other Qualified Code(s): J43.8 - Other emphysema (5) Obesity due to excess calories: Code(s): E66.09 - Other obesity due to excess calories Category: Medical Qualifiers: Obesity classification: adult class 1 (BMI 30 - 34.9) Serious obesity comorbidity presence: with serious comorbidity Body mass index: BMI 31.0-31.9 Qualified Code(s): E66.811 - Obesity, class 1; E66.09 - Other obesity due to excess calories; Z68.31 - Body mass index [BMI] 31.0-31.9, adult (6) Anxiety, generalized: Code(s): F41.1 - Generalized anxiety disorder Category: Medical (7) Tobacco abuse: Code(s): Z72.0 - Tobacco use Category: Medical (8) Abnormal tandem walk: Code(s): R26.9 - Unspecified abnormalities of gait and mobility Category: Medical (9) Status post nephrectomy: Code(s): Z90.5 - Acquired absence of kidney Category: Medical (10) History of renal carcinoma: Code(s): Z85.528 - Personal history of other malignant neoplasm of kidney Category: Medical (11) Chronic GERD: Code(s): K21.9 - Gastro-esophageal reflux disease without esophagitis Category: Medical (12) Psychiatric illness: Code(s): F99 - Mental disorder, not otherwise specified Category: Medical Plan Patient Instructions - You should take a vitamin D supplement because your level is low. - If you feel your balance problem is getting worse, please let the office know. - You need to get a flu vaccine for this year. You can get the senior dose (for age 65 and up) from a pharmacy. - Go to the lab for a fasting blood test to check your sugar and cholesterol. You should not eat breakfast before the test. You do not need a paper order or an appointment. - You can book your next appointment at the hotel front office manager before you leave. - stop smoking kannan Orders: Orders Lipid Panel Today F10.10 - Alcohol abuse, uncomplicated, F41.1 - Generalized anxiety disorder, F99 - Mental disorder, not otherwise specified, J44.9 - Chronic obstructive pulmonary disease, unspecified, K21.9 - Gastro-esophageal reflux disease without esophagitis, N18.30 - Chronic kidney disease, stage 3 unspecified, Z00.01 - Encounter for general adult medical examination with abnormal findings, Z85.528 - Personal history of other malignant neoplasm of kidney, Z90.5 - Acquired absence of kidney Vitamin D 25-OH (D2 and D3) Today F10.10 - Alcohol abuse, uncomplicated, F41.1 - Generalized anxiety disorder, F99 - Mental disorder, not otherwise specified, J44.9 - Chronic obstructive pulmonary disease, unspecified, K21.9 - Gastro-esophageal reflux disease without esophagitis, N18.30 - Chronic kidney disease, stage 3 unspecified, Z00.01 - Encounter for general adult medical examination with abnormal findings, Z85.528 - Personal history of other malignant neoplasm of kidney, Z90.5 - Acquired absence of kidney Complete Blood Count Auto Diff Today F10.10 - Alcohol abuse, uncomplicated, F41.1 - Generalized anxiety disorder, F99 - Mental disorder, not otherwise specified, J44.9 - Chronic obstructive pulmonary disease, unspecified, K21.9 - Gastro-esophageal reflux disease without esophagitis, N18.30 - Chronic kidney disease, stage 3 unspecified, Z00.01 - Encounter for general adult medical examination with abnormal findings, Z85.528 - Personal history of other malignant neoplasm of kidney, Z90.5 - Acquired absence of kidney Comprehensive [place]. Panel Fast Today F10.10 - Alcohol abuse, uncomplicated, F41.1 - Generalized anxiety disorder, F99 - Mental disorder, not otherwise specified, J44.9 - Chronic obstructive pulmonary disease, unspecified, K21.9 - Gastro-esophageal reflux disease without esophagitis, N18.30 - Chronic kidney disease, stage 3 unspecified, Z00.01 - Encounter for general adult medical examination with abnormal findings, Z85.528 - Personal history of other malignant neoplasm of kidney, Z90.5 - Acquired absence of kidney TSH reflex Free T4 Today F10.10 - Alcohol abuse, uncomplicated, F41.1 - Generalized anxiety disorder, F99 - Mental disorder, not otherwise specified, J44.9 - Chronic obstructive pulmonary disease, unspecified, K21.9 - Gastro-esophageal reflux disease without esophagitis, N18.30 - Chronic kidney disease, stage 3 unspecified, Z00.01 - Encounter for general adult medical examination with abnormal findings, Z85.528 - Personal history of other malignant neoplasm of kidney, Z90.5 - Acquired absence of kidney
--- OUTSIDE RECORDS SUMMARY | 2025-05-22 15:25 | XMS_ITS | Encounter Summary ---
Author Organization [facility] Address [address] [place] [address] Care Team Providers Care Respiratory Care Faculty Name Role Phone Julio Ware Primary Care Provider [phone] Encounter Details Date Type Department Care Team (Late st Contact Info) Description 07/29/2022 Orders Only [facility] Interventional Radiology [address] [place] [address] [phone] Gregory Jack MD [address] [place] [address] [phone] Social History Tobacco Use Types Packs/Day Years [...] documented as of this encounter Care Teams Respiratory Care Faculty Relationship Specialty Start Date End Date Julio Ware [address] [place] [address] PCP - General Internal Medicine 07/29/22 documented as of this encounter
--- OUTSIDE RECORDS SUMMARY | 2025-05-22 15:25 | XMS_ITS | Clinical Summary ---
Author Organization [facility] it[facility] Address [address] [place] [address] Care Team Providers Care Manager Clinical Name Role Phone Unavailable Primary Care Provider [...] Depression Screening 06/27/2024 COVID-19 Vaccine (1 - 2024-2 6 season) 2025 Influenza Vaccine (#1) 2025 RSV [...]
--- OUTSIDE RECORDS SUMMARY | 2025-05-22 15:25 | XMS_ITS | Clinical Summary ---
Author Organization [facility] Address [address] [place] [address] Care Team Providers Care Production Operations Manager Name Role Phone Julio Ware Primary Care Provider [phone] Allergies Active Allergy Reactions Criticality Noted Date [...] Alcoholic cirrhosis 10/01/2022 10/01/2022 Lesion of right [place] fork kidney 01/22/2016 Hypertension 01/08/2015 Esophageal reflux 01/08/2015 [...] Test 1958 Sigmoidoscopy 1958 COVID-19 Vaccine (#1) 04/17/1959 Zoster Vaccines (1 of 2) 1977 DTaP,Tdap,and Td Vaccines (1 - Tdap) 1980 CT Lung Cancer Screening (Baseline) 2008 RSV Vaccine (60+ years old a nd patients) (1 - Risk 50-74 years 1-dose series) 2008 Pneumococcal Vaccine: 50+ Ye ars (2 of 2 - PCV) 10/19/2013 10/19/2012 Hepatitis B Vaccines (1 of 3 - Risk 3-dose series) 2018 Basic Metabolic Panel 10/28/2023 10/27/2022 , 10/26/2022, 10/25/2022, Additional history exists Alcohol/Substance Use Screening 06/27/2024 Depression Screening and Follow-Up 06/27/2024 Fall Risk Screening 06/27/2024 Health Care Proxy Review 06/27/2024 Social Drivers of Health Sara ual Screening 06/27/2024 Influenza Vaccine (#1) 2025 04/20/2022, 2019 Hepatitis C Screening Completed 12/19/2015 Procedures * Due to [place] BUILD law, this organization might not be sharing negative HIV tests. Procedure Name Priority Date/Time Associated Diagnosis Comments BASIC METABOLIC PANEL Routine 10/27/2022 4:47 AM EDT HEPATITIS C ANTIBODY W/REFLEX TO HCV RNA, QUANTITATIVE PCR Routine 12/19/2015 12:13 PM EDT from Last 3 Months or Most Recently Relevant to Health Maintenance Results * Due to [place] BUILD law, this organization might not be sharing negative HIV tests. * (ABNORMAL) Basic Metabolic Panel (10/27/2022 4:47 AM EDT) NA 137 135 - 145 mmol/L 10/27/2022 5:30 AM [facility] K 3.7 3.5 - 5.3 mmol/L 10/27/2022 5:30 AM [facility] Cl 107 97 - 110 mmol/L 10/27/2022 5:30 AM [facility] CO2 24 24 - 32 mmol/L 10/27/2022 5:30 AM [facility] BUN 14 7 - 23 mg/dL 10/27/2022 5:30 AM [facility] Creatinine 1.37(H) 0.60 - 1.30 mg/dL 10/27/2022 5:30 AM [facility] Glucose 91 70 - 99 mg/dL 10/27/2022 5:30 AM [facility] Calcium 8.7 8.7 - 10.7 mg/dL 10/27/2022 5:30 AM [facility] Anion Gap 6 5 - 15 10/27/2022 5:30 AM [facility] eGFR 58(L) >=90 mL/min/1. 73m2 10/27/2022 5:30 AM [facility] Comment: Estimated Glomerular [...] MD LAB BLOOD ORDERABLES Final Re sult [facility] [address] [place] [address], [place] * Hepatitis C Antibody w/Reflex to HCV RNA, Quantitative PCR (12/19/2015 12:13 PM EDT) Hepatitis C Antibody NON-REACTI VE NON-REACT [facility] Signal To Cut-Off 0.04 <1.00 [facility] 12/19/2015 12:1 3 PM EDT 12/19/2015 12:59 PM EDT Anisha Armendariz MARKER HAND LAB BLOOD ORDERABLES Final Res ult Performing Organization Address City/[facility]/ZIP Co de Phone Number CHETAN SOLORIO from Last 3 Months or Most Recently Relevant to Health Maintenance Additional Health Concerns Infection Onset Date Last Indicated Multidrug resistant organisms ESBL 10/19/2022 10/19/[address] [place] [address] [employer] Advance Directives Documents on File Type Date Recorded Patient Slip Injector And Applicator Expl anation Health Care Proxy 10/15/2022 8:45 [...] Agents on File Name Relationship Healthcare Agent [facility] p Communication Phuong Lindsey Spouse [facility] Health Care Agen Care Teams Production Operations Manager Relationship Specialty Start Date End Date ChazJulio matos [address] [place] [address] PCP - General Internal Medicine 07/29/22
--- OUTSIDE RECORDS SUMMARY | 2025-05-22 15:25 | XMS_ITS | Encounter Summary ---
Author Organization [facility] Address [address] [place] [address] Care Team Providers Care Electro Mechanical Technician Name Role Phone Julio Ware Primary Care Provider [phone] Encounter Details Date Type Department Care Team (Late st Contact Info) Description 11/16/2022 Orders Only [facility] Interventional Radiology [address] [place] [address] Patrick Noel MD [address] [place] [phone] Social History Tobacco Use Types Packs/Day Years [...] documented as of this encounter Care Teams Electro Mechanical Technician Relationship Specialty Start Date End Date Julio Ware [address] [place] [address] PCP - General Internal Medicine 07/29/22 documented as of this encounter
--- OUTSIDE RECORDS SUMMARY | 2025-05-22 15:25 | XMS_ITS | Encounter Summary ---
Author Organization [facility] Address [address] [place] [address] Care Team Providers Care Logistics Account Manager Name Role Phone Julio Ware Primary Care Provider [phone] Reason for Visit * Reason Onset Date Comments RESCHEDULE APPT 07/19/2022 Encounter Details Date Type Department Care Team (Late st Contact Info) Description 07/19/2022 Telephone [facility] Pediatric Urology [address] [place] [address] [employer] Supervisor: Pilar Underwood Telephone Intake, Staff RESCHEDULE APPT [...] call Miah back with sooner appt date: [phone] documented in this encounter Plan of Treatment Not on file documented as of this encounter Visit Diagnoses Not on filedocumented in this encounter Additional Health Concerns Infection Onset Date Last Indicated Resolved Time Multidrug resistant organisms ESBL 10/19/20222022 documented as of this encounter Care Teams Logistics Account Manager Relationship Specialty Start Date End Date Julio Ware [address] [place] [address] PCP - General Internal Medicine 07/29/22 documented as of this encounter
--- OUTSIDE RECORDS SUMMARY | 2025-05-22 15:25 | XMS_ITS ---
Author Organization [facility] Address [address] [place] [address] Care Team Providers Care Porcelain Technician Name Role Phone Julio Ware Primary Care Provider [phone] Active Problems Problem Noted Date Diagnosed Date [...] Alcoholic cirrhosis 10/01/2022 10/01/2022 Lesion of right [place] kidney 01/22/2016 Hypertension 01/08/2015 Esophageal reflux 01/08/2015 [...] TotalDLP 3,643 mGy 3,643 mGy 0 mGy [id number] 44 mSv 44 mSv 0 mSv CTDIvol Max 74.4 mGy 74.4 mGy 0 mGy CTDIvol Min 36.4 mGy 36.4 mGy 0 mGy Radiation - mGy 216.4 mGy 216.4 mGy 0 mGy
--- OUTSIDE RECORDS SUMMARY | 2025-05-22 15:25 | XMS_ITS | Encounter Summary ---
Author Organization [facility] Address [address] [place] [address] Care Team Providers Care Drafting Layout Worker Name Role Phone Julio Ware Primary Care Provider Encounter Details Date Type Department Care Team (Late st Contact Info) Description 10/27/2022 Orders Only [facility] Xray [address] [place] [address] Severino Green MD [address] [place], [place] [phone] Social History Tobacco Use Types Packs/Day Years [...] AM EDT documented as of this encounter Functional Status documented as of this encounter Plan of Treatment Not on file documented as of this encounter Visit Diagnoses Not on filedocumented in this encounter Additional Health Concerns Infection Onset Date Last Indicated Resolved Time Multidrug resistant organisms ESBL 10/19/20222022 documented as of this encounter Care Teams Drafting Layout Worker Relationship Specialty Start Date End Date Chaz Julio [address] [place] [address] PCP - General Internal Medicine 2/2/23 documented as of this encounter
--- OUTSIDE RECORDS SUMMARY | 2025-05-22 15:25 | XMS_ITS | Encounter Summary ---
Author Organization [facility] Address [address] [place] [address] Care Team Providers Care Real Estate Legal Secretary Name Role Phone Julio Ware Primary Care Provider [phone] Encounter Details Date Type Department Care Team (Late st Contact Info) Description 11/03/2022 Orders Only [facility] Interventional Radiology [address] [place] [address] [phone] Gregory Jack MD [address] [place] [address] [phone] Social History Tobacco Use Types Packs/Day Years [...] documented as of this encounter Care Teams Real Estate Legal Secretary Relationship Specialty Start Date End Date Julio Ware [address] [place] [address] PCP - General Internal Medicine 07/29/22 documented as of this encounter
== END 2025-05-22 12:51 | disposition home or self-care (01) ==
LOC: HO.HMCC 12:22
PROVIDERS: PCP Internal Medicine; Visit Provider Internal Medicine
DX: Z00.01 Encounter for general adult medical examination with abnormal findings (principal); N18.30 Chronic kidney disease, stage 3 unspecified; J43.8 Other emphysema; E66.811 Obesity, class 1; Z68.31 Body mass index [BMI] 31.0-31.9, adult; E66.09 Other obesity due to excess calories; M62.89 Other specified disorders of muscle; F41.1 Generalized anxiety disorder; Z72.0 Tobacco use; R26.9 Unspecified abnormalities of gait and mobility; Z90.5 Acquired absence of kidney; Z85.528 Personal history of other malignant neoplasm of kidney; K21.9 Gastro-esophageal reflux disease without esophagitis; F99 Mental disorder, not otherwise specified

== ENCOUNTER → 2025-05-22 12:22 | Outpatient (BNVA) | payer OTHER, SELFPAY | PROVIDERS: PCP Internal Medicine; Visit Provider Internal Medicine | DX: Z00.01 Encounter for general adult medical examination with abnormal findings (principal); M62.89 Other specified disorders of muscle; I12.9 Hypertensive chronic kidney disease with stage 1 through stage 4 chronic kidney disease, or unspecified chronic kidney disease; N18.30 Chronic kidney disease, stage 3 unspecified; J43.8 Other emphysema; E66.811 Obesity, class 1; E66.09 Other obesity due to excess calories; F41.1 Generalized anxiety disorder; R26.9 Unspecified abnormalities of gait and mobility; Z90.5 Acquired absence of kidney; Z85.528 Personal history of other malignant neoplasm of kidney; K21.9 Gastro-esophageal reflux disease without esophagitis; F17.210 Nicotine dependence, cigarettes, uncomplicated; Z68.31 Body mass index [BMI] 31.0-31.9, adult | CPT/HCPCS: 96127 ==

== ENCOUNTER 2025-06-13 14:45 | Outpatient (REF) | payer OTHER, SELFPAY ==
--- OUTSIDE RECORDS SUMMARY | 2024-07-23 05:30 | XMS_ITS ---
Author Organization [facility] Address [address] [place] [phone] Care Team Providers Care Insole Filler Name Role Phone Chaz OLIV[facility], [facility] Primary [facility] Provider Frankie Meyers [phone] REASON FOR VISIT screening,hx polyps Problems Problem Type SNOMED Code ICD Code Onset Dates Problem Status W/U Status Risk Notes Problem Diverticular disease of colon (047657375) Diverticulosis of large intestine without perforation or abscess without bleeding (K57.30) Active confirmed Encounters Encounter Location Date Provider Diagnosis [facility] Outpatient [address] [place] [phone] 07/23/2024 Frankie Reyes Colon cancer scree osorio [...] Notes * EUGENIO STANLEYDOB:1960 (64 yo M)Acc No.[id number]:07/23/2024 COLON WITH MAC Patient: EUGENIO MONIQUE Provider: Karen Reyes MD :1960 A ge:63 Y S ex:Male Date:07/23/2024 Address: [id number] Pcp:Julio Ware MD Subjective: * Chief Complaints: [...] Modifiers: 1P Billing Information: * Procedure Codes: 84413 LESION REMOVAL COLONOSCOPY. Modifiers: PT 0529F INTRVL [...] 0 07/23/2024 Generated for Adenike enamorado/Ashwin/Reganitting on: 08/14/2024 06:53 PM EST
--- NOTE | ~2025-06-13 | CT_ITS ---
EXAMINATION: CT CHEST WITHOUT CONTRAST CLINICAL INFORMATION: 2 month follow-up, renal CA, numerous lung nodules, follow-up. COMPARISON: 02/23/2025, 02/28/2024. 09/19/2023. TECHNIQUE: Multidetector volumetric CT imaging of the chest was done. Axial MIP volume rendering provided. Sagittal and coronal reformatted images were obtained. This CT examination was performed using dose optimization techniques as appropriate, variously including the following: *Automated exposure control *Adjustment of mA and/or kV according to patient size (this includes techniques or standardized protocols for targeted exams where dose is matched to indication/reason for exam; i.e. extremities or head) *Use of iterative reconstruction technique FINDINGS: NODULES: 4 mm nodule right upper lobe anteriorly (series 6, image 122), unchanged. 3 mm nodule left upper lobe posteriorly (series 6, image 229), unchanged. 5 mm nodule right middle lobe centrally (series 6, image 276), unchanged. 4 mm nodule lateral right middle lobe (series 6, image 266), unchanged. 4 mm nodule superior segment right lower lobe (series 6, image 269), previously 2 mm. 3 mm nodule central right lower lobe (series 6, image 276), previously 2 mm. 5 mm nodule medial left upper lobe (series 6, image 118), unchanged. Several additional left nodules are unchanged measuring up to 4 mm. There are no new nodules identified LUNGS: Stable reticular changes in the posterior right upper lobe, along the minor fissure, and involving the lingula and posterior lower lobes left greater than right. No significant bronchiectasis. Minimal thickening of the small airways is unchanged from the prior. There are no effusions. MEDIASTINUM: Minimally heterogeneous thyroid without dominant nodule present. There is no lymphadenopathy or mass. A reactive right paratracheal lymph node is stable in appearance. It has a large fatty hilum. Similar mild thickening of the distal esophagus, possibly on basis of esophagitis. The heart size is top normal. There is calcification of the mitral annulus. There is no pericardial effusion. The central airways are patent. The aorta is nonaneurysmal with mild calcification. The pulmonary trunk is minimally prominent however not pathologically enlarged. CORONARY ARTERY CALCIFICATION: Moderate PLEURA: There is no pleural effusion. No pleural mass or thickening. AXILLA/CHEST WALL: There is similar severe bilateral male gynecomastia. There are similar venous collaterals in the left chest wall, possibly due to stenosis of the left brachiocephalic vein from indwelling catheters. Correlation with history recommended. No abnormal lymph nodes or masses. UPPER ABDOMEN: Cirrhosis of the liver, unchanged. No definite lesion allowing for noncontrast technique. There is trace perihepatic ascites. There are gastric varices present. The spleen is mildly enlarged, unchanged. Stable 1.4 cm nodule in the left adrenal gland. OSSEOUS STRUCTURES: Mild degenerative changes of the spine and sternoclavicular joints. No suspicious lytic or blastic bone lesions evident. CT/CT chest wo IV con IMPRESSION: 1. Numerous bilateral pulmonary nodules as described above. No definite new nodules are present, however a 4 mm nodule in the superior segment right lower lobe has doubled in size, previously measuring 2 mm. Similarly, a 3 mm nodule in the central right lower lobe previously measured 2 mm, minimally increased in size. The remainder of the pulmonary nodules are all stable in size, largest 5 mm, without definitive change. Given patient history of malignancy and findings of 2 mildly enlarging nodules, continued short interval surveillance recommended. 2. Stable parenchymal changes of scarring in the right upper lobe, and bilateral posterior lower lobes. 3. Ancillary findings, stable from prior exams. See above for details. Electronically signed by: Anibal Ventura MD 06/13/2025 04:20 PM [facility]
--- OUTSIDE RECORDS SUMMARY | 2025-06-13 18:53 | XMS_ITS | Encounter Summary ---
Author Organization [facility] Address [address] [place] [address] Care Team Providers Care Call Or Contact Centre Coach Name Role Phone Julio Ware Primary Care Provider [phone] Encounter Details Date Type Department Care Team (Late st Contact Info) Description 11/16/2022 Orders Only [facility] Interventional Radiology [address] [place] [address] Patrick Noel MD [address] [place] [phone] Social History Tobacco Use Types Packs/Day Years [...] documented as of this encounter Care Teams Call Or Contact Centre Coach Relationship Specialty Start Date End Date Julio Ware [address] [place] [address] PCP - General Internal Medicine 07/29/22 documented as of this encounter
--- OUTSIDE RECORDS SUMMARY | 2025-06-13 18:53 | XMS_ITS | Encounter Summary ---
Author Organization [facility] Address [address] [place] [address] Care Team Providers Care Senior Software Systems Engineer Name Role Phone Julio Ware Primary Care Provider [phone] Reason for Visit * Reason Onset Date Comments RESCHEDULE APPT 07/19/2022 Encounter Details Date Type Department Care Team (Late st Contact Info) Description 07/19/2022 Telephone [facility] Pediatric Urology [address] [place] [address] Operations Plant Attendant: Pilar Underwood Telephone Intake, Staff RESCHEDULE APPT [...] @ 1pm * Telephone Encounter - Dorothy Rhonda - 07/19/2022 3:28 PM EST Lvm w [...] call Miah back with sooner appt date: [phone] documented in this encounter Plan of Treatment Not on file documented as of this encounter Visit Diagnoses Not on filedocumented in this encounter Additional Health Concerns Infection Onset Date Last Indicated Resolved Time Multidrug resistant organisms ESBL 10/19/20222022 documented as of this encounter Care Teams Senior Software Systems Engineer Relationship Specialty Start Date End Date Julio Ware [address] [place] [address] PCP - General Internal Medicine 07/29/22 documented as of this encounter
--- OUTSIDE RECORDS SUMMARY | 2025-06-13 18:53 | XMS_ITS | Clinical Summary ---
Author Organization [employer] [facility] Address [address] [place] [address] Care Team Providers Care Bond Clerk Name Role Phone Unavailable Primary Care Provider [...]
--- OUTSIDE RECORDS SUMMARY | 2025-06-13 18:53 | XMS_ITS | Encounter Summary ---
Author Organization [facility] Address [address] [place] [address] Care Team Providers Care Homicide Investigator Name Role Phone Julio Ware Primary Care Provider [phone] Encounter Details Date Type Department Care Team (Late st Contact Info) Description 11/03/2022 Orders Only [facility] Interventional Radiology [address] [place] [address] [phone] Gregory Jack MD [address] [place] [address] [phone] Social History Tobacco Use Types Packs/Day Years [...] documented as of this encounter Care Teams Homicide Investigator Relationship Specialty Start Date End Date Julio Ware [address] [place] [address] PCP - General Internal Medicine 07/29/22 documented as of this encounter
--- OUTSIDE RECORDS SUMMARY | 2025-06-13 18:53 | XMS_ITS | Patient Health Record ---
Author Organization [facility] Address [address] [place] [address] Care Team Providers Care Quality Assurance Inspector Name Role Phone Chaz OLIVA, [facility] Primary Care Provider Frankie Meyers [phone] Allergies Allergen (clinical drug ingredient) Drug/Non Drug Allergy documented on EMR Reaction Allergy Type Onset Date Status lorazepam Ativan Unknown Drug Allergy Active Results Component Value Reference Range Notes Pathology Reviewed date:07/25/2024 11:55:22 PM Interpretation: Performing Lab:[facility], [address] [place] [phone] Notes/Report: Reason For Referral No Information Medications Medication SIG (Take, Route, Frequency, Duration) Notes Start Date End Date Status Cholestyramine 4 GM/DOSE Powder 1/2 to 1 scoop mixed in a glass of water or orange juice Orally Once or Twice a day to help with the diarrhea; Duration: 30 day(s) Active Multi Vitamin/Minerals - Tablet as directed Orally once a day Not-Taking/PRN OLANZapine 10 MG Tablet 1 tablet Orally Once a day; Duration: 30 day(s) Active OXcarbazepine 150 MG Tablet 1 tablet Orally Twice a day; Duration: 30 day(s) Active Nadolol 20 MG Tablet TAKE 1 TABLET BY MOUTH EACH MORNING; Duration: 30 Active Omeprazole 40 MG Capsule Delayed Release TAKE 1 CAPSULE BY MOUTH EVERY MORNING; Duration: 90 Active Omeprazole 20mg QD Acti ve Nadolol 20mg 1 QD Active traZODone HCl 150 MG Tablet 1 tablet at bedtime as needed Orally Once a day Active Immunizations Vaccine Route Administration Date Status Comme nts Influenza Unknown 04/03/2019 Administered Influenza Unknown 04/28/2022 Administered Influenza Unknown 03/30/2023 Refused Influenza Unknown 04/19/2023 Administered Social History Tobacco Use: Social History Observation Description Date Details (start date - stop date) Current Smoker NA - NA Social History Drugs/Alcohol: Social Info Question Answer Notes Alcohol Screen Did you have a drink containing alcohol in the past year? No Points 0 Interpretation Negative Tobacco Use: Social Info Question Answer Notes Tobacco Use/Smoking Patient is a current smoker How often do you smoke cigarettes? every day How many cigarettes a day do you smoke? 11-20 How soon after you wake up do you smoke your first cigarette? within 5 minutes Are you interested in quitting? Not ready to quit Additional Details Category Social Info Options Details Miscellaneous: Marital status: Occupation: DISABLED Section Notes: Smoker; alcohol abuse Smoker; alcohol [...] Problem Status W/U Status Risk Notes Problem Screening for malignant neoplasm of colon (564812093) Encounter for screening for malignant neoplasm of colon (Z12.11) Active confirmed Problem History of adenomatous polyp of colon (259128587) History of adenomatous polyp of colon (Z86.010) Active confirmed Problem Diverticular disease of colon (077973968) Diverticulosis of large intestine without perforation or abscess without bleeding (K57.30) Active confirmed Problem Alcoholic cirrhosis (504123053) Alcoholic cirrhosis of liver with ascites (K70.31) Active confirmed Problem Gallstones (025145066) Gallstones (K80.20) Active confirmed Problem Cirrhotic (553754938) Cirrhosis (K74.60) Active confirmed Problem Esophageal varices (96816293) Esophageal varices (I85.00) Active confirmed Problem 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 Problem Right upper quadrant pain (107752624) Abdominal pain, RUQ (R10.11) Active confirmed Problem Chronic fatigue syndrome (30817625) Chronic fatigue (R53.82) Active confirmed Problem Diverticulosis of sigmoid colon (338325251) Diverticulosis of sigmoid colon (K57.30) Active confirmed Problem 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 Encounters Encounter Location Date Provider Diagnosis [facility] Outpatient [address] [place] [phone] 07/23/2024 Frankie Reyes Colon cancer scree osorio [...] hemorrhoids (ICD-10 - K64.8) Plan Of Treatment Pending Test Test Name Order Date CHEM 7 PROFILE 04/10/2012 CHEM 7 PROFILE 09/20/2012 CHEM 7 PROFILE 01/03/2013 ELECTROLYTES 11/15/2012 ELECTROLYTES 01/08/2013 ELECTROLYTES 02/11/2013 ELECTROLYTES 04/20/2013 ELECTROLYTES 07/05/2012 ELECTROLYTES 02/28/2013 ELECTROLYTES 05/30/2013 ELECTROLYTES 11/28/2013 BUN 11/28/2013 BUN 05/30/2013 BUN 02/28/2013 BUN 07/05/2012 BUN 04/20/2013 BUN 02/11/2013 BUN 01/08/2013 BUN 11/15/2012 CREATININE 11/15/2012 CREATININE 01/08/2013 CREATININE 02/11/2013 CREATININE 04/20/2013 CREATININE 07/05/2012 CREATININE 02/28/2013 CREATININE 05/30/2013 CREATININE 11/28/2013 LIVER PROFILE 02/28/2013 LIVER PROFILE 07/05/2012 LIVER PROFILE 04/10/2012 LIVER PROFILE 09/20/2012 LIVER PROFILE 01/03/2013 LIVER PROFILE 11/15/2012 AMMONIA 11/15/2012 AMMONIA 02/28/2013 CBC w DIFF 02/28/2013 CBC w DIFF 09/20/2012 CBC w DIFF 11/15/2012 CBC w DIFF 01/03/2013 CELL COUNT FLUID 09/20/2012 PROTHROMBIN TIME (PT, INR) 09/20/2012 PROTHROMBIN TIME (PT, INR) 04/10/2012 PROTHROMBIN TIME (PT, INR) 05/05/2022 PROTHROMBIN TIME (PT, INR) 02/28/2013 PROTHROMBIN TIME (PT, INR) 11/15/2012 PARTIAL THROMBOPLASTIN TIME (PTT) 2012 ALPHA-FETOPROTEIN,TUMOR MARKER 2 ALPHA-FETOPROTEIN,TUMOR MARKER 3 GRAM STAIN 09/20/2012 ROUTINE CULTURE 09/20/2012 MRI ABD W&WO CONTRAST 05/30/2013 NUC HIDA SCAN 11/13/2014 US ABD 12/02/2017 US PARACENTESIS GUIDE 12/06/2012 US PARACENTESIS GUIDE 09/20/2012 US PARACENTESIS GUIDE 01/03/2013 US ABDOMEN COMP WITH ELASTOGRAPHY 2021 Future Test Test Name Order Date UPPER GI ENDOSCOPY 05/09/2012 COLONOSCOPY 12/02/2017 UPPER GI ENDOSCOPY 05/05/2022 COLONOSCOPY 05/05/2022 COLONOSCOPY 03/27/2024 Insurance Providers Payer Name Payer Address Payer Phone Subscriber Number Group Number Insured Name Patient Relationship to Insured Coverage Start Date Coverage End Date [employer] [place] [address] [address] [place] [address] [id number] EUGENIO STANLEY Self - patient is the insured Medical (General) History Medical History History ICD Code Hypertension Denies [place],DM,Lung disease,renal disease Alcohol abuse At [facility] 10/09-11/01/12 for asci rick, resp [...] nonvisualized gallbladder--has seen 2 different surgeons at [facility]--including the liver transplant surgeon, Dr. Morris--but [...] schedule d for surgery on 10/04/2022 at [facility] in [place]. He had the surgery as below. 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 Alcaraz. Scheduled to finish in 11/2023. CT scan of the abdomen in [facility] of 2023 revealed some ascites, as well [...]
--- OUTSIDE RECORDS SUMMARY | 2025-06-13 18:53 | XMS_ITS | Encounter Summary ---
Author Organization [facility] Address [address] [place] [address] Care Team Providers Care Public Safety Dispatcher Name Role Phone Julio Ware Primary Care Provider [phone] Encounter Details Date Type Department Care Team (Late st Contact Info) Description 10/27/2022 Orders Only [facility] Xray [address] [place] [address] Severino Green MD [address] [place] [address] Social History Tobacco Use Types [...] documented as of this encounter Care Teams Public Safety Dispatcher Relationship Specialty Start Date End Date Chaz Julio [address] [place] [address] PCP - General Internal Medicine 2/2/23 documented as of this encounter
--- OUTSIDE RECORDS SUMMARY | 2025-06-13 18:53 | XMS_ITS | Encounter Summary ---
Author Organization [facility] Address [address] [place] [address] Care Team Providers Care Automobile Leasing Supervisor Name Role Phone Julio Ware Primary Care Provider [phone] Encounter Details Date Type Department Care Team (Late st Contact Info) Description 07/29/2022 Orders Only [facility] Interventional Radiology [address] [place] [phone] Gregory Jack MD [address] [place] [address] [phone] Social History Tobacco Use Types Packs/Day Years [...] documented as of this encounter Care Teams Automobile Leasing Supervisor Relationship Specialty Start Date End Date Julio Ware [address] [place] [address] PCP - General Internal Medicine 07/29/22 documented as of this encounter
--- OUTSIDE RECORDS SUMMARY | 2025-06-13 18:54 | XMS_ITS | Clinical Summary ---
Author Organization [facility] Address [address] [place] [address] Care Team Providers Care Software Support Specialist Name Role Phone Julio Ware Primary Care Provider Allergies Active Allergy Reactions Criticality Noted Date [...] Alcoholic cirrhosis 10/01/2022 10/01/2022 Lesion of right [place] kidney 01/22/2016 Hypertension 01/08/2015 Esophageal reflux 01/08/2015 [...] Screening Completed 12/19/2015 Procedures * Due to [place] [employer] law, this organization might not be sharing negative HIV tests. Procedure Name Priority Date/Time Associated Diagnosis Comments BASIC METABOLIC PANEL Routine 10/27/2022 4:47 AM EDT HEPATITIS C ANTIBODY W/REFLEX TO HCV RNA, QUANTITATIVE PCR Routine 12/19/2015 12:13 PM EDT from Last 3 Months or Most Recently Relevant to Health Maintenance Results * Due to [place] [employer] law, this organization might not be sharing negative HIV tests. * (ABNORMAL) Basic Metabolic Panel (10/27/2022 4:47 AM EDT) NA 137 135 - 145 mmol/L 10/27/2022 5:30 AM [facility] K 3.7 3.5 - 5.3 mmol/L 10/27/2022 5:30 AM [facility] Cl 107 97 - 110 mmol/L 10/27/2022 5:30 AM [facility] CO2 24 24 - 32 mmol/L 10/27/2022 5:30 AM [facility] BUN 14 7 - 23 mg/dL 10/27/2022 5:30 AM [facility] Creatinine 1.37(H) 0.60 - 1.30 mg/dL 10/27/2022 5:30 AM [facility] Glucose 91 70 - 99 mg/dL 10/27/2022 5:30 AM [facility] Calcium 8.7 8.7 - 10.7 mg/dL 10/27/2022 5:30 AM [facility] Anion Gap 6 5 - 15 10/27/2022 5:30 AM [facility] eGFR 58(L) >=90 mL/min/1. 73m2 10/27/2022 5:30 AM [facility] Comment: Estimated Glomerular [...] LAB BLOOD ORDERABLES Final Re sult [facility] [address] [place] [address], [place] * Hepatitis C Antibody w/Reflex to HCV RNA, Quantitative PCR (12/19/2015 12:13 PM EDT) Hepatitis C Antibody NON-REACTI VE NON-REACT [facility] Signal To Cut-Off 0.04 <1.00 [facility] 12/19/2015 12:1 3 PM EDT 12/19/2015 12:59 PM EDT Anisha Armendariz MASTICATOR LAB BLOOD ORDERABLES Final Res ult Performing Organization Address City/[facility]/ZIP Co de Phone Number CHETAN SOLORIO from Last 3 Months or Most Recently Relevant to Health Maintenance Additional Health Concerns Infection Onset Date Last Indicated Multidrug resistant organisms ESBL 10/19/2022 10/19/[address] [place] [address] [employer] Advance Directives Documents on File Type Date Recorded Patient Zigzag Topstitcher Expl anation Health Care Proxy 10/15/2022 8:45 [...] Agents on File Name Relationship Healthcare Agent [facility] Phuong Lindsey Spouse [facility] Health Care Agen Care Teams Software Support Specialist Relationship Specialty Start Date End Date ChazJulio matos [address] [place] [address] PCP - General Internal Medicine 07/29/22
--- OUTSIDE RECORDS SUMMARY | 2025-06-13 18:54 | XMS_ITS ---
Author Organization [facility] Address [address] [place] [address] Care Team Providers Care Lawyer Criminal Name Role Phone Julio Ware Primary Care Provider [phone] Active Problems Problem Noted Date Diagnosed Date [...] Alcoholic cirrhosis 10/01/2022 10/01/2022 Lesion of right [place] kidney 01/22/2016 Hypertension 01/08/2015 Esophageal reflux 01/08/2015 [...] TotalDLP 3,643 mGy 3,643 mGy 0 mGy [id number] 44 mSv 44 mSv 0 mSv CTDIvol Max 74.4 mGy 74.4 mGy 0 mGy CTDIvol Min 36.4 mGy 36.4 mGy 0 mGy Radiation - mGy 216.4 mGy 216.4 mGy 0 mGy
== END 2025-06-13 14:46 ==
LOC: HO.CT 14:45
PROVIDERS: PCP Internal Medicine; Visit Provider Nurse Practitioner Family
DX: R91.8 Other nonspecific abnormal finding of lung field (principal); Z85.528 Personal history of other malignant neoplasm of kidney
CPT/HCPCS: 71250

== ENCOUNTER → 2025-06-13 14:49 | Outpatient (BNV) | payer OTHER, SELFPAY | PROVIDERS: PCP Internal Medicine; Visit Provider Radiology Diagnostic Radiology | DX: R91.8 Other nonspecific abnormal finding of lung field (principal) | CPT/HCPCS: 71250 ==

== ENCOUNTER 2025-06-21 14:43 | Outpatient (AMB) | payer OTHER, SELFPAY ==
--- OUTSIDE RECORDS SUMMARY | 2024-07-23 05:30 | XMS_ITS ---
Author Organization [facility] Address [address] [place] [phone] Care Team Providers Care Skewer Up Name Role Phone Chaz OLIVA, [facility] Primary [facility] Provider Frankie Meyers [phone] REASON FOR VISIT screening,hx polyps Problems Problem Type SNOMED Code ICD Code Onset Dates Problem Status W/U Status Risk Notes Problem Diverticular disease of colon (666720191) Diverticulosis of large intestine without perforation or abscess without bleeding (K57.30) Active confirmed Encounters Encounter Location Date Provider Diagnosis [facility] Outpatient [address] [place] [phone] 07/23/2024 Frankie Reyes Colon cancer scree osorio Z12.11 ; Personal history of colonic polyps Z86.0100 ; Family history of colon cancer Z80.0 ; Diverticulosis of large intestine without perforation or abscess without bleeding K57.30 and Other hemorrhoids K64.8 Assessments Encounter Date Diagnosis (ICD Code) Assessment Notes Treatment Notes Treatment Clinical Notes Section Notes 07/23/2024 Colon cancer screening (ICD-10 - Z12.11) 07/23/2024 Personal history of colonic polyps (ICD-10 - Z86.0100) 07/23/2024 Family history of colon cancer (ICD-10 - Z80.0) 07/23/2024 Diverticulosis of large intestine without perforation or abscess without bleeding (ICD-10 - K57.30) 07/23/2024 Other hemorrhoids (ICD-10 - K64.8) Plan Of Treatment No Information Progress Notes * EUGENIO STANLEYDOB:1960 (64 yo M)Acc No.[id number]:07/23/2024 COLON WITH MAC Patient: EUGENIO MONIQUE Provider: Karen Reyes MD :1960 A ge:63 Y S ex:Male Date:07/23/2024 Address: [facility] Pcp:Julio Ware MD Subjective: * Chief Complaints: * S creening,hx polyps Assessment: * Assessment: 1. C olon cancer screening - Z12.11 (Primary) 2 . P ersonal history of colonic polyps - Z86.0100 3 . F amily history of colon cancer - Z80.0 ?4. D iverticulosis of large intestine without perforation or abscess without bleeding - K57.30 5 . O ther hemorrhoids - K64.8 Plan: * Procedure Codes: 4 5385 LESION REMOVAL COLONOSCOPY, Modifiers: PT 0529F INTRVL 3+YRS PTS CLNSCP DOCD, Modifiers: 1P 0528F RCMND FLW-UP 10 YRS DOCD, Modifiers: 1P Billing Information: * Procedure Codes: 44844 LESION REMOVAL COLONOSCOPY. Modifiers: PT 0529F INTRVL 3+YRS PTS CLNSCP DOCD. Modifiers: 1P 0528F RCMND FLW-UP 10 YRS DOCD. Modifiers: 1P * The named appointment provid er may or may not be the originator of this progress note, and it is not deemed complete until electronically signed by the appointment provider. Sign off status: Pending * Provider: Karen Reyes MD Date: 0 07/23/2024 Generated for Adenike enamorado/Ashwin/Reganitting on: 08/22/2024 02:47 PM EST
--- OUTSIDE RECORDS SUMMARY | 2025-06-21 14:46 | XMS_ITS | Encounter Summary ---
Author Organization [facility] Address [address] [place] [address] Care Team Providers Care Military Science Instructor Name Role Phone Julio Ware Primary Care Provider [phone] Encounter Details Date Type Department Care Team (Late st Contact Info) Description 07/29/2022 Orders Only [facility] Interventional Radiology [address] [place] [address] [phone] Gregory Jack MD [address] [place] [address] [phone] Social History Tobacco Use Types Packs/Day Years [...] documented as of this encounter Care Teams Military Science Instructor Relationship Specialty Start Date End Date Julio Ware [address] [place] [address] PCP - General Internal Medicine 07/29/22 documented as of this encounter
--- OUTSIDE RECORDS SUMMARY | 2025-06-21 14:46 | XMS_ITS | Patient Health Record ---
Author Organization [facility] Address [address] [place] [address] Care Team Providers Care Land Examiner Name Role Phone Chaz OLIVA, [facility] Primary Care Provider Frankie Meyers [phone] Allergies Allergen (clinical drug ingredient) Drug/Non Drug Allergy documented on EMR Reaction Allergy Type Onset Date Status lorazepam Ativan Unknown Drug Allergy Active Results Component Value Reference Range Notes Pathology Reviewed date:07/25/2024 11:55:22 PM Interpretation: Performing Lab:[facility], [address] [place] [id number] Notes/Report: Reason For Referral No Information Medications [...] Problem Screening for malignant neoplasm of colon (501300192) Encounter for screening for malignant neoplasm of colon (Z12.11) Active confirmed Problem History of adenomatous polyp of colon (468453454) History of adenomatous polyp of colon (Z86.010) Active confirmed Problem Diverticular disease of colon (171470982) Diverticulosis of large intestine without perforation or abscess without bleeding (K57.30) Active confirmed Problem Alcoholic cirrhosis (233838876) Alcoholic cirrhosis of liver with ascites (K70.31) Active confirmed Problem Gallstones (061071744) Gallstones (K80.20) Active confirmed Problem Cirrhotic (721474830) Cirrhosis (K74.60) Active confirmed Problem Esophageal varices (39947764) Esophageal varices (I85.00) Active confirmed Problem Porcelain gallbladder (250462062) 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 Problem Right upper quadrant pain (880905785) Abdominal pain, RUQ (R10.11) Active confirmed Problem Chronic fatigue syndrome (87718498) Chronic fatigue (R53.82) Active confirmed Problem Diverticulosis of sigmoid colon (643926428) Diverticulosis of sigmoid colon (K57.30) Active confirmed Problem 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 [address] [place] [address] [id number] EUGENIO STANLEY Self - patient is the insured Medical (General) History Medical History History ICD Code Hypertension Denies CT,DM,Lung disease,renal disease Alcohol abuse At [facility] 10/09-11/01/12 for asci rick, resp failure, [...] nonvisualized gallbladder--has seen 2 different surgeons at [facility]--including the liver transplant surgeon, Dr. Morris--but they think he is too high risk for gallbladdder surgery EGD in 07/2012 with minimal Gr I varices and gastritis, HH, and duodenitis Stroke 01/2016--received TPA--no residual Atrial fibrillation Right renal lesion-sees Dr. 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 He had the surgery as below. 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 Alcaraz. Scheduled to finish in 11/2023. CT scan of the abdomen in [facility] of 2023 revealed some ascites, as [...]
--- OUTSIDE RECORDS SUMMARY | 2025-06-21 14:46 | XMS_ITS | Encounter Summary ---
Author Organization [facility] Address [address] [place] [address] Care Team Providers Care Merchandise Distributor Name Role Phone Julio Ware Primary Care Provider [phone] Encounter Details Date Type Department Care Team (Late st Contact Info) Description 11/03/2022 Orders Only [facility] Interventional Radiology [address] [place] [phone] Gregory Jack MD [address] [place] [address] [phone] Social History Tobacco Use Types Packs/Day Years [...] documented as of this encounter Care Teams Merchandise Distributor Relationship Specialty Start Date End Date Julio Ware [address] [place] [address] PCP - General Internal Medicine 07/29/22 documented as of this encounter
--- OUTSIDE RECORDS SUMMARY | 2025-06-21 14:46 | XMS_ITS | Encounter Summary ---
Author Organization [facility] Address [address] [place] [address] Care Team Providers Care High School English Teacher Name Role Phone Julio Ware Primary Care Provider [phone] Reason for Visit * Reason Onset Date Comments RESCHEDULE APPT 07/19/2022 Encounter Details Date Type Department Care Team (Late st Contact Info) Description 07/19/2022 Telephone [facility] Pediatric Urology [address] [place] [id number] Technical Communicator: Pilar Underwood Telephone Intake, Staff RESCHEDULE APPT [...] call Miah back with sooner appt date: [phone] documented in this encounter Plan of Treatment Not on file documented as of this encounter Visit Diagnoses Not on filedocumented in this encounter Additional Health Concerns Infection Onset Date Last Indicated Resolved Time Multidrug resistant organisms ESBL 10/19/20222022 documented as of this encounter Care Teams High School English Teacher Relationship Specialty Start Date End Date Julio Ware [address] [place] [address] PCP - General Internal Medicine 07/29/22 documented as of this encounter
--- OUTSIDE RECORDS SUMMARY | 2025-06-21 14:46 | XMS_ITS | Encounter Summary ---
Author Organization [facility] Address [address] [place] [address] Care Team Providers Care Industrial Gas Service Helper Name Role Phone Julio Ware Primary Care Provider [phone] Encounter Details Date Type Department Care Team (Late st Contact Info) Description 11/16/2022 Orders Only [facility] Interventional Radiology [address] [place] [address] Patrick Noel MD [address] [place] [address] Social History Tobacco Use Types Packs/Day Years [...] documented as of this encounter Care Teams Industrial Gas Service Helper Relationship Specialty Start Date End Date Julio Ware [address] [place] [address] PCP - General Internal Medicine 07/29/22 documented as of this encounter
[2025-06-21 14:47] VITALS: BP 146/80; PULSE 69; O2SAT 96; BMI 31.0
--- NOTE | 2025-06-21 14:47 | MHC.OFFVIS ---
Vital Signs 06/21/25 14:47 Height 5 ft 9 in Weight 210 lb 4 oz BMI 31.0 BP 146/80 H Blood Pressure Location Rt brachial Position Sitting Pulse 69 Pulse Source Pulse Oximeter Pulse Oximetry (%) 96 Oxygen Delivery Method Room Air Intake Visit Reasons: Lung Nodules/CT Follow Up Allergies duloxetine Allergy (Unknown, Verified 06/21/25 14:50) psychotic episodes Seasonal Allergies Allergy (Verified 06/21/25 14:50) Itchy Eyes lorazepam (From [facility]) Adverse Reaction (Unknown, Verified 06/21/25 14:50) AGITATION HPI Comments Details: Miah is a pleasant 64 year old male, current 30+ pack year smoker, with underlying COPD, h/o right renal cell carcinoma s/p nephrectomy, atrial fibrillation, GERD, HTN, and liver cirrhosis. He was initially referred by Dr. Sutherland after surveillance CT for renal carcinoma revealed new pulmonary nodules. The patient has a history of renal cell carcinoma for which he underwent nephrectomy in 2022, followed by a year of treatment with pembrolizumab. Subsequent imaging revealed pulmonary nodules in 2023, with some changes in size and new nodules appearing on CT chest 01/2025. CT demonstrated stable 4 mm pulmonary nodule within the lingula, new 5 mm pulmonary nodule right upper lobe, new 6 mm pulmonary nodule left upper lobe image and 2 and 3 mm new pulmonary nodules within the right upper and left upper lobes and right middle lobe. These are in random distribution most are new. Given h/o renal cell carcinoma and multiple new nodules he was sent for a repeat [address] At the last visit he was prescribed Breo which has improved his breathing and stamina, but he continues to experience chest tightness, a persistent dry cough, and postnasal drip. He uses an albuterol inhaler infrequently and is taking loratadine for his allergies with moderate effect. He has a history of tobacco use and reports he is cutting down on smoking. Today he presents to review repeat CT chest results. Pulmonology History - History of pulmonary nodules with recent surveillance CT showing two nodules with slight interval growth from 2mm to 4mm and 2mm to 3mm respectively. - Chronic dry cough, persistent. - Dyspnea with some improvement in stamina on Breo inhaler. - Persistent chest tightness. - Postnasal drip, ongoing. - Current tobacco use, with patient reporting he is cutting down. - Current use of Breo inhaler. - Infrequent use of albuterol inhaler for rescue. Results - Chest CT 05/2025: Revealed two pulmonary nodules with a slight increase in size; one from 2 mm to 4 mm and another from 2 mm to 3 mm, otherwise all other nodules stable, largest 5mm since CT 01/2025 [facility] Medical History CVA (cerebral vascular accident) Difficulty sleeping Anxiety, generalized Porcelain gallbladder Ascites Alcohol abuse Irritable bowel syndrome Chronic GERD Paroxysmal atrial fibrillation Tobacco abuse Surgical History Hx of esophagogastroduodenoscopy History of colonoscopy H/O exploratory laparotomy Family History Father Cerebrovascular disease Diabetes mellitus HTN (hypertension) Hx of CABG Mother Lung cancer Maternal Grandmother Myocardial infarction Maternal Grandfather Lung cancer Paternal Grandmother Cerebrovascular disease Paternal Uncle Lung cancer Brother No problems noted. Brother No problems noted. Son No problems noted. Son No problems noted. Other Mental health disorder Substance use disorder Social History Household Members: Spouse and Children Housing: House Alcohol intake: current Alcohol intake frequency: former alcohol drinker Patient Tobacco Use Status: Current everyday Tobacco user Tobacco use type: Cigarette Cigarette Packs Per Day: 1 Cigarettes Per Day: 20 Years Smoked: 50 years e-Cigarette/Vaping Use: Currently Using Substance Use Type: Other service: No Current occupational status: disabled Cognitive needs: No Hearing needs: No Vision needs: Yes Review of Systems Narrative Const Denies chills, Denies excessive sweating, Denies fever(s), Denies headache(s) and Denies night sweats Eyes Denies dry eyes, Denies irritation and Reports itchy eyes ENT Reports Normal hearing present, Denies headache(s), Denies nasal congestion, Denies nasal discharge, Reports post nasal drip and Denies sore throat Card Denies chest pain, Denies chest pain at rest, Denies chest pain with activity, Denies claudication, Denies leg edema, Reports dyspnea on exertion, Denies orthopnea and Denies paroxysmal nocturnal dyspnea Resp Denies change in phlegm color, Denies chest congestion, Reports cough, Denies hemoptysis, Denies excessive phlegm production, Denies pain on inspiration, Denies pain with cough, Reports dyspnea on exertion, Denies stridor and Denies wheezing Musc Denies myalgias Neuro Reports Normal hearing present and Denies headache(s) Endo Denies excessive sweating Ramos/Lymph Denies lymphadenopathy Aller/Immun Reports itchy eyes, Denies seasonal rhinorrhea and Denies wheezing Physical Exam Exam Exam: Vital Signs: Last Vital Signs Pulse 69 06/21/25 14:47 BP 146/80 H 06/21/25 14:47 Pulse Ox 96 06/21/25 14:47 Oxygen Delivery Method Room Air 06/21/25 14:47 BMI result Body Mass Index 31.0 Const General: cooperative, healthy appearing, comfortable, no acute distress, well developed and alert Nutritional Appearance: obese Orientation/consciousness: patient oriented x3 Limitations: no limitations HEENT Head: Yes normal to inspection, Yes normocephalic and Yes atraumatic Ears: hearing grossly normal bilaterally and external ears normal Eyes General: appearance normal, both eyes and all related structures Eyelids: Yes eyelids normal Sclerae: sclerae normal EOM: EOMs intact bilaterally Neck Neck: Yes normal visual inspection and Yes no lymphadenopathy Lymphatic: no lymphadenopathy noted Chest Chest palpation & inspection: normal inspection of the chest Resp Other: coarse inspiratory crackles LLL scarring noted of LLL on chest CT Effort & Inspection: normal respiratory effort, able to speak in complete sentences, no audible wheezes, no cough, no stridor, not tachypneic, no tripod positioning and no use of accessory muscles Auscultation: diminished lung sounds Cardio Jugular venous distension: no JVD Rate: regular rate Rhythm: regular rhythm Skin Other: warm, dry General skin exam: no rashes or lesions noted Neuro General: patient oriented x3 Cranial nerves: Yes Normal hearing present Cognition (Neuro): normal cognition Gait exam (Neuro): Normal gait present Extrem General: Yes normal to inspection, Yes capillary refill normal, Yes no clubbing, cyanosis or edema and Yes no pedal edema Psych Appearance: grossly normal and well kempt Speech and movement: Normal speech and movement present and Clear speech present Affect: normal affect Attitude: cooperative Thought process: Normal thought process present Thought content: Normal thought content present Insight: Good insight present (Psych) Judgement: Good judgement present (Psych) Results Reviewed Results Reviewed: [address] [address] [address] Scan Report Signed Patient: Miah Lindsey MR#: [id number] : 1960 Acct:[id number] Age/Sex: 64 / M ADM Date: 06/13/25 Loc: HO.CT Attending Dr: Alize Steiner NP Ordering Physician: Alize Steiner NP Date of Service: 06/13/25 Procedure(s): CT chest wo IV con Accession Number(s): [id number] cc: Julio Ware MD; Alize Steiner NP~ Report Number: [id number]: Total DLP = 198.00 mGy-cm Reason for Exam: R91.8 - Other nonspecific abnormal finding of lung field EXAMINATION: CT CHEST WITHOUT CONTRAST CLINICAL INFORMATION: 2 month follow-up, renal CA, numerous lung nodules, follow-up. COMPARISON: 02/23/2025, 02/28/2024. 09/19/2023. TECHNIQUE: Multidetector volumetric CT imaging of the chest was done. Axial MIP volume rendering provided. Sagittal and coronal reformatted images were obtained. This CT examination was performed using dose optimization techniques as appropriate, variously including the following: *Automated exposure control *Adjustment of mA and/or kV according to patient size (this includes techniques or standardized protocols for targeted exams where dose is matched to indication/reason for exam; i.e. extremities or head) *Use of iterative reconstruction technique FINDINGS: NODULES: 4 mm nodule right upper lobe anteriorly (series 6, image 122), unchanged. 3 mm nodule left upper lobe posteriorly (series 6, image 229), unchanged. 5 mm nodule right middle lobe centrally (series 6, image 276), unchanged. 4 mm nodule lateral right middle lobe (series 6, image 266), unchanged. 4 mm nodule superior segment right lower lobe (series 6, image 269), previously 2 mm. 3 mm nodule central right lower lobe (series 6, image 276), previously 2 mm. 5 mm nodule medial left upper lobe (series 6, image 118), unchanged. Several additional left nodules are unchanged measuring up to 4 mm. There are no new nodules identified LUNGS: Stable reticular changes in the posterior right upper lobe, along the minor fissure, and involving the lingula and posterior lower lobes left greater than right. No significant bronchiectasis. Minimal thickening of the small airways is unchanged from the prior. There are no effusions. MEDIASTINUM: Minimally heterogeneous thyroid without dominant nodule present. There is no lymphadenopathy or mass. A reactive right paratracheal lymph node is stable in appearance. It has a large fatty hilum. Similar mild thickening of the distal esophagus, possibly on basis of esophagitis. The heart size is top normal. There is calcification of the mitral annulus. There is no pericardial effusion. The central airways are patent. The aorta is nonaneurysmal with mild calcification. The pulmonary trunk is minimally prominent however not pathologically enlarged. CORONARY ARTERY CALCIFICATION: Moderate PLEURA: There is no pleural effusion. No pleural mass or thickening. AXILLA/CHEST WALL: There is similar severe bilateral male gynecomastia. There are similar venous collaterals in the left chest wall, possibly due to stenosis of the left brachiocephalic vein from indwelling catheters. Correlation with history recommended. No abnormal lymph nodes or masses. UPPER ABDOMEN: Cirrhosis of the liver, unchanged. No definite lesion allowing for noncontrast technique. There is trace perihepatic ascites. There are gastric varices present. The spleen is mildly enlarged, unchanged. Stable 1.4 cm nodule in the left adrenal gland. OSSEOUS STRUCTURES: Mild degenerative changes of the spine and sternoclavicular joints. No suspicious lytic or blastic bone lesions evident. CT/CT chest wo IV con IMPRESSION: 1. Numerous bilateral pulmonary nodules as described above. No definite new nodules are present, however a 4 mm nodule in the superior segment right lower lobe has doubled in size, previously measuring 2 mm. Similarly, a 3 mm nodule in the central right lower lobe previously measured 2 mm, minimally increased in size. The remainder of the pulmonary nodules are all stable in size, largest 5 mm, without definitive change. Given patient history of malignancy and findings of 2 mildly enlarging nodules, continued short interval surveillance recommended. 2. Stable parenchymal changes of scarring in the right upper lobe, and bilateral posterior lower lobes. 3. Ancillary findings, stable from prior exams. See above for details. Electronically signed by: Anibal Ventura MD 06/13/2025 04:20 PM [facility] Dictated By: Anibal Ventura MD Signed By: <Electronically signed by Anibal Ventura MD in OV> 06/13/25 1620 DD/ 1536 TD/TT: 06/13/25 2717 Supervisor Money Room: Assessment & Plan Assessment & Plan (1) COPD (chronic obstructive pulmonary disease): Code(s): J44.9 - Chronic obstructive pulmonary disease, unspecified Category: Medical Qualifiers: COPD type: emphysema Emphysema type: other Qualified Code(s): J43.8 - Other emphysema (2) Multiple pulmonary nodules: Code(s): R91.8 - Other nonspecific abnormal finding of lung field Category: Medical (3) History of renal carcinoma: Code(s): Z85.528 - Personal history of other malignant neoplasm of kidney Category: Medical Plan Reviewed results of chest CT 06/13/25 explaining that two pulmonary nodules have slightly increased in size but are below resolution for PET and difficult to biopsy. Due to the patient's smoking history and prior history of kidney cancer, closer surveillance is warranted to which he agreed. A repeat CT scan is recommended in three months, and if stable, subsequent scans will be performed every six months. We also reviewed his respiratory symptoms, noting partial improvement with Breo. Recommended increasing the Breo dose to better manage his persistent cough and chest tightness. We discussed that his postnasal drip could be contributing to the cough, and although a nasal spray was offered, we decided to first assess the response to the increased Breo dose. Advised the patient to obtain an influenza vaccine from a local pharmacy and reinforced preventive measures like handwashing. Provided return precautions, instructing him to call if he develops worsening respiratory symptoms. The patient verbalized understanding and agreed with the plan for a repeat scan in August, order already placed. All questions were answered and patient is in agreement of plan. Will follow up in 10-12 weeks or sooner if needed. Patient Instructions - A prescription for an increased dose of your Breo inhaler was sent to your pharmacy. - Please get a CT scan of your chest in August. The order has been placed. - Please make a follow-up appointment to see me at the end of August after you have completed your CT scan. - It is recommended that you get a flu shot. You can get this at a local pharmacy like [facility] or [facility]. - To prevent illness, wash your hands often and consider wearing a mask in crowded areas. - Continue your efforts to cut down on smoking. Patient was informed and verbally consented to the use of an ambient scribe for clinic note documentation during this visit. Medications: New fluticasone furoate-vilanterol 200-25 mcg/dose (Breo Ellipta) 1 inh inhalation DAILY 60 ea 3RF Discontinued fluticasone furoate-vilanterol 100-25 mcg/dose (Breo Ellipta) Discontinued Reason: Patient Completed Course 1 inh inhalation DAILY 60 ea 3RF Coding Level of Care Code Est Pt Level 4 (16125) Add On Problem Visit Only Diagnoses Other emphysema J43.8 COPD type: emphysema Emphysema type: other Multiple pulmonary nodules R91.8 History of renal carcinoma Z85.528
--- OUTSIDE RECORDS SUMMARY | 2025-06-21 14:47 | XMS_ITS | Clinical Summary ---
Author Organization [facility] Address [address] [place] [address] Care Team Providers Care Souvenir And Novelty Maker Name Role Phone Julio Ware Primary Care Provider [phone] Allergies Active Allergy Reactions Criticality Noted Date [...] Alcoholic cirrhosis 10/01/2022 10/01/2022 Lesion of right [place] kidney 01/22/2016 Hypertension 01/08/2015 Esophageal reflux 01/08/2015 [...] Screening Completed 12/19/2015 Procedures * Due to [place] [employer] law, this organization might not be sharing negative HIV tests. Procedure Name Priority Date/Time Associated Diagnosis Comments BASIC METABOLIC PANEL Routine 10/27/2022 4:47 AM EDT HEPATITIS C ANTIBODY W/REFLEX TO HCV RNA, QUANTITATIVE PCR Routine 12/19/2015 12:13 PM EDT from Last 3 Months or Most Recently Relevant to Health Maintenance Results * Due to [place] [employer] law, this organization might not be sharing negative HIV tests. * (ABNORMAL) Basic Metabolic Panel (10/27/2022 4:47 AM EDT) NA 137 135 - 145 mmol/L 10/27/2022 5:30 AM [facility] K 3.7 3.5 - 5.3 mmol/L 10/27/2022 5:30 AM [facility] Cl 107 97 - 110 mmol/L 10/27/2022 5:30 AM [facility] CO2 24 24 - 32 mmol/L 10/27/2022 5:30 AM [facility] BUN 14 7 - 23 mg/dL 10/27/2022 5:30 AM [facility] Creatinine 1.37(H) 0.60 - 1.30 mg/dL 10/27/2022 5:30 AM [facility] Glucose 91 70 - 99 mg/dL 10/27/2022 5:30 AM [facility] Calcium 8.7 8.7 - 10.7 mg/dL 10/27/2022 5:30 AM [facility] Anion Gap 6 5 - 15 10/27/2022 5:30 AM [facility] eGFR 58(L) >=90 mL/min/1. 73m2 10/27/2022 5:30 AM [facility] Comment: Estimated Glomerular [...] LAB BLOOD ORDERABLES Final Re sult [facility] [address] [place] [address], [place] * Hepatitis C Antibody w/Reflex to HCV RNA, Quantitative PCR (12/19/2015 12:13 PM EDT) Hepatitis C Antibody NON-REACTI VE NON-REACT [facility] Signal To Cut-Off 0.04 <1.00 [facility] 12/19/2015 12:1 3 PM EDT 12/19/2015 12:59 PM EDT Anisha Armendariz AGILE COACH LAB BLOOD ORDERABLES Final Res ult Performing Organization Address City/[facility]/ZIP Co de Phone Number CHETAN SOLORIO from Last 3 Months or Most Recently Relevant to Health Maintenance Additional Health Concerns Infection Onset Date Last Indicated Multidrug resistant organisms ESBL 10/19/2022 10/19/[address] [place] [address] [employer] Advance Directives Documents on File Type Date Recorded Patient Bioinformatics Technician Expl anation Health Care Proxy 10/15/2022 8:45 [...] Agents on File Name Relationship Healthcare Agent [facility] Phuong Lindsey Spouse [facility] Care Teams Souvenir And Novelty Maker Relationship Specialty Start Date End Date ChazJulio matos [address] [place] [address] PCP - General Internal Medicine 07/29/22
--- OUTSIDE RECORDS SUMMARY | 2025-06-21 14:47 | XMS_ITS | Encounter Summary ---
Author Organization [facility] Address [address] [place] [address] Care Team Providers Care Industrial Psychologist Name Role Phone Julio Ware Primary Care Provider [phone] Encounter Details Date Type Department Care Team (Late st Contact Info) Description 10/27/2022 Orders Only [facility] Xray [address] [place] [address] Severino Green MD [address] [place] [address] Social History Tobacco Use Types [...] as of this encounter Care Teams Industrial Psychologist Relationship Specialty Start Date End Date Chaz, [place] [address] [place] [address] PCP - General Internal Medicine 07/29/22 documented as of this encounter
--- OUTSIDE RECORDS SUMMARY | 2025-06-21 14:47 | XMS_ITS | Clinical Summary ---
Author Organization [facility] Address [address] [place] [address] Care Team Providers Care Pattern Cleaner Name Role Phone Unavailable Primary Care Provider [...]
--- OUTSIDE RECORDS SUMMARY | 2025-06-21 14:47 | XMS_ITS ---
Author Organization [facility] Address [address] [place] [address] Care Team Providers Care Sheetmetal Trades Worker Name Role Phone Julio Ware Primary Care Provider Active Problems Problem Noted Date Diagnosed Date [...] Alcoholic cirrhosis 10/01/2022 10/01/2022 Lesion of right [place] kidney 01/22/2016 Hypertension 01/08/2015 Esophageal reflux 01/08/2015 [...] TotalDLP 3,643 mGy 3,643 mGy 0 mGy [id number] mSv 44 mSv 0 mSv CTDIvol Max 74.4 mGy 74.4 mGy 0 mGy CTDIvol Min 36.4 mGy 36.4 mGy 0 mGy Radiation - mGy 216.4 mGy 216.4 mGy 0 mGy
== END 2025-06-21 15:08 | disposition home or self-care (01) ==
LOC: HO.HPSW 14:44
PROVIDERS: PCP Internal Medicine; Visit Provider Nurse Practitioner Family
DX: J43.8 Other emphysema (principal); R91.8 Other nonspecific abnormal finding of lung field; Z85.528 Personal history of other malignant neoplasm of kidney
CPT/HCPCS: 99214